=== PATIENT | female | born 1930 | race Asian ===

== ENCOUNTER 2019-06-13 20:30 | Inpatient (IN) | payer MEDICARE, MEDICAID ==
[~2019-06-13] VITALS: Ht 152.4 cm; Wt 63.0 kg
--- NOTE | 2019-06-13 20:45 | NUR ---
ED Nurse Note: Pt is aaoX3, vss, with no acute diatress. Familymember at bedside. pt brought in by daughter c/o chest pain and right side pain. pt's daughter states pt's been having pain since ERCP done in . No skin issues.
[2019-06-13 20:50] VITALS: BP 84/52
--- NOTE | 2019-06-13 21:05 | Emergency Room Report ---
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 Last 1 was done at [facility] on April 19. She was brought in by her daughter because of complaint of weakness and abdominal pain. She also felt very nauseous every time to eat. Because of that she is not eating much and is losing weight. No fever or chills. Pain is to the right upper quadrant rating to her chest. Pain is 8 out of 10. Tylenol is not helping. Denies any fever chills but denies any diarrhea. Nothing made it better. Eating made it worse. Allergies: Coded Allergies: ACETAMINOPHEN (Verified Allergy, Unknown, 06/13/19) HYDROCODONE (Verified Allergy, Unknown, 06/13/19) Patient History Past Medical History: see triage record, old chart reviewed Past Surgical History: other Pertinent Family History: none Social History: Denies: smoking Now: No Immunizations: other Reviewed Nursing Documentation: PMH: Agreed; PSxH: Agreed Nursing Documentation-PMH Hx Hypertension: Yes Review of Systems Constitutional: Reports: malaise, weakness Eye: Denies: eye pain, blurred vision ENT: Denies: ear pain, nose congestion, throat swelling Respiratory: Denies: cough, shortness of breath Cardiovascular: Denies: chest pain, palpitations Gastrointestinal: Reports: abdominal pain; Denies: diarrhea, nausea, vomiting Musculoskeletal: Denies: back pain, joint pain Skin: Denies: rash Neurological: Denies: headache, numbness Endocrine: Denies: increased thirst, increased urine Hematologic/Lymphatic: Denies: easy bruising All Other Systems: negative except mentioned in HPI Physical Exam Vital Signs Date Time Temp Pulse Resp B/P (MAP) Pulse Ox O2 Delivery O2 Flow Rate FiO2 06/13/19 20:40 98.4 64 18 84/52 (63) 95 Room Air Vitals with hypotension Sp02 EP Interpretation: reviewed, normal General Appearance: no apparent distress, alert, thin Head: normocephalic, atraumatic Eyes: bilateral eye PERRL, bilateral eye EOMI, bilateral eye Scleral Injection ENT: hearing grossly normal, normal pharynx Neck: full range of motion, supple, no meningismus Respiratory: chest non-tender, lungs clear, normal breath sounds Cardiovascular #1: regular rate, rhythm, no murmur Gastrointestinal: normal bowel sounds, non tender, no mass, no organomegaly, no bruit, non-distended Musculoskeletal: back normal, normal range of motion, gait/station normal Psychiatric: mood/affect normal Medical Decision Making Diagnostic Impression: Primary Impression: Acute cholangitis Additional Impression: UTI (urinary tract infection) Qualified Codes: N30.00 - Acute cystitis without hematuria ER Course Patient presents with weakness and laboratory they show evidence of biliary obstruction. With decreased mentation and elevated white count, she has acute cholangitis. Based on previous OR note, she has biliary stenosis even with the stent. She had evidence of infection from previous surgery. Antibiotics ordered here. IV fluid given. Blood pressure is much improved after IV fluid. Patient will need to be admitted for IV antibiotics and GI consult. I discussed the case with Dr. Jack who will admit. Rhythm Strip Diag. Results EP Interpretation: yes Rate: 62 Rhythm: NSR, no PVC's, no ectopy Last Vital Signs Date Time Temp Pulse Resp B/P (MAP) Pulse Ox O2 Delivery O2 Flow Rate FiO2 06/13/19 20:40 98.4 64 18 84/52 (63) 95 Room Air Status: improved Disposition: ADMITTED INPATIENT Condition: Serious Phong Lopez MD Jun 13, 2019 21:05
[2019-06-13] MEDS ORDERED: Ketorolac 30mg Inj IV ONE (21:15)
[2019-06-13 21:20] VITALS: BP 124/49
[2019-06-13 21:41] LABS: HEMATOCRIT 29.9 % (37.0-47.0); HEMOGLOBIN 10.8 G/DL (12.0-16.0); MEAN CORPUSCULAR VOLUME 91 FL (80-99); PLATELET COUNT 229 K/UL (150-450); RED BLOOD COUNT 3.29 M/UL (4.20-5.40); RED CELL DISTRIBUTION WIDTH 10.4 % (11.6-14.8); WHITE BLOOD COUNT 21.8 K/UL (4.8-10.8)
[2019-06-13 21:58] LABS: ANION GAP 12 mmol/L (5-15); BLOOD UREA NITROGEN 29 mg/dL (7-18); CARBON DIOXIDE 24 MMOL/L (21-32); CHLORIDE 100 MMOL/L (98-107); CREATININE 2.2 MG/DL (0.55-1.30); POTASSIUM 4.3 MMOL/L (3.5-5.1); SODIUM 136 MMOL/L (136-145)
[2019-06-13] MEDS ORDERED: Piperacillin/Tazobactam 3.375 GM in NS 110 ML IVPB ONE (22:00)
[2019-06-13 22:08] LABS: ALANINE AMINOTRANSFERASE 72 U/L (12-78); ALBUMIN 2.5 G/DL (3.4-5.0); ALBUMIN/GLOBULIN RATIO 0.6 (1.0-2.7); ALKALINE PHOSPHATASE 749 U/L (46-116); ASPARTATE AMINO TRANSFERASE 84 U/L (15-37); BILIRUBIN,TOTAL 7.8 MG/DL (0.2-1.0)
[2019-06-13 22:12] LABS: BILIRUBIN,DIRECT 6.5 MG/DL (0.0-0.3)
[2019-06-13 22:30] VITALS: BP 123/47
[2019-06-13 22:44] LABS: APPEARANCE,URINE SLIGHTLY CLOUDY; BILIRUBIN, URINE 3+ (NEGATIVE); COLOR,URINE BROWN; GLUCOSE, URINE (UA) NEGATIVE (NEGATIVE); KETONES,URINE 1+ (NEGATIVE); LEUKOCYTE ESTERASE ,URINE 2+ (NEGATIVE); NITRITE,URINE POSITIVE (NEGATIVE); PH,URINE 5 (4.5-8.0); PROTEIN,URINE 3+ (NEGATIVE); UROBILINOGEN,URINE 8 MG/DL (0.0-1.0)
[2019-06-13] MEDS ORDERED: ALLOPURINOL100 M1 ORAL ×2 (23:20→23:23)
[2019-06-13] MEDS ORDERED: NAMENDA5 MG ORAL ×2 (23:20→23:23)
[2019-06-13] MEDS ORDERED: OMEPRAZOLE40 M1 ORAL (23:20)
[2019-06-13] MEDS ORDERED: CARVEDILOL6.25 MG ORAL ×2 (23:20→23:23)
[2019-06-13] MEDS ORDERED: ASPIR 8181 MG ORAL ×2 (23:20→23:23)
[2019-06-13] MEDS ORDERED: FERROUS SULFAT325 MG ORAL (23:20)
[2019-06-13] MEDS ORDERED: ZOFRAN ODT8 MG ORAL (23:23)
[2019-06-13] MEDS ORDERED: FUROSEMIDE40 MG ORAL (23:23)
[2019-06-13] MEDS ORDERED: ADALAT20 MG ORAL (23:23)
[2019-06-13] MEDS ORDERED: LOSARTAN POTAS100 MG ORAL (23:23)
[2019-06-13] MEDS ORDERED: CRESTOR10 M2 ORAL (23:23)
--- NOTE | 2019-06-13 23:25 | NUR ---
ED Nurse Note: Called for report MIGUELINA Scott said to call back 5min.
--- NOTE | 2019-06-13 23:35 | NUR ---
ED Nurse Note: Report given to MIGUELINA Morgan.
[2019-06-13 23:40] VITALS: BP 125/52
--- NOTE | 2019-06-13 23:50 | NUR ---
TRANSFER TO FLOOR: Patient transferred to Med Surg as ordered, per MD Marcie. Report given to MIGUELINA Morgan. Belongings and medications given to sherry Morgan RN. Family and or S/O informed of transfer.
--- NOTE | 2019-06-13 23:55 | NUR ---
NURSE NOTES: Recieved repert from Er Nurse MIGUELINA Upton at 2330 and patient arrives at the unit at 2355. Patient sleeping with no s/s of pain or respiratory distress. Patient arrived with daughter at the bed side .Pt vitals upon arrival BP 134/55 P 56 RR17 O2sat 95 at R/A T 97.8. Patients belongings list reviewed with daughter and also reviewed reconciled medications in the ER with Daughter. Daughter stated that gives the medication to patient at home
[2019-06-14] VITALS (7 sets, daily range): BP systolic 126–161; BP diastolic 55–62
--- NOTE | 2019-06-14 00:47 | NUR ---
NURSE NOTES: Called and left Msg for DR Jack regarding admission of the pt and to reconcile Meds, will call back in 30 minutes
[2019-06-14 05:48] LABS: HEMATOCRIT 30.5 % (37.0-47.0); MEAN CORPUSCULAR VOLUME 96 FL (80-99); PLATELET COUNT 210 K/UL (150-450); RED BLOOD COUNT 3.19 M/UL (4.20-5.40); RED CELL DISTRIBUTION WIDTH 11.7 % (11.6-14.8); WHITE BLOOD COUNT 14.1 K/UL (4.8-10.8)
[2019-06-14 06:09] LABS: ALANINE AMINOTRANSFERASE 61 U/L (12-78); ALBUMIN 2.2 G/DL (3.4-5.0); ALBUMIN/GLOBULIN RATIO 0.6 (1.0-2.7); ALKALINE PHOSPHATASE 647 U/L (46-116); ANION GAP 9 mmol/L (5-15); ASPARTATE AMINO TRANSFERASE 66 U/L (15-37); BILIRUBIN,TOTAL 6.8 MG/DL (0.2-1.0); BLOOD UREA NITROGEN 30 mg/dL (7-18); CALCIUM 8.6 MG/DL (8.5-10.1); CARBON DIOXIDE 26 MMOL/L (21-32); CHLORIDE 104 MMOL/L (98-107); CREATININE 2.1 MG/DL (0.55-1.30); POTASSIUM 3.9 MMOL/L (3.5-5.1); SODIUM 139 MMOL/L (136-145)
[2019-06-14 06:23] LABS: BILIRUBIN,DIRECT 5.7 MG/DL (0.0-0.3)
--- NOTE | 2019-06-14 07:49 | NUR ---
HAND-OFF: Report given to MIGUELINA Moreno.
--- NOTE | 2019-06-14 08:27 | NUR ---
NURSE NOTES: Received pt from MIGUELINA Dos Santos. pt was resting, no c/o pain. acute distress, planing for d/c today, call light w/in reach Addendum: 06/14/19 at 0829 by HARRIS ROBLEDO RN RN wrong patient
--- NOTE | 2019-06-14 08:32 | NUR ---
NURSE NOTES: Received pt from MIGUELINA Dos Santos. pt was sleeping daughter was at bed side. no acute distress. call light w/in reach
[2019-06-14] MEDS: Carvedilol 6.25mg Tab ORAL SCH ×2 (09:25→21:32)
[2019-06-14] MEDS: Allopurinol 100mg Tab ORAL SCH ×2 (09:25→18:27)
[2019-06-14] MEDS: Aspirin EC 81mg tab ORAL SCH (09:26)
[2019-06-14] MEDS: Losartan 50mg tab ORAL SCH (09:26)
[2019-06-14] MEDS: Memantine 5 MG TAB ORAL SCH ×2 (09:26→18:26)
[2019-06-14] MEDS: Heparin 5000 units/ml inj SUBQ SCH ×2 (09:29→21:33)
--- NOTE | 2019-06-14 10:00 | NUR ---
NURSE NOTES: Insert F/C due to urinary retention, 16 fr
--- NOTE | 2019-06-14 12:50 | Diagnostic Imaging Report ---
EXAM: US Abdomen Complete CLINICAL HISTORY: ABN LABS TECHNIQUE: Real-time ultrasound of the abdomen (complete) with image documentation. COMPARISON: No relevant prior studies available. FINDINGS: Liver: Suspect intrahepatic biliary ductal dilatation. Gallbladder: Gallbladder distention and tumefactive sludge or lesion. Suspect cholelithiasis as well. Common bile duct: See above. Pancreas: Pancreas is poorly visualized. Kidneys: Atrophic kidneys. Echogenic kidneys suggesting medical renal disease. Complex cysts are lesions in the kidneys. Spleen: No splenomegaly. Aorta: Aorta is obscured. Inferior vena cava: Unremarkable. IMPRESSION: 1. Gallbladder distention and tumefactive sludge or lesion. Suspect cholelithiasis as well. 2. Suspect intrahepatic biliary ductal dilatation.
[2019-06-14] MEDS: Piperacillin/Tazobactam 3.375 GM in NS 110 ML IVPB SCH (13:35)
--- NOTE | 2019-06-14 14:53 | NUR ---
CASE MANAGEMENT: INITIAL REVIEW 88 YO F PRESENTED TO OUR ED FROM HOME CC: CP. HAVING PAIN SINCE ERCP 04/19 PMHx: HTN. SI:CHOLANGITIS. T 98.4 HR 64 RR 18 B/P 84/52 SATS 95% ON RA LABS: WBC 21.8 BUN 29 CR 2.2 GLU 148 TBILI 7.8 DBILI 6.5 AST 84 ALP 749 IS: ZOFRAN IV X1 TORADOL IV X1 ZOSYN IV X1 EKG NSR, no PVC's, no ectopy ABD US IMPRESSION: Gallbladder distention and tumefactive sludge or lesion. Suspect cholelithiasis as well. Suspect intrahepatic biliary ductal dilatation. PATIENT ADMITTED TO MED/SURG 06/13/2019 @ 4760 DCP: PATIENT TO BE DISCHARGED TO HOME ONCE MEDICALLY CLEARED. PLAN OF CARE: GI EVAL Addendum: 06/14/19 at 1637 by Taya Tabor CM INTERQUAL MET
[2019-06-14] MEDS: 1/2NS w/KCl 20mEq 1000ml 1,000 ML IV SCH (15:02)
--- NOTE | 2019-06-14 15:34 | NUR ---
PT Note PT johnny completed, treatment initiated. Patient has muscle weakness and decreased balance, requiring assist in mobility and gait. patient needs PT to increase her muscle strength and balance to improve her functional mobility to enable her to return home. Addendum: 06/14/19 at 1535 by HOOD LANDIS PT Amended: Links added.
[2019-06-14] MEDS: Timolol 0.5% Op Soln 2.5ml BOTH EYES SCH (18:26)
--- NOTE | 2019-06-14 19:52 | NUR ---
HAND-OFF: Report given to MIGUELINA Wells, pt is stable condition.
--- NOTE | 2019-06-14 19:55 | NUR ---
NURSE NOTES: Received report from MIGUELINA Moreno. Patient alert, oriented, checked with MIGUELINA Moreno who speaks Estonian. Patient's daughter at bedside. No distress noted. Teixeira catheter patent, clear yellow urine. Bed in low position, locked, side rails up x2, call light within reach. Will continue to monitor.
[2019-06-14] MEDS: Morphine Sulfate 2mg/ml Inj(IV/IM USE ONLY) IVP PRN (20:08)
--- NOTE | 2019-06-14 20:30 | History and Physical Report ---
DATE OF ADMISSION: 06/13/2019 REASON FOR ADMISSION: Cholangitis. HISTORY OF PRESENT ILLNESS: The patient is an 88-year-old female presents with a history of biliary tract stenosis status post ERCP with history of stent. The patient recently discharged back in April at an outside facility. The patient presents with weakness and abdominal pain, also with associated nausea. Denies any fever or chills. The patient overall not improved. The patient was seen and evaluated. In the emergency room, felt to have cholangitis. The patient is comfortable overall. The patient is a fair historian, fairly acute in nature and prior medical issues were reviewed and discussed. The patient does have baseline dementia as well. No hematochezia. No hematemesis noted. No significant abdominal tenderness noted. PAST MEDICAL HISTORY: Notable for possible gout, hypercholesterolemia, hypertension, possible cardiomyopathy, dementia. MEDICATIONS: Reviewed. ALLERGIES: Reviewed. SOCIAL HISTORY: The patient is nonsmoker, nondrinker at present. The patient is retired. The patient is disabled. REVIEW OF SYSTEMS: The patient is a poor historian at present. PHYSICAL EXAMINATION: GENERAL: A well-developed female, overall without significant distress. VITAL SIGNS: Blood pressure 148/56, pulse 50, temperature 97.1, respiratory rate 18, sats 97%. HEENT: Overall negative. Extraocular movements are grossly intact. NECK: Supple. Neck is otherwise without jugular venous distention. LUNGS: Good air entry. No rhonchi or wheezes. CARDIAC: S1 and S2. Slightly bradycardic without murmurs, rubs, or gallops. ABDOMEN: Overall soft, nontender, nondistended. EXTREMITIES: No cyanosis, clubbing, or edema. NEUROLOGICAL: The patient is grossly nonfocal, but does have some baseline confusion. LABORATORY DATA: Reviewed. White count initially 21.8, hemoglobin 10, platelets 229. Chemistries noted. BUN and creatinine 30 and 2.1. The patient's liver enzymes are significantly elevated. Albumin is 2.2. IMPRESSION: 1. Transaminitis. 2. Cholangitis. 3. Possible acute versus chronic renal failure. 4. Leukocytosis. 5. Possible sepsis. 6. Anemia. RECOMMENDATION: 1. IV hydration, pain control, empiric antibiotics. 2. ID, GI, and Renal evaluations to follow. 3. Resume home medications. 4. Monitor blood pressure. 5. Monitor heart rate on carvedilol. 6. DVT prophylaxis and monitor closely. 7. Followup urinary cultures and adjust medications as needed. Roel Jack M.D. DR: Kurt JOB#: [id number] CC:
--- NOTE | 2019-06-14 20:30 | Consultation ---
DATE OF CONSULTATION: 06/14/2019 INFECTIOUS DISEASES CONSULTATION CONSULTING PHYSICIAN: Maryjane Cheng M.D. REFERRING PHYSICIAN: Roel Jack M.D. REASON FOR CONSULTATION: Fever. HISTORY OF PRESENTING ILLNESS: This is an 88-year-old lady with history of hypertension, hypercholesterolemia, biliary duct stenosis status post ERCP and stent placement, who came in because she has been having abdominal pain along with nausea and weakness. She was also not eating much and losing weight. There is a concern for cholangitis and an Infectious Diseases consultation has been obtained for antibiotics. PAST MEDICAL HISTORY: 1. History of hypertension. 2. Hypercholesterolemia. 3. History of biliary duct stenosis status post ERCP and biliary stent placement x2. SOCIAL HISTORY: She does not smoke, drink, or use drugs. FAMILY HISTORY: Noncontributory. REVIEW OF SYSTEMS: RESPIRATORY: She had fever and chills. No cough. No shortness of breath or chest pain. CARDIAC: No chest pain. No palpitation. No dizziness. No syncope. GI: She has nausea. No vomiting. She does have abdominal pain. No diarrhea. MEDICATIONS: As an inpatient, she is on atorvastatin, Zosyn, Protonix, subcutaneous heparin, allopurinol, aspirin, Coreg, Cozaar, Namenda, Zofran. ALLERGIES: 1. Acetaminophen. 2. Hydrocodone. PHYSICAL EXAMINATION: VITALS: On examination, temperature of 97.1, T-max of 98.4, pulse of 53, respiratory rate of 18, blood pressure 148/56, O2 saturation of 97%. HEENT EXAMINATION: Pupils equally reactive to light and accommodation. Mouth appears clean without thrush. NECK: Supple. No adenopathy. No JVD. CARDIOVASCULAR: Regular rate and rhythm. No murmurs. LUNGS: Clear to auscultation bilaterally. No crackles. No wheezes. ABDOMEN: Soft and nontender. No organomegaly. EXTREMITIES: No cyanosis, no clubbing, no edema. LABORATORY AND DIAGNOSTIC DATA: White count of 21.8 yesterday, white count of 14.1 today, hemoglobin 10, hematocrit 30.5, MCV 96, platelet count of 210,000. Sodium 139, potassium 3.9, chloride 104, bicarb 26, BUN 30, creatinine 2.1, glucose 108, calcium 8.6. Total bilirubin 6.8, direct bilirubin 5.7, AST 66, ALT 61, alkaline phosphatase 647, total protein 6.2, albumin 2.2, lipase of 106. UA is showing 10 to 15 white cells. Urine cultures are negative. ASSESSMENT: This is an 88-year-old lady with history of hypertension, hypercholesterolemia, biliary duct stenosis status post ERCP and stent placement, who comes in with fevers, nausea, and abdominal pain and poor eating and is found to have. 1. Likely cholangitis versus cholecystitis with elevated liver function tests. 2. Leukocytosis is improving. 3. Hypertension. 4. Hypercholesterolemia. PLAN: 1. Continue Zosyn. 2. We will order an ultrasound of the abdomen. 3. We would suggest a GI evaluation. 4. We will follow up cultures. 5. We will order blood cultures. I would like to thank, Dr. Jack for this consultation. Maryjane Cheng M.D. DR: SUSANNAH JOB#: [id number] CC: Roel Jack M.D.; Fax#: [phone]
[2019-06-14] MEDS: Atorvastatin 20mg tab ORAL SCH (21:31)
--- NOTE | 2019-06-14 22:00 | Consultation ---
DATE OF CONSULTATION: 06/14/2019 NEPHROLOGY CONSULTATION REASON FOR CONSULTATION: Elevated BUN and creatinine. HISTORY OF PRESENT ILLNESS: The patient is a 88-year-old Kiswahili lady, who presents with cholecystitis and elevated BUN and creatinine. There is apparently history of hypertension and dementia and prior cholecystitis status post cholecystotomy at another hospital last year. Apparently, she had endoscopic retrograde cholangiopancreatography and biliary stent x2. It is not clear if she had a cholecystotomy and that was apparently in [facility] in April of this year. She has had anorexia, weakness, and abdominal pain. Poor oral intake. Of note, she has been on Lasix for leg edema, but the family is not aware of any congestive heart failure. She has had irregular heartbeats according to the family. ALLERGIES: Intolerance to [place] given prior, but no rash, just nausea. HOME MEDICATIONS: Listed on the computer include allopurinol, aspirin, carvedilol, ferrous sulfate, Lasix, losartan, Namenda, nifedipine, omeprazole, ondansetron, and rosuvastatin. PAST SURGICAL HISTORY: Right hip fracture, cataract, and biliary procedure. SYSTEM REVIEW: The patient is a poor historian. Taken from the daughter. HEAD, EYES, EARS, NOSE, AND THROAT: She has visual and hearing impairment mild. ENDOCRINE: No known diabetes or thyroid disease. PULMONARY: No chronic cough, asthma, or TB. CARDIAC: No angina or [place]. She has had irregular heartbeats and leg edema. GASTROINTESTINAL: See history of present illness. GENITOURINARY: She has had some difficulty voiding and a Teixeira catheter was placed with some urinary retention on this admission. NEUROLOGIC: No CVA, but she has been on treatment for dementia. MUSCULOSKELETAL: No history of inflamed joints. She had a prior right hip fracture. She walk short distances at home. PHYSICAL EXAMINATION: GENERAL: The patient is chronically ill-appearing elderly lady, lying in bed. VITAL SIGNS: Temperature 97.4, pulse 53, respirations 18, and blood pressure 148/56. HEENT: There is ptosis bilaterally. Ocular motions intact in all directions. Oral mucosa is dry. There is scleral icterus. SKIN: Shows icterus. NECK: No adenopathy. LUNGS: Clear. HEART: Rhythm is regular with some ectopic beats. A 1/6 systolic ejection murmur. ABDOMEN: Soft. I am unable to feel liver or spleen. There is no tenderness at this time. EXTREMITIES: No edema. There is muscle atrophy. NEUROLOGIC: The patient is awake and lethargic. Ocular motion is intact in all directions. Smile symmetric. She moves all extremities. PERTINENT LABORATORY DATA: Show normal electrolytes, BUN 30, creatinine 2.1, and calcium is 8.6. Total bilirubin 6.8. AST 66 and ALT 61. Albumin is 2.2. Urinalysis is dark urine, 3+ protein, 0 to 2 rbc's, and 10 to 15 wbc's per high power field. Ultrasound showed biliary sludge and atrophic echogenic kidneys. IMPRESSION: 1. Acute cholecystitis. 2. Chronic kidney disease stage 4. 3. Acute kidney injury may be due to dehydration. 4. Pyuria possibly urinary tract infection. 5. Some urinary retention. PLAN: We will continue on hydration, broad-spectrum antibiotics, and we will need to make decisions on procedures for her gallbladder. Keep the Teixeira for now until we can see the response of her renal function with a voiding trial in a few days. Shiva Bowen M.D. DR: JARRETT JOB#: [id number] CC:
--- NOTE | 2019-06-14 22:04 | NUR ---
NURSE NOTES: Obtained container from lab and set up for 24 HR urine collection. Patient and family aware, signs posted.
[2019-06-15] VITALS: BP 143/51
[2019-06-15] MEDS: Piperacillin/Tazobactam 3.375 GM in NS 110 ML IVPB SCH ×2 (00:38→11:27)
[2019-06-15] MEDS: 1/2NS w/KCl 20mEq 1000ml 1,000 ML IV SCH ×3 (00:47→22:23)
--- NOTE | 2019-06-15 02:02 | NUR ---
NURSE NOTES: Asleep.
[2019-06-15 04:55] VITALS: BP 131/50
--- NOTE | 2019-06-15 05:00 | NUR ---
NURSE NOTES: [place] phone at bedside. Patient's daughter assisting with patient's oral care and washing up.
--- NOTE | 2019-06-15 05:04 | NUR ---
NURSE NOTES: Refused lab draw.
[2019-06-15] MEDS: Morphine Sulfate 2mg/ml Inj(IV/IM USE ONLY) IVP PRN ×2 (05:06→17:50)
--- NOTE | 2019-06-15 07:15 | NUR ---
HAND-OFF: Report given to MIGUELINA Moreno. Aware of 24 HR urine collection. Rounds done.
--- NOTE | 2019-06-15 07:58 | NUR ---
NURSE NOTES: Received pt from MIGUELINA Farias. pt was sleeping no acute distress, urine collection was in place. call light w/in reach.
[2019-06-15 08:00] VITALS: BP 144/58
[2019-06-15] MEDS: Timolol 0.5% Op Soln 2.5ml BOTH EYES SCH ×2 (08:48→17:50)
[2019-06-15] MEDS: Aspirin EC 81mg tab ORAL SCH (08:49)
[2019-06-15] MEDS: Losartan 50mg tab ORAL SCH (08:49)
[2019-06-15] MEDS: Memantine 5 MG TAB ORAL SCH ×2 (08:49→17:45)
[2019-06-15] MEDS: Carvedilol 6.25mg Tab ORAL SCH ×2 (08:49→22:27)
[2019-06-15] MEDS: Allopurinol 100mg Tab ORAL SCH ×2 (08:50→17:45)
[2019-06-15] MEDS: Heparin 5000 units/ml inj SUBQ SCH ×2 (08:51→22:29)
--- NOTE | 2019-06-15 11:37 | General Progress Note ---
Assessment/Plan Assessment/Plan: 1. Transaminitis. 2. Cholangitis. 3. Possible acute versus chronic renal failure. 4. Leukocytosis. 5. Possible sepsis. 6. Anemia. PLAN ID noted renal noted await GI antibiotics care as is dc once stable and cleared impression, plan, and exam edited and reviewed in detail care discussed with RN Subjective ROS Limited/Unobtainable: Yes Allergies: Coded Allergies: ACETAMINOPHEN (Verified Allergy, Unknown, 06/13/19) HYDROCODONE (Verified Allergy, Unknown, 06/13/19) Subjective confused no distress mild pain Objective Last 24 Hour Vital Signs Date Time Temp Pulse Resp B/P (MAP) Pulse Ox O2 Delivery O2 Flow Rate FiO2 06/15/19 08:50 56 144/58 06/15/19 08:49 144/58 06/15/19 08:49 56 144/58 06/15/19 08:09 Room Air 06/15/19 08:00 97.9 56 18 144/58 (86) 95 06/15/19 04:55 97.3 60 18 131/50 (77) 96 06/15/19 00:00 99.0 62 16 143/51 (81) 96 06/14/19 21:32 64 144/62 06/14/19 21:00 Room Air 06/14/19 20:00 97.3 61 18 148/58 (88) 94 06/14/19 16:00 97.8 60 18 126/56 (79) 95 06/14/19 15:02 87 161/60 06/14/19 12:00 98.7 70 18 161/62 (95) 93 Intake and Output 06/14/19 06/15/19 19:00 07:00 Intake Total 100 ml 1200 ml Output Total 500 ml 500 ml Balance -400 ml 700 ml IV Total 100 ml 1200 ml Output Urine Total 500 ml 500 ml Height (Feet): 5 Height (Inches): 4.00 Weight (Pounds): 139 Objective WDWN NAD clear breath sounds bilaterally without rhonchi or wheeze [id number] without MRG NABS mildly tender no HSM no CCE nonfocal Roel Jack MD Jun 15, 2019 11:37
[2019-06-15 12:00] VITALS: BP 121/57
--- NOTE | 2019-06-15 14:17 | Nephrology Progress Note ---
Assessment/Plan Problem List: (1) Urinary retention (2) Hypertensive nephrosclerosis (3) Dehydration (4) CKD (chronic kidney disease) stage 5, GFR less than 15 ml/min (5) Obstructive jaundice (6) Acute cholangitis Plan continue hydration, antibiotics, trend lab, may need ercp and/or cholecystotomy Subjective Constitutional: Reports: weakness HEENT: Reports: no symptoms Genitourinary: Reports: incontinence Neurologic/Psychiatric: Reports: pre-existing deficit Subjective points to ruq pain Objective Objective Last 24 Hour Vital Signs Date Time Temp Pulse Resp B/P (MAP) Pulse Ox O2 Delivery O2 Flow Rate FiO2 06/15/19 12:00 98.2 51 18 121/57 (78) 95 06/15/19 08:50 56 144/58 06/15/19 08:49 144/58 06/15/19 08:49 56 144/58 06/15/19 08:09 Room Air 06/15/19 08:00 97.9 56 18 144/58 (86) 95 06/15/19 04:55 97.3 60 18 131/50 (77) 96 06/15/19 00:00 99.0 62 16 143/51 (81) 96 06/14/19 21:32 64 144/62 06/14/19 21:00 Room Air 06/14/19 20:00 97.3 61 18 148/58 (88) 94 06/14/19 16:00 97.8 60 18 126/56 (79) 95 06/14/19 15:02 87 161/60 Intake and Output 06/14/19 06/15/19 19:00 07:00 Intake Total 100 ml 1200 ml Output Total 500 ml 500 ml Balance -400 ml 700 ml IV Total 100 ml 1200 ml Output Urine Total 500 ml 500 ml Height (Feet): 5 Height (Inches): 4.00 Weight (Pounds): 139 General Appearance: no apparent distress EENT: other - icteric Neck: normal alignment Cardiovascular: normal rate, regular rhythm Respiratory/Chest: lungs clear, normal breath sounds Abdomen: non tender Extremities: trace edema 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
[2019-06-15 16:00] VITALS: BP 137/52
--- NOTE | 2019-06-15 16:00 | Consultation ---
DATE OF CONSULTATION: 06/15/2019 CHIEF COMPLAINT: Abdominal pain. HISTORY OF PRESENT ILLNESS: The patient is an 88-year-old [place] female with past medical history of biliary stricture requiring ERCPs in the past and stenting according to the chart, presents to the hospital complaining of nausea, vomiting, and abdominal pain, signs and symptoms consistent with cholangitis. PAST MEDICAL HISTORY: 1. Gout. 2. Hypercholesterolemia. 3. Hypertension. 4. Cardiomyopathy. 5. Dementia. 6. Biliary stricture requiring stenting. ALLERGIES: To acetaminophen and hydrocodone. MEDICATIONS: Please see medication reconciliation list. SOCIAL HISTORY: She has no recent history of tobacco, alcohol, or drug abuse. FAMILY HISTORY: Noncontributory. REVIEW OF SYSTEMS: Limited. PHYSICAL EXAMINATION: VITAL SIGNS: Temperature is 97.3 degrees, pulse 60, respirations 18, and blood pressure 131/50. HEENT: Normocephalic and atraumatic. Mild scleral icterus. NECK: Supple. No evidence of obvious lymphadenopathy. CARDIOVASCULAR: Tachy. Regular rate. Plus S1 and S2. LUNGS: Decreased breath sounds bilaterally based on spine exam. ABDOMEN: Soft. Bowel sounds are hypoactive. There is tenderness to palpation in the epigastric area. No rebound. No guarding. No peritoneal sign. EXTREMITIES: No cyanosis. No clubbing. No edema. LABORATORY DATA: White count 14, hemoglobin 10, hematocrit 30, and platelet count 210,000. Chem-7, sodium is 139, potassium 3.9. 6.8. Alkaline phosphatase is 647. ASSESSMENT: An 88-year-old female with history of biliary stricture, now presents with jaundice and cholangitis with ultrasound consistent with dilated common bile duct. PLAN: 1. Antibiotics. 2. NPO. 3. IV fluids for hydration. 4. Needs ERCP, we will plan for possibly tomorrow. I want to thank Dr. Jack for this kind referral. Tashi Hope M.D. DR: Brenda JOB#: [id number] CC:
--- NOTE | 2019-06-15 19:00 | NUR ---
NURSE NOTES: Received report from RN Josh pt Alert and awake, breaths even regular unlabored , denies any pain. I.v site on L hand with i.v fluids running, patent and asymptomatic denies any pain. will continue to monitor
--- NOTE | 2019-06-15 19:43 | NUR ---
HAND-OFF: Report given to MIGUELINA Arango. pt is stable condition.
[2019-06-15 20:00] VITALS: BP 157/67
[2019-06-15] MEDS: Atorvastatin 20mg tab ORAL SCH (22:23)
[2019-06-15 23:48] LABS: CREATININE 2.1 MG/DL (0.55-1.30)
[2019-06-16] VITALS (14 sets, daily range): BP systolic 107–174; BP diastolic 56–95
[2019-06-16] MEDS: Piperacillin/Tazobactam 3.375 GM in NS 110 ML IVPB SCH ×3 (03:24→23:29)
[2019-06-16] MEDS: 1/2NS w/KCl 20mEq 1000ml 1,000 ML IV SCH ×2 (07:00→08:44)
--- NOTE | 2019-06-16 07:45 | NUR ---
NURSE NOTES: awake/alert. pain scale 8/10. npo maintained for ercp. in no acute distress.
--- NOTE | 2019-06-16 07:49 | NUR ---
HAND-OFF: Report given to MIGUELINA Regalado
--- NOTE | 2019-06-16 08:28 | General Progress Note ---
Assessment/Plan Assessment/Plan: 1. Transaminitis. 2. Cholangitis. 3. Possible acute versus chronic renal failure. 4. Leukocytosis. 5. Possible sepsis. 6. Anemia. PLAN ID noted renal noted discussed with GI antibiotics await further recommendations dc once stable and cleared impression, plan, and exam edited and reviewed in detail care discussed with RN Subjective Allergies: Coded Allergies: ACETAMINOPHEN (Verified Allergy, Unknown, 06/13/19) HYDROCODONE (Verified Allergy, Unknown, 06/13/19) Subjective confused no distress mild pain Objective Last 24 Hour Vital Signs Date Time Temp Pulse Resp B/P (MAP) Pulse Ox O2 Delivery O2 Flow Rate FiO2 06/16/19 04:00 97.6 56 19 144/57 (86) 96 06/16/19 00:00 98.0 55 18 153/56 (88) 96 06/15/19 22:27 58 157/67 06/15/19 21:00 Room Air 06/15/19 20:00 98.4 58 19 157/67 (97) 95 06/15/19 16:00 98.4 54 18 137/52 (80) 97 06/15/19 12:00 98.2 51 18 121/57 (78) 95 06/15/19 08:50 56 144/58 06/15/19 08:49 144/58 06/15/19 08:49 56 144/58 Intake and Output 06/15/19 06/16/19 19:00 07:00 Intake Total 100 ml Output Total 450 ml 1000 ml Balance -450 ml -900 ml IV Total 100 ml Output Urine Total 450 ml 1000 ml Height (Feet): 5 Height (Inches): 4.00 Weight (Pounds): 139 Objective WDWN NAD clear breath sounds bilaterally without rhonchi or wheeze [id number] without MRG NABS mildly tender no HSM no CCE nonfocal Roel Jack MD Jun 16, 2019 08:28
[2019-06-16] MEDS: Timolol 0.5% Op Soln 2.5ml BOTH EYES SCH ×2 (08:36→17:49)
[2019-06-16] MEDS: Allopurinol 100mg Tab ORAL SCH ×2 (09:00→17:49)
[2019-06-16] MEDS: Aspirin EC 81mg tab ORAL SCH (09:00)
[2019-06-16] MEDS: Losartan 50mg tab ORAL SCH (09:00)
[2019-06-16] MEDS: Heparin 5000 units/ml inj SUBQ SCH ×2 (09:00→21:00)
[2019-06-16] MEDS: Memantine 5 MG TAB ORAL SCH ×2 (09:00→17:49)
[2019-06-16] MEDS: Carvedilol 6.25mg Tab ORAL SCH ×2 (09:00→21:05)
[2019-06-16 09:35] LABS: BASOPHILS % (AUTO) 0.5 % (0.0-2.0); EOSINOPHILS % (AUTO) 1.3 % (0.0-3.0); HEMATOCRIT 28.9 % (37.0-47.0); HEMOGLOBIN 9.2 G/DL (12.0-16.0); LYMPHOCYTES % (AUTO) 14.2 % (20.0-45.0); MEAN CORPUSCULAR VOLUME 99 FL (80-99); MONOCYTES % (AUTO) 3.7 % (1.0-10.0); NEUTROPHILS % (AUTO) 80.2 % (45.0-75.0); PLATELET COUNT 220 K/UL (150-450); RED CELL DISTRIBUTION WIDTH 12.7 % (11.6-14.8); WHITE BLOOD COUNT 10.7 K/UL (4.8-10.8)
[2019-06-16 10:57] LABS: ALANINE AMINOTRANSFERASE 42 U/L (12-78); ALBUMIN 1.8 G/DL (3.4-5.0); ALBUMIN/GLOBULIN RATIO 0.4 (1.0-2.7); ALKALINE PHOSPHATASE 608 U/L (46-116); AMYLASE 33 U/L (25-115); ANION GAP 14 mmol/L (5-15); ASPARTATE AMINO TRANSFERASE 46 U/L (15-37); BILIRUBIN,TOTAL 2.3 MG/DL (0.2-1.0); BLOOD UREA NITROGEN 26 mg/dL (7-18); CALCIUM 8.7 MG/DL (8.5-10.1); CARBON DIOXIDE 16 MMOL/L (21-32); CHLORIDE 105 MMOL/L (98-107); CREATININE 1.7 MG/DL (0.55-1.30); POTASSIUM 5.8 MMOL/L (3.5-5.1); SODIUM 135 MMOL/L (136-145)
--- NOTE | 2019-06-16 11:00 | NUR ---
NURSE NOTES: GLUCOSE 39. DR Renée MARTÍNEZ CALLED LEFT MESSAGE TO RETURN CALL.
[2019-06-16 11:01] LABS: BILIRUBIN,DIRECT 1.7 MG/DL (0.0-0.3)
--- NOTE | 2019-06-16 11:08 | Infectious Diseases Prog Note ---
Assessment/Plan Assessment/Plan antibiotics : zosyn A 1. cholangitis 2. ? cholecystitis 3. hypertension 4. biliary duct stenosis 5. leucocytosis resolved P 1. continue zosyn 2. HIDA scan 3. will follow up cultures Subjective Constitutional: Denies: fever, chills Respiratory: Denies: shortness of breath, dry cough Gastrointestinal/Abdominal: Denies: vomiting Musculoskeletal: Reports: pain - in abdomen Allergies: Coded Allergies: ACETAMINOPHEN (Verified Allergy, Unknown, 06/13/19) HYDROCODONE (Verified Allergy, Unknown, 06/13/19) Objective Vital Signs Last 24 Hour Vital Signs Date Time Temp Pulse Resp B/P (MAP) Pulse Ox O2 Delivery O2 Flow Rate FiO2 06/16/19 09:32 Room Air 06/16/19 09:00 51 107/65 06/16/19 09:00 107/65 06/16/19 09:00 51 107/65 06/16/19 08:00 97.5 51 107/65 (79) 16 06/16/19 04:00 97.6 56 19 144/57 (86) 96 06/16/19 00:00 98.0 55 18 153/56 (88) 96 06/15/19 22:27 58 157/67 06/15/19 21:00 Room Air 06/15/19 20:00 98.4 58 19 157/67 (97) 95 06/15/19 16:00 98.4 54 18 137/52 (80) 97 06/15/19 12:00 98.2 51 18 121/57 (78) 95 Height (Feet): 5 Height (Inches): 4.00 Weight (Pounds): 139 Respiratory/Chest: lungs clear Cardiovascular: normal rate, regular rhythm, no gallop/murmur Abdomen: tender - RUQ tenderness Extremities: no edema Microbiology Date/Time Source Procedure Growth Status 06/14/19 11:08 Blood Blood Culture - Preliminary NO GROWTH AFTER 24 HOURS Resulted 06/13/19 22:32 Urine,Clean Catch Urine Culture - Final NO GROWTH AFTER 48 HOURS Complete Laboratory Tests Test 06/16/19 09:25 06/16/19 10:20 White Blood Count 10.7 K/UL (4.8-10.8) Red Blood Count 2.90 M/UL (4.20-5.40) L Hemoglobin 9.2 G/DL (12.0-16.0) L Hematocrit 28.9 % (37.0-47.0) L Mean Corpuscular Volume 99 FL (80-99) Mean Corpuscular Hemoglobin 31.6 PG (27.0-31.0) H Mean Corpuscular Hemoglobin Concent 31.8 G/DL (32.0-36.0) L Red Cell Distribution Width 12.7 % (11.6-14.8) Platelet Count 220 K/UL (150-450) Mean Platelet Volume 6.9 FL (6.5-10.1) Neutrophils (%) (Auto) 80.2 % (45.0-75.0) H Lymphocytes (%) (Auto) 14.2 % (20.0-45.0) L Monocytes (%) (Auto) 3.7 % (1.0-10.0) Eosinophils (%) (Auto) 1.3 % (0.0-3.0) Basophils (%) (Auto) 0.5 % (0.0-2.0) Sodium Level 135 MMOL/L (136-145) L Potassium Level 5.8 MMOL/L (3.5-5.1) H Chloride Level 105 MMOL/L (98-107) Carbon Dioxide Level 16 MMOL/L (21-32) L Anion Gap 14 mmol/L (5-15) Blood Urea Nitrogen 26 mg/dL (7-18) H Creatinine 1.7 MG/DL (0.55-1.30) H Estimat Glomerular Filtration Rate mL/min (>60) Glucose Level 39 MG/DL (74-106) *L Calcium Level 8.7 MG/DL (8.5-10.1) Total Bilirubin 2.3 MG/DL (0.2-1.0) H Direct Bilirubin 1.7 MG/DL (0.0-0.3) H Aspartate Amino Transf (AST/SGOT) 46 U/L (15-37) H Alanine Aminotransferase (ALT/SGPT) 42 U/L (12-78) Alkaline Phosphatase 608 U/L (46-116) H Total Protein 5.8 G/DL (6.4-8.2) L Albumin 1.8 G/DL (3.4-5.0) L Globulin 4.0 g/dL Albumin/Globulin Ratio 0.4 (1.0-2.7) L Amylase Level 33 U/L (25-115) Lipase 150 U/L (73-393) Current Medications Medications (Trade) Dose Ordered Sig/Manny Route PRN Reason Start Time Stop Time Status Last Admin Dose Admin Allopurinol (Zyloprim) 100 mg BID ORAL 06/14/19 09:00 07/14/19 08:59 06/15/19 17:45 Amlodipine Besylate (Norvasc) 5 mg DAILY ORAL 06/14/19 14:00 07/14/19 13:59 06/15/19 08:50 Aspirin (Ecotrin) 81 mg DAILY ORAL 06/14/19 09:00 07/14/19 08:59 06/15/19 08:49 Atorvastatin Calcium (Lipitor) 20 mg BEDTIME ORAL 06/14/19 21:00 07/14/19 20:59 06/15/19 22:23 Carvedilol (Coreg) 6.25 mg EVERY 12 HOURS ORAL 06/14/19 09:00 07/14/19 08:59 06/15/19 22:27 Heparin Sodium (Porcine) (Heparin 5000 units/ml) 5,000 units EVERY 12 HOURS SUBQ 06/14/19 09:00 07/14/19 08:59 06/15/19 22:29 Losartan Potassium (Cozaar) 50 mg DAILY ORAL 06/14/19 09:00 07/14/19 08:59 06/15/19 08:49 Memantine (Namenda) 5 mg BID ORAL 06/14/19 09:00 07/14/19 08:59 06/15/19 17:45 Morphine Sulfate (Morphine Sulfate) 1 mg Q4H PRN IVP PAIN 4-10 06/14/19 18:15 06/21/19 18:14 06/15/19 17:50 Ondansetron HCl (Zofran ODT) 4 mg Q6H PRN ORAL Nausea & Vomiting 06/14/19 04:15 07/14/19 04:14 06/14/19 20:04 Pantoprazole (Protonix) 40 mg DAILY ORAL 06/14/19 09:00 07/14/19 08:59 06/15/19 08:50 Piperacillin Sod/ Tazobactam Sod 3.375 gm/Sodium Chloride 110 ml @ 27.5 mls/hr Q12H IVPB 06/14/19 12:00 06/21/19 11:59 06/16/19 03:24 Sodium 1,000 ml @ 100 mls/hr Q10H IV 06/14/19 15:00 07/14/19 14:59 06/16/19 08:44 Timolol Maleate (Timoptic 0.5% Op Soln) 1 drop TWICE A DAY BOTH EYES 06/14/19 18:00 07/14/19 17:59 06/16/19 08:36 Maryjane Cheng MD Jun 16, 2019 11:08
[2019-06-16] MEDS ORDERED: Sodium Polystyrene Sulfonate 15gm Powder ORAL SCH (11:45)
--- NOTE | 2019-06-16 11:54 | NUR ---
NURSE NOTES: D30 IAMP GIVEN IV ORDERED FOR BS OF 39. WILL RECHECK BS AFTER.
--- NOTE | 2019-06-16 12:10 | NUR ---
NURSE NOTES: KAYEXALATE 30GM ENEMA GIVEN ORDERED FOR K 5.8.
[2019-06-16] MEDS ORDERED: Sodium Polystyrene Sulfonate Enema RECTAL SCH ×2 (12:15→12:30)
--- NOTE | 2019-06-16 12:24 | NUR ---
NURSE NOTES: DR MARTÍNEZ RETURNED CALL WITH ORDER.
--- NOTE | 2019-06-16 12:41 | NUR ---
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 97.5 HR 51 RR 16 B/P 107/60 NA 135 K 5.8 BUN 26 CR 1.7 GLU 39 ALK PHOS 609 IS: NS @ 100ML/HR ZOSYN IV ERCP MED/SURG STATUS
--- NOTE | 2019-06-16 12:45 | NUR ---
NURSE NOTES: blood sugar rechecked 117. in no distress.
[2019-06-16 13:04] LABS: ANION GAP 14 mmol/L (5-15); BLOOD UREA NITROGEN 26 mg/dL (7-18); CALCIUM 8.5 MG/DL (8.5-10.1); CARBON DIOXIDE 15 MMOL/L (21-32); CHLORIDE 104 MMOL/L (98-107); CREATININE 1.6 MG/DL (0.55-1.30); POTASSIUM 5.1 MMOL/L (3.5-5.1); SODIUM 133 MMOL/L (136-145)
--- NOTE | 2019-06-16 13:12 | Anethesia Preoperative Eval ---
Anesthesia Pre-op PMH/ROS General Date of Evaluation: Jun 16, 2019 Time of Evaluation: 13:11 Anesthesiologist: lazara ASA Score: ASA 3 Mallampati Score Class I : Soft palate, uvula, fauces, pillars visible Class II: Soft palate, uvula, fauces visible Class III: Soft palate, base of uvula visible Class IV: Only hard plate visible Mallampati Classification: Class II Surgeon: jayson Diagnosis: Cholingitis Surgical Procedure: ERCP Anesthesia History: none Allergies: Coded Allergies: ACETAMINOPHEN (Verified Allergy, Unknown, 06/13/19) HYDROCODONE (Verified Allergy, Unknown, 06/13/19) Medications: see eMAR Patient NPO?: Yes NPO Date: Jun 16, 2019 NPO Time: 00:01 Past Medical History Cardiovascular: Reports: HTN; Denies: CAD, NM, valve dz, arrhythmia, other Pulmonary: Denies: asthma, COPD, ROBERTO, other Gastrointestinal/Genitourinary: Reports: CRI; Denies: GERD, ESRD, other Neurologic/Psychiatric: Denies: dementia, CVA, depression/anxiety, TIA, other Endocrine: Denies: DM, hypothyroidism, steroids, other HEENT: Denies: cataract (L), cataract (R), glaucoma, [place] (L), [place] (R), other Hematology/Immune: Denies: anemia, DVT, bleeding disorder, other Musculoskeletal/Integumentary: Denies: OA, RA, DJD, DDD, edema, other PMH Narrative: Problem List: (1) Urinary retention (2) Hypertensive nephrosclerosis (3) Dehydration (4) CKD (chronic kidney disease) stage 5, GFR less than 15 ml/min (5) Obstructive jaundice (6) Acute cholangitis Plan PSxH Narrative: see list Anesthesia Pre-op Phys. Exam Physician Exam Last Vital Signs Date Time Temp Pulse Resp B/P (MAP) Pulse Ox O2 Delivery O2 Flow Rate FiO2 06/16/19 09:32 Room Air 06/16/19 09:00 51 107/65 06/16/19 08:00 97.5 51 16 Constitutional: NAD Neurologic: other - oriented to person Cardiovascular: RRR Respiratory: CTA Gastrointestinal: S/NT/ND Airway Exam Mallampati Classification 2 Mallampati Score: Class II MO: limited ROM: limited Dentures: upper Anesthesia Pre-op A/P Labs Hematology Test 12/16/19 09:25 White Blood Count 10.7 K/UL (4.8-10.8) Red Blood Count 2.90 M/UL (4.20-5.40) L Hemoglobin 9.2 G/DL (12.0-16.0) L Hematocrit 28.9 % (37.0-47.0) L Mean Corpuscular Volume 99 FL (80-99) Mean Corpuscular Hemoglobin 31.6 PG (27.0-31.0) H Mean Corpuscular Hemoglobin Concent 31.8 G/DL (32.0-36.0) L Red Cell Distribution Width 12.7 % (11.6-14.8) Platelet Count 220 K/UL (150-450) Mean Platelet Volume 6.9 FL (6.5-10.1) Neutrophils (%) (Auto) 80.2 % (45.0-75.0) H Lymphocytes (%) (Auto) 14.2 % (20.0-45.0) L Monocytes (%) (Auto) 3.7 % (1.0-10.0) Eosinophils (%) (Auto) 1.3 % (0.0-3.0) Basophils (%) (Auto) 0.5 % (0.0-2.0) Chemistry Test 06/16/19 10:20 06/16/19 12:25 Sodium Level 135 MMOL/L (136-145) L 133 MMOL/L (136-145) L Potassium Level 5.8 MMOL/L (3.5-5.1) H 5.1 MMOL/L (3.5-5.1) Chloride Level 105 MMOL/L (98-107) 104 MMOL/L (98-107) Carbon Dioxide Level 16 MMOL/L (21-32) L 15 MMOL/L (21-32) L Anion Gap 14 mmol/L (5-15) 14 mmol/L (5-15) Blood Urea Nitrogen 26 mg/dL (7-18) H 26 mg/dL (7-18) H Creatinine 1.7 MG/DL (0.55-1.30) H 1.6 MG/DL (0.55-1.30) H Estimat Glomerular Filtration Rate mL/min (>60) mL/min (>60) Glucose Level 39 MG/DL (74-106) *L 146 MG/DL (74-106) #H Calcium Level 8.7 MG/DL (8.5-10.1) 8.5 MG/DL (8.5-10.1) Total Bilirubin 2.3 MG/DL (0.2-1.0) H Direct Bilirubin 1.7 MG/DL (0.0-0.3) H Aspartate Amino Transf (AST/SGOT) 46 U/L (15-37) H Alanine Aminotransferase (ALT/SGPT) 42 U/L (12-78) Alkaline Phosphatase 608 U/L (46-116) H Total Protein 5.8 G/DL (6.4-8.2) L Albumin 1.8 G/DL (3.4-5.0) L Globulin 4.0 g/dL Albumin/Globulin Ratio 0.4 (1.0-2.7) L Amylase Level 33 U/L (25-115) Lipase 150 U/L (73-393) Studies Pre-op Studies: EKG - SR Risk Assessment & Plan Plan: MAC Status Change Before Surgery: No Pre-Antibiotics Drug: none Solange Glasgow CRNA Jun 16, 2019 13:12
[2019-06-16] MEDS ORDERED: fentaNYL 100 mcg/2 mL IV PRN ×2 (13:15→14:15)
--- NOTE | 2019-06-16 13:17 | NUR ---
NURSE NOTES: to gi lab via [facility] for ERCP.
[2019-06-16] MEDS ORDERED: NS 500ML IVPB ONE (13:25)
[2019-06-16] MEDS ORDERED: ePHEDrine 50mg/ml Inj ONE (13:30)
[2019-06-16] MEDS ORDERED: Glycopyrrolate 0.2mg/ml 1ml Vial ONE (13:30)
[2019-06-16] MEDS ORDERED: fentaNYL 100 mcg/2 mL IV ONE (13:30)
[2019-06-16] MEDS ORDERED: Midazolam 2mg/2ml Inj ONE (13:30)
[2019-06-16] MEDS ORDERED: Propofol 200mg/20ml IV ONE (13:30)
--- NOTE | 2019-06-16 13:32 | Pre-Procedure Note/Attestation ---
Pre-Procedure Note/Attestation Complete Prior to Procedure Planned Procedure: not applicable Procedure Narrative: ERCP Indications for Procedure Pre-Operative Diagnosis: himanshu Attestation I attest that I discussed the nature of the procedure; its benefits; risks and complications; and alternatives (and the risks and benefits of such alternatives ), prior to the procedure, with the patient (or the patient's legal door to door sales representative). I attest that, if there was a reasonable possibility of needing a blood transfusion, the patient (or the patient's legal door to door sales representative) was given the [facility] standardized written summary, pursuant to the [place] Blood Safety Act ([place] Health and Safety Code # 1645, as amended). I attest that I re-evaluated the patient just prior to the surgery and that there has been no change in the patient's H&P, except as documented below: Tasih Hope MD Jun 16, 2019 13:32
[2019-06-16] MEDS ORDERED: Iothalamate Meglumine 60% 30ML INJ ONE (13:45)
--- NOTE | 2019-06-16 14:11 | Immediate Post-Op Evaluation ---
Immediate Post-Op Evalulation Immediate Post-Op Evalulation Procedure: ERCP Date of Evaluation: Jun 16, 2019 Time of Evaluation: 14:11 IV Fluids: 500 Blood Pressure Systolic: 171 Blood Pressure Diastolic: 95 Pulse Rate: 78 Respiratory Rate: 17 O2 Sat by Pulse Oximetry: 100 Temperature (Fahrenheit): 97.5 Nausea: No Vomiting: No Complications none Patient Status: awake, reacts, patent Hydration Status: adequate Drug: none IsisriSolange mclean CRNA Jun 16, 2019 14:11
--- NOTE | 2019-06-16 14:15 | Endoscopy Procedure Note ---
Endoscopy Procedure Note General Indication for Procedure: cholangitis Procedures Performed: ERCP Operative Findings/Diagnosis: same Specimen: none Pt Tolerated Procedure Well: Yes Estimated Blood Loss: none Anesthesia Anesthesiologist: jayde Anesthesia: MAC Inserted Devices Implant(s) used?: No GI Core Measures 50 yrs or older w/o bx or poly: Not Applicable 10yrs. F/U recommended: Not Applicable Tashi Hope MD Jun 16, 2019 14:15
--- NOTE | 2019-06-16 15:10 | NUR ---
NURSE NOTES: REC'D FROM PACU SP ERCP. AWAKE /ALERT. PAIN SCALE 9/10. MEDICATED WITH MRPHINE 1MG IV ORDERED. VS TAKEN. IN NO DISTRESS.
[2019-06-16] MEDS: Morphine Sulfate 2mg/ml Inj(IV/IM USE ONLY) IVP PRN ×2 (15:30→19:55)
[2019-06-16] MEDS ORDERED: 1/2 NS 1000ml IV ONE (15:56)
[2019-06-16] MEDS ORDERED: NS 275ml ONE (15:56)
--- NOTE | 2019-06-16 16:46 | Diagnostic Imaging Report ---
INDICATION: Pain, intraoperative TECHNIQUE: Intraoperative imaging Fluoroscopy time: 170 seconds Total dose: One mGym2 Total number of images: 8 COMPARISON: None FINDINGS: Intraoperative images document removal of previously demonstrated plastic and a biliary stent, opacification of dilated extra hepatic bile ducts, balloon cholangioplasty, placement of a new stent IMPRESSION: Intraoperative imaging, as described
--- NOTE | 2019-06-16 17:57 | NUR ---
NURSE NOTES: ACCUCHECK 64. DR MARTÍNEZ CALLED. LEFT MESSAGE TO RETURN CALL.
--- NOTE | 2019-06-16 18:50 | NUR ---
NURSE NOTES: DR INIGUEZ CALLED BACK WITH NEW ORDER. PT GIVEN D50W IV ORDERED. WILL MONITOR BLOOD SUGAR.
--- NOTE | 2019-06-16 19:00 | NUR ---
NURSE NOTES: DOZING IN BED. IN NO ACUTE DISTRESS.
--- NOTE | 2019-06-16 19:26 | NUR ---
HAND-OFF: Report given to Josefina MUÑIZ RN.
--- NOTE | 2019-06-16 20:00 | NUR ---
NURSE NOTES: received pt in bed. AAOX4 on nasal canula 2L/min. no s/s of acute respiratory distress noted. patient c/o pain on abdominal 01/08 and administrated Morphine 1mg as ordered. Teixeira catheter via gravity. rechecked blood sugar:198. call light within reach. bed is the lowest position. will continue provider plan of care.
[2019-06-16] MEDS: Atorvastatin 20mg tab ORAL SCH (21:05)
--- NOTE | 2019-06-16 21:15 | Procedure Note ---
DATE OF PROCEDURE: 06/16/2019 SURGEON: Tashi Hope M.D. PROCEDURE: ERCP, stent removal, dilatation, stone removal and stent placement. ANESTHESIA: Per MACHINE HELPER, Solange Tarrillion. INSTRUMENT: Olympus adult flexible ERCP scope. INDICATION: Cholangitis. REASON FOR PROCEDURE: The procedure, risks, benefits, and possible consequences, including hemorrhage, aspiration, perforation and infection, and alternative treatments, were explained to the patient/legal guardian by Dr. Tashi Hope and the patient/legal guardian understood and accepted these risks. PROCEDURE IN DETAIL: After informed consent was obtained and the patient was adequately sedated, the ERCP scope was advanced from mouth into the second portion of the duodenum. There were two stents seen in the distal common bile duct, both removed with a snare. Then was used to cannulate the common bile duct. Initial cholangiogram showed dilated common bile duct to about at least 13 millimeter in the proximal common bile duct. There was a stricture in the distal common bile duct. Common bile duct was full of sludge and few small stones. Then over a guidewire, we used a 11 millimeter balloon to sweep the duct multiple times and removed lots and lots of sludge and few small stones. Then, we used a 6 mm balloon to dilate the distal common bile duct stricture. Then over a guidewire, we placed a cm stent back into the common bile duct. The patient tolerated the procedure very well without complication. FINDINGS: 1. Multiple common bile duct stone and sludge. 2. Distal common bile duct stricture. 3. Dilated common bile duct. 4. Ampullary diverticulum. 5. Status post ERCP, stent removal, dilatation, stone removal, and stent placement. RECOMMENDATIONS: 1. Start diet and advance as tolerated. 2. Monitor for labs. 3. Continue antibiotics course. 4. ID. 5. She would need a repeat ERCP in three months. I want to thank Dr. Iraheta and Dr. Jack for this kind referral. Tashi Hope M.D. DR: HEATHER JOB#: [id number] CC: Rock Iraheta M.D.; Fax#: [phone] KARINA JACK M.D. ; FAX#: [phone]
--- NOTE | 2019-06-16 23:06 | General Progress Note ---
Assessment/Plan Assessment/Plan: Assessment - Biliary stricture - Biliary stones - cholangitis - s/p stent change Recommendations - Follow LFT - Abx - Check tumor makers - advance po diet - Repeat ERCP in 3 mo Subjective Allergies: Coded Allergies: ACETAMINOPHEN (Verified Allergy, Unknown, 06/13/19) HYDROCODONE (Verified Allergy, Unknown, 06/13/19) Subjective Above noted seen this am calm s/p ERCP later this am: - biliary stricture - biliary stones - biliary stent change Objective Last 24 Hour Vital Signs Date Time Temp Pulse Resp B/P (MAP) Pulse Ox O2 Delivery O2 Flow Rate FiO2 06/16/19 21:05 76 132/64 06/16/19 20:47 Nasal Cannula 2.0 06/16/19 20:00 97.4 59 17 170/64 (99) 98 06/16/19 16:01 97.5 06/16/19 16:00 97.2 64 16 164/68 (100) 99 06/16/19 15:10 97.2 67 19 155/76 (102) 100 06/16/19 14:55 97.2 67 20 160/76 100 Nasal Cannula 3 06/16/19 14:45 71 15 160/84 100 Nasal Cannula 3 06/16/19 14:30 71 17 155/76 100 Nasal Cannula 3 06/16/19 14:20 69 18 159/74 100 Nasal Cannula 3 06/16/19 14:11 78 17 100 06/16/19 14:10 70 24 174/79 100 Nasal Cannula 3 06/16/19 14:05 72 18 161/80 100 Nasal Cannula 3 06/16/19 14:02 97.2 80 16 171/95 100 Nasal Cannula 3 06/16/19 12:00 97.4 54 16 138/59 (85) 93 06/16/19 09:32 Room Air 06/16/19 09:00 51 107/65 06/16/19 09:00 107/65 06/16/19 09:00 51 107/65 06/16/19 08:00 97.5 51 16 107/65 (79) 97 06/16/19 04:00 97.6 56 19 144/57 (86) 96 06/16/19 00:00 98.0 55 18 153/56 (88) 96 Intake and Output 06/15/19 06/16/19 19:00 07:00 Intake Total 100 ml Output Total 450 ml 1000 ml Balance -450 ml -900 ml IV Total 100 ml Output Urine Total 450 ml 1000 ml Laboratory Tests 06/16/19 09:25: White Blood Count 10.7, Red Blood Count 2.90L, Hemoglobin 9.2L, Hematocrit 28.9L , Mean Corpuscular Volume 99, Mean Corpuscular Hemoglobin 31.6H, Mean Corpuscular Hemoglobin Concent 31.8L, Red Cell Distribution Width 12.7, Platelet Count 220, Mean Platelet Volume 6.9, Neutrophils (%) (Auto) 80.2H, Lymphocytes (%) (Auto) 14.2L, Monocytes (%) (Auto) 3.7, Eosinophils (%) (Auto) 1.3, Basophils (%) (Auto) 0.5 06/16/19 10:20: Sodium Level 135L, Potassium Level 5.8H, Chloride Level 105, Carbon Dioxide Level 16L, Anion Gap 14, Blood Urea Nitrogen 26H, Creatinine 1.7H, Estimat Glomerular Filtration Rate , Glucose Level 39*L, Calcium Level 8.7, Total Bilirubin 2.3H, Direct Bilirubin 1.7H, Aspartate Amino Transf (AST/SGOT) 46H, Alanine Aminotransferase (ALT/SGPT) 42, Alkaline Phosphatase 608H, Total Protein 5.8L, Albumin 1.8L, Globulin 4.0, Albumin/Globulin Ratio 0.4L, Amylase Level 33, Lipase 150 06/16/19 12:25: Sodium Level 133L, Potassium Level 5.1, Chloride Level 104, Carbon Dioxide Level 15L, Anion Gap 14, Blood Urea Nitrogen 26H, Creatinine 1.6H, Estimat Glomerular Filtration Rate , Glucose Level 146#H, Calcium Level 8.5 Height (Feet): 5 Height (Inches): 4.00 Weight (Pounds): 139 Objective Elderly woman NCAT supple CTA RR abd soft, mild RUQ TTP no edema non focal Rock Iraheta MD Jun 16, 2019 23:06
[2019-06-17] VITALS: BP 132/67
[2019-06-17 04:00] VITALS: BP 123/64
[2019-06-17 07:13] LABS: BASOPHILS % (AUTO) 0.3 % (0.0-2.0); EOSINOPHILS % (AUTO) 1.3 % (0.0-3.0); HEMATOCRIT 27.2 % (37.0-47.0); HEMOGLOBIN 8.8 G/DL (12.0-16.0); LYMPHOCYTES % (AUTO) 13.2 % (20.0-45.0); MEAN CORPUSCULAR VOLUME 99 FL (80-99); MONOCYTES % (AUTO) 3.4 % (1.0-10.0); NEUTROPHILS % (AUTO) 81.8 % (45.0-75.0); PLATELET COUNT 217 K/UL (150-450); RED BLOOD COUNT 2.76 M/UL (4.20-5.40); RED CELL DISTRIBUTION WIDTH 12.5 % (11.6-14.8); WHITE BLOOD COUNT 9.4 K/UL (4.8-10.8)
--- NOTE | 2019-06-17 07:22 | NUR ---
NURSE NOTES: asleep. in no apparent distress.
--- NOTE | 2019-06-17 07:25 | General Progress Note ---
Assessment/Plan Assessment/Plan: 1. Transaminitis. 2. Cholangitis. 3. Possible acute versus chronic renal failure. 4. Leukocytosis. 5. Possible sepsis. 6. Anemia. PLAN ID noted renal parameters improved discussed with GI dc planning? pending clearance from all dc once stable and cleared impression, plan, and exam edited and reviewed in detail care discussed with RN Subjective Allergies: Coded Allergies: ACETAMINOPHEN (Verified Allergy, Unknown, 06/13/19) HYDROCODONE (Verified Allergy, Unknown, 06/13/19) Subjective confused no distress mild pain ERCP noted Objective Last 24 Hour Vital Signs Date Time Temp Pulse Resp B/P (MAP) Pulse Ox O2 Delivery O2 Flow Rate FiO2 06/17/19 04:00 98.2 99 18 123/64 (83) 99 06/17/19 00:00 98.1 68 18 132/67 (88) 96 06/16/19 21:05 76 132/64 06/16/19 20:47 Nasal Cannula 2.0 06/16/19 20:00 97.4 59 17 170/64 (99) 98 06/16/19 16:01 97.5 06/16/19 16:00 97.2 64 16 164/68 (100) 99 06/16/19 15:10 97.2 67 19 155/76 (102) 100 06/16/19 14:55 97.2 67 20 160/76 100 Nasal Cannula 3 06/16/19 14:45 71 15 160/84 100 Nasal Cannula 3 06/16/19 14:30 71 17 155/76 100 Nasal Cannula 3 06/16/19 14:20 69 18 159/74 100 Nasal Cannula 3 06/16/19 14:11 78 17 100 06/16/19 14:10 70 24 174/79 100 Nasal Cannula 3 06/16/19 14:05 72 18 161/80 100 Nasal Cannula 3 06/16/19 14:02 97.2 80 16 171/95 100 Nasal Cannula 3 06/16/19 12:00 97.4 54 16 138/59 (85) 93 06/16/19 09:32 Room Air 06/16/19 09:00 51 107/65 06/16/19 09:00 107/65 06/16/19 09:00 51 107/65 06/16/19 08:00 97.5 51 16 107/65 (79) 97 Intake and Output 06/16/19 06/17/19 19:00 07:00 Intake Total 1646 ml 1260.0 ml Output Total 450 ml 800 ml Balance 1196 ml 460.0 ml Intake Oral 246 ml IV Total 1400 ml 1210.0 ml Other 50 ml Output Urine Total 450 ml 800 ml Laboratory Tests 06/16/19 09:25: White Blood Count 10.7, Red Blood Count 2.90L, Hemoglobin 9.2L, Hematocrit 28.9L , Mean Corpuscular Volume 99, Mean Corpuscular Hemoglobin 31.6H, Mean Corpuscular Hemoglobin Concent 31.8L, Red Cell Distribution Width 12.7, Platelet Count 220, Mean Platelet Volume 6.9, Neutrophils (%) (Auto) 80.2H, Lymphocytes (%) (Auto) 14.2L, Monocytes (%) (Auto) 3.7, Eosinophils (%) (Auto) 1.3, Basophils (%) (Auto) 0.5 06/16/19 10:20: Sodium Level 135L, Potassium Level 5.8H, Chloride Level 105, Carbon Dioxide Level 16L, Anion Gap 14, Blood Urea Nitrogen 26H, Creatinine 1.7H, Estimat Glomerular Filtration Rate , Glucose Level 39*L, Calcium Level 8.7, Total Bilirubin 2.3H, Direct Bilirubin 1.7H, Aspartate Amino Transf (AST/SGOT) 46H, Alanine Aminotransferase (ALT/SGPT) 42, Alkaline Phosphatase 608H, Total Protein 5.8L, Albumin 1.8L, Globulin 4.0, Albumin/Globulin Ratio 0.4L, Amylase Level 33, Lipase 150 06/16/19 12:25: Sodium Level 133L, Potassium Level 5.1, Chloride Level 104, Carbon Dioxide Level 15L, Anion Gap 14, Blood Urea Nitrogen 26H, Creatinine 1.6H, Estimat Glomerular Filtration Rate , Glucose Level 146#H, Calcium Level 8.5 06/17/19 05:10: White Blood Count 9.4, Red Blood Count 2.76L, Hemoglobin 8.8L, Hematocrit 27.2L , Mean Corpuscular Volume 99, Mean Corpuscular Hemoglobin 31.8H, Mean Corpuscular Hemoglobin Concent 32.2, Red Cell Distribution Width 12.5, Platelet Count 217, Mean Platelet Volume 6.8, Neutrophils (%) (Auto) 81.8H, Lymphocytes ( %) (Auto) 13.2L, Monocytes (%) (Auto) 3.4, Eosinophils (%) (Auto) 1.3, Basophils (%) (Auto) 0.3, Sodium Level [Pending], Potassium Level [Pending], Chloride Level [Pending], Carbon Dioxide Level [Pending], Blood Urea Nitrogen [ Pending], Creatinine [Pending], Estimat Glomerular Filtration Rate [Pending], Glucose Level [Pending], Calcium Level [Pending], Total Bilirubin [Pending], Aspartate Amino Transf (AST/SGOT) [Pending], Alanine Aminotransferase (ALT/SGPT ) [Pending], Alkaline Phosphatase [Pending], Total Protein [Pending], Albumin [ Pending], Globulin [Pending], Carcinoembryonic Antigen [Pending], CA 19-9 Antigen [Pending] Height (Feet): 5 Height (Inches): 4.00 Weight (Pounds): 139 Objective WDWN NAD clear breath sounds bilaterally without rhonchi or wheeze [id number] without MRG NABS mildly tender no HSM no CCE nonfocal Roel Jack MD Jun 17, 2019 07:25
[2019-06-17 07:27] LABS: ALANINE AMINOTRANSFERASE 34 U/L (12-78); ALBUMIN 1.7 G/DL (3.4-5.0); ALBUMIN/GLOBULIN RATIO 0.4 (1.0-2.7); ALKALINE PHOSPHATASE 498 U/L (46-116); ANION GAP 7 mmol/L (5-15); ASPARTATE AMINO TRANSFERASE 35 U/L (15-37); BILIRUBIN,TOTAL 1.8 MG/DL (0.2-1.0); BLOOD UREA NITROGEN 20 mg/dL (7-18); CALCIUM 8.7 MG/DL (8.5-10.1); CARBON DIOXIDE 21 MMOL/L (21-32); CHLORIDE 106 MMOL/L (98-107); CREATININE 1.5 MG/DL (0.55-1.30); POTASSIUM 4.8 MMOL/L (3.5-5.1); SODIUM 134 MMOL/L (136-145)
--- NOTE | 2019-06-17 07:33 | 48 Hour Post Anesthesia Eval ---
Post Anesthesia Evaluation Procedure: ERCP Date of Evaluation: Jun 17, 2019 Time of Evaluation: 07:33 Blood Pressure Systolic: 123 0: 64 Pulse Rate: 99 Respiratory Rate: 14 O2 Sat by Pulse Oximetry: 98 Airway: patent Nausea: No Vomiting: No Hydration Status: adequate Cardiopulmonary Status: stable Mental Status/LOC: patient returned to baseline Post-Anesthesia Complications: none Follow-up care needed: N/A Solange Glasgow CRNA Jun 17, 2019 07:33
--- NOTE | 2019-06-17 07:50 | NUR ---
HAND-OFF: Report given to Desiree MCINTYRE.
[2019-06-17 08:00] VITALS: BP 159/60
--- NOTE | 2019-06-17 08:12 | NUR ---
NURSE NOTES: TO XRAY FOR HIDA SCAN VIA BED.
[2019-06-17] MEDS: Morphine Sulfate 2mg/ml Inj(IV/IM USE ONLY) IVP PRN (09:34)
--- NOTE | 2019-06-17 10:30 | Infectious Diseases Prog Note ---
Assessment/Plan Assessment/Plan antibiotics : zosyn A 1. cholangitis 2. ? cholecystitis 3. hypertension 4. biliary duct stenosis 5. leucocytosis resolved 6. renal failure improving P 1. continue zosyn 2. HIDA scan pending 3. will follow up cultures Subjective Constitutional: Denies: fever, chills Respiratory: Denies: shortness of breath, dry cough Gastrointestinal/Abdominal: Denies: nausea, vomiting, diarrhea Musculoskeletal: Reports: pain - in abdomen Allergies: Coded Allergies: ACETAMINOPHEN (Verified Allergy, Unknown, 06/13/19) HYDROCODONE (Verified Allergy, Unknown, 06/13/19) Objective Vital Signs Last 24 Hour Vital Signs Date Time Temp Pulse Resp B/P (MAP) Pulse Ox O2 Delivery O2 Flow Rate FiO2 06/17/19 08:14 Nasal Cannula 2.0 06/17/19 08:00 97.3 52 18 159/60 (93) 100 06/17/19 07:33 99 14 98 06/17/19 04:00 98.2 99 18 123/64 (83) 99 06/17/19 00:00 98.1 68 18 132/67 (88) 96 06/16/19 21:05 76 132/64 06/16/19 20:47 Nasal Cannula 2.0 06/16/19 20:00 97.4 59 17 170/64 (99) 98 06/16/19 16:01 97.5 06/16/19 16:00 97.2 64 16 164/68 (100) 99 06/16/19 15:10 97.2 67 19 155/76 (102) 100 06/16/19 14:55 97.2 67 20 160/76 100 Nasal Cannula 3 06/16/19 14:45 71 15 160/84 100 Nasal Cannula 3 06/16/19 14:30 71 17 155/76 100 Nasal Cannula 3 06/16/19 14:20 69 18 159/74 100 Nasal Cannula 3 06/16/19 14:11 78 17 100 06/16/19 14:10 70 24 174/79 100 Nasal Cannula 3 06/16/19 14:05 72 18 161/80 100 Nasal Cannula 3 06/16/19 14:02 97.2 80 16 171/95 100 Nasal Cannula 3 06/16/19 12:00 97.4 54 16 138/59 (85) 93 Height (Feet): 5 Height (Inches): 4.00 Weight (Pounds): 139 Respiratory/Chest: lungs clear Cardiovascular: normal rate, regular rhythm, no gallop/murmur Abdomen: tender - RUQ Extremities: no edema Microbiology Date/Time Source Procedure Growth Status 06/14/19 11:08 Blood Blood Culture - Preliminary NO GROWTH AFTER 48 HOURS Resulted Laboratory Tests Test 06/16/19 12:25 06/17/19 05:10 Sodium Level 133 MMOL/L (136-145) L 134 MMOL/L (136-145) L Potassium Level 5.1 MMOL/L (3.5-5.1) 4.8 MMOL/L (3.5-5.1) Chloride Level 104 MMOL/L (98-107) 106 MMOL/L (98-107) Carbon Dioxide Level 15 MMOL/L (21-32) L 21 MMOL/L (21-32) Anion Gap 14 mmol/L (5-15) 7 mmol/L (5-15) Blood Urea Nitrogen 26 mg/dL (7-18) H 20 mg/dL (7-18) H Creatinine 1.6 MG/DL (0.55-1.30) H 1.5 MG/DL (0.55-1.30) H Estimat Glomerular Filtration Rate mL/min (>60) mL/min (>60) Glucose Level 146 MG/DL (74-106) #H 87 MG/DL (74-106) Calcium Level 8.5 MG/DL (8.5-10.1) 8.7 MG/DL (8.5-10.1) White Blood Count 9.4 K/UL (4.8-10.8) Red Blood Count 2.76 M/UL (4.20-5.40) L Hemoglobin 8.8 G/DL (12.0-16.0) L Hematocrit 27.2 % (37.0-47.0) L Mean Corpuscular Volume 99 FL (80-99) Mean Corpuscular Hemoglobin 31.8 PG (27.0-31.0) H Mean Corpuscular Hemoglobin Concent 32.2 G/DL (32.0-36.0) Red Cell Distribution Width 12.5 % (11.6-14.8) Platelet Count 217 K/UL (150-450) Mean Platelet Volume 6.8 FL (6.5-10.1) Neutrophils (%) (Auto) 81.8 % (45.0-75.0) H Lymphocytes (%) (Auto) 13.2 % (20.0-45.0) L Monocytes (%) (Auto) 3.4 % (1.0-10.0) Eosinophils (%) (Auto) 1.3 % (0.0-3.0) Basophils (%) (Auto) 0.3 % (0.0-2.0) Total Bilirubin 1.8 MG/DL (0.2-1.0) H Direct Bilirubin 1.0 MG/DL (0.0-0.3) H Aspartate Amino Transf (AST/SGOT) 35 U/L (15-37) Alanine Aminotransferase (ALT/SGPT) 34 U/L (12-78) Alkaline Phosphatase 498 U/L (46-116) H Total Protein 5.7 G/DL (6.4-8.2) L Albumin 1.7 G/DL (3.4-5.0) L Globulin 4.0 g/dL Albumin/Globulin Ratio 0.4 (1.0-2.7) L Carcinoembryonic Antigen Pending CA 19-9 Antigen Pending Current Medications Medications (Trade) Dose Ordered Sig/Manny Route PRN Reason Start Time Stop Time Status Last Admin Dose Admin Allopurinol (Zyloprim) 100 mg BID ORAL 06/14/19 09:00 07/14/19 08:59 06/16/19 17:49 Amlodipine Besylate (Norvasc) 5 mg DAILY ORAL 06/14/19 14:00 07/14/19 13:59 06/15/19 08:50 Aspirin (Ecotrin) 81 mg DAILY ORAL 06/14/19 09:00 07/14/19 08:59 06/15/19 08:49 Atorvastatin Calcium (Lipitor) 20 mg BEDTIME ORAL 06/14/19 21:00 07/14/19 20:59 06/16/19 21:05 Carvedilol (Coreg) 6.25 mg EVERY 12 HOURS ORAL 06/14/19 09:00 07/14/19 08:59 06/16/19 21:05 Heparin Sodium (Porcine) (Heparin 5000 units/ml) 5,000 units EVERY 12 HOURS SUBQ 06/14/19 09:00 07/14/19 08:59 06/15/19 22:29 Losartan Potassium (Cozaar) 50 mg DAILY ORAL 06/14/19 09:00 07/14/19 08:59 06/15/19 08:49 Memantine (Namenda) 5 mg BID ORAL 06/14/19 09:00 07/14/19 08:59 06/15/19 17:45 Morphine Sulfate (Morphine Sulfate) 1 mg Q4H PRN IVP PAIN 4-10 06/14/19 18:15 06/21/19 18:14 06/17/19 09:34 Ondansetron HCl (Zofran ODT) 4 mg Q6H PRN ORAL Nausea & Vomiting 06/14/19 04:15 07/14/19 04:14 06/14/19 20:04 Pantoprazole (Protonix) 40 mg DAILY ORAL 06/14/19 09:00 07/14/19 08:59 06/15/19 08:50 Piperacillin Sod/ Tazobactam Sod 3.375 gm/Sodium Chloride 110 ml @ 27.5 mls/hr Q12H IVPB 06/14/19 12:00 06/21/19 11:59 06/16/19 23:29 Sodium Chloride 1,000 ml @ 100 mls/hr Q10H IV 06/16/19 12:00 07/16/19 11:59 06/17/19 07:59 Timolol Maleate (Timoptic 0.5% Op Soln) 1 drop TWICE A DAY BOTH EYES 06/14/19 18:00 07/14/19 17:59 06/16/19 17:49 Maryjane Cheng MD Jun 17, 2019 10:30
--- NOTE | 2019-06-17 10:45 | NUR ---
NM Hepatobiliary (HIDA) scan complete.
--- NOTE | 2019-06-17 11:34 | Diagnostic Imaging Report ---
Indications: Abnormal liver function tests, abdominal pain, status post recent ERCP Technique: IV administration 6.4 mCi 99 M technetium Choletec. Serial images obtained over the abdomen for 2 hrs. At one hour, IV administration 1 mg morphine. Comparison: None Findings: Prompt tracer uptake within the liver. Extrahepatic bile ducts are seen at 37 minutes. Excretion into the duodenum demonstrated at 46 minutes. The gallbladder is never visualized . Considerable tracer is seen in the intrahepatic ducts, consistent with ductal dilatation demonstrated on prior sonography. Impression: Nonvisualized gallbladder. This is concerning for acute cholecystitis Patent common bile duct stent, although tracer excretion is sluggish Dr. Hope notified at the time of interpretation
[2019-06-17 12:00] VITALS: BP 161/62
[2019-06-17] MEDS: Aspirin EC 81mg tab ORAL SCH (12:37)
[2019-06-17] MEDS: Memantine 5 MG TAB ORAL SCH ×2 (12:39→17:44)
[2019-06-17] MEDS: Carvedilol 6.25mg Tab ORAL SCH ×2 (12:40→21:00)
[2019-06-17] MEDS: Allopurinol 100mg Tab ORAL SCH ×2 (12:40→17:44)
[2019-06-17] MEDS: Losartan 50mg tab ORAL SCH (12:41)
[2019-06-17] MEDS: Heparin 5000 units/ml inj SUBQ SCH ×2 (12:45→21:29)
[2019-06-17] MEDS: Timolol 0.5% Op Soln 2.5ml BOTH EYES SCH ×2 (12:47→17:44)
[2019-06-17] MEDS: Piperacillin/Tazobactam 3.375 GM in NS 110 ML IVPB SCH (12:51)
[2019-06-17 16:00] VITALS: BP 158/74
--- NOTE | 2019-06-17 18:43 | General Progress Note ---
Assessment/Plan Assessment/Plan: Assessment - Biliary stricture - Biliary stones - cholangitis - s/p stent change Recommendations - Follow LFT - Abx - Check tumor makers - advance po diet - Repeat ERCP in 3 mo Subjective Allergies: Coded Allergies: ACETAMINOPHEN (Verified Allergy, Unknown, 06/13/19) HYDROCODONE (Verified Allergy, Unknown, 06/13/19) Subjective Above noted seen this am calm d/w RN diet order given Objective Last 24 Hour Vital Signs Date Time Temp Pulse Resp B/P (MAP) Pulse Ox O2 Delivery O2 Flow Rate FiO2 06/17/19 16:00 97.5 59 18 158/74 (102) 100 06/17/19 12:41 161/62 06/17/19 12:40 55 161/62 06/17/19 12:38 55 161/62 06/17/19 12:00 97.3 55 18 161/62 (95) 99 06/17/19 08:14 Nasal Cannula 2.0 06/17/19 08:00 97.3 52 18 159/60 (93) 100 06/17/19 07:33 99 14 98 06/17/19 04:00 98.2 99 18 123/64 (83) 99 06/17/19 00:00 98.1 68 18 132/67 (88) 96 06/16/19 21:05 76 132/64 06/16/19 20:47 Nasal Cannula 2.0 06/16/19 20:00 97.4 59 17 170/64 (99) 98 Intake and Output 06/16/19 06/17/19 19:00 07:00 Intake Total 1646 ml 1260.0 ml Output Total 450 ml 800 ml Balance 1196 ml 460.0 ml Intake Oral 246 ml IV Total 1400 ml 1210.0 ml Other 50 ml Output Urine Total 450 ml 800 ml Laboratory Tests 06/17/19 05:10: White Blood Count 9.4, Red Blood Count 2.76L, Hemoglobin 8.8L, Hematocrit 27.2L , Mean Corpuscular Volume 99, Mean Corpuscular Hemoglobin 31.8H, Mean Corpuscular Hemoglobin Concent 32.2, Red Cell Distribution Width 12.5, Platelet Count 217, Mean Platelet Volume 6.8, Neutrophils (%) (Auto) 81.8H, Lymphocytes ( %) (Auto) 13.2L, Monocytes (%) (Auto) 3.4, Eosinophils (%) (Auto) 1.3, Basophils (%) (Auto) 0.3, Sodium Level 134L, Potassium Level 4.8, Chloride Level 106, Carbon Dioxide Level 21, Anion Gap 7, Blood Urea Nitrogen 20H, Creatinine 1.5H, Estimat Glomerular Filtration Rate , Glucose Level 87, Calcium Level 8.7, Total Bilirubin 1.8H, Direct Bilirubin 1.0H, Aspartate Amino Transf ( AST/SGOT) 35, Alanine Aminotransferase (ALT/SGPT) 34, Alkaline Phosphatase 498H , Total Protein 5.7L, Albumin 1.7L, Globulin 4.0, Albumin/Globulin Ratio 0.4L, Carcinoembryonic Antigen [Pending], CA 19-9 Antigen [Pending] Height (Feet): 5 Height (Inches): 4.00 Weight (Pounds): 139 Objective Elderly woman NCAT supple CTA RR abd soft, mild RUQ TTP no edema non focal Rock Iraheta MD Jun 17, 2019 18:43
--- NOTE | 2019-06-17 18:54 | NUR ---
NURSE NOTES: asleep. in no apparent distress.
--- NOTE | 2019-06-17 19:37 | NUR ---
HAND-OFF: Report given to VIKAS MCINTYRE.
--- NOTE | 2019-06-17 19:47 | NUR ---
NURSE NOTES: Received report from MIGUELINA Ramírez. Patient is in bed asleep. No signs of distress or SOB. Teixeira in place and draining yellow urine. IV intact and running fluids. Bed locked and in lowest position. Call light in reach. Will continue to monitor.
[2019-06-17 20:00] VITALS: BP 128/96
[2019-06-17] MEDS: Atorvastatin 20mg tab ORAL SCH (21:19)
[2019-06-18] VITALS (7 sets, daily range): BP systolic 147–170; BP diastolic 59–71
[2019-06-18] MEDS: Piperacillin/Tazobactam 3.375 GM in NS 110 ML IVPB SCH ×3 (00:19→23:48)
[2019-06-18 05:53] LABS: BASOPHILS % (AUTO) 0.5 % (0.0-2.0); EOSINOPHILS % (AUTO) 2.7 % (0.0-3.0); HEMATOCRIT 28.9 % (37.0-47.0); HEMOGLOBIN 9.3 G/DL (12.0-16.0); LYMPHOCYTES % (AUTO) 24.2 % (20.0-45.0); MEAN CORPUSCULAR VOLUME 99 FL (80-99); MONOCYTES % (AUTO) 5.4 % (1.0-10.0); NEUTROPHILS % (AUTO) 67.2 % (45.0-75.0); PLATELET COUNT 233 K/UL (150-450); RED BLOOD COUNT 2.91 M/UL (4.20-5.40); RED CELL DISTRIBUTION WIDTH 12.3 % (11.6-14.8); WHITE BLOOD COUNT 8.1 K/UL (4.8-10.8)
[2019-06-18 06:20] LABS: ALANINE AMINOTRANSFERASE 30 U/L (12-78); ALBUMIN 1.8 G/DL (3.4-5.0); ALBUMIN/GLOBULIN RATIO 0.4 (1.0-2.7); ALKALINE PHOSPHATASE 450 U/L (46-116); ANION GAP 9 mmol/L (5-15); ASPARTATE AMINO TRANSFERASE 26 U/L (15-37); BILIRUBIN,TOTAL 1.6 MG/DL (0.2-1.0); BLOOD UREA NITROGEN 16 mg/dL (7-18); CALCIUM 8.7 MG/DL (8.5-10.1); CARBON DIOXIDE 22 MMOL/L (21-32); CHLORIDE 107 MMOL/L (98-107); CREATININE 1.5 MG/DL (0.55-1.30); POTASSIUM 4.4 MMOL/L (3.5-5.1); SODIUM 137 MMOL/L (136-145)
[2019-06-18 06:21] LABS: BILIRUBIN,DIRECT 1.1 MG/DL (0.0-0.3)
--- NOTE | 2019-06-18 07:23 | NUR ---
HAND-OFF: Report given to MIGUELINA Ramírez.
--- NOTE | 2019-06-18 07:48 | NUR ---
`````\NURSE NOTES: AWAKE/ALERT.PAIN SCALE /10. LEFT FOOT DRESSING INTACT. ELEVATED ON PILLOW. IN DISTRESS. Addendum: 06/18/19 at 0750 by SHIRLEY SOTO RN disregard above notation,incorrect pt.
--- NOTE | 2019-06-18 07:58 | NUR ---
NURSE NOTES: dozing. in no apprent distress.
[2019-06-18] MEDS: Allopurinol 100mg Tab ORAL SCH ×2 (08:44→17:35)
[2019-06-18] MEDS: Memantine 5 MG TAB ORAL SCH ×2 (08:44→17:35)
[2019-06-18] MEDS: Aspirin EC 81mg tab ORAL SCH (08:44)
[2019-06-18] MEDS: Losartan 50mg tab ORAL SCH (08:45)
[2019-06-18] MEDS: Carvedilol 6.25mg Tab ORAL SCH ×2 (08:45→20:42)
[2019-06-18] MEDS: Timolol 0.5% Op Soln 2.5ml BOTH EYES SCH ×2 (08:45→17:35)
[2019-06-18] MEDS: Heparin 5000 units/ml inj SUBQ SCH ×2 (08:50→20:43)
--- NOTE | 2019-06-18 11:41 | Pulmonology Progress Note ---
Assessment/Plan Assessment/Plan Pulmonary Progress Note Assessment/Plan: 1. Transaminitis. 2. Cholangitis sp stent change 3. Possible acute versus chronic renal failure. 4. Leukocytosis. 5. Possible sepsis. 6. Anemia. PLAN ID noted renal parameters improved discussed with GI dc planning? will needProgressive 1999 HH, dc once stable and cleared impression, plan, and exam edited and reviewed in detail care discussed with RN Subjective Allergies: Coded Allergies: ACETAMINOPHEN (Verified Allergy, Unknown, 06/13/19) HYDROCODONE (Verified Allergy, Unknown, 06/13/19) Subjective confused no distress mild pain ERCP noted Objective Vital Signs Noted Laboratory Tests 06/16/19 09:25: White Blood Count 10.7, Red Blood Count 2.90L, Hemoglobin 9.2L, Hematocrit 28.9L , Mean Corpuscular Volume 99, Mean Corpuscular Hemoglobin 31.6H, Mean Corpuscular Hemoglobin Concent 31.8L, Red Cell Distribution Width 12.7, Platelet Count 220, Mean Platelet Volume 6.9, Neutrophils (%) (Auto) 80.2H, Lymphocytes (%) (Auto) 14.2L, Monocytes (%) (Auto) 3.7, Eosinophils (%) (Auto) 1.3, Basophils (%) (Auto) 0.5 06/16/19 10:20: Sodium Level 135L, Potassium Level 5.8H, Chloride Level 105, Carbon Dioxide Level 16L, Anion Gap 14, Blood Urea Nitrogen 26H, Creatinine 1.7H, Estimat Glomerular Filtration Rate , Glucose Level 39*L, Calcium Level 8.7, Total Bilirubin 2.3H, Direct Bilirubin 1.7H, Aspartate Amino Transf (AST/SGOT) 46H, Alanine Aminotransferase (ALT/SGPT) 42, Alkaline Phosphatase 608H, Total Protein 5.8L, Albumin 1.8L, Globulin 4.0, Albumin/Globulin Ratio 0.4L, Amylase Level 33, Lipase 150 06/16/19 12:25: Sodium Level 133L, Potassium Level 5.1, Chloride Level 104, Carbon Dioxide Level 15L, Anion Gap 14, Blood Urea Nitrogen 26H, Creatinine 1.6H, Estimat Glomerular Filtration Rate , Glucose Level 146#H, Calcium Level 8.5 06/17/19 05:10: White Blood Count 9.4, Red Blood Count 2.76L, Hemoglobin 8.8L, Hematocrit 27.2L , Mean Corpuscular Volume 99, Mean Corpuscular Hemoglobin 31.8H, Mean Corpuscular Hemoglobin Concent 32.2, Red Cell Distribution Width 12.5, Platelet Count 217, Mean Platelet Volume 6.8, Neutrophils (%) (Auto) 81.8H, Lymphocytes ( %) (Auto) 13.2L, Monocytes (%) (Auto) 3.4, Eosinophils (%) (Auto) 1.3, Basophils (%) (Auto) 0.3, Sodium Level [Pending], Potassium Level [Pending], Chloride Level [Pending], Carbon Dioxide Level [Pending], Blood Urea Nitrogen [ Pending], Creatinine [Pending], Estimat Glomerular Filtration Rate [Pending], Glucose Level [Pending], Calcium Level [Pending], Total Bilirubin [Pending], Aspartate Amino Transf (AST/SGOT) [Pending], Alanine Aminotransferase (ALT/SGPT ) [Pending], Alkaline Phosphatase [Pending], Total Protein [Pending], Albumin [ Pending], Globulin [Pending], Carcinoembryonic Antigen [Pending], CA 19-9 Antigen [Pending] Height (Feet): 5 Height (Inches): 4.00 Weight (Pounds): 139 Objective WDWN NAD clear breath sounds bilaterally without rhonchi or wheeze [id number] without MRG NABS mildly tender no HSM no CCE nonfocal Subjective ROS Limited/Unobtainable: No Allergies: Coded Allergies: ACETAMINOPHEN (Verified Allergy, Unknown, 06/13/19) HYDROCODONE (Verified Allergy, Unknown, 06/13/19) Objective Last 24 Hour Vital Signs Date Time Temp Pulse Resp B/P (MAP) Pulse Ox O2 Delivery O2 Flow Rate FiO2 06/18/19 09:00 Nasal Cannula 2.0 06/18/19 08:45 170/68 06/18/19 08:45 57 170/68 06/18/19 08:44 57 170/68 06/18/19 08:00 97.5 55 18 170/68 (102) 99 06/18/19 04:00 97.6 51 18 155/68 (97) 97 06/17/19 21:00 59 128/96 06/17/19 20:42 Nasal Cannula 2.0 06/17/19 20:00 97.6 59 18 128/96 (107) 97 06/17/19 16:00 97.5 59 18 158/74 (102) 100 06/17/19 12:41 161/62 06/17/19 12:40 55 161/62 06/17/19 12:38 55 161/62 06/17/19 12:00 97.3 55 18 161/62 (95) 99 Intake and Output 06/17/19 06/18/19 19:00 07:00 Intake Total 810 ml 1100 ml Output Total 1400 ml 1800 ml Balance -590 ml -700 ml Intake Oral 300 ml IV Total 510 ml 1100 ml Output Urine Total 1400 ml 1800 ml Laboratory Tests 06/18/19 05:15: White Blood Count 8.1, Red Blood Count 2.91L, Hemoglobin 9.3L, Hematocrit 28.9L , Mean Corpuscular Volume 99, Mean Corpuscular Hemoglobin 31.8H, Mean Corpuscular Hemoglobin Concent 32.1, Red Cell Distribution Width 12.3, Platelet Count 233, Mean Platelet Volume 6.8, Neutrophils (%) (Auto) 67.2, Lymphocytes (% ) (Auto) 24.2, Monocytes (%) (Auto) 5.4, Eosinophils (%) (Auto) 2.7, Basophils ( %) (Auto) 0.5, Sodium Level 137, Potassium Level 4.4, Chloride Level 107, Carbon Dioxide Level 22, Anion Gap 9, Blood Urea Nitrogen 16, Creatinine 1.5H, Estimat Glomerular Filtration Rate , Glucose Level 106, Calcium Level 8.7, Total Bilirubin 1.6H, Direct Bilirubin 1.1H, Aspartate Amino Transf (AST/SGOT) 26, Alanine Aminotransferase (ALT/SGPT) 30, Alkaline Phosphatase 450H, Total Protein 5.9L, Albumin 1.8L, Globulin 4.1, Albumin/Globulin Ratio 0.4L Current Medications Medications (Trade) Dose Ordered Sig/Manny Route PRN Reason Start Time Stop Time Status Last Admin Dose Admin Allopurinol (Zyloprim) 100 mg BID ORAL 06/14/19 09:00 07/14/19 08:59 06/18/19 08:44 Amlodipine Besylate (Norvasc) 5 mg DAILY ORAL 06/14/19 14:00 07/14/19 13:59 06/18/19 08:44 Aspirin (Ecotrin) 81 mg DAILY ORAL 06/14/19 09:00 07/14/19 08:59 06/18/19 08:44 Atorvastatin Calcium (Lipitor) 20 mg BEDTIME ORAL 06/14/19 21:00 07/14/19 20:59 06/17/19 21:19 Carvedilol (Coreg) 6.25 mg EVERY 12 HOURS ORAL 06/14/19 09:00 07/14/19 08:59 06/18/19 08:45 Heparin Sodium (Porcine) (Heparin 5000 units/ml) 5,000 units EVERY 12 HOURS SUBQ 06/14/19 09:00 07/14/19 08:59 06/18/19 08:50 Losartan Potassium (Cozaar) 50 mg DAILY ORAL 06/14/19 09:00 07/14/19 08:59 06/18/19 08:45 Memantine (Namenda) 5 mg BID ORAL 06/14/19 09:00 07/14/19 08:59 06/18/19 08:44 Morphine Sulfate (Morphine Sulfate) 1 mg Q4H PRN IVP PAIN 4-10 06/14/19 18:15 06/21/19 18:14 06/17/19 09:34 Ondansetron HCl (Zofran ODT) 4 mg Q6H PRN ORAL Nausea & Vomiting 06/14/19 04:15 07/14/19 04:14 06/14/19 20:04 Pantoprazole (Protonix) 40 mg DAILY ORAL 06/14/19 09:00 07/14/19 08:59 06/18/19 08:44 Piperacillin Sod/ Tazobactam Sod 3.375 gm/Sodium Chloride 110 ml @ 27.5 mls/hr Q12H IVPB 06/14/19 12:00 06/21/19 11:59 06/18/19 11:25 Sodium Chloride 1,000 ml @ 100 mls/hr Q10H IV 06/16/19 12:00 07/16/19 11:59 06/18/19 08:22 Timolol Maleate (Timoptic 0.5% Op Soln) 1 drop TWICE A DAY BOTH EYES 06/14/19 18:00 07/14/19 17:59 06/18/19 08:45 Yefri Bustillo MD Jun 18, 2019 11:41
--- NOTE | 2019-06-18 12:19 | NUR ---
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 97.5 HR 51 RR 18 B/P 170/68 2L NC CR 1.5 TOTAL BILIRUBIN 1.6 DIRECT BILIRUBIN 1.1 CA 19-9 75 HIDA SCAN=Nonvisualized gallbladder. This is concerning for acute cholecystitis,PATENT COMMON BILE DUCT STENT although tracer excretion is sluggish IS: IV NS @ 100ML/HR ZOSYN IV HEPARIN SUBC MED/SURG STATUS
--- NOTE | 2019-06-18 15:38 | Infectious Diseases Prog Note ---
Assessment/Plan Assessment/Plan A 1. cholangitis 2. CBD stones 3. hypertension 4. biliary duct stenosis 5. leucocytosis resolved 6. renal failure improving P 1. continue Zosyn Subjective ROS Limited/Unobtainable: Yes Constitutional: Denies: fever Allergies: Coded Allergies: ACETAMINOPHEN (Verified Allergy, Unknown, 06/13/19) HYDROCODONE (Verified Allergy, Unknown, 06/13/19) Objective Vital Signs Last 24 Hour Vital Signs Date Time Temp Pulse Resp B/P (MAP) Pulse Ox O2 Delivery O2 Flow Rate FiO2 06/18/19 12:00 97.3 54 20 148/59 (88) 100 06/18/19 09:00 Nasal Cannula 2.0 06/18/19 08:45 170/68 06/18/19 08:45 57 170/68 06/18/19 08:44 57 170/68 06/18/19 08:00 97.5 55 18 170/68 (102) 99 06/18/19 04:00 97.6 51 18 155/68 (97) 97 06/17/19 21:00 59 128/96 06/17/19 20:42 Nasal Cannula 2.0 06/17/19 20:00 97.6 59 18 128/96 (107) 97 06/17/19 16:00 97.5 59 18 158/74 (102) 100 Height (Feet): 5 Height (Inches): 4.00 Weight (Pounds): 139 General Appearance: no acute distress HEENT: mucous membranes moist Respiratory/Chest: lungs clear Cardiovascular: normal rate Abdomen: soft, non tender Neurologic/Psychiatric: alert, responsive Laboratory Tests Test 06/18/19 05:15 White Blood Count 8.1 K/UL (4.8-10.8) Red Blood Count 2.91 M/UL (4.20-5.40) L Hemoglobin 9.3 G/DL (12.0-16.0) L Hematocrit 28.9 % (37.0-47.0) L Mean Corpuscular Volume 99 FL (80-99) Mean Corpuscular Hemoglobin 31.8 PG (27.0-31.0) H Mean Corpuscular Hemoglobin Concent 32.1 G/DL (32.0-36.0) Red Cell Distribution Width 12.3 % (11.6-14.8) Platelet Count 233 K/UL (150-450) Mean Platelet Volume 6.8 FL (6.5-10.1) Neutrophils (%) (Auto) 67.2 % (45.0-75.0) Lymphocytes (%) (Auto) 24.2 % (20.0-45.0) Monocytes (%) (Auto) 5.4 % (1.0-10.0) Eosinophils (%) (Auto) 2.7 % (0.0-3.0) Basophils (%) (Auto) 0.5 % (0.0-2.0) Sodium Level 137 MMOL/L (136-145) Potassium Level 4.4 MMOL/L (3.5-5.1) Chloride Level 107 MMOL/L (98-107) Carbon Dioxide Level 22 MMOL/L (21-32) Anion Gap 9 mmol/L (5-15) Blood Urea Nitrogen 16 mg/dL (7-18) Creatinine 1.5 MG/DL (0.55-1.30) H Estimat Glomerular Filtration Rate mL/min (>60) Glucose Level 106 MG/DL (74-106) Calcium Level 8.7 MG/DL (8.5-10.1) Total Bilirubin 1.6 MG/DL (0.2-1.0) H Direct Bilirubin 1.1 MG/DL (0.0-0.3) H Aspartate Amino Transf (AST/SGOT) 26 U/L (15-37) Alanine Aminotransferase (ALT/SGPT) 30 U/L (12-78) Alkaline Phosphatase 450 U/L (46-116) H Total Protein 5.9 G/DL (6.4-8.2) L Albumin 1.8 G/DL (3.4-5.0) L Globulin 4.1 g/dL Albumin/Globulin Ratio 0.4 (1.0-2.7) L Current Medications Medications (Trade) Dose Ordered Sig/Manny Route PRN Reason Start Time Stop Time Status Last Admin Dose Admin Allopurinol (Zyloprim) 100 mg BID ORAL 06/14/19 09:00 07/14/19 08:59 06/18/19 08:44 Amlodipine Besylate (Norvasc) 5 mg DAILY ORAL 06/14/19 14:00 07/14/19 13:59 06/18/19 08:44 Aspirin (Ecotrin) 81 mg DAILY ORAL 06/14/19 09:00 07/14/19 08:59 06/18/19 08:44 Atorvastatin Calcium (Lipitor) 20 mg BEDTIME ORAL 06/14/19 21:00 07/14/19 20:59 06/17/19 21:19 Carvedilol (Coreg) 6.25 mg EVERY 12 HOURS ORAL 06/14/19 09:00 07/14/19 08:59 06/18/19 08:45 Heparin Sodium (Porcine) (Heparin 5000 units/ml) 5,000 units EVERY 12 HOURS SUBQ 06/14/19 09:00 07/14/19 08:59 06/18/19 08:50 Losartan Potassium (Cozaar) 50 mg DAILY ORAL 06/14/19 09:00 07/14/19 08:59 06/18/19 08:45 Memantine (Namenda) 5 mg BID ORAL 06/14/19 09:00 07/14/19 08:59 06/18/19 08:44 Morphine Sulfate (Morphine Sulfate) 1 mg Q4H PRN IVP PAIN 4-10 06/14/19 18:15 06/21/19 18:14 06/17/19 09:34 Ondansetron HCl (Zofran ODT) 4 mg Q6H PRN ORAL Nausea & Vomiting 06/14/19 04:15 07/14/19 04:14 06/14/19 20:04 Pantoprazole (Protonix) 40 mg DAILY ORAL 06/14/19 09:00 07/14/19 08:59 06/18/19 08:44 Piperacillin Sod/ Tazobactam Sod 3.375 gm/Sodium Chloride 110 ml @ 27.5 mls/hr Q12H IVPB 06/14/19 12:00 06/21/19 11:59 06/18/19 11:25 Sodium Chloride 1,000 ml @ 100 mls/hr Q10H IV 06/16/19 12:00 07/16/19 11:59 06/18/19 08:22 Timolol Maleate (Timoptic 0.5% Op Soln) 1 drop TWICE A DAY BOTH EYES 06/14/19 18:00 07/14/19 17:59 06/18/19 08:45 Brenden Moreno MD Jun 18, 2019 15:38
[2019-06-18] MEDS ORDERED: 1/2 NS 1000ml IV ONE (18:03)
[2019-06-18] MEDS ORDERED: NS 500ML ONE (18:03)
--- NOTE | 2019-06-18 19:00 | NUR ---
NURSE NOTES: ASLEEP IN NO APPARENT DISTRESS.
--- NOTE | 2019-06-18 19:32 | NUR ---
HAND-OFF: Report given to José Luis MATAMOROS RN.
[2019-06-18] MEDS: Atorvastatin 20mg tab ORAL SCH (20:42)
--- NOTE | 2019-06-18 22:01 | NUR ---
NURSE NOTE: Pt is A/Ox4 with stable VS. Orders reviewed and physical assessment completed. Pt denies pain at this time. Fall precautions maintained. Will continue to monitor.
--- NOTE | 2019-06-18 23:07 | General Progress Note ---
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 - Biliary stones - cholangitis - s/p stent change Recommendations - Follow LFT - Abx - Rec oncology opinion - Repeat ERCP for sent change in next 3 mo - can obtain bile duct brushing as wel Subjective Allergies: Coded Allergies: ACETAMINOPHEN (Verified Allergy, Unknown, 06/13/19) HYDROCODONE (Verified Allergy, Unknown, 06/13/19) Subjective Above noted seen this am calm Objective Last 24 Hour Vital Signs Date Time Temp Pulse Resp B/P (MAP) Pulse Ox O2 Delivery O2 Flow Rate FiO2 06/18/19 21:00 Nasal Cannula 2.0 06/18/19 20:42 58 160/65 06/18/19 20:00 97.4 58 17 160/65 (96) 96 06/18/19 16:00 97.0 57 18 147/61 (89) 97 06/18/19 12:00 97.3 54 20 148/59 (88) 100 06/18/19 09:00 Nasal Cannula 2.0 06/18/19 08:45 170/68 06/18/19 08:45 57 170/68 06/18/19 08:44 57 170/68 06/18/19 08:00 97.5 55 18 170/68 (102) 99 06/18/19 04:00 97.6 51 18 155/68 (97) 97 Intake and Output 06/17/19 06/18/19 19:00 07:00 Intake Total 810 ml 1100 ml Output Total 1400 ml 1800 ml Balance -590 ml -700 ml Intake Oral 300 ml IV Total 510 ml 1100 ml Output Urine Total 1400 ml 1800 ml Laboratory Tests 06/18/19 05:15: White Blood Count 8.1, Red Blood Count 2.91L, Hemoglobin 9.3L, Hematocrit 28.9L , Mean Corpuscular Volume 99, Mean Corpuscular Hemoglobin 31.8H, Mean Corpuscular Hemoglobin Concent 32.1, Red Cell Distribution Width 12.3, Platelet Count 233, Mean Platelet Volume 6.8, Neutrophils (%) (Auto) 67.2, Lymphocytes (% ) (Auto) 24.2, Monocytes (%) (Auto) 5.4, Eosinophils (%) (Auto) 2.7, Basophils ( %) (Auto) 0.5, Sodium Level 137, Potassium Level 4.4, Chloride Level 107, Carbon Dioxide Level 22, Anion Gap 9, Blood Urea Nitrogen 16, Creatinine 1.5H, Estimat Glomerular Filtration Rate , Glucose Level 106, Calcium Level 8.7, Total Bilirubin 1.6H, Direct Bilirubin 1.1H, Aspartate Amino Transf (AST/SGOT) 26, Alanine Aminotransferase (ALT/SGPT) 30, Alkaline Phosphatase 450H, Total Protein 5.9L, Albumin 1.8L, Globulin 4.1, Albumin/Globulin Ratio 0.4L Height (Feet): 5 Height (Inches): 4.00 Weight (Pounds): 139 Objective Elderly woman NCAT supple CTA RR abd soft, mild RUQ TTP no edema non focal Rock Iraheta MD Jun 18, 2019 23:07
[2019-06-19 04:00] VITALS: BP 176/70
[2019-06-19 06:17] LABS: ALANINE AMINOTRANSFERASE 24 U/L (12-78); ALBUMIN 1.7 G/DL (3.4-5.0); ALBUMIN/GLOBULIN RATIO 0.4 (1.0-2.7); ALKALINE PHOSPHATASE 359 U/L (46-116); ANION GAP 11 mmol/L (5-15); ASPARTATE AMINO TRANSFERASE 22 U/L (15-37); BILIRUBIN,TOTAL 1.2 MG/DL (0.2-1.0); BLOOD UREA NITROGEN 12 mg/dL (7-18); CALCIUM 8.6 MG/DL (8.5-10.1); CARBON DIOXIDE 20 MMOL/L (21-32); CHLORIDE 111 MMOL/L (98-107); CREATININE 1.4 MG/DL (0.55-1.30); SODIUM 142 MMOL/L (136-145)
[2019-06-19 06:46] LABS: BILIRUBIN,DIRECT 0.9 MG/DL (0.0-0.3)
--- NOTE | 2019-06-19 06:58 | NUR ---
NURSE NOTE: Pt refused 0630 ACCU check.
--- NOTE | 2019-06-19 07:43 | NUR ---
HAND-OFF: Report given to Katie Palma
--- NOTE | 2019-06-19 07:45 | NUR ---
NURSE NOTES: Received patient in bed awake. No SOB or acute distress. With O2 via NC. IV line on left arm intact but with swelling noted. Left arm elevated, will continue to monitor. FC intact. HOB elevated. Bed locked in lowest position. Call light within reach. Will continue plan of care.
[2019-06-19 08:00] VITALS: BP 169/72
[2019-06-19] MEDS: Timolol 0.5% Op Soln 2.5ml BOTH EYES SCH ×2 (09:00→18:28)
[2019-06-19] MEDS: Losartan 50mg tab ORAL SCH (09:01)
[2019-06-19] MEDS: Carvedilol 6.25mg Tab ORAL SCH ×2 (09:01→21:02)
[2019-06-19] MEDS: Allopurinol 100mg Tab ORAL SCH ×2 (09:01→18:28)
[2019-06-19] MEDS: Aspirin EC 81mg tab ORAL SCH (09:02)
[2019-06-19] MEDS: Memantine 5 MG TAB ORAL SCH ×2 (09:02→18:27)
[2019-06-19] MEDS: Heparin 5000 units/ml inj SUBQ SCH ×2 (09:04→21:03)
--- NOTE | 2019-06-19 09:33 | Infectious Diseases Prog Note ---
Assessment/Plan Assessment/Plan A 1. cholangitis 2. CBD stones 3. hypertension 4. biliary duct stenosis 5. leucocytosis resolved 6. renal failure improving P 1. continue Zosyn Subjective ROS Limited/Unobtainable: Yes Constitutional: Denies: fever Allergies: Coded Allergies: ACETAMINOPHEN (Verified Allergy, Unknown, 06/13/19) HYDROCODONE (Verified Allergy, Unknown, 06/13/19) Objective Vital Signs Last 24 Hour Vital Signs Date Time Temp Pulse Resp B/P (MAP) Pulse Ox O2 Delivery O2 Flow Rate FiO2 06/19/19 09:01 58 169/72 06/19/19 09:01 169/72 06/19/19 09:01 58 169/72 06/19/19 08:00 98.0 58 14 169/72 (104) 96 06/19/19 04:00 97.7 61 16 176/70 (105) 100 06/18/19 23:52 97.6 61 16 159/71 (100) 96 06/18/19 21:00 Nasal Cannula 2.0 06/18/19 20:42 58 160/65 06/18/19 20:00 97.4 58 17 160/65 (96) 96 06/18/19 16:00 97.0 57 18 147/61 (89) 97 06/18/19 12:00 97.3 54 20 148/59 (88) 100 Height (Feet): 5 Height (Inches): 4.00 Weight (Pounds): 139 General Appearance: no acute distress HEENT: mucous membranes moist Respiratory/Chest: lungs clear Cardiovascular: bradycardia Abdomen: soft, non tender Extremities: no edema Neurologic/Psychiatric: alert, responsive Laboratory Tests Test 06/19/19 05:00 Sodium Level 142 MMOL/L (136-145) Potassium Level 4.0 MMOL/L (3.5-5.1) Chloride Level 111 MMOL/L (98-107) H Carbon Dioxide Level 20 MMOL/L (21-32) L Anion Gap 11 mmol/L (5-15) Blood Urea Nitrogen 12 mg/dL (7-18) Creatinine 1.4 MG/DL (0.55-1.30) H Estimat Glomerular Filtration Rate mL/min (>60) Glucose Level 114 MG/DL (74-106) H Calcium Level 8.6 MG/DL (8.5-10.1) Total Bilirubin 1.2 MG/DL (0.2-1.0) H Direct Bilirubin 0.9 MG/DL (0.0-0.3) H Aspartate Amino Transf (AST/SGOT) 22 U/L (15-37) Alanine Aminotransferase (ALT/SGPT) 24 U/L (12-78) Alkaline Phosphatase 359 U/L (46-116) H Total Protein 5.6 G/DL (6.4-8.2) L Albumin 1.7 G/DL (3.4-5.0) L Globulin 3.9 g/dL Albumin/Globulin Ratio 0.4 (1.0-2.7) L Current Medications Medications (Trade) Dose Ordered Sig/Manny Route PRN Reason Start Time Stop Time Status Last Admin Dose Admin Allopurinol (Zyloprim) 100 mg BID ORAL 06/14/19 09:00 07/14/19 08:59 06/19/19 09:01 Amlodipine Besylate (Norvasc) 5 mg DAILY ORAL 06/14/19 14:00 07/14/19 13:59 06/19/19 09:01 Aspirin (Ecotrin) 81 mg DAILY ORAL 06/14/19 09:00 07/14/19 08:59 06/19/19 09:02 Atorvastatin Calcium (Lipitor) 20 mg BEDTIME ORAL 06/14/19 21:00 07/14/19 20:59 06/18/19 20:42 Carvedilol (Coreg) 6.25 mg EVERY 12 HOURS ORAL 06/14/19 09:00 07/14/19 08:59 06/19/19 09:01 Heparin Sodium (Porcine) (Heparin 5000 units/ml) 5,000 units EVERY 12 HOURS SUBQ 06/14/19 09:00 07/14/19 08:59 06/19/19 09:04 Losartan Potassium (Cozaar) 50 mg DAILY ORAL 06/14/19 09:00 07/14/19 08:59 06/19/19 09:01 Memantine (Namenda) 5 mg BID ORAL 06/14/19 09:00 07/14/19 08:59 06/19/19 09:02 Morphine Sulfate (Morphine Sulfate) 1 mg Q4H PRN IVP PAIN 4-10 06/14/19 18:15 06/21/19 18:14 06/17/19 09:34 Ondansetron HCl (Zofran ODT) 4 mg Q6H PRN ORAL Nausea & Vomiting 06/14/19 04:15 07/14/19 04:14 06/14/19 20:04 Pantoprazole (Protonix) 40 mg DAILY ORAL 06/14/19 09:00 07/14/19 08:59 06/19/19 09:02 Piperacillin Sod/ Tazobactam Sod 3.375 gm/Sodium Chloride 110 ml @ 27.5 mls/hr Q12H IVPB 06/14/19 12:00 06/21/19 11:59 06/18/19 23:48 Sodium Chloride 1,000 ml @ 100 mls/hr Q10H IV 06/16/19 12:00 07/16/19 11:59 06/18/19 20:48 Timolol Maleate (Timoptic 0.5% Op Soln) 1 drop TWICE A DAY BOTH EYES 06/14/19 18:00 07/14/19 17:59 06/19/19 09:00 Brenden Moreno MD Jun 19, 2019 09:33
[2019-06-19 12:00] VITALS: BP 162/62
[2019-06-19] MEDS: Piperacillin/Tazobactam 3.375 GM in NS 110 ML IVPB SCH (12:22)
--- NOTE | 2019-06-19 12:30 | NUR ---
NURSE NOTES: IV line removed and reinserted to left hand using gauge 24, infusing well. Procedure tolerated well.
[2019-06-19 16:00] VITALS: BP 150/64
--- NOTE | 2019-06-19 18:15 | Pulmonology Progress Note ---
Assessment/Plan Assessment/Plan Pulmonary Progress Note Assessment/Plan: 1. Transaminitis. 2. Cholangitis sp stent change 3. Possible acute versus chronic renal failure. 4. Leukocytosis. 5. Possible sepsis. 6. Anemia. PLAN ID noted renal parameters improved discussed with GI dc planning? will needProgressive 1999 HH, dc once stable and cleared impression, plan, and exam edited and reviewed in detail care discussed with RN Subjective Allergies: Coded Allergies: ACETAMINOPHEN (Verified Allergy, Unknown, 06/13/19) HYDROCODONE (Verified Allergy, Unknown, 06/13/19) Subjective confused no distress mild pain ERCP noted Objective Vital Signs Noted Laboratory Tests 06/16/19 09:25: White Blood Count 10.7, Red Blood Count 2.90L, Hemoglobin 9.2L, Hematocrit 28.9L , Mean Corpuscular Volume 99, Mean Corpuscular Hemoglobin 31.6H, Mean Corpuscular Hemoglobin Concent 31.8L, Red Cell Distribution Width 12.7, Platelet Count 220, Mean Platelet Volume 6.9, Neutrophils (%) (Auto) 80.2H, Lymphocytes (%) (Auto) 14.2L, Monocytes (%) (Auto) 3.7, Eosinophils (%) (Auto) 1.3, Basophils (%) (Auto) 0.5 06/16/19 10:20: Sodium Level 135L, Potassium Level 5.8H, Chloride Level 105, Carbon Dioxide Level 16L, Anion Gap 14, Blood Urea Nitrogen 26H, Creatinine 1.7H, Estimat Glomerular Filtration Rate , Glucose Level 39*L, Calcium Level 8.7, Total Bilirubin 2.3H, Direct Bilirubin 1.7H, Aspartate Amino Transf (AST/SGOT) 46H, Alanine Aminotransferase (ALT/SGPT) 42, Alkaline Phosphatase 608H, Total Protein 5.8L, Albumin 1.8L, Globulin 4.0, Albumin/Globulin Ratio 0.4L, Amylase Level 33, Lipase 150 06/16/19 12:25: Sodium Level 133L, Potassium Level 5.1, Chloride Level 104, Carbon Dioxide Level 15L, Anion Gap 14, Blood Urea Nitrogen 26H, Creatinine 1.6H, Estimat Glomerular Filtration Rate , Glucose Level 146#H, Calcium Level 8.5 06/17/19 05:10: White Blood Count 9.4, Red Blood Count 2.76L, Hemoglobin 8.8L, Hematocrit 27.2L , Mean Corpuscular Volume 99, Mean Corpuscular Hemoglobin 31.8H, Mean Corpuscular Hemoglobin Concent 32.2, Red Cell Distribution Width 12.5, Platelet Count 217, Mean Platelet Volume 6.8, Neutrophils (%) (Auto) 81.8H, Lymphocytes ( %) (Auto) 13.2L, Monocytes (%) (Auto) 3.4, Eosinophils (%) (Auto) 1.3, Basophils (%) (Auto) 0.3, Sodium Level [Pending], Potassium Level [Pending], Chloride Level [Pending], Carbon Dioxide Level [Pending], Blood Urea Nitrogen [ Pending], Creatinine [Pending], Estimat Glomerular Filtration Rate [Pending], Glucose Level [Pending], Calcium Level [Pending], Total Bilirubin [Pending], Aspartate Amino Transf (AST/SGOT) [Pending], Alanine Aminotransferase (ALT/SGPT ) [Pending], Alkaline Phosphatase [Pending], Total Protein [Pending], Albumin [ Pending], Globulin [Pending], Carcinoembryonic Antigen [Pending], CA 19-9 Antigen [Pending] Height (Feet): 5 Height (Inches): 4.00 Weight (Pounds): 139 Objective WDWN NAD clear breath sounds bilaterally without rhonchi or wheeze [id number] without MRG NABS mildly tender no HSM no CCE nonfocal Subjective ROS Limited/Unobtainable: No Allergies: Coded Allergies: ACETAMINOPHEN (Verified Allergy, Unknown, 06/13/19) HYDROCODONE (Verified Allergy, Unknown, 06/13/19) Objective Last 24 Hour Vital Signs Date Time Temp Pulse Resp B/P (MAP) Pulse Ox O2 Delivery O2 Flow Rate FiO2 06/19/19 12:00 98.1 58 14 162/62 (95) 96 06/19/19 09:01 58 169/72 06/19/19 09:01 169/72 06/19/19 09:01 58 169/72 06/19/19 09:00 Nasal Cannula 2.0 06/19/19 08:00 98.0 58 14 169/72 (104) 96 06/19/19 04:00 97.7 61 16 176/70 (105) 100 06/18/19 23:52 97.6 61 16 159/71 (100) 96 06/18/19 21:00 Nasal Cannula 2.0 06/18/19 20:42 58 160/65 06/18/19 20:00 97.4 58 17 160/65 (96) 96 Intake and Output 06/18/19 06/19/19 19:00 07:00 Intake Total 1810 ml 240 ml Output Total 625 ml 1100 ml Balance 1185 ml -860 ml Intake Oral 700 ml 240 ml IV Total 1110 ml Output Urine Total 625 ml 1100 ml # Voids 1 Laboratory Tests 06/19/19 05:00: Sodium Level 142, Potassium Level 4.0, Chloride Level 111H, Carbon Dioxide Level 20L, Anion Gap 11, Blood Urea Nitrogen 12, Creatinine 1.4H, Estimat Glomerular Filtration Rate , Glucose Level 114H, Calcium Level 8.6, Total Bilirubin 1.2H, Direct Bilirubin 0.9H, Aspartate Amino Transf (AST/SGOT) 22, Alanine Aminotransferase (ALT/SGPT) 24, Alkaline Phosphatase 359H, Total Protein 5.6L, Albumin 1.7L, Globulin 3.9, Albumin/Globulin Ratio 0.4L Current Medications Medications (Trade) Dose Ordered Sig/Manny Route PRN Reason Start Time Stop Time Status Last Admin Dose Admin Allopurinol (Zyloprim) 100 mg BID ORAL 06/14/19 09:00 07/14/19 08:59 06/19/19 09:01 Amlodipine Besylate (Norvasc) 5 mg DAILY ORAL 06/14/19 14:00 07/14/19 13:59 06/19/19 09:01 Aspirin (Ecotrin) 81 mg DAILY ORAL 06/14/19 09:00 07/14/19 08:59 06/19/19 09:02 Atorvastatin Calcium (Lipitor) 20 mg BEDTIME ORAL 06/14/19 21:00 07/14/19 20:59 06/18/19 20:42 Carvedilol (Coreg) 6.25 mg EVERY 12 HOURS ORAL 06/14/19 09:00 07/14/19 08:59 06/19/19 09:01 Heparin Sodium (Porcine) (Heparin 5000 units/ml) 5,000 units EVERY 12 HOURS SUBQ 06/14/19 09:00 07/14/19 08:59 06/19/19 09:04 Losartan Potassium (Cozaar) 50 mg DAILY ORAL 06/14/19 09:00 07/14/19 08:59 06/19/19 09:01 Memantine (Namenda) 5 mg BID ORAL 06/14/19 09:00 07/14/19 08:59 06/19/19 09:02 Morphine Sulfate (Morphine Sulfate) 1 mg Q4H PRN IVP PAIN 4-10 06/14/19 18:15 06/21/19 18:14 06/17/19 09:34 Ondansetron HCl (Zofran ODT) 4 mg Q6H PRN ORAL Nausea & Vomiting 06/14/19 04:15 07/14/19 04:14 06/14/19 20:04 Pantoprazole (Protonix) 40 mg DAILY ORAL 06/14/19 09:00 07/14/19 08:59 06/19/19 09:02 Piperacillin Sod/ Tazobactam Sod 3.375 gm/Sodium Chloride 110 ml @ 27.5 mls/hr Q12H IVPB 06/14/19 12:00 06/21/19 11:59 06/19/19 12:22 Sodium Chloride 1,000 ml @ 100 mls/hr Q10H IV 06/16/19 12:00 07/16/19 11:59 06/19/19 10:27 Timolol Maleate (Timoptic 0.5% Op Soln) 1 drop TWICE A DAY BOTH EYES 06/14/19 18:00 07/14/19 17:59 06/19/19 09:00 Yefri Bustillo MD Jun 19, 2019 18:15
--- NOTE | 2019-06-19 19:05 | NUR ---
HAND-OFF: Report given to Alysha.
[2019-06-19 21:00] VITALS: BP 169/61
[2019-06-19] MEDS: Atorvastatin 20mg tab ORAL SCH (21:02)
[2019-06-19 22:08] VITALS: BP 158/61
--- NOTE | 2019-06-19 22:55 | General Progress Note ---
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 - Biliary stones - cholangitis - s/p stent change Recommendations - Follow LFT - Abx - Rec oncology opinion - Repeat ERCP for sent change in next 3 mo - can obtain bile duct brushing as wel Subjective Allergies: Coded Allergies: ACETAMINOPHEN (Verified Allergy, Unknown, 06/13/19) HYDROCODONE (Verified Allergy, Unknown, 06/13/19) Subjective Above noted seen this am calm Objective Last 24 Hour Vital Signs Date Time Temp Pulse Resp B/P (MAP) Pulse Ox O2 Delivery O2 Flow Rate FiO2 06/19/19 22:08 158/61 (93) 06/19/19 21:02 55 169/61 06/19/19 21:00 Nasal Cannula 2.0 06/19/19 21:00 97.9 55 16 169/61 (97) 95 06/19/19 16:00 98.2 53 14 150/64 (92) 96 06/19/19 12:00 98.1 58 14 162/62 (95) 96 06/19/19 09:01 58 169/72 06/19/19 09:01 169/72 06/19/19 09:01 58 169/72 06/19/19 09:00 Nasal Cannula 2.0 06/19/19 08:00 98.0 58 14 169/72 (104) 96 06/19/19 04:00 97.7 61 16 176/70 (105) 100 06/18/19 23:52 97.6 61 16 159/71 (100) 96 Intake and Output 06/18/19 06/19/19 19:00 07:00 Intake Total 1810 ml 240 ml Output Total 625 ml 1100 ml Balance 1185 ml -860 ml Intake Oral 700 ml 240 ml IV Total 1110 ml Output Urine Total 625 ml 1100 ml # Voids 1 Laboratory Tests 06/19/19 05:00: Sodium Level 142, Potassium Level 4.0, Chloride Level 111H, Carbon Dioxide Level 20L, Anion Gap 11, Blood Urea Nitrogen 12, Creatinine 1.4H, Estimat Glomerular Filtration Rate , Glucose Level 114H, Calcium Level 8.6, Total Bilirubin 1.2H, Direct Bilirubin 0.9H, Aspartate Amino Transf (AST/SGOT) 22, Alanine Aminotransferase (ALT/SGPT) 24, Alkaline Phosphatase 359H, Total Protein 5.6L, Albumin 1.7L, Globulin 3.9, Albumin/Globulin Ratio 0.4L Height (Feet): 5 Height (Inches): 4.00 Weight (Pounds): 139 Objective Elderly woman NCAT supple CTA RR abd soft, mild RUQ TTP no edema non focal Rock Iraheta MD Jun 19, 2019 22:55
[2019-06-20] VITALS (7 sets, daily range): BP systolic 150–186; BP diastolic 56–73
[2019-06-20] MEDS: Piperacillin/Tazobactam 3.375 GM in NS 110 ML IVPB SCH ×3 (00:03→23:36)
--- NOTE | 2019-06-20 04:04 | NUR ---
NURSE NOTE: 194 Pt is A/Ox4. Orders reviewed. Pt is on 2 L NC and her Teixeira securement is intact. Fall precautions maintained. Call helms is within reach, verbalized understanding of usage. Pt denies any pain. Will continue to monitor.
[2019-06-20 06:00] LABS: BASOPHILS % (AUTO) 0.9 % (0.0-2.0); EOSINOPHILS % (AUTO) 2.8 % (0.0-3.0); HEMATOCRIT 26.3 % (37.0-47.0); HEMOGLOBIN 8.7 G/DL (12.0-16.0); LYMPHOCYTES % (AUTO) 27.8 % (20.0-45.0); MEAN CORPUSCULAR VOLUME 99 FL (80-99); MONOCYTES % (AUTO) 6.6 % (1.0-10.0); NEUTROPHILS % (AUTO) 61.9 % (45.0-75.0); PLATELET COUNT 252 K/UL (150-450); RED BLOOD COUNT 2.65 M/UL (4.20-5.40); RED CELL DISTRIBUTION WIDTH 12.3 % (11.6-14.8); WHITE BLOOD COUNT 8.5 K/UL (4.8-10.8)
[2019-06-20 06:21] LABS: ANION GAP 7 mmol/L (5-15); BLOOD UREA NITROGEN 12 mg/dL (7-18); CALCIUM 8.7 MG/DL (8.5-10.1); CARBON DIOXIDE 22 MMOL/L (21-32); CHLORIDE 112 MMOL/L (98-107); CREATININE 1.4 MG/DL (0.55-1.30); POTASSIUM 3.9 MMOL/L (3.5-5.1); SODIUM 141 MMOL/L (136-145)
[2019-06-20] MEDS ORDERED: HydrALAZINE 25mg tab ORAL PRN (06:50)
--- NOTE | 2019-06-20 06:52 | NUR ---
NURSE NOTE: Dr. Lynn paged at 0605 for BP of 170/69 and repeat of 186/73. Dr. Bustillo responded at 0620. See eMAR.
[2019-06-20] MEDS ORDERED: 1/2 NS 1000ml IV ONE (07:15)
[2019-06-20] MEDS ORDERED: Tubing IV Secondary IV ONE (07:15)
--- NOTE | 2019-06-20 07:35 | NUR ---
NURSE NOTES: Report received from Alysha MCINTYRE, rounds made. Patient resting in semi-fowlers position in bed. No distress on O2 2LNC. Skin warm/dry. Tolerating breakfast, no NV. IVF 0.45 NS infusing to LH, without difficulty, site asymptomatic. FC draining y/cl urine to gravity. Call light in reach, bed in lowest position, will continue to monitor.
--- NOTE | 2019-06-20 08:57 | General Progress Note ---
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 - Biliary stones - cholangitis - s/p stent change Recommendations - Follow LFT - Abx - Rec oncology opinion - Repeat ERCP for sent change in next 3 mo - can obtain bile duct brushing as wel Subjective Allergies: Coded Allergies: ACETAMINOPHEN (Verified Allergy, Unknown, 06/13/19) HYDROCODONE (Verified Allergy, Unknown, 06/13/19) Subjective Above noted seen this am calm eating well Objective Last 24 Hour Vital Signs Date Time Temp Pulse Resp B/P (MAP) Pulse Ox O2 Delivery O2 Flow Rate FiO2 06/20/19 06:57 186/72 06/20/19 05:45 186/73 (110) 06/20/19 04:38 98.1 56 16 170/69 (102) 99 06/20/19 00:07 97.5 55 14 163/65 (97) 99 06/19/19 22:08 158/61 (93) 06/19/19 21:02 55 169/61 06/19/19 21:00 Nasal Cannula 2.0 06/19/19 21:00 Nasal Cannula 2.0 06/19/19 21:00 97.9 55 16 169/61 (97) 95 06/19/19 16:00 98.2 53 14 150/64 (92) 96 06/19/19 12:00 98.1 58 14 162/62 (95) 96 06/19/19 09:01 58 169/72 06/19/19 09:01 169/72 06/19/19 09:01 58 169/72 06/19/19 09:00 Nasal Cannula 2.0 Intake and Output 06/19/19 06/20/19 19:00 07:00 Intake Total 310.0 ml Output Total 1650 ml Balance 310.0 ml -1650 ml IV Total 310.0 ml Output Urine Total 1650 ml Laboratory Tests 06/20/19 05:00: White Blood Count 8.5, Red Blood Count 2.65L, Hemoglobin 8.7L, Hematocrit 26.3L , Mean Corpuscular Volume 99, Mean Corpuscular Hemoglobin 32.6H, Mean Corpuscular Hemoglobin Concent 33.0, Red Cell Distribution Width 12.3, Platelet Count 252, Mean Platelet Volume 6.3L, Neutrophils (%) (Auto) 61.9, Lymphocytes ( %) (Auto) 27.8, Monocytes (%) (Auto) 6.6, Eosinophils (%) (Auto) 2.8, Basophils (%) (Auto) 0.9, Sodium Level 141, Potassium Level 3.9, Chloride Level 112H, Carbon Dioxide Level 22, Anion Gap 7, Blood Urea Nitrogen 12, Creatinine 1.4H, Estimat Glomerular Filtration Rate , Glucose Level 98, Calcium Level 8.7 Height (Feet): 5 Height (Inches): 4.00 Weight (Pounds): 139 Objective Elderly woman NCAT supple CTA RR abd soft, mild RUQ TTP no edema non focal Rock Iraheta MD Jun 20, 2019 08:57
--- NOTE | 2019-06-20 09:14 | NUR ---
NURSE NOTES: Notified Dr. Bustillo of blood pressure 154/58 mmHg and HR 57 at this time for blood pressure medication parameters, orders received to hold if HR is less than 50, see orders and eMAR.
[2019-06-20] MEDS: Timolol 0.5% Op Soln 2.5ml BOTH EYES SCH ×2 (09:16→17:58)
[2019-06-20] MEDS: Heparin 5000 units/ml inj SUBQ SCH ×2 (09:19→20:55)
[2019-06-20] MEDS: Allopurinol 100mg Tab ORAL SCH ×2 (09:23→18:00)
[2019-06-20] MEDS: Memantine 5 MG TAB ORAL SCH ×2 (09:23→18:00)
[2019-06-20] MEDS: Aspirin EC 81mg tab ORAL SCH (09:24)
--- NOTE | 2019-06-20 10:46 | Infectious Diseases Prog Note ---
Assessment/Plan Assessment/Plan antibiotics : zosyn A 1. cholangitis 2. ? cholecystitis 3. hypertension 4. biliary duct stenosis 5. leucocytosis resolved 6. renal failure improving P 1. continue zosyn 2. po levoquin on discharge 2 more days 3. will follow up cultures Subjective ROS Limited/Unobtainable: Yes Allergies: Coded Allergies: ACETAMINOPHEN (Verified Allergy, Unknown, 06/13/19) HYDROCODONE (Verified Allergy, Unknown, 06/13/19) Objective Vital Signs Last 24 Hour Vital Signs Date Time Temp Pulse Resp B/P (MAP) Pulse Ox O2 Delivery O2 Flow Rate FiO2 06/20/19 08:00 97.7 57 16 154/58 (90) 95 06/20/19 06:57 186/72 06/20/19 05:45 186/73 (110) 06/20/19 04:38 98.1 56 16 170/69 (102) 99 06/20/19 00:07 97.5 55 14 163/65 (97) 99 06/19/19 22:08 158/61 (93) 06/19/19 21:02 55 169/61 06/19/19 21:00 Nasal Cannula 2.0 06/19/19 21:00 Nasal Cannula 2.0 06/19/19 21:00 97.9 55 16 169/61 (97) 95 06/19/19 16:00 98.2 53 14 150/64 (92) 96 06/19/19 12:00 98.1 58 14 162/62 (95) 96 Height (Feet): 5 Height (Inches): 4.00 Weight (Pounds): 139 Respiratory/Chest: lungs clear Cardiovascular: normal rate, regular rhythm, no gallop/murmur Abdomen: soft, non tender Extremities: other - + mild edema Laboratory Tests Test 06/20/19 05:00 White Blood Count 8.5 K/UL (4.8-10.8) Red Blood Count 2.65 M/UL (4.20-5.40) L Hemoglobin 8.7 G/DL (12.0-16.0) L Hematocrit 26.3 % (37.0-47.0) L Mean Corpuscular Volume 99 FL (80-99) Mean Corpuscular Hemoglobin 32.6 PG (27.0-31.0) H Mean Corpuscular Hemoglobin Concent 33.0 G/DL (32.0-36.0) Red Cell Distribution Width 12.3 % (11.6-14.8) Platelet Count 252 K/UL (150-450) Mean Platelet Volume 6.3 FL (6.5-10.1) L Neutrophils (%) (Auto) 61.9 % (45.0-75.0) Lymphocytes (%) (Auto) 27.8 % (20.0-45.0) Monocytes (%) (Auto) 6.6 % (1.0-10.0) Eosinophils (%) (Auto) 2.8 % (0.0-3.0) Basophils (%) (Auto) 0.9 % (0.0-2.0) Sodium Level 141 MMOL/L (136-145) Potassium Level 3.9 MMOL/L (3.5-5.1) Chloride Level 112 MMOL/L (98-107) H Carbon Dioxide Level 22 MMOL/L (21-32) Anion Gap 7 mmol/L (5-15) Blood Urea Nitrogen 12 mg/dL (7-18) Creatinine 1.4 MG/DL (0.55-1.30) H Estimat Glomerular Filtration Rate mL/min (>60) Glucose Level 98 MG/DL (74-106) Calcium Level 8.7 MG/DL (8.5-10.1) Current Medications Medications (Trade) Dose Ordered Sig/Manny Route PRN Reason Start Time Stop Time Status Last Admin Dose Admin Allopurinol (Zyloprim) 100 mg BID ORAL 06/14/19 09:00 07/14/19 08:59 06/20/19 09:23 Amlodipine Besylate (Norvasc) 5 mg DAILY ORAL 06/21/19 09:00 07/20/19 08:59 Aspirin (Ecotrin) 81 mg DAILY ORAL 06/14/19 09:00 07/14/19 08:59 06/20/19 09:24 Atorvastatin Calcium (Lipitor) 20 mg BEDTIME ORAL 06/14/19 21:00 07/14/19 20:59 06/19/19 21:02 Carvedilol (Coreg) 6.25 mg EVERY 12 HOURS ORAL 06/20/19 21:00 07/14/19 08:59 Heparin Sodium (Porcine) (Heparin 5000 units/ml) 5,000 units EVERY 12 HOURS SUBQ 06/14/19 09:00 07/14/19 08:59 06/20/19 09:19 Hydralazine HCl (Apresoline) 25 mg Q6H PRN ORAL For High Blood Pressure 06/20/19 06:50 07/20/19 06:49 06/20/19 06:57 Losartan Potassium (Cozaar) 50 mg DAILY ORAL 06/21/19 09:00 07/14/19 08:59 Memantine (Namenda) 5 mg BID ORAL 06/14/19 09:00 07/14/19 08:59 06/20/19 09:23 Morphine Sulfate (Morphine Sulfate) 1 mg Q4H PRN IVP PAIN 4-10 06/14/19 18:15 06/21/19 18:14 06/17/19 09:34 Ondansetron HCl (Zofran ODT) 4 mg Q6H PRN ORAL Nausea & Vomiting 06/14/19 04:15 07/14/19 04:14 06/14/19 20:04 Pantoprazole (Protonix) 40 mg DAILY ORAL 06/14/19 09:00 07/14/19 08:59 06/20/19 09:23 Piperacillin Sod/ Tazobactam Sod 3.375 gm/Sodium Chloride 110 ml @ 27.5 mls/hr Q12H IVPB 06/14/19 12:00 06/21/19 11:59 06/20/19 00:03 Sodium Chloride 1,000 ml @ 100 mls/hr Q10H IV 06/16/19 12:00 07/16/19 11:59 06/20/19 05:48 Timolol Maleate (Timoptic 0.5% Op Soln) 1 drop TWICE A DAY BOTH EYES 06/14/19 18:00 07/14/19 17:59 06/20/19 09:16 Maryjane Cheng MD Jun 20, 2019 10:46
--- NOTE | 2019-06-20 13:51 | NUR ---
RD ASSESSMENT & RECOMMENDATIONS SEE CARE ACTIVITY FOR COMPLETE ASSESSMENT DAILY ESTIMATED NEEDS: Needs based on cardiac, advanced age 49kg adj 25-30 kcals/kg 8626-7876 total kcals 1-1.2 g protein/kg 50-60 g total protein 20-25 mL/kg 7151-8990 total fluid mLs NUTRITION DIAGNOSIS: Decreased fat and sodium needs r/t clinical status and cardiac history as evidenced by elev BP, pt w/ possible cholecystitis, elev T bili. CURRENT DIET: Cardiac PO DIET RECOMMENDATIONS: Maintain current Low Na/ Low Fat diet ADDITIONAL RECOMMENDATIONS: 1) Monitor for con't good po intake 2) Texture as tolerated 3) Rec bowel regimen as needs, last bm not noted
--- NOTE | 2019-06-20 16:22 | NUR ---
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 97.9 HR 53 RR 16 B/P 159/58 2L NC O2 SAT @ 98% CR 1.4 IS: IVF NS @ 100ML/HR ZOSYN IV HEPARIN SUBC MED/SURG STATUS
--- NOTE | 2019-06-20 19:05 | NUR ---
HAND-OFF: Report given to Marce MCINTYRE.
--- NOTE | 2019-06-20 19:10 | NUR ---
NURSE NOTES: Receive a report from MIGUELINA Varela. Round is done. Pt is asleep but easily aroused. No acute distress noted. Breathing is even and non labored. Denies pain. Noted general weakness and bed bound. ratliff catheter inserted state and patent with yellowish urine. Call light within reach. Reeducate for fall precautions and for asking help. Pt verbalizes understanding. Will continue to monitor.
--- NOTE | 2019-06-20 20:00 | NUR ---
NURSE NOTES: BS intact but pt has not had BM about a week. Notify Dr. Bustillo and receive an order of Colace 100mg 1c po bid. Order noted and carried out. Will continue to monitor.
[2019-06-20] MEDS: Atorvastatin 20mg tab ORAL SCH (20:53)
[2019-06-20] MEDS: Carvedilol 6.25mg Tab ORAL SCH (20:54)
--- NOTE | 2019-06-20 21:18 | Pulmonology Progress Note ---
Assessment/Plan Assessment/Plan Pulmonary Progress Note Assessment/Plan: 1. Transaminitis. 2. Cholangitis sp stent change 3. Possible acute versus chronic renal failure. 4. Leukocytosis. 5. Possible sepsis. 6. Anemia. PLAN ID noted renal parameters improved discussed with GI dc planning? will needProgressive 1999 HH, dc once stable and cleared impression, plan, and exam edited and reviewed in detail care discussed with RN Outpatient oncology FU Subjective Allergies: Coded Allergies: ACETAMINOPHEN (Verified Allergy, Unknown, 06/13/19) HYDROCODONE (Verified Allergy, Unknown, 06/13/19) Subjective confused no distress mild pain ERCP noted Objective Vital Signs Noted Laboratory Tests 06/16/19 09:25: White Blood Count 10.7, Red Blood Count 2.90L, Hemoglobin 9.2L, Hematocrit 28.9L , Mean Corpuscular Volume 99, Mean Corpuscular Hemoglobin 31.6H, Mean Corpuscular Hemoglobin Concent 31.8L, Red Cell Distribution Width 12.7, Platelet Count 220, Mean Platelet Volume 6.9, Neutrophils (%) (Auto) 80.2H, Lymphocytes (%) (Auto) 14.2L, Monocytes (%) (Auto) 3.7, Eosinophils (%) (Auto) 1.3, Basophils (%) (Auto) 0.5 06/16/19 10:20: Sodium Level 135L, Potassium Level 5.8H, Chloride Level 105, Carbon Dioxide Level 16L, Anion Gap 14, Blood Urea Nitrogen 26H, Creatinine 1.7H, Estimat Glomerular Filtration Rate , Glucose Level 39*L, Calcium Level 8.7, Total Bilirubin 2.3H, Direct Bilirubin 1.7H, Aspartate Amino Transf (AST/SGOT) 46H, Alanine Aminotransferase (ALT/SGPT) 42, Alkaline Phosphatase 608H, Total Protein 5.8L, Albumin 1.8L, Globulin 4.0, Albumin/Globulin Ratio 0.4L, Amylase Level 33, Lipase 150 06/16/19 12:25: Sodium Level 133L, Potassium Level 5.1, Chloride Level 104, Carbon Dioxide Level 15L, Anion Gap 14, Blood Urea Nitrogen 26H, Creatinine 1.6H, Estimat Glomerular Filtration Rate , Glucose Level 146#H, Calcium Level 8.5 06/17/19 05:10: White Blood Count 9.4, Red Blood Count 2.76L, Hemoglobin 8.8L, Hematocrit 27.2L , Mean Corpuscular Volume 99, Mean Corpuscular Hemoglobin 31.8H, Mean Corpuscular Hemoglobin Concent 32.2, Red Cell Distribution Width 12.5, Platelet Count 217, Mean Platelet Volume 6.8, Neutrophils (%) (Auto) 81.8H, Lymphocytes ( %) (Auto) 13.2L, Monocytes (%) (Auto) 3.4, Eosinophils (%) (Auto) 1.3, Basophils (%) (Auto) 0.3, Sodium Level [Pending], Potassium Level [Pending], Chloride Level [Pending], Carbon Dioxide Level [Pending], Blood Urea Nitrogen [ Pending], Creatinine [Pending], Estimat Glomerular Filtration Rate [Pending], Glucose Level [Pending], Calcium Level [Pending], Total Bilirubin [Pending], Aspartate Amino Transf (AST/SGOT) [Pending], Alanine Aminotransferase (ALT/SGPT ) [Pending], Alkaline Phosphatase [Pending], Total Protein [Pending], Albumin [ Pending], Globulin [Pending], Carcinoembryonic Antigen [Pending], CA 19-9 Antigen [Pending] Height (Feet): 5 Height (Inches): 4.00 Weight (Pounds): 139 Objective WDWN NAD clear breath sounds bilaterally without rhonchi or wheeze [id number] without MRG NABS mildly tender no HSM no CCE nonfocal Subjective ROS Limited/Unobtainable: No Allergies: Coded Allergies: ACETAMINOPHEN (Verified Allergy, Unknown, 06/13/19) HYDROCODONE (Verified Allergy, Unknown, 06/13/19) Objective Last 24 Hour Vital Signs Date Time Temp Pulse Resp B/P (MAP) Pulse Ox O2 Delivery O2 Flow Rate FiO2 06/20/19 20:54 59 150/58 06/20/19 20:00 97.0 59 18 150/58 (88) 99 06/20/19 16:00 98.1 58 16 150/56 (87) 95 06/20/19 12:00 97.9 53 16 159/58 (91) 98 06/20/19 09:00 Nasal Cannula 2.0 06/20/19 08:00 97.7 57 16 154/58 (90) 95 06/20/19 06:57 186/72 06/20/19 05:45 186/73 (110) 06/20/19 04:38 98.1 56 16 170/69 (102) 99 06/20/19 00:07 97.5 55 14 163/65 (97) 99 06/19/19 22:08 158/61 (93) Intake and Output 06/19/19 06/20/19 19:00 07:00 Intake Total 310.0 ml 100 ml Output Total 1650 ml Balance 310.0 ml -1550 ml IV Total 310.0 ml 100 ml Output Urine Total 1650 ml Laboratory Tests 06/20/19 05:00: White Blood Count 8.5, Red Blood Count 2.65L, Hemoglobin 8.7L, Hematocrit 26.3L , Mean Corpuscular Volume 99, Mean Corpuscular Hemoglobin 32.6H, Mean Corpuscular Hemoglobin Concent 33.0, Red Cell Distribution Width 12.3, Platelet Count 252, Mean Platelet Volume 6.3L, Neutrophils (%) (Auto) 61.9, Lymphocytes ( %) (Auto) 27.8, Monocytes (%) (Auto) 6.6, Eosinophils (%) (Auto) 2.8, Basophils (%) (Auto) 0.9, Sodium Level 141, Potassium Level 3.9, Chloride Level 112H, Carbon Dioxide Level 22, Anion Gap 7, Blood Urea Nitrogen 12, Creatinine 1.4H, Estimat Glomerular Filtration Rate , Glucose Level 98, Calcium Level 8.7 Current Medications Medications (Trade) Dose Ordered Sig/Manny Route PRN Reason Start Time Stop Time Status Last Admin Dose Admin Allopurinol (Zyloprim) 100 mg BID ORAL 06/14/19 09:00 07/14/19 08:59 06/20/19 18:00 Amlodipine Besylate (Norvasc) 5 mg DAILY ORAL 06/21/19 09:00 07/20/19 08:59 Aspirin (Ecotrin) 81 mg DAILY ORAL 06/14/19 09:00 07/14/19 08:59 06/20/19 09:24 Atorvastatin Calcium (Lipitor) 20 mg BEDTIME ORAL 06/14/19 21:00 07/14/19 20:59 06/20/19 20:53 Carvedilol (Coreg) 6.25 mg EVERY 12 HOURS ORAL 06/20/19 21:00 07/14/19 08:59 06/20/19 20:54 Docusate Sodium (Colace) 100 mg TWICE A DAY ORAL 06/20/19 21:00 07/20/19 20:59 Heparin Sodium (Porcine) (Heparin 5000 units/ml) 5,000 units EVERY 12 HOURS SUBQ 06/14/19 09:00 07/14/19 08:59 06/20/19 20:55 Hydralazine HCl (Apresoline) 25 mg Q6H PRN ORAL For High Blood Pressure 06/20/19 06:50 07/20/19 06:49 06/20/19 06:57 Losartan Potassium (Cozaar) 50 mg DAILY ORAL 06/21/19 09:00 07/14/19 08:59 Memantine (Namenda) 5 mg BID ORAL 06/14/19 09:00 07/14/19 08:59 06/20/19 18:00 Morphine Sulfate (Morphine Sulfate) 1 mg Q4H PRN IVP PAIN 4-10 06/14/19 18:15 06/21/19 18:14 06/17/19 09:34 Ondansetron HCl (Zofran ODT) 4 mg Q6H PRN ORAL Nausea & Vomiting 06/14/19 04:15 07/14/19 04:14 06/14/19 20:04 Pantoprazole (Protonix) 40 mg DAILY ORAL 06/14/19 09:00 07/14/19 08:59 06/20/19 09:23 Piperacillin Sod/ Tazobactam Sod 3.375 gm/Sodium Chloride 110 ml @ 27.5 mls/hr Q12H IVPB 06/14/19 12:00 06/25/19 23:59 06/20/19 12:24 Sodium Chloride 1,000 ml @ 100 mls/hr Q10H IV 06/16/19 12:00 07/16/19 11:59 06/20/19 17:59 Timolol Maleate (Timoptic 0.5% Op Soln) 1 drop TWICE A DAY BOTH EYES 06/14/19 18:00 07/14/19 17:59 06/20/19 17:58 Yefri Bustillo MD Jun 20, 2019 21:18
[2019-06-20] MEDS: Docusate 100mg cap ORAL SCH (21:51)
[2019-06-21] VITALS: BP 159/60
[2019-06-21 04:00] VITALS: BP 162/62
--- NOTE | 2019-06-21 07:09 | NUR ---
NURSE NOTES: Report received from o RN, rounds made. Patient alert/oriented x4, calm, sitting in high fowlers position in bed, eating breakfast. Daughter at bedside. No distress or SOB on RA (has O2 2LNC, applies on and off). No NV. No pain. IVF infusing to left hand (0.45 NS at 100 ml/hr), left hand mild edema noted, IV dressing intact, no redness or pain to IV site. FC patent, draining to gravity, y/cl urine. Call light in reach, bed in lowest, will continue to monitor.
--- NOTE | 2019-06-21 07:30 | NUR ---
HAND-OFF: Report given to MIGUELINA Varela. Done round.
[2019-06-21 08:00] VITALS: BP 156/62
[2019-06-21] MEDS: Heparin 5000 units/ml inj SUBQ SCH ×2 (09:28→21:04)
[2019-06-21] MEDS: Memantine 5 MG TAB ORAL SCH ×2 (09:31→17:52)
[2019-06-21] MEDS: Timolol 0.5% Op Soln 2.5ml BOTH EYES SCH ×2 (09:31→17:52)
[2019-06-21] MEDS: Allopurinol 100mg Tab ORAL SCH ×2 (09:32→17:52)
[2019-06-21] MEDS: Docusate 100mg cap ORAL SCH ×2 (09:32→17:52)
[2019-06-21] MEDS: Aspirin EC 81mg tab ORAL SCH (09:32)
[2019-06-21] MEDS: Losartan 50mg tab ORAL SCH (09:32)
[2019-06-21] MEDS: Carvedilol 6.25mg Tab ORAL SCH ×2 (09:32→21:02)
[2019-06-21] MEDS ORDERED: Sorbitol Solution UD 30ml ORAL SCH (11:15)
--- NOTE | 2019-06-21 11:22 | NUR ---
NURSE NOTES: Patient verbalized that she had a BM (BFM) this AM, refused Sorbitol at this time.
[2019-06-21 12:00] VITALS: BP 160/64
[2019-06-21] MEDS: Piperacillin/Tazobactam 3.375 GM in NS 110 ML IVPB SCH ×2 (12:59→23:50)
[2019-06-21 16:00] VITALS: BP 144/58
--- NOTE | 2019-06-21 17:17 | General Progress Note ---
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 - Biliary stones - cholangitis - s/p stent change Recommendations - Follow LFT - Abx - Rec oncology opinion - Repeat ERCP for sent change in next 3 mo - can obtain bile duct brushing as wel Subjective Allergies: Coded Allergies: ACETAMINOPHEN (Verified Allergy, Unknown, 06/13/19) HYDROCODONE (Verified Allergy, Unknown, 06/13/19) Subjective Above noted seen this am calm eating well Objective Last 24 Hour Vital Signs Date Time Temp Pulse Resp B/P (MAP) Pulse Ox O2 Delivery O2 Flow Rate FiO2 06/21/19 12:00 98.1 55 20 160/64 (96) 96 06/21/19 09:32 156/62 06/21/19 09:32 59 156/62 06/21/19 09:32 59 156/62 06/21/19 09:00 Nasal Cannula 2.0 06/21/19 08:00 97.4 59 20 156/62 (93) 94 06/21/19 04:00 97.5 55 20 162/62 (95) 97 06/21/19 00:00 98.3 56 18 159/60 (93) 96 06/20/19 21:00 Nasal Cannula 2.0 06/20/19 20:54 59 150/58 06/20/19 20:00 97.0 59 18 150/58 (88) 99 Intake and Output 06/20/19 06/21/19 19:00 07:00 Intake Total 1318 ml 1350 ml Output Total 1725 ml 1925 ml Balance -407 ml -575 ml Intake Oral 818 ml 150 ml IV Total 500 ml 1200 ml Output Urine Total 1725 ml 1925 ml Height (Feet): 5 Height (Inches): 4.00 Weight (Pounds): 139 Objective Elderly woman NCAT supple CTA RR abd soft, NT no edema non focal Rock Iraheta MD Jun 21, 2019 17:17
[2019-06-21] MEDS ORDERED: Morphine Sulfate 2mg/ml Inj(IV/IM USE ONLY) IVP PRN (18:15)
--- NOTE | 2019-06-21 19:10 | NUR ---
HAND-OFF: Report given to Marce MCINTYRE.
--- NOTE | 2019-06-21 19:20 | NUR ---
NURSE NOTES: Receive a report from MIGUELINA Varela. Round is done. Pt is awake and alert. No acute distress noted. Denies pain. Pt feels comfortable after passing BM. Teixeira catheter is patent with yellowish urine. Daughter is at bedside. Call light within reach. Will continue to monitor.
[2019-06-21 20:00] VITALS: BP 149/55
[2019-06-21] MEDS: Atorvastatin 20mg tab ORAL SCH (21:03)
--- NOTE | 2019-06-21 22:32 | Pulmonology Progress Note ---
Assessment/Plan Assessment/Plan Pulmonary Progress Note Assessment/Plan: 1. Transaminitis. 2. Cholangitis sp stent change 3. Possible acute versus chronic renal failure. 4. Leukocytosis. 5. Possible sepsis. 6. Anemia. PLAN ID noted renal parameters improved discussed with GI dc planning? will needProgressive 1999 HH, dc once stable and cleared impression, plan, and exam edited and reviewed in detail care discussed with RN Outpatient oncology FU Subjective Allergies: Coded Allergies: ACETAMINOPHEN (Verified Allergy, Unknown, 06/13/19) HYDROCODONE (Verified Allergy, Unknown, 06/13/19) Subjective confused no distress mild pain ERCP noted Objective Vital Signs Noted Laboratory Tests 06/16/19 09:25: White Blood Count 10.7, Red Blood Count 2.90L, Hemoglobin 9.2L, Hematocrit 28.9L , Mean Corpuscular Volume 99, Mean Corpuscular Hemoglobin 31.6H, Mean Corpuscular Hemoglobin Concent 31.8L, Red Cell Distribution Width 12.7, Platelet Count 220, Mean Platelet Volume 6.9, Neutrophils (%) (Auto) 80.2H, Lymphocytes (%) (Auto) 14.2L, Monocytes (%) (Auto) 3.7, Eosinophils (%) (Auto) 1.3, Basophils (%) (Auto) 0.5 06/16/19 10:20: Sodium Level 135L, Potassium Level 5.8H, Chloride Level 105, Carbon Dioxide Level 16L, Anion Gap 14, Blood Urea Nitrogen 26H, Creatinine 1.7H, Estimat Glomerular Filtration Rate , Glucose Level 39*L, Calcium Level 8.7, Total Bilirubin 2.3H, Direct Bilirubin 1.7H, Aspartate Amino Transf (AST/SGOT) 46H, Alanine Aminotransferase (ALT/SGPT) 42, Alkaline Phosphatase 608H, Total Protein 5.8L, Albumin 1.8L, Globulin 4.0, Albumin/Globulin Ratio 0.4L, Amylase Level 33, Lipase 150 06/16/19 12:25: Sodium Level 133L, Potassium Level 5.1, Chloride Level 104, Carbon Dioxide Level 15L, Anion Gap 14, Blood Urea Nitrogen 26H, Creatinine 1.6H, Estimat Glomerular Filtration Rate , Glucose Level 146#H, Calcium Level 8.5 06/17/19 05:10: White Blood Count 9.4, Red Blood Count 2.76L, Hemoglobin 8.8L, Hematocrit 27.2L , Mean Corpuscular Volume 99, Mean Corpuscular Hemoglobin 31.8H, Mean Corpuscular Hemoglobin Concent 32.2, Red Cell Distribution Width 12.5, Platelet Count 217, Mean Platelet Volume 6.8, Neutrophils (%) (Auto) 81.8H, Lymphocytes ( %) (Auto) 13.2L, Monocytes (%) (Auto) 3.4, Eosinophils (%) (Auto) 1.3, Basophils (%) (Auto) 0.3, Sodium Level [Pending], Potassium Level [Pending], Chloride Level [Pending], Carbon Dioxide Level [Pending], Blood Urea Nitrogen [ Pending], Creatinine [Pending], Estimat Glomerular Filtration Rate [Pending], Glucose Level [Pending], Calcium Level [Pending], Total Bilirubin [Pending], Aspartate Amino Transf (AST/SGOT) [Pending], Alanine Aminotransferase (ALT/SGPT ) [Pending], Alkaline Phosphatase [Pending], Total Protein [Pending], Albumin [ Pending], Globulin [Pending], Carcinoembryonic Antigen [Pending], CA 19-9 Antigen [Pending] Height (Feet): 5 Height (Inches): 4.00 Weight (Pounds): 139 Objective WDWN NAD clear breath sounds bilaterally without rhonchi or wheeze [id number] without MRG NABS mildly tender no HSM no CCE nonfocal Subjective ROS Limited/Unobtainable: No Allergies: Coded Allergies: ACETAMINOPHEN (Verified Allergy, Unknown, 06/13/19) HYDROCODONE (Verified Allergy, Unknown, 06/13/19) Objective Last 24 Hour Vital Signs Date Time Temp Pulse Resp B/P (MAP) Pulse Ox O2 Delivery O2 Flow Rate FiO2 06/21/19 21:02 60 149/55 06/21/19 20:00 97.3 60 19 149/55 (86) 100 06/21/19 16:00 98.4 60 20 144/58 (86) 95 06/21/19 12:00 98.1 55 20 160/64 (96) 96 06/21/19 09:32 156/62 06/21/19 09:32 59 156/62 06/21/19 09:32 59 156/62 06/21/19 09:00 Nasal Cannula 2.0 06/21/19 08:00 97.4 59 20 156/62 (93) 94 06/21/19 04:00 97.5 55 20 162/62 (95) 97 06/21/19 00:00 98.3 56 18 159/60 (93) 96 Intake and Output 06/20/19 06/21/19 19:00 07:00 Intake Total 1318 ml 1350 ml Output Total 1725 ml 1925 ml Balance -407 ml -575 ml Intake Oral 818 ml 150 ml IV Total 500 ml 1200 ml Output Urine Total 1725 ml 1925 ml Current Medications Medications (Trade) Dose Ordered Sig/Manny Route PRN Reason Start Time Stop Time Status Last Admin Dose Admin Allopurinol (Zyloprim) 100 mg BID ORAL 06/14/19 09:00 07/14/19 08:59 06/21/19 17:52 Amlodipine Besylate (Norvasc) 5 mg DAILY ORAL 06/21/19 09:00 07/20/19 08:59 06/21/19 09:32 Aspirin (Ecotrin) 81 mg DAILY ORAL 06/14/19 09:00 07/14/19 08:59 06/21/19 09:32 Atorvastatin Calcium (Lipitor) 20 mg BEDTIME ORAL 06/14/19 21:00 07/14/19 20:59 06/21/19 21:03 Carvedilol (Coreg) 6.25 mg EVERY 12 HOURS ORAL 06/20/19 21:00 07/14/19 08:59 06/21/19 21:02 Docusate Sodium (Colace) 100 mg TWICE A DAY ORAL 06/20/19 21:00 07/20/19 20:59 06/21/19 17:52 Heparin Sodium (Porcine) (Heparin 5000 units/ml) 5,000 units EVERY 12 HOURS SUBQ 06/14/19 09:00 07/14/19 08:59 06/21/19 21:04 Hydralazine HCl (Apresoline) 25 mg Q6H PRN ORAL For High Blood Pressure 06/20/19 06:50 07/20/19 06:49 06/20/19 06:57 Losartan Potassium (Cozaar) 50 mg DAILY ORAL 06/21/19 09:00 07/14/19 08:59 06/21/19 09:32 Memantine (Namenda) 5 mg BID ORAL 06/14/19 09:00 07/14/19 08:59 06/21/19 17:52 Morphine Sulfate (Morphine Sulfate) 1 mg Q4H PRN IVP PAIN 4-10 06/21/19 18:15 06/28/19 18:14 Ondansetron HCl (Zofran ODT) 4 mg Q6H PRN ORAL Nausea & Vomiting 06/14/19 04:15 07/14/19 04:14 06/14/19 20:04 Pantoprazole (Protonix) 40 mg DAILY ORAL 06/14/19 09:00 07/14/19 08:59 06/21/19 09:31 Piperacillin Sod/ Tazobactam Sod 3.375 gm/Sodium Chloride 110 ml @ 27.5 mls/hr Q12H IVPB 06/14/19 12:00 06/25/19 23:59 06/21/19 12:59 Sodium Chloride 1,000 ml @ 100 mls/hr Q10H IV 06/16/19 12:00 07/16/19 11:59 06/21/19 20:54 Timolol Maleate (Timoptic 0.5% Op Soln) 1 drop TWICE A DAY BOTH EYES 06/14/19 18:00 07/14/19 17:59 06/21/19 17:52 Yefri Bustillo MD Jun 21, 2019 22:32
[2019-06-22] VITALS (7 sets, daily range): BP systolic 138–165; BP diastolic 55–82
--- NOTE | 2019-06-22 05:00 | NUR ---
NURSE NOTES: Denies pain. No acute distress noted. Will continue to monitor.
--- NOTE | 2019-06-22 07:30 | NUR ---
NURSE NOTES: Receive a report from MIGUELINA Zheng. Pt is awake, alert, orientedx4, french speaking. had breakfast and tolerated well. no c/o pain/discomfort noted. No acute distress noted. IV site patent and intact. IVF infusing well. Teixeira catheter is patent and draining well. bed is in the lowest position. siderails are up x3. Call light within reach. Will continue to monitor.
--- NOTE | 2019-06-22 07:40 | NUR ---
HAND-OFF: Report given to BHUMIKA Ernandez. Round is done. Pt fisnihed breakfast. No discomfort noted. Will continue to monitor.
[2019-06-22] MEDS: Allopurinol 100mg Tab ORAL SCH ×2 (08:09→17:21)
[2019-06-22] MEDS: Memantine 5 MG TAB ORAL SCH ×2 (08:09→17:21)
[2019-06-22] MEDS: Aspirin EC 81mg tab ORAL SCH (08:10)
[2019-06-22] MEDS: Losartan 50mg tab ORAL SCH (08:10)
[2019-06-22] MEDS: Docusate 100mg cap ORAL SCH ×2 (08:10→17:21)
[2019-06-22] MEDS: Carvedilol 6.25mg Tab ORAL SCH ×2 (08:10→21:12)
[2019-06-22] MEDS: Timolol 0.5% Op Soln 2.5ml BOTH EYES SCH ×2 (08:11→17:21)
[2019-06-22] MEDS: Heparin 5000 units/ml inj SUBQ SCH ×2 (08:14→21:13)
--- NOTE | 2019-06-22 10:47 | NUR ---
NURSE NOTES: seen by PT and walked by them without any distress noted. will cont the plan of care.
--- NOTE | 2019-06-22 12:00 | Infectious Diseases Prog Note ---
Assessment/Plan Assessment/Plan A 1. cholangitis 2. CBD stones 3. hypertension 4. biliary duct stenosis 5. leucocytosis resolved 6. renal failure improving P 1. continue Zosyn Subjective ROS Limited/Unobtainable: Yes Constitutional: Denies: fever Musculoskeletal: Denies: pain Allergies: Coded Allergies: ACETAMINOPHEN (Verified Allergy, Unknown, 06/13/19) HYDROCODONE (Verified Allergy, Unknown, 06/13/19) Objective Vital Signs Last 24 Hour Vital Signs Date Time Temp Pulse Resp B/P (MAP) Pulse Ox O2 Delivery O2 Flow Rate FiO2 06/22/19 08:10 165/72 06/22/19 08:10 61 165/72 06/22/19 08:10 61 165/72 06/22/19 08:00 98.5 56 17 165/72 (103) 97 06/22/19 07:30 Nasal Cannula 2.0 06/22/19 04:00 98.1 58 19 140/55 (83) 99 06/22/19 00:00 97.9 62 19 156/68 (97) 98 06/21/19 21:02 60 149/55 06/21/19 21:00 Nasal Cannula 2.0 06/21/19 20:00 97.3 60 19 149/55 (86) 100 06/21/19 16:00 98.4 60 20 144/58 (86) 95 06/21/19 12:00 98.1 55 20 160/64 (96) 96 Height (Feet): 5 Height (Inches): 4.00 Weight (Pounds): 139 General Appearance: no acute distress HEENT: mucous membranes moist Respiratory/Chest: lungs clear Cardiovascular: normal rate Abdomen: soft, non tender Extremities: no edema Neurologic/Psychiatric: alert, responsive Current Medications Medications (Trade) Dose Ordered Sig/Manny Route PRN Reason Start Time Stop Time Status Last Admin Dose Admin Allopurinol (Zyloprim) 100 mg BID ORAL 06/14/19 09:00 07/14/19 08:59 06/22/19 08:09 Amlodipine Besylate (Norvasc) 5 mg DAILY ORAL 06/21/19 09:00 07/20/19 08:59 06/22/19 08:10 Aspirin (Ecotrin) 81 mg DAILY ORAL 06/14/19 09:00 07/14/19 08:59 06/22/19 08:10 Atorvastatin Calcium (Lipitor) 20 mg BEDTIME ORAL 06/14/19 21:00 07/14/19 20:59 06/21/19 21:03 Carvedilol (Coreg) 6.25 mg EVERY 12 HOURS ORAL 06/20/19 21:00 07/14/19 08:59 06/22/19 08:10 Docusate Sodium (Colace) 100 mg TWICE A DAY ORAL 06/20/19 21:00 07/20/19 20:59 06/22/19 08:10 Heparin Sodium (Porcine) (Heparin 5000 units/ml) 5,000 units EVERY 12 HOURS SUBQ 06/14/19 09:00 07/14/19 08:59 06/22/19 08:14 Hydralazine HCl (Apresoline) 25 mg Q6H PRN ORAL For High Blood Pressure 06/20/19 06:50 07/20/19 06:49 06/20/19 06:57 Losartan Potassium (Cozaar) 50 mg DAILY ORAL 06/21/19 09:00 07/14/19 08:59 06/22/19 08:10 Memantine (Namenda) 5 mg BID ORAL 06/14/19 09:00 07/14/19 08:59 06/22/19 08:09 Morphine Sulfate (Morphine Sulfate) 1 mg Q4H PRN IVP PAIN 4-10 06/21/19 18:15 06/28/19 18:14 Ondansetron HCl (Zofran ODT) 4 mg Q6H PRN ORAL Nausea & Vomiting 06/14/19 04:15 07/14/19 04:14 06/14/19 20:04 Pantoprazole (Protonix) 40 mg DAILY ORAL 06/14/19 09:00 07/14/19 08:59 06/22/19 08:11 Piperacillin Sod/ Tazobactam Sod 3.375 gm/Sodium Chloride 110 ml @ 27.5 mls/hr Q12H IVPB 06/14/19 12:00 06/25/19 23:59 06/21/19 23:50 Sodium Chloride 1,000 ml @ 100 mls/hr Q10H IV 06/16/19 12:00 07/16/19 11:59 06/22/19 07:02 Timolol Maleate (Timoptic 0.5% Op Soln) 1 drop TWICE A DAY BOTH EYES 06/14/19 18:00 07/14/19 17:59 06/22/19 08:11 Brenden Moreno MD Jun 22, 2019 12:00
[2019-06-22] MEDS: Piperacillin/Tazobactam 3.375 GM in NS 110 ML IVPB SCH ×2 (12:20→23:38)
[2019-06-22] MEDS ORDERED: NS 275ml ONE (16:22)
[2019-06-22] MEDS ORDERED: Tubing IV Secondary IV ONE (16:22)
--- NOTE | 2019-06-22 17:51 | Pulmonology Progress Note ---
Assessment/Plan Assessment/Plan Pulmonary Progress Note Assessment/Plan: 1. Transaminitis. 2. Cholangitis sp stent change 3. Possible acute versus chronic renal failure. 4. Leukocytosis. 5. Possible sepsis. 6. Anemia. PLAN ID noted renal parameters improved discussed with GI dc planning? will [facility], dc once stable and cleared by ID/GI impression, plan, and exam edited and reviewed in detail care discussed with RN Outpatient oncology FU Subjective Allergies: Coded Allergies: ACETAMINOPHEN (Verified Allergy, Unknown, 06/13/19) HYDROCODONE (Verified Allergy, Unknown, 06/13/19) Subjective confused no distress mild pain ERCP noted Objective Vital Signs Noted Laboratory Tests 06/16/19 09:25: White Blood Count 10.7, Red Blood Count 2.90L, Hemoglobin 9.2L, Hematocrit 28.9L , Mean Corpuscular Volume 99, Mean Corpuscular Hemoglobin 31.6H, Mean Corpuscular Hemoglobin Concent 31.8L, Red Cell Distribution Width 12.7, Platelet Count 220, Mean Platelet Volume 6.9, Neutrophils (%) (Auto) 80.2H, Lymphocytes (%) (Auto) 14.2L, Monocytes (%) (Auto) 3.7, Eosinophils (%) (Auto) 1.3, Basophils (%) (Auto) 0.5 06/16/19 10:20: Sodium Level 135L, Potassium Level 5.8H, Chloride Level 105, Carbon Dioxide Level 16L, Anion Gap 14, Blood Urea Nitrogen 26H, Creatinine 1.7H, Estimat Glomerular Filtration Rate , Glucose Level 39*L, Calcium Level 8.7, Total Bilirubin 2.3H, Direct Bilirubin 1.7H, Aspartate Amino Transf (AST/SGOT) 46H, Alanine Aminotransferase (ALT/SGPT) 42, Alkaline Phosphatase 608H, Total Protein 5.8L, Albumin 1.8L, Globulin 4.0, Albumin/Globulin Ratio 0.4L, Amylase Level 33, Lipase 150 06/16/19 12:25: Sodium Level 133L, Potassium Level 5.1, Chloride Level 104, Carbon Dioxide Level 15L, Anion Gap 14, Blood Urea Nitrogen 26H, Creatinine 1.6H, Estimat Glomerular Filtration Rate , Glucose Level 146#H, Calcium Level 8.5 06/17/19 05:10: White Blood Count 9.4, Red Blood Count 2.76L, Hemoglobin 8.8L, Hematocrit 27.2L , Mean Corpuscular Volume 99, Mean Corpuscular Hemoglobin 31.8H, Mean Corpuscular Hemoglobin Concent 32.2, Red Cell Distribution Width 12.5, Platelet Count 217, Mean Platelet Volume 6.8, Neutrophils (%) (Auto) 81.8H, Lymphocytes ( %) (Auto) 13.2L, Monocytes (%) (Auto) 3.4, Eosinophils (%) (Auto) 1.3, Basophils (%) (Auto) 0.3, Sodium Level [Pending], Potassium Level [Pending], Chloride Level [Pending], Carbon Dioxide Level [Pending], Blood Urea Nitrogen [ Pending], Creatinine [Pending], Estimat Glomerular Filtration Rate [Pending], Glucose Level [Pending], Calcium Level [Pending], Total Bilirubin [Pending], Aspartate Amino Transf (AST/SGOT) [Pending], Alanine Aminotransferase (ALT/SGPT ) [Pending], Alkaline Phosphatase [Pending], Total Protein [Pending], Albumin [ Pending], Globulin [Pending], Carcinoembryonic Antigen [Pending], CA 19-9 Antigen [Pending] Height (Feet): 5 Height (Inches): 4.00 Weight (Pounds): 139 Objective WDWN NAD clear breath sounds bilaterally without rhonchi or wheeze [id number] without MRG NABS mildly tender no HSM no CCE nonfocal Subjective ROS Limited/Unobtainable: No Allergies: Coded Allergies: ACETAMINOPHEN (Verified Allergy, Unknown, 06/13/19) HYDROCODONE (Verified Allergy, Unknown, 06/13/19) Objective Last 24 Hour Vital Signs Date Time Temp Pulse Resp B/P (MAP) Pulse Ox O2 Delivery O2 Flow Rate FiO2 06/22/19 16:00 98.5 60 17 155/82 (106) 100 06/22/19 12:00 98.1 60 17 149/62 (91) 95 06/22/19 08:10 165/72 06/22/19 08:10 61 165/72 06/22/19 08:10 61 165/72 06/22/19 08:00 98.5 56 17 165/72 (103) 97 06/22/19 07:30 Nasal Cannula 2.0 06/22/19 04:00 98.1 58 19 140/55 (83) 99 06/22/19 00:00 97.9 62 19 156/68 (97) 98 06/21/19 21:02 60 149/55 06/21/19 21:00 Nasal Cannula 2.0 06/21/19 20:00 97.3 60 19 149/55 (86) 100 Intake and Output 06/21/19 06/22/19 18:59 06:59 Intake Total 1240 ml 1100 ml Output Total 1800 ml 1750 ml Balance -560 ml -650 ml Intake Oral 440 ml 100 ml IV Total 800 ml 1000 ml Output Urine Total 1800 ml 1750 ml # Bowel Movements 2 Current Medications Medications (Trade) Dose Ordered Sig/Manny Route PRN Reason Start Time Stop Time Status Last Admin Dose Admin Allopurinol (Zyloprim) 100 mg BID ORAL 06/14/19 09:00 07/14/19 08:59 06/22/19 17:21 Amlodipine Besylate (Norvasc) 5 mg DAILY ORAL 06/21/19 09:00 07/20/19 08:59 06/22/19 08:10 Aspirin (Ecotrin) 81 mg DAILY ORAL 06/14/19 09:00 07/14/19 08:59 06/22/19 08:10 Atorvastatin Calcium (Lipitor) 20 mg BEDTIME ORAL 06/14/19 21:00 07/14/19 20:59 06/21/19 21:03 Carvedilol (Coreg) 6.25 mg EVERY 12 HOURS ORAL 06/20/19 21:00 07/14/19 08:59 06/22/19 08:10 Docusate Sodium (Colace) 100 mg TWICE A DAY ORAL 06/20/19 21:00 07/20/19 20:59 06/22/19 17:21 Heparin Sodium (Porcine) (Heparin 5000 units/ml) 5,000 units EVERY 12 HOURS SUBQ 06/14/19 09:00 07/14/19 08:59 06/22/19 08:14 Hydralazine HCl (Apresoline) 25 mg Q6H PRN ORAL For High Blood Pressure 06/20/19 06:50 07/20/19 06:49 06/20/19 06:57 Losartan Potassium (Cozaar) 50 mg DAILY ORAL 06/21/19 09:00 07/14/19 08:59 06/22/19 08:10 Memantine (Namenda) 5 mg BID ORAL 06/14/19 09:00 07/14/19 08:59 06/22/19 17:21 Morphine Sulfate (Morphine Sulfate) 1 mg Q4H PRN IVP PAIN 4-10 06/21/19 18:15 06/28/19 18:14 Ondansetron HCl (Zofran ODT) 4 mg Q6H PRN ORAL Nausea & Vomiting 06/14/19 04:15 07/14/19 04:14 06/14/19 20:04 Pantoprazole (Protonix) 40 mg DAILY ORAL 06/14/19 09:00 07/14/19 08:59 06/22/19 08:11 Piperacillin Sod/ Tazobactam Sod 3.375 gm/Sodium Chloride 110 ml @ 27.5 mls/hr Q12H IVPB 06/14/19 12:00 06/25/19 23:59 06/22/19 12:20 Sodium Chloride 1,000 ml @ 100 mls/hr Q10H IV 06/16/19 12:00 07/16/19 11:59 06/22/19 17:21 Timolol Maleate (Timoptic 0.5% Op Soln) 1 drop TWICE A DAY BOTH EYES 06/14/19 18:00 07/14/19 17:59 06/22/19 17:21 Yefri Bustillo MD Jun 22, 2019 17:51
--- NOTE | 2019-06-22 18:07 | General Progress Note ---
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 - Biliary stones - cholangitis - s/p stent change Recommendations - Follow LFT - Abx - Rec oncology opinion - Repeat ERCP for sent change in next 3 mo - can obtain bile duct brushing as wel Subjective Allergies: Coded Allergies: ACETAMINOPHEN (Verified Allergy, Unknown, 06/13/19) HYDROCODONE (Verified Allergy, Unknown, 06/13/19) Subjective Above noted seen this am calm eating well Objective Last 24 Hour Vital Signs Date Time Temp Pulse Resp B/P (MAP) Pulse Ox O2 Delivery O2 Flow Rate FiO2 06/22/19 16:00 98.5 60 17 155/82 (106) 100 06/22/19 12:00 98.1 60 17 149/62 (91) 95 06/22/19 08:10 165/72 06/22/19 08:10 61 165/72 06/22/19 08:10 61 165/72 06/22/19 08:00 98.5 56 17 165/72 (103) 97 06/22/19 07:30 Nasal Cannula 2.0 06/22/19 04:00 98.1 58 19 140/55 (83) 99 06/22/19 00:00 97.9 62 19 156/68 (97) 98 06/21/19 21:02 60 149/55 06/21/19 21:00 Nasal Cannula 2.0 06/21/19 20:00 97.3 60 19 149/55 (86) 100 Intake and Output 06/21/19 06/22/19 19:00 07:00 Intake Total 1140 ml 1100 ml Output Total 1800 ml 1750 ml Balance -660 ml -650 ml Intake Oral 440 ml 100 ml IV Total 700 ml 1000 ml Output Urine Total 1800 ml 1750 ml # Bowel Movements 2 Height (Feet): 5 Height (Inches): 4.00 Weight (Pounds): 139 Objective Elderly woman NCAT supple CTA RR abd soft, NT no edema non focal Rock Iraheta MD Jun 22, 2019 18:07
--- NOTE | 2019-06-22 19:06 | NUR ---
HAND-OFF: Report given to Alysha.
[2019-06-22] MEDS: Atorvastatin 20mg tab ORAL SCH (21:10)
--- NOTE | 2019-06-22 23:10 | NUR ---
NURSE NOTE: Pt is A/OX4 with stable VS. Her daughter is at the bedside. Orders reviewed and physical assessment completed. Fall precautions maintained. No complaints of pain at this time. The call light is within reach, will continue to monitor.
[2019-06-23] VITALS: BP 165/60
[2019-06-23 04:00] VITALS: BP 171/65
--- NOTE | 2019-06-23 07:30 | NUR ---
NURSE NOTES: Patient lying in bed awake. No complain of pain or distress at this time. Skin intact and dry. IV dressing intact and dry. Teixeira catheter patent and draining well. Bed lowest position. Call light within reach. Will continue to monitor.
[2019-06-23 08:00] VITALS: BP 185/77
[2019-06-23] MEDS: Losartan 50mg tab ORAL SCH (09:34)
[2019-06-23] MEDS: Timolol 0.5% Op Soln 2.5ml BOTH EYES SCH ×2 (09:34→18:14)
[2019-06-23] MEDS: Allopurinol 100mg Tab ORAL SCH ×2 (09:35→18:14)
[2019-06-23] MEDS: Carvedilol 6.25mg Tab ORAL SCH (09:35)
[2019-06-23] MEDS: Docusate 100mg cap ORAL SCH ×2 (09:35→18:14)
[2019-06-23] MEDS: Memantine 5 MG TAB ORAL SCH ×2 (09:35→18:14)
[2019-06-23] MEDS: Aspirin EC 81mg tab ORAL SCH (09:35)
[2019-06-23] MEDS: Heparin 5000 units/ml inj SUBQ SCH (09:42)
--- NOTE | 2019-06-23 10:10 | NUR ---
PT NOTE Attempted to see patient for PT treatment. BP 177/67. Treatment deferred due to elevated BP, Fredrick MCINTYRE notified, will follow and attempt to see later as schedule permits.
[2019-06-23 12:00] VITALS: BP 150/64
[2019-06-23] MEDS: Piperacillin/Tazobactam 3.375 GM in NS 110 ML IVPB SCH (12:44)
--- NOTE | 2019-06-23 12:57 | Infectious Diseases Prog Note ---
Assessment/Plan Assessment/Plan A 1. cholangitis treated X 10 days 2. CBD stones 3. hypertension 4. biliary duct stenosis 5. leucocytosis resolved 6. renal failure improving P 1. Discontinue Zosyn 2. Agree with discharge Subjective ROS Limited/Unobtainable: Yes Constitutional: Denies: fever Gastrointestinal/Abdominal: Reports: no symptoms Allergies: Coded Allergies: ACETAMINOPHEN (Verified Allergy, Unknown, 06/13/19) HYDROCODONE (Verified Allergy, Unknown, 06/13/19) Objective Vital Signs Last 24 Hour Vital Signs Date Time Temp Pulse Resp B/P (MAP) Pulse Ox O2 Delivery O2 Flow Rate FiO2 06/23/19 09:35 63 185/77 06/23/19 09:35 63 185/77 06/23/19 09:34 185/77 06/23/19 09:00 Room Air 06/23/19 08:00 97.6 63 18 185/77 (113) 96 06/23/19 04:00 97.7 56 16 171/65 (100) 99 06/23/19 00:00 97.7 63 16 165/60 (95) 99 06/22/19 21:12 60 138/51 06/22/19 21:00 Nasal Cannula 2.0 06/22/19 20:00 97.5 56 18 145/60 (88) 100 06/22/19 18:30 57 138/58 (84) 06/22/19 16:00 98.5 60 17 155/82 (106) 100 Height (Feet): 5 Height (Inches): 4.00 Weight (Pounds): 139 General Appearance: no acute distress HEENT: mucous membranes moist Respiratory/Chest: lungs clear Cardiovascular: normal rate Abdomen: soft, non tender Extremities: no edema Neurologic/Psychiatric: alert, responsive Current Medications Medications (Trade) Dose Ordered Sig/Manny Route PRN Reason Start Time Stop Time Status Last Admin Dose Admin Allopurinol (Zyloprim) 100 mg BID ORAL 06/14/19 09:00 07/14/19 08:59 06/23/19 09:35 Amlodipine Besylate (Norvasc) 5 mg DAILY ORAL 06/21/19 09:00 07/20/19 08:59 06/23/19 09:35 Aspirin (Ecotrin) 81 mg DAILY ORAL 06/14/19 09:00 1/13/20 08:59 06/23/19 09:35 Atorvastatin Calcium (Lipitor) 20 mg BEDTIME ORAL 06/14/19 21:00 07/14/19 20:59 06/22/19 21:10 Carvedilol (Coreg) 6.25 mg EVERY 12 HOURS ORAL 06/20/19 21:00 07/14/19 08:59 06/23/19 09:35 Docusate Sodium (Colace) 100 mg TWICE A DAY ORAL 06/20/19 21:00 07/20/19 20:59 06/23/19 09:35 Heparin Sodium (Porcine) (Heparin 5000 units/ml) 5,000 units EVERY 12 HOURS SUBQ 06/14/19 09:00 07/14/19 08:59 06/23/19 09:42 Hydralazine HCl (Apresoline) 25 mg Q6H PRN ORAL For High Blood Pressure 06/20/19 06:50 07/20/19 06:49 06/20/19 06:57 Losartan Potassium (Cozaar) 50 mg DAILY ORAL 06/21/19 09:00 07/14/19 08:59 06/23/19 09:34 Memantine (Namenda) 5 mg BID ORAL 06/14/19 09:00 07/14/19 08:59 06/23/19 09:35 Morphine Sulfate (Morphine Sulfate) 1 mg Q4H PRN IVP PAIN 4-10 06/21/19 18:15 06/28/19 18:14 Ondansetron HCl (Zofran ODT) 4 mg Q6H PRN ORAL Nausea & Vomiting 06/14/19 04:15 07/14/19 04:14 06/14/19 20:04 Pantoprazole (Protonix) 40 mg DAILY ORAL 06/14/19 09:00 07/14/19 08:59 06/23/19 09:35 Piperacillin Sod/ Tazobactam Sod 3.375 gm/Sodium Chloride 110 ml @ 27.5 mls/hr Q12H IVPB 06/14/19 12:00 06/25/19 23:59 06/23/19 12:44 Sodium Chloride 1,000 ml @ 100 mls/hr Q10H IV 06/16/19 12:00 07/16/19 11:59 06/23/19 04:45 Timolol Maleate (Timoptic 0.5% Op Soln) 1 drop TWICE A DAY BOTH EYES 06/14/19 18:00 07/14/19 17:59 06/23/19 09:34 Brenden Moreno MD Jun 23, 2019 12:57
--- NOTE | 2019-06-23 13:07 | NUR ---
NURSE NOTES: Spoke to Brenden Wilson regarding patient and new order received. Order read back and carried out.
--- NOTE | 2019-06-23 14:04 | NUR ---
NURSE NOTES: Spoke to regarding patient and cleared to discharge GI standpoint. Order noted and carried out.
--- NOTE | 2019-06-23 14:21 | NUR ---
NURSE NOTES: Spoke to regarding discharge. Per :1. Discharge today, 2. Continue home medications, 3. D/C Teixeira catheter, 4. manager drug to arrange [facility]. Order noted and carried out.
--- NOTE | 2019-06-23 14:26 | NUR ---
PT WEEKLY PROGRESS NOTE Patient being seen for therapeutic exercises, bed mobility training, transfer training and gait training. Patient requires CGA/min assist for bed mobility and transfers with FWW. Patient able to ambulate 180 ft with CGA and FWW, verbal cues for more upright posture and safety. Patient demonstrating increased endurance for functional activities. Patient will benefit from continued skilled inpatient PT intervention to address strength, balance, safety and endurance for improved level of functional mobility.
[2019-06-23] MEDS ORDERED: 1/2 NS 1000ml IV ONE (15:22)
--- NOTE | 2019-06-23 15:40 | NUR ---
NURSE NOTES: Removed Teixeira catheter as ordered with 1000 ml yellow urine. No complain of pain or discomfort. Will continue to monitor.
[2019-06-23 16:00] VITALS: BP 155/61
--- NOTE | 2019-06-23 16:01 | NUR ---
DISCHARGE NOTES INQUIRY SENT TO [facility], RECEIVED AND ACCEPTED. OK TO SEND PT HOME. [facility] 1999
--- NOTE | 2019-06-23 17:05 | NUR ---
NURSE NOTES: Patient voided yellow urine. No complain of pain or discomfort. No signs of bleeding. Will continue to monitor.
--- NOTE | 2019-06-23 18:30 | NUR ---
NURSE NOTES: Patient discharged with family member in stable condition. Discharge instruction given to patient and family member and verbalized understanding. Belonging and prescription given to family member. Instructed to follow up with MD and verbalized understanding. IV and ID removed. Brought down to private car by wheelchair.
--- NOTE | 2019-06-23 19:10 | Pulmonology Progress Note ---
Assessment/Plan Assessment/Plan Pulmonary Progress Note Assessment/Plan: 1. Transaminitis. 2. Cholangitis sp stent change 3. Possible acute versus chronic renal failure. 4. Leukocytosis. 5. Possible sepsis. 6. Anemia. PLAN ID noted renal parameters improved discussed with GI dc planning? will need[facility] HH, dc once stable and cleared by ID/GI impression, plan, and exam edited and reviewed in detail care discussed with RN Outpatient oncology FU Subjective Allergies: Coded Allergies: ACETAMINOPHEN (Verified Allergy, Unknown, 06/13/19) HYDROCODONE (Verified Allergy, Unknown, 06/13/19) Subjective confused no distress mild pain ERCP noted Objective Vital Signs Noted Laboratory Tests 06/16/19 09:25: White Blood Count 10.7, Red Blood Count 2.90L, Hemoglobin 9.2L, Hematocrit 28.9L , Mean Corpuscular Volume 99, Mean Corpuscular Hemoglobin 31.6H, Mean Corpuscular Hemoglobin Concent 31.8L, Red Cell Distribution Width 12.7, Platelet Count 220, Mean Platelet Volume 6.9, Neutrophils (%) (Auto) 80.2H, Lymphocytes (%) (Auto) 14.2L, Monocytes (%) (Auto) 3.7, Eosinophils (%) (Auto) 1.3, Basophils (%) (Auto) 0.5 06/16/19 10:20: Sodium Level 135L, Potassium Level 5.8H, Chloride Level 105, Carbon Dioxide Level 16L, Anion Gap 14, Blood Urea Nitrogen 26H, Creatinine 1.7H, Estimat Glomerular Filtration Rate , Glucose Level 39*L, Calcium Level 8.7, Total Bilirubin 2.3H, Direct Bilirubin 1.7H, Aspartate Amino Transf (AST/SGOT) 46H, Alanine Aminotransferase (ALT/SGPT) 42, Alkaline Phosphatase 608H, Total Protein 5.8L, Albumin 1.8L, Globulin 4.0, Albumin/Globulin Ratio 0.4L, Amylase Level 33, Lipase 150 06/16/19 12:25: Sodium Level 133L, Potassium Level 5.1, Chloride Level 104, Carbon Dioxide Level 15L, Anion Gap 14, Blood Urea Nitrogen 26H, Creatinine 1.6H, Estimat Glomerular Filtration Rate , Glucose Level 146#H, Calcium Level 8.5 06/17/19 05:10: White Blood Count 9.4, Red Blood Count 2.76L, Hemoglobin 8.8L, Hematocrit 27.2L , Mean Corpuscular Volume 99, Mean Corpuscular Hemoglobin 31.8H, Mean Corpuscular Hemoglobin Concent 32.2, Red Cell Distribution Width 12.5, Platelet Count 217, Mean Platelet Volume 6.8, Neutrophils (%) (Auto) 81.8H, Lymphocytes ( %) (Auto) 13.2L, Monocytes (%) (Auto) 3.4, Eosinophils (%) (Auto) 1.3, Basophils (%) (Auto) 0.3, Sodium Level [Pending], Potassium Level [Pending], Chloride Level [Pending], Carbon Dioxide Level [Pending], Blood Urea Nitrogen [ Pending], Creatinine [Pending], Estimat Glomerular Filtration Rate [Pending], Glucose Level [Pending], Calcium Level [Pending], Total Bilirubin [Pending], Aspartate Amino Transf (AST/SGOT) [Pending], Alanine Aminotransferase (ALT/SGPT ) [Pending], Alkaline Phosphatase [Pending], Total Protein [Pending], Albumin [ Pending], Globulin [Pending], Carcinoembryonic Antigen [Pending], CA 19-9 Antigen [Pending] Height (Feet): 5 Height (Inches): 4.00 Weight (Pounds): 139 Objective WDWN NAD clear breath sounds bilaterally without rhonchi or wheeze [id number] without MRG NABS mildly tender no HSM no CCE nonfocal seen earlier Subjective ROS Limited/Unobtainable: No Allergies: Coded Allergies: ACETAMINOPHEN (Verified Allergy, Unknown, 06/13/19) HYDROCODONE (Verified Allergy, Unknown, 06/13/19) Objective Last 24 Hour Vital Signs Date Time Temp Pulse Resp B/P (MAP) Pulse Ox O2 Delivery O2 Flow Rate FiO2 06/23/19 16:00 98.2 63 20 155/61 (92) 97 06/23/19 12:00 98.1 60 18 150/64 (92) 95 06/23/19 09:35 63 185/77 06/23/19 09:35 63 185/77 06/23/19 09:34 185/77 06/23/19 09:00 Room Air 06/23/19 08:00 97.6 63 18 185/77 (113) 96 06/23/19 04:00 97.7 56 16 171/65 (100) 99 06/23/19 00:00 97.7 63 16 165/60 (95) 99 06/22/19 21:12 60 138/51 06/22/19 21:00 Nasal Cannula 2.0 06/22/19 20:00 97.5 56 18 145/60 (88) 100 Intake and Output 06/22/19 06/23/19 19:00 07:00 Intake Total 1410.0 ml 1460 ml Output Total 2950 ml Balance 1410.0 ml -1490 ml Intake Oral 600 ml 360 ml IV Total 810.0 ml 1100 ml Output Urine Total 2950 ml # Voids 3 2 Yefri Bustillo MD Jun 23, 2019 19:10
--- NOTE | 2019-06-23 21:09 | General Progress Note ---
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 - Biliary stones - cholangitis - s/p stent change Recommendations - Follow LFT - Abx - Rec oncology opinion - Repeat ERCP for sent change in next 3 mo - can obtain bile duct brushing as wel Subjective Allergies: Coded Allergies: ACETAMINOPHEN (Verified Allergy, Unknown, 06/13/19) HYDROCODONE (Verified Allergy, Unknown, 06/13/19) Subjective Above noted seen this am calm eating well for d/c today Objective Last 24 Hour Vital Signs Date Time Temp Pulse Resp B/P (MAP) Pulse Ox O2 Delivery O2 Flow Rate FiO2 06/23/19 16:00 98.2 63 20 155/61 (92) 97 06/23/19 12:00 98.1 60 18 150/64 (92) 95 06/23/19 09:35 63 185/77 06/23/19 09:35 63 185/77 06/23/19 09:34 185/77 06/23/19 09:00 Room Air 06/23/19 08:00 97.6 63 18 185/77 (113) 96 06/23/19 04:00 97.7 56 16 171/65 (100) 99 06/23/19 00:00 97.7 63 16 165/60 (95) 99 06/22/19 21:12 60 138/51 Intake and Output 06/22/19 06/23/19 19:00 07:00 Intake Total 1410.0 ml 1460 ml Output Total 2950 ml Balance 1410.0 ml -1490 ml Intake Oral 600 ml 360 ml IV Total 810.0 ml 1100 ml Output Urine Total 2950 ml # Voids 3 2 Height (Feet): 5 Height (Inches): 4.00 Weight (Pounds): 139 Objective Elderly woman NCAT supple CTA RR abd soft, NT no edema non focal Rock Iraheta MD Jun 23, 2019 21:09
--- NOTE | 2019-06-24 10:27 | Discharge Summary ---
Discharge Summary Discharge Summary _ DATE OF ADMISSION: 06/13/2019 DATE OF DISCHARGE: 06/23/2019 DISCHARGED BY: Dr. Jack REASON FOR ADMISSION: 88 years old female with past medical history of hypertension, hypercholesterolemia, possible gout, dementia, history of biliary tract stenosis . status post ERCP , status post stent placement, presented with generalized weakness and abdominal pain with associated nausea. No fever or chills. Blood pressure was on the low side 84/52. Urinalysis revealed evidence of UTI. Laboratory work-up revealed significant leukocytosis WBC 21.8. BUN 29, creatinine 2.2. Total bilirubin 7.8 direct bilirubin 6.5. AST 84, ALT 72. Alkaline phosphatase 749. Abdominal ultrasound revealed gallbladder distention, suspected cholelithiasis , suspected intrahepatic biliary ductal dilatation. In emergency department patient started on the IV fluids . Blood pressure improved with IV fluids . Patient started on broad-spectrum antibiotic and admitted for probable acute cholangitis and urinary tract infection. CONSULTANTS: ID specialist Dr. Cheng GI specialist Dr. Iraheta printer machine Dr. Bowen HOSPITAL COURSE: Patient was kept n.p.o. on IV fluids. Broad-spectrum antibiotic continued. Pain management was addressed as needed. ID specialist, GI and printer machine followed. Home medication were resumed. Renal parameters and electrolytes were closely monitored, electrolytes corrected as needed, and nephrotoxic's were avoided. DVT prophylaxis provided. Patient undergone ERCP on which revealed multiple common bile duct stones and sludge, distal common bile duct stricture, dilated common bile duct, ampullary diverticulum. Patient undergone stent removal, dilatation, stone removal, and subsequent stent placement. GI specialist recommended complete antibiotic course and repeat ERCP in 3 months. HIDA scan revealed nonvisualized gallbladder , concerning for acute cholecystitis. Patent common bile duct stent. Patient was treated conservatively with antibiotics. Urine culture was negative , blood cultures were negative. Leukocytosis resolved. No fevers. Patient completed treatment with antibiotics for 10 days. LFT were closely monitored. Prior to discharge total bilirubin 1.2, direct bilirubin 0.9. Stable AST and ALT. Alkaline phosphatase trended down from 749 to 359. Cancer tumor markers revealed elevated CA-19-9 75 and stable CEA. GI specialist recommended outpatient oncology evaluation if family wants to pursue further workup. Blood pressure was managed with multiple antihypertensive medications. Statin continued. DVT and GI prophylaxis provided. Antiplatelet therapy with aspirin continued. Patient clinically stabilized and was ready for discharge home. FINAL DIAGNOSES: Possible sepsis Acute cholangitis Biliary stricture with elevated CA-19-9 Status post ERCP, stent removal, dilatation, stone removal and stent placement Multiply common bile duct stones Hypertension Acute kidney injury ,probably due to dehydration, on chronic kidney disease stage 4 Anemia DISCHARGE MEDICATIONS: See Medication Reconciliation list. DISCHARGE INSTRUCTIONS: Patient was discharged home with home health services. Follow up with primary care provider in one week. Patient will need to repeat ERCP in 3 months. I have been assigned to dictate discharge summary for this account. I was not involved in the patient's management. Janessa Perez NP Jun 24, 2019 10:27
== END 2019-06-23 18:30 | disposition home or self-care (01) | DRG 871 ==
LOC: EMR 21:14 → 3E 22:10 → EDBEDREQ 23:03 → 3E 06-14 00:55
PROC: 0F798ZZ Dilation of Common Bile Duct, Via Natural or Artificial Opening Endoscopic (ICD-10-PCS; principal; 2019-06-16 13:36)
PROC: 0FPB8DZ Removal of Intraluminal Device from Hepatobiliary Duct, Via Natural or Artificial Opening Endoscopic (ICD-10-PCS; principal; 2019-06-16 13:36)
PROC: 0FC98ZZ Extirpation of Matter from Common Bile Duct, Via Natural or Artificial Opening Endoscopic (ICD-10-PCS; principal; 2019-06-16 13:36)
DX: A41.9 Sepsis, unspecified organism (principal); K83.1 Obstruction of bile duct; K83.09 Other cholangitis; N39.0 Urinary tract infection, site not specified; N18.4 Chronic kidney disease, stage 4 (severe); N17.9 Acute kidney failure, unspecified; I12.9 Hypertensive chronic kidney disease with stage 1 through stage 4 chronic kidney disease, or unspecified chronic kidney disease; F03.90 Unspecified dementia, unspecified severity, without behavioral disturbance, psychotic disturbance, mood disturbance, and anxiety; E78.00 Pure hypercholesterolemia, unspecified; D64.9 Anemia, unspecified; R74.0 Nonspecific elevation of levels of transaminase and lactic acid dehydrogenase [LDH]; R33.9 Retention of urine, unspecified; E86.0 Dehydration
CPT/HCPCS: 36415; 74328; 76000; 76700; 78266; 80048; 80053; 81003; 81050; 82150; 82248; 82378; 82575; 82962; 83690; 84156; 85007; 85025; 87040; 87086; 94003; 94150; 96361; 96365; 96375; 99285; J2250; J2405; J7030

== ENCOUNTER 2019-08-09 07:53 | Inpatient (IN) | payer MEDICARE, MEDICAID ==
[~2019-08-09] VITALS: Ht 154.9 cm; Wt 63.5 kg
[~2019-08-09 07:53] MED LIST: ADALAT20 MG ORAL; ALLOPURINOL100 M1 ORAL; ASPIR 8181 MG ORAL; CARVEDILOL6.25 MG ORAL; CRESTOR10 M2 ORAL; FERROUS SULFAT325 MG ORAL; FUROSEMIDE40 MG ORAL; LOSARTAN POTAS100 MG ORAL; NAMENDA5 MG ORAL; OMEPRAZOLE40 M1 ORAL; ZOFRAN ODT8 MG ORAL
[2019-08-09 08:06] VITALS: BP 129/58
--- NOTE | 2019-08-09 08:07 | NUR ---
ED Nurse Note: Patient brought into ED by wheelchair from home by the daughter due to chest pain 7/10 and right flank pain for 3 days. patient is alert awake x3, able to follow commands, breathing unlabored and even. patien placed on a hospital gown and on a monitoring analyst. daughter at bedside.
--- NOTE | 2019-08-09 08:15 | NUR ---
ED Nurse Note: oral temp 100.7F notified to Dr. Lima.
--- NOTE | 2019-08-09 08:41 | NUR ---
ED Nurse Note: Dr. Lima is ok with patient drinking water at this time.
--- NOTE | 2019-08-09 08:42 | NUR ---
ED Nurse Note: water provided to the patient. patient voided x1 using bedpan, however the urine amount is not sufficient at this time. patient able to void by herself continent at home.
[2019-08-09 08:50] LABS: ANION GAP 11 mmol/L (5-15); BLOOD UREA NITROGEN 25 mg/dL (7-18); CALCIUM 9.5 MG/DL (8.5-10.1); CARBON DIOXIDE 24 MMOL/L (21-32); CHLORIDE 104 MMOL/L (98-107); CREATININE 1.8 MG/DL (0.55-1.30); POTASSIUM 4.4 MMOL/L (3.5-5.1); SODIUM 139 MMOL/L (136-145)
--- NOTE | 2019-08-09 08:57 | NUR ---
ED Nurse Note: xray taken at bedside.
[2019-08-09 09:03] LABS: ALANINE AMINOTRANSFERASE 113 U/L (12-78); ALBUMIN 2.9 G/DL (3.4-5.0); ALBUMIN/GLOBULIN RATIO 0.7 (1.0-2.7); ALKALINE PHOSPHATASE 600 U/L (46-116); ASPARTATE AMINO TRANSFERASE 155 U/L (15-37); CKMB < 0.5 NG/ML (0.0-3.6); CREATINE KINASE 11 U/L (26-308)
[2019-08-09 09:04] LABS: BILIRUBIN,DIRECT 2.6 MG/DL (0.0-0.3)
--- NOTE | 2019-08-09 09:04 | NUR ---
ED Nurse Note: patient's daughter confirmed that patient does not have allergy to tylenol. patient was getting really drowsy and fainted after taking [place], she does not wish to take [place] anymore. however patient does take tylenol at home.
[2019-08-09 09:06] LABS: HEMATOCRIT 33.3 % (37.0-47.0); HEMOGLOBIN 11.8 G/DL (12.0-16.0); MEAN CORPUSCULAR VOLUME 97 FL (80-99); PLATELET COUNT 188 K/UL (150-450); RED BLOOD COUNT 3.44 M/UL (4.20-5.40); RED CELL DISTRIBUTION WIDTH 12.3 % (11.6-14.8); WHITE BLOOD COUNT 14.5 K/UL (4.8-10.8)
--- NOTE | 2019-08-09 09:10 | NUR ---
ED Nurse Note: HARPER Lima at bedside, explaining to the patient's daughter about getting admitted to hospital, her liver enzyme is elevated at this time. oxygen NC 2L applied as ordered. tylenol given as ordered for fever. patient is tolerating.
--- NOTE | 2019-08-09 09:14 | Emergency Room Report ---
History of Present Illness General Chief Complaint: Chest Pain Source: Patient, Family Member Present Illness HPI Patient presents by family for complaints and reports of low-grade fever Appearance of discomfort Initially reported chest pain however family reports right upper quadrant discomfort There was no reports of vomiting or diarrhea Family reports the patient appears to be getting weaker than usual Patient had fairly extensive inpatient stay with ERCP and stent placement patient's CA 19 was also elevated and recommended for outpatient evaluation of this abnormality however family reports that has been no other outpatient follow-up Patient has been having decreased oral intake and appears generally malaised Patient herself does not provide specific input and this does limit the history of present illness Allergies: Coded Allergies: HYDROCODONE (Verified Allergy, Unknown, 06/13/19) Patient History Limited by: medical condition Past Medical History: see triage record Reviewed Nursing Documentation: PMH: Agreed; PSxH: Agreed Nursing Documentation-PMH Past Medical History: No History, Except For Hx Cardiac Problems: Yes Hx Hypertension: Yes Hx Gastrointestinal Problems: Yes Hx Neurological Problems: Yes Hx Dementia: Yes Hx Alzheimer's Disease: Yes Hx Fatigue: Yes Review of Systems All Other Systems: negative except mentioned in HPI Physical Exam Vital Signs Date Time Temp Pulse Resp B/P (MAP) Pulse Ox O2 Delivery O2 Flow Rate FiO2 08/09/19 08:00 100.8 72 25 131/48 (75) 93 Room Air Sp02 EP Interpretation: reviewed, normal General Appearance: other - Appears jaundice and weak Head: normocephalic, atraumatic Eyes: bilateral eye scleral icterus ENT: EOM grossly intact, dry mucus membranes Neck: supple, no meningismus Respiratory: lungs clear, no respiratory distress Cardiovascular #1: regular rate, rhythm, no edema Gastrointestinal: normal bowel sounds, other - Patient has some grimacing with palpation of the right upper quadrant otherwise soft abdomen Musculoskeletal: other - Patient is frail weak has equal production lead both upper extremity Neurologic: responsive - To physical and verbal stimuli Skin: jaundice Lymphatic: no adenopathy Procedures Critical Care Time Critical Care Time 40 minutes for multiple re-evaluations, critical findings concerning for life- threatening process not including any procedural time Medical Decision Making Diagnostic Impression: Primary Impression: Acute cholangitis Additional Impression: Obstructive jaundice ER Course Multiple differentials and consideration including but not limited to cholecystitis, gallstone pancreatitis, obstructive stone, sepsis Patient has had significant previous intervention including stent placement at this time the Liver function test again come back elevated with total bilirubin increasing patient provided IV hydration antibiotics Requires multispecialty consultation and admission to the hospital Labs Test 08/09/19 08:05 08/09/19 10:37 08/10/19 06:18 08/10/19 09:18 White Blood Count 14.5 K/UL (4.8-10.8) 7.1 K/UL (4.8-10.8) Red Blood Count 3.44 M/UL (4.20-5.40) 3.10 M/UL (4.20-5.40) Hemoglobin 11.8 G/DL (12.0-16.0) 10.4 G/DL (12.0-16.0) Hematocrit 33.3 % (37.0-47.0) 30.6 % (37.0-47.0) Mean Corpuscular Volume 97 FL (80-99) 99 FL (80-99) Mean Corpuscular Hemoglobin 34.2 PG (27.0-31.0) 33.4 PG (27.0-31.0) Mean Corpuscular Hemoglobin Concent 35.4 G/DL (32.0-36.0) 33.9 G/DL (32.0-36.0) Red Cell Distribution Width 12.3 % (11.6-14.8) 12.6 % (11.6-14.8) Platelet Count 188 K/UL (150-450) 146 K/UL (150-450) Mean Platelet Volume 6.8 FL (6.5-10.1) 7.0 FL (6.5-10.1) Neutrophils (%) (Auto) % (45.0-75.0) 72.1 % (45.0-75.0) Lymphocytes (%) (Auto) % (20.0-45.0) 18.7 % (20.0-45.0) Monocytes (%) (Auto) % (1.0-10.0) 7.1 % (1.0-10.0) Eosinophils (%) (Auto) % (0.0-3.0) 1.6 % (0.0-3.0) Basophils (%) (Auto) % (0.0-2.0) 0.4 % (0.0-2.0) Differential Total Cells Counted 100 Neutrophils % (Manual) 90 % (45-75) Lymphocytes % (Manual) 10 % (20-45) Monocytes % (Manual) 0 % (1-10) Eosinophils % (Manual) 0 % (0-3) Basophils % (Manual) 0 % (0-2) Band Neutrophils 0 % (0-8) Platelet Estimate Adequate Platelet Morphology Normal Red Blood Cell Morphology Hypochromasia 1+ Sodium Level 139 MMOL/L (136-145) 141 MMOL/L (136-145) Potassium Level 4.4 MMOL/L (3.5-5.1) 4.0 MMOL/L (3.5-5.1) Chloride Level 104 MMOL/L (98-107) 107 MMOL/L (98-107) Carbon Dioxide Level 24 MMOL/L (21-32) 24 MMOL/L (21-32) Anion Gap 11 mmol/L (5-15) 10 mmol/L (5-15) Blood Urea Nitrogen 25 mg/dL (7-18) 25 mg/dL (7-18) Creatinine 1.8 MG/DL (0.55-1.30) 1.6 MG/DL (0.55-1.30) Estimat Glomerular Filtration Rate mL/min (>60) mL/min (>60) Glucose Level 155 MG/DL (74-106) 95 MG/DL (74-106) Lactic Acid Level 1.80 mmol/L (0.4-2.0) Calcium Level 9.5 MG/DL (8.5-10.1) 9.0 MG/DL (8.5-10.1) Total Bilirubin 3.0 MG/DL (0.2-1.0) Direct Bilirubin 2.6 MG/DL (0.0-0.3) Aspartate Amino Transf (AST/SGOT) 155 U/L (15-37) 92 U/L (15-37) Alanine Aminotransferase (ALT/SGPT) 113 U/L (12-78) 83 U/L (12-78) Alkaline Phosphatase 600 U/L (46-116) Total Creatine Kinase 11 U/L (26-308) Creatine Kinase MB < 0.5 NG/ML (0.0-3.6) Creatine Kinase MB Relative Index 4.5 Troponin I 0.000 ng/mL (0.000-0.056) Total Protein 7.3 G/DL (6.4-8.2) Albumin 2.9 G/DL (3.4-5.0) Globulin 4.4 g/dL Albumin/Globulin Ratio 0.7 (1.0-2.7) Lipase 120 U/L (73-393) Urine Color Yellow Urine Appearance Clear Urine pH 7 (4.5-8.0) Urine Specific [place] 1.010 (1.005-1.035) Urine Protein 3+ (NEGATIVE) Urine Glucose (UA) Negative (NEGATIVE) Urine Ketones Negative (NEGATIVE) Urine Blood Negative (NEGATIVE) Urine Nitrite Negative (NEGATIVE) Urine Bilirubin Negative (NEGATIVE) Urine Urobilinogen 1 MG/DL (0.0-1.0) Urine Leukocyte Esterase 1+ (NEGATIVE) Urine RBC 0 /HPF (0 - 2) Urine WBC 2-4 /HPF (0 - 2) Urine Squamous Epithelial Cells Few /LPF (NONE/OCC) Urine Bacteria Few /HPF (NONE) Pro-B-Type Natriuretic Peptide 3924 pg/mL (0-125) Test 08/11/19 05:45 White Blood Count 6.7 K/UL (4.8-10.8) Red Blood Count 3.26 M/UL (4.20-5.40) Hemoglobin 10.9 G/DL (12.0-16.0) Hematocrit 32.6 % (37.0-47.0) Mean Corpuscular Volume 100 FL (80-99) Mean Corpuscular Hemoglobin 33.3 PG (27.0-31.0) Mean Corpuscular Hemoglobin Concent 33.3 G/DL (32.0-36.0) Red Cell Distribution Width 12.5 % (11.6-14.8) Platelet Count 192 K/UL (150-450) Mean Platelet Volume 7.3 FL (6.5-10.1) Neutrophils (%) (Auto) 62.6 % (45.0-75.0) Lymphocytes (%) (Auto) 25.6 % (20.0-45.0) Monocytes (%) (Auto) 7.0 % (1.0-10.0) Eosinophils (%) (Auto) 3.8 % (0.0-3.0) Basophils (%) (Auto) 0.9 % (0.0-2.0) Sodium Level 142 MMOL/L (136-145) Potassium Level 3.7 MMOL/L (3.5-5.1) Chloride Level 107 MMOL/L (98-107) Carbon Dioxide Level 27 MMOL/L (21-32) Anion Gap 8 mmol/L (5-15) Blood Urea Nitrogen 22 mg/dL (7-18) Creatinine 1.8 MG/DL (0.55-1.30) Estimat Glomerular Filtration Rate mL/min (>60) Glucose Level 107 MG/DL (74-106) Calcium Level 9.1 MG/DL (8.5-10.1) Total Bilirubin 1.3 MG/DL (0.2-1.0) Direct Bilirubin 0.8 MG/DL (0.0-0.3) Aspartate Amino Transf (AST/SGOT) 59 U/L (15-37) Alanine Aminotransferase (ALT/SGPT) 72 U/L (12-78) Alkaline Phosphatase 632 U/L (46-116) Total Protein 6.8 G/DL (6.4-8.2) Albumin 2.4 G/DL (3.4-5.0) Globulin 4.4 g/dL Albumin/Globulin Ratio 0.5 (1.0-2.7) Rhythm Strip Diag. Results EP Interpretation: yes Rate: 88 Rhythm: NSR, no PVC's, no ectopy Chest X-Ray Diagnostic Results Chest X-Ray Diagnostic Results : Chest X-Ray Ordered: Yes # of Views/Limited/Complete: 1 View Indication: Chest Pain EP Interpretation: Yes Interpretation: no effusion, no pneumothorax, other - Bilateral lower lobe atelectasis Impression: Other - Bilateral lower lobe atelectasis Electronically Signed by: Rika Lima, DO CT/MRI/US Diagnostic Results CT/MRI/US Diagnostic Results : Impression Abdominal ultrasoundIMPRESSION: 1. Distended gallbladder with tumefactive type sludge/stones. No acute cholecystitis. Similar to prior study. 2. CBD dilated at 12.5 mm with sludge or stones. Similar to prior study. 3. Small bilateral kidneys, left smaller than right, with echogenic cortex, may be medical renal disease. Stable. 4. Lobulated right renal cortical cyst measuring 4.04 x 2.85 x 3.47 cm with a thin septation. Small anechoic left renal cysts. Stable. Last Vital Signs Date Time Temp Pulse Resp B/P (MAP) Pulse Ox O2 Delivery O2 Flow Rate FiO2 08/09/19 08:08 73 26 Room Air 08/09/19 08:06 100.7 129/58 96 Status: improved Disposition: ADMITTED INPATIENT Condition: Serious Referrals: NON PHYSICIAN (PCP) Rika Lima DO Aug 09, 2019 09:14
--- NOTE | 2019-08-09 09:22 | Diagnostic Imaging Report ---
EXAM: XR Chest, 1 View CLINICAL HISTORY: CP TECHNIQUE: Frontal view of the chest. COMPARISON: No relevant prior studies available. FINDINGS: Lungs: There is mild cardiomegaly and mild perihilar pulmonary edema. Pleural space: Unremarkable. No pneumothorax. Heart: Unremarkable. No cardiomegaly. Mediastinum: Unremarkable. Bones/joints: Unremarkable. IMPRESSION: There is mild cardiomegaly and mild perihilar pulmonary edema.
--- NOTE | 2019-08-09 09:40 | NUR ---
ED Nurse Note: U/S done at bedside
[2019-08-09 10:44] LABS: APPEARANCE,URINE CLEAR; BILIRUBIN, URINE NEGATIVE (NEGATIVE); GLUCOSE, URINE (UA) NEGATIVE (NEGATIVE); KETONES,URINE NEGATIVE (NEGATIVE); LEUKOCYTE ESTERASE ,URINE 1+ (NEGATIVE); NITRITE,URINE NEGATIVE (NEGATIVE); PH,URINE 7 (4.5-8.0); PROTEIN,URINE 3+ (NEGATIVE); UROBILINOGEN,URINE 1 MG/DL (0.0-1.0)
[2019-08-09 10:47] LABS: COLOR,URINE YELLOW
--- NOTE | 2019-08-09 11:03 | Diagnostic Imaging Report ---
EXAM: US Abdomen Complete CLINICAL HISTORY: PAIN TECHNIQUE: Real-time ultrasound of the abdomen with image documentation. COMPARISON: Abdominal ultrasound 06/14/19 FINDINGS: Liver: Liver measures 13.8 cm. There may be mild intrahepatic bile duct dilation. Gallbladder: Distended gallbladder with tumefactive type sludge/stones. Trace pericholecystic fluid. Gallbladder wall is normal, 2.2 mm. Common bile duct: CBD dilated at 12.5 mm with sludge or stones. Pancreas: Unremarkable as visualized. Kidneys: Lobulated right renal cortical cyst measuring 4.04 x 2.85 x 3. 47 cm with a thin septation. Right kidney measures 9.9 x 4.9 x 4.5 cm. Echogenic renal cortex may be medical renal disease. Left kidney measures 7.8 x 3.59 x 4.19 Cm. Echogenic renal cortex. 2.09 x 2.01 x 2 cm anechoic left renal cyst. Smaller anechoic left renal cysts. No stones. No hydronephrosis. Spleen: Spleen measures 10.15 cm. Aorta: Unremarkable. No aneurysm. Inferior vena cava: Unremarkable. IMPRESSION: 1. Distended gallbladder with tumefactive type sludge/stones. No acute cholecystitis. Similar to prior study. 2. CBD dilated at 12.5 mm with sludge or stones. Similar to prior study. 3. Small bilateral kidneys, left smaller than right, with echogenic cortex, may be medical renal disease. Stable. 4. Lobulated right renal cortical cyst measuring 4.04 x 2.85 x 3.47 cm with a thin septation. Small anechoic left renal cysts. Stable.
--- NOTE | 2019-08-09 11:45 | NUR ---
ED Nurse Note: report given to Poncho MCINTYRE, endorsed all plan of care to Poncho MCINTYRE.
[2019-08-09 11:52] VITALS: BP 132/62
--- NOTE | 2019-08-09 11:53 | NUR ---
ED Nurse Note: patient is being transferred to 2E with belongings, on ACLS protocol
--- NOTE | 2019-08-09 12:00 | NUR ---
NURSE NOTES: Report received from MIGUELINA Goetz. Pt. came in from ER with a gurney. Transferred to bed. ekg monitor tech applied. VSS. Afibrial. Family at bedside. Pt. complained about abd. pain 10/09. Will communicate with MD. Hospital rules communicated, oriented to room. Bed on lowest position, side rails upx2, brakes engaged, alarm on. Call light within easy reach.
[2019-08-09 12:14] VITALS: BP 122/60
[2019-08-09] MEDS ORDERED: NIFEdipine 10mg cap ORAL PRN (13:55)
--- NOTE | 2019-08-09 14:38 | History & Physical ---
History and Physical History & Physicial History and Physical HPI Patient is an 88 year old woman, admitted with low-grade fever, right upper quadrant discomfort, malaise There was no reports of vomiting or diarrhea, reduced oral intake Family reports the patient appears to be getting weaker than usual Patient had fairly extensive inpatient stay with ERCP and previous stent placement, noted to have elevated CA 19-9 Allergies: HYDROCODONE Limited by: medical condition Past Medical History: Hypertension, Hypertensive Heart Disease, Alzheimers Dementia, Previous cholangitis, Previous CBD stent, elevated CA19-9 All Other Systems: negative except mentioned in HPI Physical Exam Vital Signs Noted Date Time Temp Pulse Resp B/P (MAP) Pulse Ox O2 Delivery O2 Flow Rate FiO2 08/09/19 08:00 100.8 72 25 131/48 (75) 93 Room Air General Appearance: other - Appears jaundice and weak Head: normocephalic, atraumatic Eyes: bilateral eye scleral icterus ENT: EOM grossly intact, dry mucus membranes Neck: supple, no meningismus Respiratory: lungs clear, no respiratory distress Cardiovascular: regular rate, rhythm, no edema Gastrointestinal: normal bowel sounds, other - Patient has pain with palpation of the right upper quadrant otherwise soft abdomen, no rebound Musculoskeletal: other - Patient is frail 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
[2019-08-09] MEDS: D5NS 1,000 ML IV SCH (14:55)
[2019-08-09 16:00] VITALS: BP 110/71
--- NOTE | 2019-08-09 16:08 | NUR ---
CASE MANAGEMENT: INITIAL REVIEW 08/09/2019 88 YO F PRESENTED TO ED FROM HOME CC: CP AND FLANK PAIN PMHx: HTN. DEMENTIA. ALZHEIMERS DX. SI:CHOLANGITIS VS: T 100.8 HR 72 RR 25 B/P 131/48 SATS 93% ON RA LABS: WBC 14.5 BUN 25 CR 1.8 GLU 155 TBILI 3 DBILI 2.6 AST 155 ALT 113 ALP 600 TOTAL CK 11 IS: TYLENOL PO X1 ABD US IMPRESSION: 1. Distended gallbladder with tumefactive type sludge/stones. No acute cholecystitis. Similar to prior study 2. CBD dilated at 12.5 mm with sludge or stones. Similar to prior study. 3. Small bilateral kidneys, left smaller than right, with echogenic cortex, may be medical renal disease. Stable. 4. Lobulated right renal cortical cyst measuring 4.04 x 2.85 x 3.47 cm with a thin septation. Small anechoic left renal cysts. Stable. PATIENT ADMITTED TO TELE 08/09/2019 @ 1044 DCP: PATIENT TO BE DISCHARGED TO HOME ONCE MEDICALLY CLEARED. PLAN OF CARE: IV Antibiotics IV fluids O2 PRN [employer] Medications NPO except meds PPX GI Consultation INTERQUAL MET
[2019-08-09] MEDS: Piperacillin/Tazobactam 3.375 GM in NS 110 ML IVPB SCH (16:54)
--- NOTE | 2019-08-09 19:00 | NUR ---
NURSE NOTES: Received report from MIGUELINA Jose. Patient is asleep, arousable to name, lying in semi tomas's; resting comfortably. A/Ox3. Primarily Kazakh speaking. Denies pain at this time. No signs of acute distress noted. On oxygen via NC @ 2LPM. Checked IV fluid and flushed with ongoing IV fluid as prescribed. No erythema, bleeding or infiltration noted. Bed at lowest position, brakes on, siderailsx3. Call light within reach. Will continue to monitor.
--- NOTE | 2019-08-09 19:30 | NUR ---
HAND-OFF: Report given to MIGUELINA Bain. Pt. in stable condition. Plan of care endorsed.
[2019-08-09 20:00] VITALS: BP 126/53
[2019-08-09] MEDS: Heparin 5000 units/ml inj SUBQ SCH (20:26)
--- NOTE | 2019-08-09 21:17 | NUR ---
NURSE NOTES: Patient is SB with PVC on the monitor, 52 bpm. No signs of pain nor distress noted. Paged Dr. Bustillo, awaiting for callback.
--- NOTE | 2019-08-09 21:20 | NUR ---
NURSE NOTES: Per Dr. Bustillo, to hold Coreg for tonight. Noted and carried out.
[2019-08-10] VITALS: BP 135/55
--- NOTE | 2019-08-10 02:03 | NUR ---
NURSE NOTES: Resting throughout the night. No significant change of condition noted. Will continue to monitor.
[2019-08-10 04:00] VITALS: BP 141/59
[2019-08-10] MEDS: Piperacillin/Tazobactam 3.375 GM in NS 110 ML IVPB SCH ×2 (04:18→16:16)
[2019-08-10] MEDS: D5NS 1,000 ML IV SCH ×2 (07:08→22:21)
--- NOTE | 2019-08-10 07:24 | NUR ---
HAND-OFF: Report given to MIGUELINA Houser. Plan of care endorsed.
--- NOTE | 2019-08-10 07:57 | NUR ---
NURSE NOTES: Recvd nurse. Pt is awake and alert laying in bed. Pt is on NC @ 2L. Pt is NPO except meds. IV is right AC 20g running D5NS @ 60/hr. Bed in lowest position, call light within reach, will continue with plan of care
[2019-08-10 08:00] VITALS: BP 129/51
[2019-08-10 08:33] LABS: BASOPHILS % (AUTO) 0.4 % (0.0-2.0); EOSINOPHILS % (AUTO) 1.6 % (0.0-3.0); HEMATOCRIT 30.6 % (37.0-47.0); HEMOGLOBIN 10.4 G/DL (12.0-16.0); LYMPHOCYTES % (AUTO) 18.7 % (20.0-45.0); MEAN CORPUSCULAR VOLUME 99 FL (80-99); MONOCYTES % (AUTO) 7.1 % (1.0-10.0); NEUTROPHILS % (AUTO) 72.1 % (45.0-75.0); PLATELET COUNT 146 K/UL (150-450); RED CELL DISTRIBUTION WIDTH 12.6 % (11.6-14.8); WHITE BLOOD COUNT 7.1 K/UL (4.8-10.8)
[2019-08-10 08:59] LABS: ALANINE AMINOTRANSFERASE 83 U/L (12-78); ASPARTATE AMINO TRANSFERASE 92 U/L (15-37)
[2019-08-10] MEDS: Carvedilol 6.25mg Tab ORAL SCH ×2 (09:00→20:29)
[2019-08-10] MEDS: Heparin 5000 units/ml inj SUBQ SCH ×2 (09:00→20:16)
[2019-08-10] MEDS: Memantine 5 MG TAB ORAL SCH (09:16)
[2019-08-10] MEDS: Aspirin Baby 81mg NG SCH (09:16)
[2019-08-10] MEDS: Losartan 50mg tab ORAL SCH (09:17)
[2019-08-10] MEDS: Allopurinol 100mg Tab ORAL SCH (09:17)
--- NOTE | 2019-08-10 10:30 | Consultation ---
DATE OF CONSULTATION: 08/10/2019 CONSULTING PHYSICIAN: Tashi Hope M.D. CHIEF COMPLAINT: Cholangitis. HISTORY OF PRESENT ILLNESS: This is an 88-year-old Chinese female, known to me from prior admission, was actually in June 2019. The patient at that time was admitted with cholangitis, had an ERCP, had biliary stricture and stones, which was dilated and stent was placed. The patient was supposed to have a followup ERCP and stent removal. The patient presented again in the hospital with another cholangitis. PAST MEDICAL HISTORY: 1. Gout. 2. Hypercholesteremia. 3. Hypertension. 4. Cardiomyopathy. 5. Dementia. 6. Biliary stricture requiring stenting. ALLERGIES: To acetaminophen and hydrocodone. MEDICATIONS: Please see medication reconciliation list. SOCIAL HISTORY: There is no recent history of tobacco, alcohol, or drug abuse. FAMILY HISTORY: Noncontributory. REVIEW OF SYSTEMS: Limited. PHYSICAL EXAMINATION: VITAL SIGNS: Most recent vital signs, temperature is 97.6, pulse is 61, respirations 18, blood pressure is 141/59. HEENT: Normocephalic, atraumatic. Sclerae mild icterus. NECK: Supple. No evidence of obvious lymphadenopathy. CARDIOVASCULAR: Regular rate and rhythm. Plus S1-S2. LUNGS: Decreased breath sounds bilaterally based on the supine exam. ABDOMEN: Soft. Bowel sounds are present. Minimal tenderness to palpation in the epigastric area. No rebound. No guarding. No peritoneal sign. EXTREMITIES: No cyanosis, no clubbing, no edema. LABORATORY DATA: Bilirubin is 3, direct bilirubin is 2.6. AST of 155, ALT of 113, alkaline phosphatase of . ASSESSMENT AND PLAN: This is an 88-year-old female with recurrent cholangitis. Plan to keep her NPO, IV fluid, IV antibiotics. Plan to do an ERCP tomorrow. Tashi Hope M.D. DR: CARROL JOB#: [id number] CC:
[2019-08-10 11:04] LABS: ANION GAP 10 mmol/L (5-15); BLOOD UREA NITROGEN 25 mg/dL (7-18); CARBON DIOXIDE 24 MMOL/L (21-32); CHLORIDE 107 MMOL/L (98-107); CREATININE 1.6 MG/DL (0.55-1.30); SODIUM 141 MMOL/L (136-145)
[2019-08-10 12:00] VITALS: BP 131/50
[2019-08-10] MEDS ORDERED: D5NS 1000ml IV ONE (14:52)
[2019-08-10 16:00] VITALS: BP 140/60
--- NOTE | 2019-08-10 18:52 | NUR ---
HAND-OFF: Report given to Taya MCINTYRE.
--- NOTE | 2019-08-10 19:00 | NUR ---
NURSE NOTES: Received report from MIGUELINA Houser. Patient is asleep, arousable to name, lying in semi tomas's; resting comfortably. A/Ox3. Primarily Greenlandic speaking. No signs of pain or acute distress noted. Checked IV site and flushed. No erythema, bleeding or infiltration noted. Bed at lowest position, brakes on, siderailsx3. Call light within reach. Will continue to monitor.
[2019-08-10 20:00] VITALS: BP 137/64
--- NOTE | 2019-08-10 20:38 | Pulmonology Progress Note ---
Assessment/Plan Assessment/Plan Progress Note HPI Patient is an 88 year old woman, admitted with low-grade fever, right upper quadrant discomfort, malaise There was no reports of vomiting or diarrhea, reduced oral intake Family reports the patient appears to be getting weaker than usual Patient had fairly extensive inpatient stay with ERCP and previous stent placement, noted to have elevated CA 19-9 Allergies: HYDROCODONE Limited by: medical condition Past Medical History: Hypertension, Hypertensive Heart Disease, Alzheimers Dementia, Previous cholangitis, Previous CBD stent, elevated CA19-9, Gout All Other Systems: negative except mentioned in HPI Physical Exam Vital Signs Noted General Appearance: other - no distress Head: normocephalic, atraumatic Eyes: PERRL ENT: EOM grossly intact, dry mucus membranes Neck: supple, no meningismus Respiratory: lungs clear, no respiratory distress Cardiovascular: regular rate, rhythm, no edema Gastrointestinal: normal bowel sounds, SNTND Musculoskeletal: other - Patient 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 Neurologic: responsive - To physical and verbal stimuli Skin: jaundice Lymphatic: no adenopathy Impression: Cholecystitis/Cholangitis Previous CBD stent, elevated CA19-9 Hypertension Hypertensive Heart Disease Alzheimers Dementia Gout Failure to Thrive Plan: IV Antibiotics IV fluids 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 Medications NPO except meds PPX GI following - for ERCP Subjective ROS Limited/Unobtainable: No Allergies: Coded Allergies: HYDROCODONE (Verified Allergy, Unknown, 06/13/19) Objective Last 24 Hour Vital Signs Date Time Temp Pulse Resp B/P (MAP) Pulse Ox O2 Delivery O2 Flow Rate FiO2 08/10/19 20:29 63 137/64 08/10/19 16:00 60 08/10/19 16:00 98.2 64 19 140/60 (86) 99 08/10/19 12:00 97.8 58 18 131/50 (77) 98 08/10/19 12:00 54 08/10/19 09:17 129/51 08/10/19 09:00 63 129/51 08/10/19 09:00 Nasal Cannula 2.0 08/10/19 08:00 60 08/10/19 08:00 97.7 63 18 129/51 (77) 98 08/10/19 04:00 62 08/10/19 04:00 97.6 61 18 141/59 (86) 99 2/9/20 00:00 97.7 61 20 135/55 (81) 98 08/10/19 00:00 60 08/09/19 21:00 Nasal Cannula 2.0 Intake and Output 08/09/19 08/10/19 19:00 07:00 Output Total 5 ml 300 ml Balance -5 ml -300 ml Output Urine Total 5 ml 300 ml # Voids 1 # Bowel Movements 1 Laboratory Tests 08/10/19 06:18: White Blood Count 7.1#, Red Blood Count 3.10L, Hemoglobin 10.4L, Hematocrit 30.6L, Mean Corpuscular Volume 99, Mean Corpuscular Hemoglobin 33.4H, Mean Corpuscular Hemoglobin Concent 33.9, Red Cell Distribution Width 12.6, Platelet Count 146L, Mean Platelet Volume 7.0, Neutrophils (%) (Auto) 72.1, Lymphocytes ( %) (Auto) 18.7L, Monocytes (%) (Auto) 7.1, Eosinophils (%) (Auto) 1.6, Basophils (%) (Auto) 0.4, Aspartate Amino Transf (AST/SGOT) 92H, Alanine Aminotransferase (ALT/SGPT) 83H, Pro-B-Type Natriuretic Peptide 3924H 08/10/19 09:18: Sodium Level 141, Potassium Level 4.0, Chloride Level 107, Carbon Dioxide Level 24, Anion Gap 10, Blood Urea Nitrogen 25H, Creatinine 1.6H, Estimat Glomerular Filtration Rate , Glucose Level 95, Calcium Level 9.0 Current Medications Medications (Trade) Dose Ordered Sig/Manny Route PRN Reason Start Time Stop Time Status Last Admin Dose Admin Acetaminophen (Tylenol) 650 mg Q6H PRN ORAL Mild Pain/Temp > 100.5 08/09/19 13:55 09/08/19 13:54 Allopurinol (Zyloprim) 100 mg DAILY ORAL 08/10/19 09:00 09/09/19 08:59 08/10/19 09:17 Aspirin (ASA) 81 mg DAILY NG 08/10/19 09:00 09/09/19 08:59 08/10/19 09:16 Carvedilol (Coreg) 6.25 mg EVERY 12 HOURS ORAL 08/10/19 09:00 09/09/19 08:59 08/10/19 20:29 Dextrose/Sodium Chloride 1,000 ml @ 60 mls/hr [id number] IV 08/09/19 14:00 09/08/19 13:59 08/10/19 07:08 Ferrous Sulfate (Feosol) 325 mg DAILY ORAL 08/10/19 09:00 09/09/19 08:59 08/10/19 09:16 Furosemide (Lasix) 20 mg DAILY IV 08/10/19 09:00 09/09/19 08:59 08/10/19 09:17 Heparin Sodium (Porcine) (Heparin 5000 units/ml) 5,000 units EVERY 12 HOURS SUBQ 08/09/19 21:00 09/08/19 20:59 Losartan Potassium (Cozaar) 100 mg DAILY ORAL 08/10/19 09:00 09/09/19 08:59 08/10/19 09:17 Memantine (Namenda) 5 mg DAILY ORAL 08/10/19 09:00 09/09/19 08:59 08/10/19 09:16 Nifedipine (Adalat) 10 mg Q8H PRN ORAL For High Blood Pressure 08/09/19 13:55 09/08/19 13:54 Ondansetron HCl (Zofran) 4 mg Q6H PRN IVP Nausea & Vomiting 08/09/19 13:55 09/08/19 13:54 Patient Own Medication (Patient's Own Med) 1 ea BID OPHTHALM 08/11/19 09:00 09/10/19 08:59 Piperacillin Sod/ Tazobactam Sod 3.375 gm/Sodium Chloride 110 ml @ 27.5 mls/hr Q12H IVPB 08/09/19 16:00 08/16/19 15:59 08/10/19 16:16 Yefri Bustillo MD Aug 10, 2019 20:38
[2019-08-11] VITALS (15 sets, daily range): BP systolic 135–153; BP diastolic 54–86
--- NOTE | 2019-08-11 01:06 | NUR ---
NURSE NOTES: Resting throughout the night. No significant change of condition noted. Will continue to monitor.
[2019-08-11] MEDS: Piperacillin/Tazobactam 3.375 GM in NS 110 ML IVPB SCH ×2 (04:07→15:56)
[2019-08-11 06:15] LABS: BASOPHILS % (AUTO) 0.9 % (0.0-2.0); EOSINOPHILS % (AUTO) 3.8 % (0.0-3.0); HEMATOCRIT 32.6 % (37.0-47.0); HEMOGLOBIN 10.9 G/DL (12.0-16.0); LYMPHOCYTES % (AUTO) 25.6 % (20.0-45.0); MEAN CORPUSCULAR VOLUME 100 FL (80-99); NEUTROPHILS % (AUTO) 62.6 % (45.0-75.0); PLATELET COUNT 192 K/UL (150-450); RED BLOOD COUNT 3.26 M/UL (4.20-5.40); RED CELL DISTRIBUTION WIDTH 12.5 % (11.6-14.8); WHITE BLOOD COUNT 6.7 K/UL (4.8-10.8)
[2019-08-11 06:33] LABS: ALANINE AMINOTRANSFERASE 72 U/L (12-78); ALBUMIN 2.4 G/DL (3.4-5.0); ALBUMIN/GLOBULIN RATIO 0.5 (1.0-2.7); ALKALINE PHOSPHATASE 632 U/L (46-116); ANION GAP 8 mmol/L (5-15); ASPARTATE AMINO TRANSFERASE 59 U/L (15-37); BILIRUBIN,TOTAL 1.3 MG/DL (0.2-1.0); BLOOD UREA NITROGEN 22 mg/dL (7-18); CALCIUM 9.1 MG/DL (8.5-10.1); CARBON DIOXIDE 27 MMOL/L (21-32); CHLORIDE 107 MMOL/L (98-107); CREATININE 1.8 MG/DL (0.55-1.30); POTASSIUM 3.7 MMOL/L (3.5-5.1); SODIUM 142 MMOL/L (136-145)
[2019-08-11 06:37] LABS: BILIRUBIN,DIRECT 0.8 MG/DL (0.0-0.3)
--- NOTE | 2019-08-11 07:10 | NUR ---
HAND-OFF: Report given to MIGUELINA Calabrese. Plan of care endorsed.
--- NOTE | 2019-08-11 07:10 | NUR ---
NURSE NOTES: Received report from Taya MCINTYRE. Patient in bed awake and orientedx4 and able to make needs known. No c/o pain. Denied SOB. On room air. IV site in Right AC 20G patent and asymptomatic and running with D5 NS@60ml/hr. Bed in lowest position and locked. Side raisx3 for safety. Call light within easy reach. Will continue to plan of care.
--- NOTE | 2019-08-11 08:25 | General Progress Note ---
Assessment/Plan Assessment/Plan: Cholecystitis/Cholangitis Previous CBD stent, elevated CA19-9 Hypertension Hypertensive Heart Disease Alzheimers Dementia Gout Failure to Thrive PLAN care noted monitor exam CBD findings noted pain control d/w GI impression, plan, and exam edited and reviewed in detail care discussed with RN Subjective Allergies: Coded Allergies: HYDROCODONE (Verified Allergy, Unknown, 06/13/19) Subjective care noted still with some pain events reviewed Objective Last 24 Hour Vital Signs Date Time Temp Pulse Resp B/P (MAP) Pulse Ox O2 Delivery O2 Flow Rate FiO2 08/11/19 04:00 57 08/11/19 04:00 97.3 57 19 150/62 (91) 98 08/11/19 00:00 54 08/11/19 00:00 97.3 54 19 135/54 (81) 100 08/10/19 21:00 Nasal Cannula 2.0 08/10/19 20:29 63 137/64 08/10/19 20:00 60 08/10/19 20:00 98.2 63 20 137/64 (88) 98 08/10/19 16:00 60 08/10/19 16:00 98.2 64 19 140/60 (86) 99 08/10/19 12:00 97.8 58 18 131/50 (77) 98 08/10/19 12:00 54 08/10/19 09:17 129/51 08/10/19 09:00 63 129/51 08/10/19 09:00 Nasal Cannula 2.0 Intake and Output 08/10/19 08/11/19 18:59 06:59 Intake Total 800 ml Balance 800 ml Intake Oral 800 ml # Voids 4 3 # Bowel Movements 1 1 Laboratory Tests 08/10/19 09:18: Sodium Level 141, Potassium Level 4.0, Chloride Level 107, Carbon Dioxide Level 24, Anion Gap 10, Blood Urea Nitrogen 25H, Creatinine 1.6H, Estimat Glomerular Filtration Rate , Glucose Level 95, Calcium Level 9.0 08/11/19 05:45: Sodium Level 142, Potassium Level 3.7, Chloride Level 107, Carbon Dioxide Level 27, Anion Gap 8, Blood Urea Nitrogen 22H, Creatinine 1.8H, Estimat Glomerular Filtration Rate , Glucose Level 107H, Calcium Level 9.1, White Blood Count 6.7, Red Blood Count 3.26L, Hemoglobin 10.9L, Hematocrit 32.6L, Mean Corpuscular Volume 100H, Mean Corpuscular Hemoglobin 33.3H, Mean Corpuscular Hemoglobin Concent 33.3, Red Cell Distribution Width 12.5, Platelet Count 192, Mean Platelet Volume 7.3, Neutrophils (%) (Auto) 62.6, Lymphocytes (%) (Auto) 25.6, Monocytes (%) (Auto) 7.0, Eosinophils (%) (Auto) 3.8H, Basophils (%) (Auto) 0.9 , Total Bilirubin 1.3H, Direct Bilirubin 0.8H, Aspartate Amino Transf (AST/SGOT ) 59H, Alanine Aminotransferase (ALT/SGPT) 72, Alkaline Phosphatase 632H, Total Protein 6.8, Albumin 2.4L, Globulin 4.4, Albumin/Globulin Ratio 0.5L Height (Feet): 5 Height (Inches): 1.00 Weight (Pounds): 140 Objective WDWN NAD clear breath sounds bilaterally without rhonchi or wheeze [id number] without MRG NABS mildly tender RUQ no CCE nonfocal weak overall Roel Jack MD Aug 11, 2019 08:25
--- NOTE | 2019-08-11 08:43 | NUR ---
CASE MANAGEMENT:REVIEW 08/11/19 SI:CHOLECYSTITIS/CHOLANGITIS HYPERTENSIVE HEART DISEASE 97.4 56 19 143/55 97% ON 2L/NC IS: IV ZOSYN Q12 IVF@60/HR ALLOPURINOL PO QD ASA PO QD COREG PO Q12 IV LASIX QD COZAAR PO QD NAMENDA PO QD HEPARIN SQ Q12 PLAN: STILL WITH PAIN NPO ~ ERCP
[2019-08-11] MEDS: Aspirin Baby 81mg NG SCH (09:00)
[2019-08-11] MEDS: Heparin 5000 units/ml inj SUBQ SCH ×2 (09:00→21:52)
[2019-08-11] MEDS: Carvedilol 6.25mg Tab ORAL SCH ×2 (09:00→21:50)
[2019-08-11] MEDS: Memantine 5 MG TAB ORAL SCH (09:19)
[2019-08-11] MEDS: Allopurinol 100mg Tab ORAL SCH (09:20)
[2019-08-11] MEDS: Losartan 50mg tab ORAL SCH (09:20)
[2019-08-11] MEDS: COMBIGAN OPTH OPHTHALM SCH ×2 (09:23→17:33)
--- NOTE | 2019-08-11 10:59 | Anethesia Preoperative Eval ---
Anesthesia Pre-op PMH/ROS General Date of Evaluation: Aug 11, 2019 Time of Evaluation: 10:54 Anesthesiologist: elian ASA Score: ASA 4 Mallampati Score Class I : Soft palate, uvula, fauces, pillars visible Class II: Soft palate, uvula, fauces visible Class III: Soft palate, base of uvula visible Class IV: Only hard plate visible Mallampati Classification: Class II Surgeon: tiffany Diagnosis: cholangitis Surgical Procedure: ercp Anesthesia History: none Social History: smoking - nonsmoker Family History: no anesthesia problems Allergies: Coded Allergies: HYDROCODONE (Verified Allergy, Unknown, 06/13/19) Medications: see eMAR Patient NPO?: Yes Past Medical History Cardiovascular: Reports: HTN, other - hypercholesterolemia Gastrointestinal/Genitourinary: Reports: other - chronic kidney disease, hypaertensive nephrosclerosis Neurologic/Psychiatric: Reports: dementia - alzheumer's HEENT: Reports: glaucoma, [place] (L), [place] (R) Anesthesia Pre-op Phys. Exam Physician Exam Last Vital Signs Date Time Temp Pulse Resp B/P (MAP) Pulse Ox O2 Delivery O2 Flow Rate FiO2 08/11/19 09:20 143/55 08/11/19 09:00 56 08/11/19 08:00 97.4 19 97 08/10/19 21:00 Nasal Cannula 2.0 Constitutional: NAD Neurologic: CN 2-12 intact Cardiovascular: RRR Respiratory: CTA Gastrointestinal: S/NT/ND Airway Exam Mallampati Score: Class II MO: limited Neck: flexible TMD: 2fb ROM: limited Teeth: missing Anesthesia Pre-op A/P Labs Hematology Test 08/11/19 05:45 White Blood Count 6.7 K/UL (4.8-10.8) Red Blood Count 3.26 M/UL (4.20-5.40) L Hemoglobin 10.9 G/DL (12.0-16.0) L Hematocrit 32.6 % (37.0-47.0) L Mean Corpuscular Volume 100 FL (80-99) H Mean Corpuscular Hemoglobin 33.3 PG (27.0-31.0) H Mean Corpuscular Hemoglobin Concent 33.3 G/DL (32.0-36.0) Red Cell Distribution Width 12.5 % (11.6-14.8) Platelet Count 192 K/UL (150-450) Mean Platelet Volume 7.3 FL (6.5-10.1) Neutrophils (%) (Auto) 62.6 % (45.0-75.0) Lymphocytes (%) (Auto) 25.6 % (20.0-45.0) Monocytes (%) (Auto) 7.0 % (1.0-10.0) Eosinophils (%) (Auto) 3.8 % (0.0-3.0) H Basophils (%) (Auto) 0.9 % (0.0-2.0) Chemistry Test 08/11/19 05:45 Sodium Level 142 MMOL/L (136-145) Potassium Level 3.7 MMOL/L (3.5-5.1) Chloride Level 107 MMOL/L (98-107) Carbon Dioxide Level 27 MMOL/L (21-32) Anion Gap 8 mmol/L (5-15) Blood Urea Nitrogen 22 mg/dL (7-18) H Creatinine 1.8 MG/DL (0.55-1.30) H Estimat Glomerular Filtration Rate mL/min (>60) Glucose Level 107 MG/DL (74-106) H Calcium Level 9.1 MG/DL (8.5-10.1) Total Bilirubin 1.3 MG/DL (0.2-1.0) H Direct Bilirubin 0.8 MG/DL (0.0-0.3) H Aspartate Amino Transf (AST/SGOT) 59 U/L (15-37) H Alanine Aminotransferase (ALT/SGPT) 72 U/L (12-78) Alkaline Phosphatase 632 U/L (46-116) H Total Protein 6.8 G/DL (6.4-8.2) Albumin 2.4 G/DL (3.4-5.0) L Globulin 4.4 g/dL Albumin/Globulin Ratio 0.5 (1.0-2.7) L Risk Assessment & Plan Assessment: asa4 Plan: mac Status Change Before Surgery: No Pre-Antibiotics Drug: Jackie Villanueva MD Aug 11, 2019 10:59
[2019-08-11] MEDS ORDERED: DiphenhydrAMINE 50mg/ml Inj IVP PRN ×2 (11:00→18:45)
[2019-08-11] MEDS ORDERED: Midazolam 2mg/2ml Inj IVP PRN ×2 (11:00→18:45)
[2019-08-11] MEDS ORDERED: Atropine Inj 1mg/10ml Syr IV PRN ×2 (11:00→18:45)
[2019-08-11] MEDS ORDERED: fentaNYL 100 mcg/2 mL IV PRN ×2 (11:00→18:45)
--- NOTE | 2019-08-11 11:55 | Pre-Procedure Note/Attestation ---
Pre-Procedure Note/Attestation Complete Prior to Procedure Planned Procedure: not applicable Procedure Narrative: ercp Indications for Procedure Pre-Operative Diagnosis: cholangitis Attestation I attest that I discussed the nature of the procedure; its benefits; risks and complications; and alternatives (and the risks and benefits of such alternatives ), prior to the procedure, with the patient (or the patient's legal medicare sales representative). I attest that, if there was a reasonable possibility of needing a blood transfusion, the patient (or the patient's legal medicare sales representative) was given the [facility] standardized written summary, pursuant to the [place] Blood Safety Act ([place] Health and Safety Code # 1645, as amended). I attest that I re-evaluated the patient just prior to the surgery and that there has been no change in the patient's H&P, except as documented below: Tashi Hope MD Aug 11, 2019 11:55
[2019-08-11] MEDS ORDERED: Lidocaine 1% MPF 10mg/ml 5ml ONE (12:00)
[2019-08-11] MEDS ORDERED: Atropine Sulfate 0.4mg/ml inj ONE (12:00)
[2019-08-11] MEDS ORDERED: Propofol 200mg/20ml IV ONE (12:00)
[2019-08-11] MEDS ORDERED: fentaNYL 100 mcg/2 mL IV ONE (12:00)
--- NOTE | 2019-08-11 12:00 | NUR ---
NURSE NOTES: Pt went to ERCP via gurney with a transporter.
[2019-08-11] MEDS ORDERED: Succinylcholine 20mg/ml 10ml vial ONE (12:20)
[2019-08-11] MEDS ORDERED: NS 500ML IVPB ONE (12:30)
[2019-08-11] MEDS ORDERED: Iothalamate Meglumine 60% 50ML INJ ONE (12:50)
--- NOTE | 2019-08-11 13:30 | NUR ---
NURSE NOTES: Pt returned back from ERCP via gurney. Vital signs in stable. Denied pain.
--- NOTE | 2019-08-11 14:02 | Immediate Post-Op Evaluation ---
Immediate Post-Op Evalulation Immediate Post-Op Evalulation Date of Evaluation: Aug 11, 2019 Time of Evaluation: 13:26 IV Fluids: 450ml 0.9ns Blood Products: none Estimated Blood Loss: negligible Blood Pressure Systolic: 145 Blood Pressure Diastolic: 69 Pulse Rate: 59 Respiratory Rate: 18 O2 Sat by Pulse Oximetry: 95 Temperature (Fahrenheit): 97.6 Pain Score (1-10): 0 Nausea: No Vomiting: No Complications none Patient Status: awake, reacts, patent Hydration Status: adequate Drug: Jackie Villanueva MD Aug 11, 2019 14:02
--- NOTE | 2019-08-11 14:05 | 48 Hour Post Anesthesia Eval ---
Post Anesthesia Evaluation Procedure: ercp, stent removal, ductal dilation, stent placement Date of Evaluation: Aug 11, 2019 Time of Evaluation: 13:28 Blood Pressure Systolic: 142 0: 70 Pulse Rate: 56 Respiratory Rate: 18 Temperature (Fahrenheit): 97.6 O2 Sat by Pulse Oximetry: 95 Airway: patent Nausea: No Vomiting: No Pain Intensity: 0 Hydration Status: adequate Cardiopulmonary Status: stable Mental Status/LOC: patient returned to baseline Post-Anesthesia Complications: none Follow-up care needed: N/A Jackie Muniz MD Aug 11, 2019 14:05
--- NOTE | 2019-08-11 14:14 | Endoscopy Procedure Note ---
Endoscopy Procedure Note General Indication for Procedure: cholangitis Procedures Performed: ERCP Operative Findings/Diagnosis: same Specimen: none Pt Tolerated Procedure Well: Yes Estimated Blood Loss: none Anesthesia Anesthesiologist: noris Anesthesia: MAC Inserted Devices Implant(s) used?: No GI Core Measures 50 yrs or older w/o bx or poly: Not Applicable 10yrs. F/U recommended: Not Applicable Tashi Hope MD Aug 11, 2019 14:14
[2019-08-11] MEDS: D5NS 1,000 ML IV SCH ×2 (15:56→19:28)
--- NOTE | 2019-08-11 16:22 | NUR ---
NURSE NOTES: Pt returned back from ERCP via kaylin. Vital signs in stable. Denied pain. Addendum: 08/11/19 at 1625 by Jessica Borrero RN time amended
[2019-08-11] MEDS ORDERED: Morphine Sulfate 2mg/ml Inj(IV/IM USE ONLY) IVP SCH (16:30)
--- NOTE | 2019-08-11 18:10 | NUR ---
HAND-OFF: Report given to Fiordaliza MCINTYRE. Pt remians stable.
--- NOTE | 2019-08-11 19:30 | NUR ---
NURSE NOTES: Receive a report from MIGUELINA Alas. Round is done. Pt is asleep but easily aroused. No acute distress noted. Breathing is even and non labored. RUQ pain is tolerating. No sharp pain noted. Offer pain medication but refuses to take it. Mild jaundice noted but no itching noted. Pt is in generalized weakness. Skin intact. Provide fall precautions. Call light within reach. Will educate to ask help. Pt is aware. Bed is lowest and locked. Will continue to monitor.
--- NOTE | 2019-08-11 19:44 | NUR ---
HAND-OFF: Report given to MIGUELINA Zheng.
--- NOTE | 2019-08-11 20:00 | Procedure Note ---
DATE OF PROCEDURE: 08/11/2019 SURGEON: Tashi Hope M.D. REFERRING PHYSICIAN: Roel Jack M.D. PROCEDURE: ERCP, stent removal, balloon-assisted stone removal, dilatation, and stent placement x2. ANESTHESIA: Per Dr. Geiger. INSTRUMENT: Olympus adult flexible ERCP scope. INDICATION: Cholangitis. REASON FOR PROCEDURE: The procedure, risks, benefits, and possible consequences, including hemorrhage, aspiration, perforation and infection, and alternative treatments, were explained to the patient/legal guardian by Dr. Tashi Hope and the patient/legal guardian understood and accepted these risks. PROCEDURE IN DETAIL: After informed consent was obtained and the patient was adequately sedated, the ERCP scope was advanced from the mouth into the second portion of the duodenum. The patient had evidence of periampullary diverticulum. There was a stent protruding through the common bile duct. Using a snare, the stent was removed. Then, we used a balloon to cannulate the common bile duct. Initial cholangiogram showed dilated proximal biliary system including intrahepatics and proximal common bile duct was significantly dilated, I would say to about 11 mm. As we got to the ampulla, there was evidence of narrowing for about 2 to 3 cm narrowing. It was not classical stricture, but definitely there was narrowing. It can be from either the diverticulum in that area versus the stricture in that area. As we were cleaning up the duct, there was a lot of sludge and maybe small stones came out. Also a lot of pus was also extracted using a balloon-floor covering printer assistant sweeping the duct multiple times. Then, we decided to dilate the distal common bile duct. Using the 8 mm x 4 cm balloon, distal common bile duct was dilated. Two stents; one is a 10-[place] 5, another one 10-[place] 7 cm stent, was successfully placed in the distal common bile duct. The patient tolerated the procedure very well without any complication. SUMMARY OF FINDINGS: Status post ERCP stent removal, stone removal, dilatation, and two stents placement. RECOMMENDATIONS: Follow labs tomorrow. If the patient is stable, discharge and follow as an outpatient. The patient might benefit next time to get a metallic stent if she persistently needs stenting. I want to thank Dr. Jack for this kind referral. Tashi Jace Hope DR: IZZY JOB#: [id number] CC: Rock Iraheta M.D.; Fax#: [phone]
--- NOTE | 2019-08-11 23:32 | General Progress Note ---
Assessment/Plan Assessment/Plan: Assessment - choledocholithiasis - cholangitis - biliary obstruction - s/p ERCP Recommendations - follow labs and exam - po diet as tolerated Subjective Allergies: Coded Allergies: HYDROCODONE (Verified Allergy, Unknown, 06/13/19) Subjective Above noted seen earlier today s/p ERCP, stent replacement, dilation, stone extraction Objective Last 24 Hour Vital Signs Date Time Temp Pulse Resp B/P (MAP) Pulse Ox O2 Delivery O2 Flow Rate FiO2 08/11/19 21:50 56 140/54 08/11/19 20:26 97.1 54 19 140/54 (82) 94 08/11/19 16:00 98.8 61 19 148/72 (97) 96 08/11/19 16:00 58 08/11/19 14:17 97.0 58 19 153/86 (108) 97 08/11/19 14:14 97.6 57 19 140/68 98 Nasal Cannula 2.0 08/11/19 14:05 56 18 95 08/11/19 14:04 56 20 144/67 99 Nasal Cannula 2.0 08/11/19 14:02 59 18 95 08/11/19 13:54 55 19 145/68 98 Nasal Cannula 2.0 08/11/19 13:44 56 20 143/66 98 Nasal Cannula 2.0 08/11/19 13:34 55 19 140/67 99 Nasal Cannula 2.0 08/11/19 13:24 56 20 142/70 98 Nasal Cannula 2.0 08/11/19 13:19 58 19 142/71 97 Nasal Cannula 2.0 08/11/19 13:14 97.6 59 18 145/69 95 Nasal Cannula 2.0 08/11/19 12:00 57 08/11/19 12:00 97.5 67 19 140/84 (102) 94 08/11/19 09:20 143/55 08/11/19 09:00 Nasal Cannula 2.0 08/11/19 09:00 56 143/55 08/11/19 08:00 97.4 56 19 143/55 (84) 97 08/11/19 08:00 56 08/11/19 04:00 57 08/11/19 04:00 97.3 57 19 150/62 (91) 98 08/11/19 00:00 54 08/11/19 00:00 97.3 54 19 135/54 (81) 100 Intake and Output 08/10/19 08/11/19 19:00 07:00 Intake Total 800 ml 60 ml Balance 800 ml 60 ml Intake Oral 800 ml IV Total 60 ml # Voids 4 3 # Bowel Movements 1 1 Laboratory Tests 08/11/19 05:45: White Blood Count 6.7, Red Blood Count 3.26L, Hemoglobin 10.9L, Hematocrit 32.6L , Mean Corpuscular Volume 100H, Mean Corpuscular Hemoglobin 33.3H, Mean Corpuscular Hemoglobin Concent 33.3, Red Cell Distribution Width 12.5, Platelet Count 192, Mean Platelet Volume 7.3, Neutrophils (%) (Auto) 62.6, Lymphocytes (% ) (Auto) 25.6, Monocytes (%) (Auto) 7.0, Eosinophils (%) (Auto) 3.8H, Basophils (%) (Auto) 0.9, Sodium Level 142, Potassium Level 3.7, Chloride Level 107, Carbon Dioxide Level 27, Anion Gap 8, Blood Urea Nitrogen 22H, Creatinine 1.8H, Estimat Glomerular Filtration Rate , Glucose Level 107H, Calcium Level 9.1, Total Bilirubin 1.3H, Direct Bilirubin 0.8H, Aspartate Amino Transf (AST/SGOT) 59H, Alanine Aminotransferase (ALT/SGPT) 72, Alkaline Phosphatase 632H, Total Protein 6.8, Albumin 2.4L, Globulin 4.4, Albumin/Globulin Ratio 0.5L Height (Feet): 5 Height (Inches): 1.00 Weight (Pounds): 140 Objective Elderly woman NCAT supple CTA RR abd soft , (+) RUQ TTP no edema Rock Iraheta MD Aug 11, 2019 23:32
[2019-08-12] VITALS: BP 156/61
[2019-08-12] MEDS: Piperacillin/Tazobactam 3.375 GM in NS 110 ML IVPB SCH ×2 (03:43→16:47)
[2019-08-12 04:00] VITALS: BP 146/57
--- NOTE | 2019-08-12 04:29 | NUR ---
NURSE NOTES: No N/V noted. No acute abdominal pain noted. Uses bathroom twice with staff assisted. Will continue to monitor.
--- NOTE | 2019-08-12 07:00 | NUR ---
NURSE NOTES: Received report from out-going nurse, patient is in the bed alert and awake. Respiration is even and unlabored on 2l NC. Left AC 20g IV in-place; fluids infusion properly. No acute distress noted at this time. bed is locked position. call light is within reach, will continue to follow plan of care.
[2019-08-12 07:26] LABS: ALANINE AMINOTRANSFERASE 48 U/L (12-78); ALBUMIN 2.2 G/DL (3.4-5.0); ALBUMIN/GLOBULIN RATIO 0.6 (1.0-2.7); ALKALINE PHOSPHATASE 453 U/L (46-116); ANION GAP 8 mmol/L (5-15); ASPARTATE AMINO TRANSFERASE 26 U/L (15-37); BILIRUBIN,TOTAL 0.9 MG/DL (0.2-1.0); BLOOD UREA NITROGEN 20 mg/dL (7-18); CALCIUM 8.6 MG/DL (8.5-10.1); CARBON DIOXIDE 25 MMOL/L (21-32); CHLORIDE 109 MMOL/L (98-107); CREATININE 1.5 MG/DL (0.55-1.30); POTASSIUM 3.4 MMOL/L (3.5-5.1); SODIUM 142 MMOL/L (136-145)
[2019-08-12 07:33] LABS: BASOPHILS % (AUTO) 0.6 % (0.0-2.0); HEMATOCRIT 30.2 % (37.0-47.0); MEAN CORPUSCULAR VOLUME 100 FL (80-99); NEUTROPHILS % (AUTO) 64.4 % (45.0-75.0); PLATELET COUNT 167 K/UL (150-450); RED BLOOD COUNT 3.02 M/UL (4.20-5.40); RED CELL DISTRIBUTION WIDTH 12.6 % (11.6-14.8); WHITE BLOOD COUNT 7.4 K/UL (4.8-10.8)
--- NOTE | 2019-08-12 07:40 | NUR ---
HAND-OFF: Report given to Michelle Easton. Round is done.
[2019-08-12 08:00] VITALS: BP 159/63
--- NOTE | 2019-08-12 08:18 | General Progress Note ---
Assessment/Plan Assessment/Plan: Cholecystitis/Cholangitis Previous CBD stent, elevated CA19-9 Hypertension Hypertensive Heart Disease Alzheimers Dementia Gout Failure to Thrive PLAN care noted monitor exam CBD findings noted pain control d/w GI respiratory care oxygen impression, plan, and exam edited and reviewed in detail care discussed with RN Subjective Allergies: Coded Allergies: HYDROCODONE (Verified Allergy, Unknown, 06/13/19) Subjective care noted still with some pain events reviewed Objective Last 24 Hour Vital Signs Date Time Temp Pulse Resp B/P (MAP) Pulse Ox O2 Delivery O2 Flow Rate FiO2 08/12/19 04:00 98.2 59 19 146/57 (86) 98 08/12/19 00:00 97.8 54 19 156/61 (92) 100 08/11/19 21:50 56 140/54 08/11/19 21:00 Nasal Cannula 2.0 08/11/19 20:26 97.1 54 19 140/54 (82) 94 08/11/19 16:00 98.8 61 19 148/72 (97) 96 08/11/19 16:00 58 08/11/19 14:17 97.0 58 19 153/86 (108) 97 08/11/19 14:14 97.6 57 19 140/68 98 Nasal Cannula 2.0 08/11/19 14:05 56 18 95 08/11/19 14:04 56 20 144/67 99 Nasal Cannula 2.0 08/11/19 14:02 59 18 95 08/11/19 13:54 55 19 145/68 98 Nasal Cannula 2.0 08/11/19 13:44 56 20 143/66 98 Nasal Cannula 2.0 08/11/19 13:34 55 19 140/67 99 Nasal Cannula 2.0 08/11/19 13:24 56 20 142/70 98 Nasal Cannula 2.0 08/11/19 13:19 58 19 142/71 97 Nasal Cannula 2.0 08/11/19 13:14 97.6 59 18 145/69 95 Nasal Cannula 2.0 08/11/19 12:00 57 08/11/19 12:00 97.5 67 19 140/84 (102) 94 08/11/19 09:20 143/55 08/11/19 09:00 Nasal Cannula 2.0 08/11/19 09:00 56 143/55 Intake and Output 08/11/19 08/12/19 19:00 07:00 Intake Total 1440 ml Balance 1440 ml Intake Oral 400 ml IV Total 1040 ml # Voids 3 2 # Bowel Movements 2 Laboratory Tests 08/12/19 05:00: White Blood Count 7.4, Red Blood Count 3.02L, Hemoglobin 10.0L, Hematocrit 30.2L , Mean Corpuscular Volume 100H, Mean Corpuscular Hemoglobin 33.0H, Mean Corpuscular Hemoglobin Concent 33.0, Red Cell Distribution Width 12.6, Platelet Count 167, Mean Platelet Volume 7.1, Neutrophils (%) (Auto) 64.4, Lymphocytes (% ) (Auto) 25.0, Monocytes (%) (Auto) 7.0, Eosinophils (%) (Auto) 3.0, Basophils ( %) (Auto) 0.6, Sodium Level 142, Potassium Level 3.4L, Chloride Level 109H, Carbon Dioxide Level 25, Anion Gap 8, Blood Urea Nitrogen 20H, Creatinine 1.5H, Estimat Glomerular Filtration Rate , Glucose Level 119H, Calcium Level 8.6, Total Bilirubin 0.9, Aspartate Amino Transf (AST/SGOT) 26, Alanine Aminotransferase (ALT/SGPT) 48, Alkaline Phosphatase 453H, Total Protein 6.2L, Albumin 2.2L, Globulin 4.0, Albumin/Globulin Ratio 0.6L Height (Feet): 5 Height (Inches): 1.00 Weight (Pounds): 140 Objective WDWN NAD clear breath sounds bilaterally without rhonchi or wheeze [id number] without MRG NABS mildly tender RUQ no CCE nonfocal weak overall Roel Jack MD Aug 12, 2019 08:18
--- NOTE | 2019-08-12 08:32 | General Progress Note ---
Assessment/Plan Assessment/Plan: Cholecystitis/Cholangitis Previous CBD stent, elevated CA19-9 Hypertension Hypertensive Heart Disease Alzheimers Dementia Gout Failure to Thrive s/p ERCP PLAN care noted monitor exam appreciate care and findings pain control d/w GI respiratory care dc planning pending clearance impression, plan, and exam edited and reviewed in detail care discussed with RN Subjective Allergies: Coded Allergies: HYDROCODONE (Verified Allergy, Unknown, 06/13/19) Subjective care noted underwent ERCP with exchange of stent and removal of stones events reviewed Objective Last 24 Hour Vital Signs Date Time Temp Pulse Resp B/P (MAP) Pulse Ox O2 Delivery O2 Flow Rate FiO2 08/12/19 08:00 98.4 55 18 159/63 (95) 99 08/12/19 04:00 98.2 59 19 146/57 (86) 98 08/12/19 00:00 97.8 54 19 156/61 (92) 100 08/11/19 21:50 56 140/54 08/11/19 21:00 Nasal Cannula 2.0 08/11/19 20:26 97.1 54 19 140/54 (82) 94 08/11/19 16:00 98.8 61 19 148/72 (97) 96 08/11/19 16:00 58 08/11/19 14:17 97.0 58 19 153/86 (108) 97 08/11/19 14:14 97.6 57 19 140/68 98 Nasal Cannula 2.0 08/11/19 14:05 56 18 95 08/11/19 14:04 56 20 144/67 99 Nasal Cannula 2.0 08/11/19 14:02 59 18 95 08/11/19 13:54 55 19 145/68 98 Nasal Cannula 2.0 08/11/19 13:44 56 20 143/66 98 Nasal Cannula 2.0 08/11/19 13:34 55 19 140/67 99 Nasal Cannula 2.0 08/11/19 13:24 56 20 142/70 98 Nasal Cannula 2.0 08/11/19 13:19 58 19 142/71 97 Nasal Cannula 2.0 08/11/19 13:14 97.6 59 18 145/69 95 Nasal Cannula 2.0 08/11/19 12:00 57 08/11/19 12:00 97.5 67 19 140/84 (102) 94 08/11/19 09:20 143/55 2/10/20 09:00 Nasal Cannula 2.0 08/11/19 09:00 56 143/55 Intake and Output 08/11/19 08/12/19 19:00 07:00 Intake Total 1440 ml Balance 1440 ml Intake Oral 400 ml IV Total 1040 ml # Voids 3 2 # Bowel Movements 2 Laboratory Tests 08/12/19 05:00: White Blood Count 7.4, Red Blood Count 3.02L, Hemoglobin 10.0L, Hematocrit 30.2L , Mean Corpuscular Volume 100H, Mean Corpuscular Hemoglobin 33.0H, Mean Corpuscular Hemoglobin Concent 33.0, Red Cell Distribution Width 12.6, Platelet Count 167, Mean Platelet Volume 7.1, Neutrophils (%) (Auto) 64.4, Lymphocytes (% ) (Auto) 25.0, Monocytes (%) (Auto) 7.0, Eosinophils (%) (Auto) 3.0, Basophils ( %) (Auto) 0.6, Sodium Level 142, Potassium Level 3.4L, Chloride Level 109H, Carbon Dioxide Level 25, Anion Gap 8, Blood Urea Nitrogen 20H, Creatinine 1.5H, Estimat Glomerular Filtration Rate , Glucose Level 119H, Calcium Level 8.6, Total Bilirubin 0.9, Aspartate Amino Transf (AST/SGOT) 26, Alanine Aminotransferase (ALT/SGPT) 48, Alkaline Phosphatase 453H, Total Protein 6.2L, Albumin 2.2L, Globulin 4.0, Albumin/Globulin Ratio 0.6L Height (Feet): 5 Height (Inches): 1.00 Weight (Pounds): 140 Objective WDWN NAD clear breath sounds bilaterally without rhonchi or wheeze [id number] without MRG NABS mildly tender RUQ no CCE nonfocal weak overall Roel Jack MD Aug 12, 2019 08:32
[2019-08-12] MEDS: COMBIGAN OPHTHALM SCH ×2 (08:59→18:22)
[2019-08-12] MEDS: Memantine 5 MG TAB ORAL SCH (09:00)
[2019-08-12] MEDS: Carvedilol 6.25mg Tab ORAL SCH ×2 (09:00→21:11)
[2019-08-12] MEDS: Heparin 5000 units/ml inj SUBQ SCH ×2 (09:00→21:17)
[2019-08-12] MEDS: Losartan 50mg tab ORAL SCH (09:01)
[2019-08-12] MEDS: Aspirin Baby 81mg NG SCH (09:02)
[2019-08-12] MEDS: Allopurinol 100mg Tab ORAL SCH (09:02)
[2019-08-12] MEDS: D5NS 1,000 ML IV SCH (09:19)
--- NOTE | 2019-08-12 11:15 | NUR ---
PT EVALUATION NOTE Patient seen for initial evaluation. Patient presents with generalized weakness which impairs patient's balance and ability to perform mobility tasks safely. Patient requires min assist for bed mobility and CGA for transfers with FWW. Patient able to ambulate 60 ft with CGA and FWW, verbal cues for improved gait stability. Patient will benefit from skilled inpatient PT intervention to address strength, balance and safety for improved level of independence with functional mobility. Recommend discharge home with family assistance once medically cleared by MD. Addendum: 08/12/19 at 1252 by ALISSA POPE PT Amended: Links added.
[2019-08-12 12:00] VITALS: BP 165/67
[2019-08-12] MEDS: NIFEdipine 10mg cap ORAL PRN (12:05)
[2019-08-12 16:00] VITALS: BP 146/67
--- NOTE | 2019-08-12 17:20 | Diagnostic Imaging Report ---
INDICATION: Pain, intraoperative TECHNIQUE: Intraoperative imaging Fluoroscopy time: 132.3 seconds Total dose: 0.93920 mGym2 Total number of images: 13 COMPARISON: None FINDINGS: Intraoperative images demonstrate removal of a pre-existing plastic endobiliary stent. Subsequent images document opacification of the common bile duct and central intrahepatic bile ducts, balloon cholangioplasty, and replacement with 2 stents. IMPRESSION: Intraoperative imaging, as described
--- NOTE | 2019-08-12 19:10 | NUR ---
NURSE NOTES: Received report from MIGUELINA Alas. Pt is awake, lying semi-tomas's; comfortably resting. No signs of acute distress noted. Pt denies any pain at this time. AOx4; able to make needs known. Checked IV site, line, and rate; patent and running. No erythema, bleeding, or infiltration noted. Bed at lowest position. Walker at bedside. Brakes on. Siderails up x2. Call light within reach. Will continue to monitor.
--- NOTE | 2019-08-12 19:18 | NUR ---
HAND-OFF: Report given to MIGUELINA Og.
[2019-08-12 20:00] VITALS: BP 163/67
--- NOTE | 2019-08-12 20:51 | General Progress Note ---
Assessment/Plan Assessment/Plan: Assessment - choledocholithiasis - cholangitis - biliary obstruction - s/p ERCP Recommendations - follow labs and exam - po diet as tolerated - OOB - d/c planning - f/u with Dr. Hope in 2-3 months Subjective Allergies: Coded Allergies: HYDROCODONE (Verified Allergy, Unknown, 06/13/19) Subjective Above noted seen earlier today s/p ERCP yesterday Objective Last 24 Hour Vital Signs Date Time Temp Pulse Resp B/P (MAP) Pulse Ox O2 Delivery O2 Flow Rate FiO2 08/12/19 16:00 96.6 60 18 146/67 (93) 99 08/12/19 12:05 50 165/67 08/12/19 12:00 98.1 50 16 165/67 (99) 99 08/12/19 09:01 159/63 08/12/19 09:00 Nasal Cannula 2.0 08/12/19 09:00 55 159/63 08/12/19 08:00 98.4 55 18 159/63 (95) 99 08/12/19 04:00 98.2 59 19 146/57 (86) 98 08/12/19 00:00 97.8 54 19 156/61 (92) 100 08/11/19 21:50 56 140/54 08/11/19 21:00 Nasal Cannula 2.0 Intake and Output 08/11/19 08/12/19 19:00 07:00 Intake Total 1440 ml Balance 1440 ml Intake Oral 400 ml IV Total 1040 ml # Voids 3 2 # Bowel Movements 2 Laboratory Tests 08/12/19 05:00: White Blood Count 7.4, Red Blood Count 3.02L, Hemoglobin 10.0L, Hematocrit 30.2L , Mean Corpuscular Volume 100H, Mean Corpuscular Hemoglobin 33.0H, Mean Corpuscular Hemoglobin Concent 33.0, Red Cell Distribution Width 12.6, Platelet Count 167, Mean Platelet Volume 7.1, Neutrophils (%) (Auto) 64.4, Lymphocytes (% ) (Auto) 25.0, Monocytes (%) (Auto) 7.0, Eosinophils (%) (Auto) 3.0, Basophils ( %) (Auto) 0.6, Sodium Level 142, Potassium Level 3.4L, Chloride Level 109H, Carbon Dioxide Level 25, Anion Gap 8, Blood Urea Nitrogen 20H, Creatinine 1.5H, Estimat Glomerular Filtration Rate , Glucose Level 119H, Calcium Level 8.6, Total Bilirubin 0.9, Aspartate Amino Transf (AST/SGOT) 26, Alanine Aminotransferase (ALT/SGPT) 48, Alkaline Phosphatase 453H, Total Protein 6.2L, Albumin 2.2L, Globulin 4.0, Albumin/Globulin Ratio 0.6L Height (Feet): 5 Height (Inches): 1.00 Weight (Pounds): 140 Objective Elderly woman NCAT supple CTA RR abd soft , (+) RUQ TTP no edema Rock Iraheta MD Aug 12, 2019 20:51
[2019-08-13] VITALS (7 sets, daily range): BP systolic 149–173; BP diastolic 59–94
[2019-08-13] MEDS: Piperacillin/Tazobactam 3.375 GM in NS 110 ML IVPB SCH ×2 (03:02→16:09)
[2019-08-13] MEDS: D5NS 1,000 ML IV SCH (04:08)
[2019-08-13] MEDS: NIFEdipine 10mg cap ORAL PRN ×2 (04:23→16:10)
--- NOTE | 2019-08-13 07:30 | NUR ---
HAND-OFF: Report given to MIGUELINA Chinchilla. Pt is awake and in stable condition. Plan of care endorsed.
--- NOTE | 2019-08-13 07:30 | NUR ---
NURSE NOTES: Patient is in bed awake and stable. Breathing is even and unlabored. no visible signs of distress noted at this time. Patient instructed to use call light for assistance, verbalized understanding. Patient is in bed in locked and lowest position with call light within reach. All needs met at this time. WIll continue to monitor.
[2019-08-13] MEDS: Heparin 5000 units/ml inj SUBQ SCH ×2 (08:12→20:44)
[2019-08-13] MEDS: Allopurinol 100mg Tab ORAL SCH (08:13)
[2019-08-13] MEDS: Aspirin Baby 81mg NG SCH (08:13)
[2019-08-13] MEDS: Memantine 5 MG TAB ORAL SCH (08:13)
[2019-08-13] MEDS: Carvedilol 6.25mg Tab ORAL SCH ×2 (08:13→20:43)
[2019-08-13] MEDS: Losartan 50mg tab ORAL SCH (08:15)
[2019-08-13] MEDS: COMBIGAN OPHTHALM SCH ×2 (08:17→18:00)
--- NOTE | 2019-08-13 09:00 | NUR ---
NURSE NOTES: Patient assisted to toilet to void without incident. Patient able to ambulate with walker.
--- NOTE | 2019-08-13 13:35 | NUR ---
CASE MANAGEMENT:REVIEW 08/13/19 SI:CHOLECYSTITIS/CHOLANGITIS HYPERTENSIVE HEART DISEASE 98.4 61 18 169/70 96% ON 2L/NC IS: K-DUR PO X1 IV ZOSYN Q12 IV LASIX QD ALLOPURINOL PO QD ASA PO QD COREG PO Q12 COZAAR PO QD NAMENDA PO QD HEPARIN SQ Q12 PLAN: PT EVAL AND TREAT DC PLANNING IN AM
--- NOTE | 2019-08-13 18:44 | Pulmonology Progress Note ---
Assessment/Plan Assessment/Plan Progress Note HPI Patient is an 88 year old woman, admitted with low-grade fever, right upper quadrant discomfort, malaise There was no reports of vomiting or diarrhea, reduced oral intake Family reports the patient appears to be getting weaker than usual Patient had fairly extensive inpatient stay with ERCP and previous stent placement, noted to have elevated CA 19-9 Sp ERCP, stent exchange, removal of stones Allergies: HYDROCODONE Past Medical History: Hypertension, Hypertensive Heart Disease, Alzheimers Dementia, Previous cholangitis, Previous CBD stent, elevated CA19-9, Gout Assessment/Plan: Cholecystitis/Cholangitis Previous CBD stent, elevated CA19-9 Hypertension Hypertensive Heart Disease Alzheimers Dementia Gout Failure to Thrive s/p ERCP PLAN care noted DC ivf wean O2 monitor exam appreciate care and findings pain control d/w GI respiratory care dc planning pending clearance impression, plan, and exam edited and reviewed in detail care discussed with RN Subjective Allergies: Coded Allergies: HYDROCODONE (Verified Allergy, Unknown, 06/13/19) Subjective care noted underwent ERCP with exchange of stent and removal of stones events reviewed Objective Vital signs noted WDWN NAD clear breath sounds bilaterally without rhonchi or wheeze [id number] without MRG NABS mildly tender RUQ no CCE nonfocal weak overall Labs/imaging noted Subjective ROS Limited/Unobtainable: No Allergies: Coded Allergies: HYDROCODONE (Verified Allergy, Unknown, 06/13/19) Objective Last 24 Hour Vital Signs Date Time Temp Pulse Resp B/P (MAP) Pulse Ox O2 Delivery O2 Flow Rate FiO2 08/13/19 16:10 58 168/66 08/13/19 16:00 97.4 58 18 168/66 (100) 96 08/13/19 12:00 97.7 58 16 156/59 (91) 94 08/13/19 09:00 Nasal Cannula 2.0 08/13/19 08:15 169/70 08/13/19 08:13 61 169/70 08/13/19 08:00 98.4 61 18 169/70 (103) 96 08/13/19 04:23 56 173/94 08/13/19 04:00 97.9 56 16 173/94 (120) 98 08/13/19 00:00 97.2 57 18 170/67 (101) 94 08/12/19 21:11 61 163/67 08/12/19 21:00 Nasal Cannula 2.0 08/12/19 20:00 97.5 61 20 163/67 (99) 96 Intake and Output 08/12/19 08/13/19 19:00 07:00 Intake Total 960 ml 1082.5 ml Balance 960 ml 1082.5 ml Intake Oral 600 ml 400 ml IV Total 360 ml 682.5 ml # Voids 2 4 Current Medications Medications (Trade) Dose Ordered Sig/Manny Route PRN Reason Start Time Stop Time Status Last Admin Dose Admin Acetaminophen (Tylenol) 650 mg Q6H PRN ORAL Mild Pain/Temp > 100.5 08/11/19 19:00 09/08/19 18:59 Allopurinol (Zyloprim) 100 mg DAILY ORAL 08/12/19 09:00 09/09/19 08:59 08/13/19 08:13 Aspirin (ASA) 81 mg DAILY NG 08/12/19 09:00 09/09/19 08:59 08/13/19 08:13 Carvedilol (Coreg) 6.25 mg EVERY 12 HOURS ORAL 08/12/19 21:00 09/09/19 08:59 08/13/19 08:13 Ferrous Sulfate (Feosol) 325 mg DAILY ORAL 08/12/19 09:00 09/09/19 08:59 08/13/19 08:13 Furosemide (Lasix) 20 mg DAILY IV 08/12/19 09:00 09/09/19 08:59 08/13/19 10:44 Heparin Sodium (Porcine) (Heparin 5000 units/ml) 5,000 units EVERY 12 HOURS SUBQ 08/11/19 21:00 09/08/19 20:59 08/13/19 08:12 Losartan Potassium (Cozaar) 100 mg DAILY ORAL 08/12/19 09:00 09/09/19 08:59 08/13/19 08:15 Memantine (Namenda) 5 mg DAILY ORAL 08/12/19 09:00 09/09/19 08:59 08/13/19 08:13 Nifedipine (Adalat) 10 mg Q8H PRN ORAL For High Blood Pressure 08/11/19 19:00 09/08/19 18:59 08/13/19 16:10 Ondansetron HCl (Zofran) 4 mg Q6H PRN IVP Nausea & Vomiting 08/11/19 19:00 09/08/19 18:59 Patient Own Medication (Patient's Own Med) 1 ea BID OPHTHALM 08/12/19 09:00 09/10/19 08:59 08/13/19 18:00 Piperacillin Sod/ Tazobactam Sod 3.375 gm/Sodium Chloride 110 ml @ 27.5 mls/hr Q12H IVPB 08/12/19 04:00 08/16/19 15:59 08/13/19 16:09 Yefri Bustillo MD Aug 13, 2019 18:44
--- NOTE | 2019-08-13 19:18 | NUR ---
HAND-OFF: Report given to Bipin MCINTRYE. Patient is stable.
--- NOTE | 2019-08-13 19:20 | NUR ---
NURSE NOTES: Received patient in bed. Awake , A/O x4. On room air, respirations unlabored. Patient is Portuguese-speaking. Denies pain at this time. Walker within reach. Call light within reach, personal slippers at the bedside. 1/2 side rails up, bed locked and at the lowest position. IV in the Right AC noted with no redness or swelling.
--- NOTE | 2019-08-13 21:53 | General Progress Note ---
Assessment/Plan Assessment/Plan: Assessment - choledocholithiasis - cholangitis - biliary obstruction - s/p ERCP Recommendations - follow labs and exam - po diet as tolerated - OOB - d/c planning - f/u with Dr. Hope in 2-3 months Subjective Allergies: Coded Allergies: HYDROCODONE (Verified Allergy, Unknown, 06/13/19) Subjective Above noted seen earlier today s/p ERCP LFT now normal Objective Last 24 Hour Vital Signs Date Time Temp Pulse Resp B/P (MAP) Pulse Ox O2 Delivery O2 Flow Rate FiO2 08/13/19 20:43 60 149/60 08/13/19 20:00 97.7 60 17 149/60 (89) 96 08/13/19 16:10 58 168/66 08/13/19 16:00 97.4 58 18 168/66 (100) 96 08/13/19 12:00 97.7 58 16 156/59 (91) 94 08/13/19 09:00 Nasal Cannula 2.0 08/13/19 08:15 169/70 08/13/19 08:13 61 169/70 08/13/19 08:00 98.4 61 18 169/70 (103) 96 08/13/19 04:23 56 173/94 08/13/19 04:00 97.9 56 16 173/94 (120) 98 08/13/19 00:00 97.2 57 18 170/67 (101) 94 Intake and Output 08/12/19 08/13/19 18:59 06:59 Intake Total 900 ml 1142.5 ml Balance 900 ml 1142.5 ml Intake Oral 600 ml 400 ml IV Total 300 ml 742.5 ml # Voids 2 4 Height (Feet): 5 Height (Inches): 1.00 Weight (Pounds): 140 Objective Elderly woman NCAT supple CTA RR abd soft , (+) RUQ TTP no edema Rock Iraheta MD Aug 13, 2019 21:53
[2019-08-14] MEDS: Piperacillin/Tazobactam 3.375 GM in NS 110 ML IVPB SCH ×2 (03:52→16:58)
[2019-08-14] MEDS: NIFEdipine 10mg cap ORAL PRN ×2 (03:54→21:58)
[2019-08-14 04:00] VITALS: BP 170/65
--- NOTE | 2019-08-14 04:02 | NUR ---
NURSE NOTES: BP of 170/65. PRN nifedipine given.
--- NOTE | 2019-08-14 07:21 | NUR ---
HAND-OFF: Report given to Fredrick MCINTYRE.
--- NOTE | 2019-08-14 07:25 | NUR ---
NURSE NOTES: Patient lying in bed awake. No complain of pain or distress at this time. On O2 @ 2L via NC. Skin intact and dry. IV dressing intact and dry. Bed lowest position. Call light within reach. Will continue to monitor.
[2019-08-14 08:00] VITALS: BP 164/66
--- NOTE | 2019-08-14 09:29 | NUR ---
NURSE NOTES: BEDSIDE REPORT RECEIVED FROM PANKAJ KELLER RN. PATIENT AWAKE IN BED. DISCUSSED PLAN OF CARE FOR THE REST OF THE SHIFT VIA PANKAJ SPEAKING GREENLAND[place] TO PATIENT. ACKNOWLEDGED UNDERSTANDING.PATIENT DENIES PAIN. ALL PERSONAL ITEMS WITHIN ARM'S REACH. BED IN LOW AND LOCKED POSITION. CALL LIGHT WITHIN REACH.
--- NOTE | 2019-08-14 09:30 | NUR ---
HAND-OFF: Report given to Rebecca MCINTYRE. Patient in stable condition.
[2019-08-14] MEDS: COMBIGAN OPHTHALM SCH ×2 (09:41→19:06)
[2019-08-14] MEDS: Losartan 50mg tab ORAL SCH (09:42)
[2019-08-14] MEDS: Carvedilol 6.25mg Tab ORAL SCH ×2 (09:43→21:00)
[2019-08-14] MEDS: Aspirin Baby 81mg NG SCH (09:43)
[2019-08-14] MEDS: Memantine 5 MG TAB ORAL SCH (09:43)
[2019-08-14] MEDS: Allopurinol 100mg Tab ORAL SCH (09:44)
[2019-08-14] MEDS: Heparin 5000 units/ml inj SUBQ SCH ×2 (09:45→21:57)
--- NOTE | 2019-08-14 10:18 | NUR ---
NURSE NOTES: BEDSIDE REPORT GIVEN TO KAILYN SNEED RN. NEEDS OF PATIENT MET AT THIS TIME. BED IN LOW AND LOCKED POSITION.
--- NOTE | 2019-08-14 10:24 | NUR ---
NURSE NOTES: Received report from Rebecca MCINTYRE. Patient is awake and oriented, no acute distress noted, Danish speaking, on room air. IV intact, patent. Walker at bedside, patient can ambulate with walker and minimal assist. Fall precautions maintained. Side rails upx3, bed low and locked, call light within reach, bed alarm armed.
[2019-08-14 12:00] VITALS: BP 152/58
[2019-08-14 16:00] VITALS: BP 153/61
--- NOTE | 2019-08-14 16:30 | NUR ---
DISCHARGE PLANNED: PATIENT REFERRED TO [facility] T:[phone]
--- NOTE | 2019-08-14 17:03 | NUR ---
NURSE NOTES: Called patient's daughter Hernández and informed of discharge order. Per patient's daughter, she cannot picker tender patient until tomorrow morning.
--- NOTE | 2019-08-14 17:11 | General Progress Note ---
Assessment/Plan Assessment/Plan: Cholecystitis/Cholangitis Previous CBD stent, elevated CA19-9 Hypertension Hypertensive Heart Disease Alzheimers Dementia Gout Failure to Thrive s/p ERCP PLAN care noted monitor exam for change appreciate care and findings pain control d/w GI respiratory care dc planning with HH impression, plan, and exam edited and reviewed in detail care discussed with RN Subjective Allergies: Coded Allergies: HYDROCODONE (Verified Allergy, Unknown, 06/13/19) Subjective care noted dc planning events reviewed Objective Last 24 Hour Vital Signs Date Time Temp Pulse Resp B/P (MAP) Pulse Ox O2 Delivery O2 Flow Rate FiO2 08/14/19 12:00 97.9 51 18 152/58 (89) 97 08/14/19 10:22 Room Air 08/14/19 09:43 55 164/66 08/14/19 09:42 164/66 08/14/19 08:00 98.3 55 18 164/66 (98) 94 08/14/19 04:00 97.7 53 17 170/65 (100) 98 08/14/19 03:54 53 170/65 08/13/19 23:43 97.8 58 17 157/66 (96) 100 08/13/19 21:00 Room Air 08/13/19 20:43 60 149/60 08/13/19 20:00 97.7 60 17 149/60 (89) 96 Intake and Output 08/13/19 08/14/19 19:00 07:00 Intake Total 500 ml 200 ml Balance 500 ml 200 ml Intake Oral 500 ml 200 ml # Voids 4 2 Height (Feet): 5 Height (Inches): 1.00 Weight (Pounds): 140 Objective WDWN NAD clear breath sounds bilaterally without rhonchi or wheeze [id number] without MRG NABS mildly tender RUQ no CCE nonfocal weak overall Roel Jack MD Aug 14, 2019 17:11
--- NOTE | 2019-08-14 17:33 | NUR ---
NURSE NOTES: Informed Dr. Jack patient will be unable to discharge until tomorrow, aware and stated "ok".
--- NOTE | 2019-08-14 19:30 | NUR ---
HAND-OFF: Report given to Lenka MCINTYRE.
--- NOTE | 2019-08-14 19:34 | NUR ---
NURSE NOTES: Received report from MIGUELINA Mancera. Pt is awake, lying semi-tomas's; comfortably resting. No signs of acute distress noted. Pt denies any pain at this time. AOx4; able to make needs known. Checked IV site, line, and rate; patent and running. Mainly English speaking but can understand some Uzbek. No erythema, bleeding, or infiltration noted. Bed at lowest position. Walker at bedside. Siderails up x2. Brakes on. Call light within reach. Will continue to monitor.
[2019-08-14 20:00] VITALS: BP 156/63
--- NOTE | 2019-08-14 20:02 | General Progress Note ---
Assessment/Plan Assessment/Plan: Assessment - choledocholithiasis - cholangitis - biliary obstruction - s/p ERCP Recommendations - follow labs and exam - po diet as tolerated - OOB - d/c planning - advised via Hebrew speaking RN: f/u with Dr. Hope in 2-3 months Subjective Allergies: Coded Allergies: HYDROCODONE (Verified Allergy, Unknown, 06/13/19) Subjective Above noted seen earlier today s/p ERCP LFT now normal seen with RN Objective Last 24 Hour Vital Signs Date Time Temp Pulse Resp B/P (MAP) Pulse Ox O2 Delivery O2 Flow Rate FiO2 08/14/19 16:00 97.4 54 18 153/61 (91) 96 08/14/19 12:00 97.9 51 18 152/58 (89) 97 08/14/19 10:22 Room Air 08/14/19 09:43 55 164/66 08/14/19 09:42 164/66 08/14/19 08:00 98.3 55 18 164/66 (98) 94 08/14/19 04:00 97.7 53 17 170/65 (100) 98 08/14/19 03:54 53 170/65 08/13/19 23:43 97.8 58 17 157/66 (96) 100 08/13/19 21:00 Room Air 08/13/19 20:43 60 149/60 Intake and Output 08/13/19 08/14/19 19:00 07:00 Intake Total 500 ml 200 ml Balance 500 ml 200 ml Intake Oral 500 ml 200 ml # Voids 4 2 Height (Feet): 5 Height (Inches): 1.00 Weight (Pounds): 140 Objective Elderly woman NCAT supple CTA RR abd soft , (+) RUQ TTP no edema Rock Iraheta MD Aug 14, 2019 20:02
[2019-08-15] VITALS: BP 134/63
[2019-08-15] MEDS: Piperacillin/Tazobactam 3.375 GM in NS 110 ML IVPB SCH (03:56)
[2019-08-15 04:00] VITALS: BP 154/67
--- NOTE | 2019-08-15 07:16 | NUR ---
HAND-OFF: Report given to MIGUELINA Alcala. Pt is awake and in stable condition. Plan of care endorsed.
--- NOTE | 2019-08-15 07:20 | NUR ---
NURSE NOTES: Patient lying in bed awake. No complain of pain or distress at this time. Skin intact and dry. IV dressing intact and dry. Bed lowest position. Call light within reach. Will continue to monitor.
[2019-08-15 08:00] VITALS: BP 123/74
--- NOTE | 2019-08-15 08:57 | General Progress Note ---
Assessment/Plan Assessment/Plan: Cholecystitis/Cholangitis Previous CBD stent, elevated CA19-9 Hypertension Hypertensive Heart Disease Alzheimers Dementia Gout Failure to Thrive s/p ERCP PLAN care noted stable overnight pain control d/w GI respiratory care dc home with HH eating well impression, plan, and exam edited and reviewed in detail care discussed with RN Subjective Allergies: Coded Allergies: HYDROCODONE (Verified Allergy, Unknown, 06/13/19) Subjective care noted dc planning events reviewed Objective Last 24 Hour Vital Signs Date Time Temp Pulse Resp B/P (MAP) Pulse Ox O2 Delivery O2 Flow Rate FiO2 08/15/19 08:00 99.6 76 18 123/74 (90) 94 08/15/19 04:00 97.8 56 16 154/67 (96) 97 08/15/19 00:00 96.6 64 16 134/63 (86) 97 08/14/19 21:58 57 166/60 08/14/19 21:00 Nasal Cannula 2.0 08/14/19 21:00 57 166/60 08/14/19 20:00 97.0 56 18 156/63 (94) 98 08/14/19 16:00 97.4 54 18 153/61 (91) 96 08/14/19 12:00 97.9 51 18 152/58 (89) 97 08/14/19 10:22 Room Air 08/14/19 09:43 55 164/66 08/14/19 09:42 164/66 Intake and Output 08/14/19 08/15/19 19:00 07:00 Intake Total 300 ml Balance 300 ml Intake Oral 300 ml # Voids 5 2 Height (Feet): 5 Height (Inches): 1.00 Weight (Pounds): 140 Objective WDWN NAD clear breath sounds bilaterally without rhonchi or wheeze [id number] without MRG NABS mildly tender RUQ no CCE nonfocal weak overall Roel Jack MD Aug 15, 2019 08:57
[2019-08-15] MEDS: Heparin 5000 units/ml inj SUBQ SCH (09:00)
--- NOTE | 2019-08-15 09:00 | NUR ---
NURSE NOTES: Spoke to regarding discharge medications and Ok to continue home medications. Order noted and carried out.
--- NOTE | 2019-08-15 09:01 | NUR ---
DISCHARGE PLANNED: PATIENT HAS BEEN ACCEPTED TO [facility] T:[phone] MIGUELINA MCDONNELL FROM [facility] INFORMED OF PATIENT DISCHARGE
--- NOTE | 2019-08-15 09:05 | NUR ---
NURSE NOTES: Spoke to district claims manager regarding Home health. Per manager rn case: home health set up and nurse will call patient. Notified patient and family member regarding home health.
[2019-08-15] MEDS: Aspirin Baby 81mg NG SCH (09:23)
[2019-08-15 09:24] VITALS: BP 123/74
[2019-08-15] MEDS: Allopurinol 100mg Tab ORAL SCH (09:24)
[2019-08-15] MEDS: Memantine 5 MG TAB ORAL SCH (09:24)
[2019-08-15] MEDS: Losartan 50mg tab ORAL SCH (09:24)
[2019-08-15] MEDS: COMBIGAN OPHTHALM SCH (09:24)
[2019-08-15] MEDS: Carvedilol 6.25mg Tab ORAL SCH (09:24)
[2019-08-15] MEDS ORDERED: Tubing IV Secondary IV ONE (09:39)
[2019-08-15] MEDS ORDERED: D5NS 1000ml IV ONE (09:39)
--- NOTE | 2019-08-15 09:40 | NUR ---
NURSE NOTES: Patient discharged with family member in stable condition. Discharge instruction given to patient and family member and verbalized understanding. Instructed to follow up with MD and verbalized understanding. Belonging given to family member. IV and ID removed. Brought down to private car by wheelchair.
--- NOTE | 2019-08-15 18:07 | General Progress Note ---
Assessment/Plan Assessment/Plan: Assessment - choledocholithiasis - cholangitis - biliary obstruction - s/p ERCP Recommendations - follow labs and exam - po diet as tolerated - OOB - d/c planning - f/u with Dr. Hope in 2-3 months Subjective Allergies: Coded Allergies: HYDROCODONE (Verified Allergy, Unknown, 06/13/19) Subjective Above noted seen earlier today no pain Objective Last 24 Hour Vital Signs Date Time Temp Pulse Resp B/P (MAP) Pulse Ox O2 Delivery O2 Flow Rate FiO2 08/15/19 09:24 76 123/74 08/15/19 09:24 123/74 08/15/19 09:00 Room Air 08/15/19 08:00 99.6 76 18 123/74 (90) 94 08/15/19 04:00 97.8 56 16 154/67 (96) 97 08/15/19 00:00 96.6 64 16 134/63 (86) 97 08/14/19 21:58 57 166/60 08/14/19 21:00 Nasal Cannula 2.0 08/14/19 21:00 57 166/60 08/14/19 20:00 97.0 56 18 156/63 (94) 98 Intake and Output 08/14/19 08/15/19 19:00 07:00 Intake Total 300 ml Balance 300 ml Intake Oral 300 ml # Voids 5 2 Height (Feet): 5 Height (Inches): 1.00 Weight (Pounds): 140 Objective Elderly woman NCAT supple CTA RR abd soft , (+) RUQ TTP no edema Rock Iraheta MD Aug 15, 2019 18:07
--- NOTE | 2019-08-17 15:45 | Discharge Summary ---
Discharge Summary Discharge Summary _ DATE OF ADMISSION: 08/09/2019 DATE OF DISCHARGE: 08/15/2019 DISCHARGED BY: Dr. Sarah Jack CONSULTANTS: Dr. Rock Hope BRIEF HOSPITAL COURSE: Patient is an 88-year-old female, who was admitted due to low-grade fever, right upper quadrant discomfort and malaise. Family reported that the patient appeared to be getting weaker than usual. She has medical history significant for hypertension, hypertensive heart disease, Alzheimer's dementia, previous CBD stent and elevated CA 199. Upon evaluation at ED, patient was febrile with temperature of 100.8. Blood pressure and heart rate were stable. Blood test showed leukocytosis with WBC elevated to 14.5. Hemoglobin 11.8 and hematocrit 33. BUN 25 and creatinine elevated to 1.8. Bilirubin 3.0. Direct bilirubin 2.6. LFTs were elevated. Troponin was negative. Chest x-ray with bilateral lower lobe atelectasis. Abdominal ultrasound showed distended gallbladder. CBD dilated at 12.5 mm with sludge or stones. Similar to prior study. Small bilateral kidneys. Lobulated right renal cortical cyst. GI consulted. Patient was admitted in June for cholangitis and had ERCP and stent was placed. Patient was supposed to follow-up for a follow-up ERCP and stent removal. She was placed on n.p.o. She was given IV hydration and IV antibiotics. On 2019, she underwent ERCP with stent removal, balloon assisted stone removal, dilatation and stent placement x2. She underwent procedure well. Diet was advanced. LFTs down trended. She was given PT mobility. She was given potassium supplements. She was tolerating diet. She was eventually discharged home. FINAL DIAGNOSES: Cholecystitis/cholangitis Previous CBD stent, elevated CA 199 Hypertension Hypertensive heart disease Alzheimer's dementia Gout Failure to thrive Status post ERCP DISPOSITION: Patient was discharged home with DISCHARGE MEDICATIONS: Refer to Discharge Medication List. DISCHARGE INSTRUCTIONS: Follow-up in a week. I have been assigned to complete a discharge summary on this account, I was not involved with the patient's management.--CHRIS Soliman Jacqueline Robles NP Aug 17, 2019 15:45
--- NOTE | 2019-09-08 10:01 | CDS Physician Query ---
Clarification is required for compliance, coding accuracy, and to reflect severity of illness for this patient. Dear Dr. Jack, Date: 09.08.19 Mack De La Cruz The findings below have been reported on this patient's medical record: Lab Value/Radiographic finding of: Creatinine .08.20-1.8H,..20-1.6H,.. 20-1.8H,..20-1.5 Please Clarify the diagnosis associated with this finding: Diagnosis: [ x] Acute Kidney Injury [ ] Chronic kidney Disease [ ] Other [ ] Unknown Present on Admission: [ x] Yes [ ] No [ ] Clinically Undetermined Physician signature Date Please also document in your Progress Notes and/or Discharge Summary and indicate if the condition was present on admission. [id number]
== END 2019-08-15 09:40 | disposition home health service (06) | DRG 446 ==
LOC: EMR 08:06 → EDBEDREQ 10:29 → 2E 10:44 → 3E 08-11 18:18
PROC: 0FC98ZZ Extirpation of Matter from Common Bile Duct, Via Natural or Artificial Opening Endoscopic (ICD-10-PCS; principal; 2019-08-11 12:46)
PROC: 0FPB8DZ Removal of Intraluminal Device from Hepatobiliary Duct, Via Natural or Artificial Opening Endoscopic (ICD-10-PCS; principal; 2019-08-11 12:46)
PROC: 0F798DZ Dilation of Common Bile Duct with Intraluminal Device, Via Natural or Artificial Opening Endoscopic (ICD-10-PCS; principal; 2019-08-11 12:46)
DX: K80.31 Calculus of bile duct with cholangitis, unspecified, with obstruction (principal); R62.7 Adult failure to thrive; Z88.6 Allergy status to analgesic agent; I11.9 Hypertensive heart disease without heart failure; G30.9 Alzheimer's disease, unspecified; F02.80 Dementia in other diseases classified elsewhere, unspecified severity, without behavioral disturbance, psychotic disturbance, mood disturbance, and anxiety; E78.00 Pure hypercholesterolemia, unspecified; M10.9 Gout, unspecified
CPT/HCPCS: 36415; 71045; 74328; 76000; 76700; 80048; 80053; 81003; 82248; 82550; 82553; 83605; 83690; 83880; 84450; 84460; 84484; 85007; 85025; 87040; 93005; 94003; 94150; 99291; J8499

== ENCOUNTER 2019-10-23 12:47 | Inpatient (IN) | payer MEDICARE, MEDICAID ==
[~2019-10-23] VITALS: Ht 144.8 cm; Wt 59.9 kg
[2019-10-23] MEDS ORDERED: Morphine Sulfate 2mg/ml Inj(IV/IM USE ONLY) IVP ONE (13:15)
--- NOTE | 2019-10-23 13:19 | Emergency Room Report ---
History of Present Illness General Chief Complaint: General Complaint Source: Patient, Family Member Present Illness HPI Disclaimer: Please note that this report is being documented using [employer] technology. This can lead to erroneous entry secondary to incorrect interpretation by the dictating instrument. HPI: 88-year-old female with history of cholangitis secondary gallstones status post ERCP x2 and stenting presenting for evaluation of abdominal pain. She is primarily Wol[place] speaking and daughter provides much of the history. She complains of right-sided upper quadrant pain for 1 day without nausea, vomiting or fever. Denies diarrhea. Patient underwent a second ERCP with stent removal and balloon assisted stone removal on 08/11/2019 and placement of 2 stents. She has been doing well since then. PMH: Gallstone cholangitis PSH: ERCP with stenting Allergies: Hydrocodone Social Hx: Family denies alcohol or drug abuse Allergies: Coded Allergies: HYDROCODONE (Verified Allergy, Unknown, 06/13/19) COVID-19 Screening Contact w/high risk pt: No Recent Travel to affected area: No Experienced COVID-19 symptoms?: No Nursing Documentation-PMH Hx Cardiac Problems: Yes Hx Hypertension: Yes Hx Cancer: No Hx Gastrointestinal Problems: Yes Hx Neurological Problems: Yes Hx Dementia: Yes Hx Alzheimer's Disease: Yes Hx Fatigue: Yes Review of Systems All Other Systems: negative except mentioned in HPI Physical Exam Vital Signs Date Time Temp Pulse Resp B/P (MAP) Pulse Ox O2 Delivery O2 Flow Rate FiO2 10/23/19 13:01 98.2 60 18 171/58 (95) 97 Room Air General: Awake and alert, no acute distress, well-kept elderly woman HEENT: NC/AT. EOMI. Cardiovascular: Mild bradycardia. S1 and S2 normal. No murmur appreciated Resp: Normal work of breathing. No cough, wheezing or crackles appreciated Abdomen: Abdomen is soft, nondistended. Tender in the epigastric and right upper quadrant. Language barrier makes it difficult to fully assess for August sign. No lower abdominal tenderness. Skin: Intact. No abrasions, laceration or rash over the exposed skin MSK: Normal tone and bulk. Moving all extremities. No obvious deformity. Neuro: Awake and alert. Mentating appropriately. Medical Decision Making Diagnostic Impression: Primary Impression: Choledocholithiasis Additional Impression: Acute cholangitis ER Course 88-year-old female with a history of recent ERCP for gallstone cholangitis presents for evaluation of 1 day abdominal pain. Concern for return of cholangitis, stent malfunction, hepatitis, pancreatitis, gastritis, pyelonephritis, UTI to name a few. Start IV fluids, pain medications and antiemetics. Labs show elevation in LFTs and preliminary ultrasound interpretation by lot technician concerning for dilated CBD and significant stones and sludge in the gallbladder. Concern for cholangitis the patient will require admission. Patient be signed out to oncoming physician, Dr. Downs, pending official ultrasound interpretations, final lab results and admission. Laboratory Tests Test 10/25/19 05:15 White Blood Count 12.2 K/UL (4.8-10.8) #H Red Blood Count 3.38 M/UL (4.20-5.40) L Hemoglobin 10.9 G/DL (12.0-16.0) L Hematocrit 32.9 % (37.0-47.0) L Mean Corpuscular Volume 97 FL (80-99) Mean Corpuscular Hemoglobin 32.4 PG (27.0-31.0) H Mean Corpuscular Hemoglobin Concent 33.3 G/DL (32.0-36.0) Red Cell Distribution Width 12.7 % (11.6-14.8) Platelet Count 156 K/UL (150-450) Mean Platelet Volume 7.2 FL (6.5-10.1) Neutrophils (%) (Auto) % (45.0-75.0) Lymphocytes (%) (Auto) % (20.0-45.0) Monocytes (%) (Auto) % (1.0-10.0) Eosinophils (%) (Auto) % (0.0-3.0) Basophils (%) (Auto) % (0.0-2.0) Differential Total Cells Counted 100 Neutrophils % (Manual) 91 % (45-75) H Lymphocytes % (Manual) 6 % (20-45) L Monocytes % (Manual) 2 % (1-10) Eosinophils % (Manual) 1 % (0-3) Basophils % (Manual) 0 % (0-2) Band Neutrophils 0 % (0-8) Platelet Estimate Adequate Platelet Morphology Normal Hypochromasia 1+ Anisocytosis 1+ Erythrocyte Sedimentation Rate 65 MM/HR (0-30) H Prothrombin Time 10.4 SEC (9.30-11.50) Prothrombin Time INR 1.0 (0.9-1.1) Activated Partial Thromboplast Time 31 SEC (23-33) Sodium Level 142 MMOL/L (136-145) Potassium Level 3.6 MMOL/L (3.5-5.1) Chloride Level 106 MMOL/L (98-107) Carbon Dioxide Level 21 MMOL/L (21-32) Anion Gap 15 mmol/L (5-15) Blood Urea Nitrogen 28 mg/dL (7-18) H Creatinine 1.5 MG/DL (0.55-1.30) H Estimated Glomerular Filtration Rate 32.7 mL/min (>60) Glucose Level 57 MG/DL (74-106) L Calcium Level 9.5 MG/DL (8.5-10.1) Total Bilirubin 2.6 MG/DL (0.2-1.0) H Direct Bilirubin 2.0 MG/DL (0.0-0.3) H Aspartate Amino Transferase (AST) 282 U/L (15-37) H Alanine Aminotransferase (ALT) 189 U/L (12-78) H Alkaline Phosphatase 881 U/L (46-116) H C-Reactive Protein, Quantitative 6.1 mg/dL (0.00-0.90) H Total Protein 6.6 G/DL (6.4-8.2) Albumin 2.9 G/DL (3.4-5.0) L Globulin 3.7 g/dL Albumin/Globulin Ratio 0.8 (1.0-2.7) L Amylase Level 86 U/L (25-115) Lipase 323 U/L (73-393) Last Vital Signs Date Time Temp Pulse Resp B/P (MAP) Pulse Ox O2 Delivery O2 Flow Rate FiO2 10/23/19 13:01 98.2 60 18 171/58 (95) 97 Room Air Disposition: SHORT-TERM HOSP Condition: Serious Signed Out To: Dr. Downs Referrals: NON PHYSICIAN (PCP) Isael Cruz MD Oct 23, 2019 13:19
[2019-10-23 13:44] LABS: BASOPHILS % (AUTO) 0.5 % (0.0-2.0); EOSINOPHILS % (AUTO) 1.5 % (0.0-3.0); HEMATOCRIT 33.8 % (37.0-47.0); HEMOGLOBIN 11.4 G/DL (12.0-16.0); LYMPHOCYTES % (AUTO) 19.4 % (20.0-45.0); MEAN CORPUSCULAR VOLUME 95 FL (80-99); MONOCYTES % (AUTO) 6.3 % (1.0-10.0); NEUTROPHILS % (AUTO) 72.3 % (45.0-75.0); PLATELET COUNT 167 K/UL (150-450); RED BLOOD COUNT 3.55 M/UL (4.20-5.40); WHITE BLOOD COUNT 10.5 K/UL (4.8-10.8)
[2019-10-23 13:52] LABS: ANION GAP 11 mmol/L (5-15); BLOOD UREA NITROGEN 27 mg/dL (7-18); CALCIUM 9.6 MG/DL (8.5-10.1); CARBON DIOXIDE 25 MMOL/L (21-32); CHLORIDE 103 MMOL/L (98-107); CREATININE 1.5 MG/DL (0.55-1.30); SODIUM 139 MMOL/L (136-145)
[2019-10-23 13:56] LABS: ALANINE AMINOTRANSFERASE 176 U/L (12-78); ALBUMIN 3.3 G/DL (3.4-5.0); ALBUMIN/GLOBULIN RATIO 0.9 (1.0-2.7); ALKALINE PHOSPHATASE 583 U/L (46-116); ASPARTATE AMINO TRANSFERASE 127 U/L (15-37); BILIRUBIN,TOTAL 0.7 MG/DL (0.2-1.0)
[2019-10-23 14:00] VITALS: BP 162/56
--- NOTE | 2019-10-23 14:41 | Diagnostic Imaging Report ---
Indication: Abdominal pain Technique: Valdovinos-scale and duplex images of the upper abdomen were obtained Comparison: 08/09/2019 Findings: Gallbladder is filled with sludge and also demonstrates gallstones. There is distended and there is trace pericholecystic fluid. Sonographic August's sign is negative. Common bile duct measures 20 mm in diameter. It is filled with debris. There is marked intrahepatic biliary ductal dilatation. Liver demonstrates normal echogenicity, no focal abnormality. Portal vein and hepatic veins are patent. Pancreas is unremarkable. The pancreatic duct is dilated, however, measuring 4 mm in diameter. Spleen is unremarkable. Left kidney measures 9.1 cm in length. Right kidney measures 9.3 cm length. Both kidneys demonstrate increased echogenicity. There is no hydronephrosis. There are bilateral renal cysts . Abdominal aorta is obscured by bowel gas . Biliary ductal dilatation is increased from prior study Impression: Increasingly dilated extrahepatic and intrahepatic Bile ducts despite interim placement of an endobiliary stent. Stent dysfunction possible. Correlate with liver function tests Distended gallbladder containing sludge and stones. Trace pericholecystic fluid, raises possibility of acute cholecystitis. Consider hepatobiliary nuclear scan if there is high clinical suspicion. Echogenic somewhat atrophic kidneys, consistent with medical renal disease. Incidental finding bilateral renal cysts, also previously reported Note nonvisualization of the abdominal aorta
[2019-10-23 15:00] VITALS: BP 155/58
[2019-10-23 16:00] VITALS: BP 121/48
[2019-10-23 16:56] LABS: BILIRUBIN, URINE NEGATIVE (NEGATIVE); COLOR,URINE PALE YELLOW; GLUCOSE, URINE (UA) NEGATIVE (NEGATIVE); KETONES,URINE NEGATIVE (NEGATIVE); LEUKOCYTE ESTERASE ,URINE NEGATIVE (NEGATIVE); NITRITE,URINE NEGATIVE (NEGATIVE); PH,URINE 7 (4.5-8.0); PROTEIN,URINE 2+ (NEGATIVE); UROBILINOGEN,URINE NORMAL MG/DL (0.0-1.0)
[2019-10-23 17:03] LABS: APPEARANCE,URINE SLIGHTLY CLOUDY
[2019-10-23 18:28] VITALS: BP 152/76
--- NOTE | 2019-10-23 21:01 | General Progress Note ---
Subjective Allergies: Coded Allergies: HYDROCODONE (Verified Allergy, Unknown, 06/13/19) Objective Last 24 Hour Vital Signs Date Time Temp Pulse Resp B/P (MAP) Pulse Ox O2 Delivery O2 Flow Rate FiO2 10/23/19 18:50 58 20 154/82 98 Room Air 10/23/19 18:28 63 18 152/76 98 Room Air 10/23/19 16:00 62 16 121/48 98 Room Air 10/23/19 15:00 62 12 155/58 95 Room Air 10/23/19 14:58 60 18 Room Air 10/23/19 14:00 62 13 162/56 96 Room Air 10/23/19 13:01 98.2 60 18 171/58 (95) 97 Room Air Laboratory Tests 10/23/19 13:15: White Blood Count 10.5, Red Blood Count 3.55L, Hemoglobin 11.4L, Hematocrit 33.8L, Mean Corpuscular Volume 95, Mean Corpuscular Hemoglobin 32.1H, Mean Corpuscular Hemoglobin Concent 33.7, Red Cell Distribution Width 12.0, Platelet Count 167, Mean Platelet Volume 6.8, Neutrophils (%) (Auto) 72.3, Lymphocytes (% ) (Auto) 19.4L, Monocytes (%) (Auto) 6.3, Eosinophils (%) (Auto) 1.5, Basophils (%) (Auto) 0.5, Sodium Level 139, Potassium Level 4.0, Chloride Level 103, Carbon Dioxide Level 25, Anion Gap 11, Blood Urea Nitrogen 27H, Creatinine 1.5H , Estimat Glomerular Filtration Rate 32.7, Glucose Level 157H, Calcium Level 9.6 , Total Bilirubin 0.7, Aspartate Amino Transf (AST/SGOT) 127H, Alanine Aminotransferase (ALT/SGPT) 176H, Alkaline Phosphatase 583H, Total Protein 7.1, Albumin 3.3L, Globulin 3.8, Albumin/Globulin Ratio 0.9L, Lipase 161 10/23/19 16:16: Urine Color Pale yellow, Urine Appearance Slightly cloudy, Urine pH 7, Urine Specific [place] 1.005, Urine Protein 2+H, Urine Glucose (UA) Negative, Urine Ketones Negative, Urine Blood Negative, Urine Nitrite Negative, Urine Bilirubin Negative, Urine Urobilinogen Normal, Urine Leukocyte Esterase Negative, Urine RBC 0, Urine WBC 0-2, Urine Squamous Epithelial Cells ManyH, Urine Amorphous Sediment ModerateH, Urine Bacteria Few Height (Feet): 4 Height (Inches): 11.00 Weight (Pounds): 150 Roel Jack MD Oct 23, 2019 21:01
--- NOTE | 2019-10-23 21:01 | History & Physical ---
History and Physical History & Physicial Patient is an 88-year-old female, who was admitted with recurrent, right upper quadrant discomfort and malaise. now weaker than usual. Patient with previous CBD stent and elevated CA 199. Upon evaluation at ED, patient was afebrile LFTs were elevated. Patient with CBD dilated at 12.5 mm with sludge or stones. Patient was admitted in the past for cholangitis and had ERCP and stent was placed and then removed. On 2019, she underwent ERCP with stent removal, balloon assisted stone removal, dilatation and stent placement x2. She underwent procedure well. On prior discharge, she tolerated the diet well and was discharged home PMH Cholecystitis/cholangitis Previous CBD stent, elevated CA 199 Hypertension Hypertensive heart disease Alzheimer's dementia Gout Failure to thrive Status post ERCP MEDS/ALLERGIES reviewed SOCIAL HISTORY live with family; retired; nonsmoker or drinker ROS unable FHX difficult to obtain PHYSICAL WDWN NAD clear breath sounds bilaterally without rhonchi or wheeze [id number] without MRG NABS Tender RUQ no CCE nonfocal Labs Test 10/23/19 13:15 10/23/19 16:16 White Blood Count 10.5 K/UL (4.8-10.8) Red Blood Count 3.55 M/UL (4.20-5.40) Hemoglobin 11.4 G/DL (12.0-16.0) Hematocrit 33.8 % (37.0-47.0) Mean Corpuscular Volume 95 FL (80-99) Mean Corpuscular Hemoglobin 32.1 PG (27.0-31.0) Mean Corpuscular Hemoglobin Concent 33.7 G/DL (32.0-36.0) Red Cell Distribution Width 12.0 % (11.6-14.8) Platelet Count 167 K/UL (150-450) Mean Platelet Volume 6.8 FL (6.5-10.1) Neutrophils (%) (Auto) 72.3 % (45.0-75.0) Lymphocytes (%) (Auto) 19.4 % (20.0-45.0) Monocytes (%) (Auto) 6.3 % (1.0-10.0) Eosinophils (%) (Auto) 1.5 % (0.0-3.0) Basophils (%) (Auto) 0.5 % (0.0-2.0) Sodium Level 139 MMOL/L (136-145) Potassium Level 4.0 MMOL/L (3.5-5.1) Chloride Level 103 MMOL/L (98-107) Carbon Dioxide Level 25 MMOL/L (21-32) Anion Gap 11 mmol/L (5-15) Blood Urea Nitrogen 27 mg/dL (7-18) Creatinine 1.5 MG/DL (0.55-1.30) Estimat Glomerular Filtration Rate 32.7 mL/min (>60) Glucose Level 157 MG/DL (74-106) Calcium Level 9.6 MG/DL (8.5-10.1) Total Bilirubin 0.7 MG/DL (0.2-1.0) Aspartate Amino Transf (AST/SGOT) 127 U/L (15-37) Alanine Aminotransferase (ALT/SGPT) 176 U/L (12-78) Alkaline Phosphatase 583 U/L (46-116) Total Protein 7.1 G/DL (6.4-8.2) Albumin 3.3 G/DL (3.4-5.0) Globulin 3.8 g/dL Albumin/Globulin Ratio 0.9 (1.0-2.7) Lipase 161 U/L (73-393) Urine Color Pale yellow Urine Appearance Slightly cloudy Urine pH 7 (4.5-8.0) Urine Specific [place] 1.005 (1.005-1.035) Urine Protein 2+ (NEGATIVE) Urine Glucose (UA) Negative (NEGATIVE) Urine Ketones Negative (NEGATIVE) Urine Blood Negative (NEGATIVE) Urine Nitrite Negative (NEGATIVE) Urine Bilirubin Negative (NEGATIVE) Urine Urobilinogen Normal MG/DL (0.0-1.0) Urine Leukocyte Esterase Negative (NEGATIVE) Urine RBC 0 /HPF (0 - 2) Urine WBC 0-2 /HPF (0 - 2) Urine Squamous Epithelial Cells Many /LPF (NONE/OCC) Urine Amorphous Sediment Moderate /LPF (NONE) Urine Bacteria Few /HPF (NONE) Cholecystitis/cholangitis Previous CBD stent, elevated CA 199 Hypertension Hypertensive heart disease Alzheimer's dementia Gout Failure to thrive Status post ERCP recurrent pain elevated Liver enzymes PLAN pain control GI reeval iv hydration NPO resume home meds stabilize impression, plan, and exam edited and reviewed in detail care discussed with Roel Hurley MD Oct 23, 2019 21:01
[2019-10-23] MEDS ORDERED: NIFEdipine 10mg cap ORAL SCH (22:00)
[2019-10-23] MEDS: Carvedilol 6.25mg Tab ORAL SCH (22:50)
[2019-10-24] VITALS (7 sets, daily range): BP systolic 109–184; BP diastolic 56–80
[2019-10-24] MEDS ORDERED: Morphine Sulfate 2mg/ml Inj(IV/IM USE ONLY) IVP PRN (00:45)
[2019-10-24 05:57] LABS: BASOPHILS % (AUTO) 0.7 % (0.0-2.0); EOSINOPHILS % (AUTO) 3.5 % (0.0-3.0); HEMATOCRIT 30.5 % (37.0-47.0); HEMOGLOBIN 10.2 G/DL (12.0-16.0); LYMPHOCYTES % (AUTO) 28.9 % (20.0-45.0); MEAN CORPUSCULAR VOLUME 96 FL (80-99); MONOCYTES % (AUTO) 7.6 % (1.0-10.0); NEUTROPHILS % (AUTO) 59.2 % (45.0-75.0); PLATELET COUNT 158 K/UL (150-450); RED BLOOD COUNT 3.16 M/UL (4.20-5.40); RED CELL DISTRIBUTION WIDTH 12.4 % (11.6-14.8); WHITE BLOOD COUNT 7.9 K/UL (4.8-10.8)
[2019-10-24 06:18] LABS: ALANINE AMINOTRANSFERASE 121 U/L (12-78); ALBUMIN 2.9 G/DL (3.4-5.0); ALBUMIN/GLOBULIN RATIO 0.9 (1.0-2.7); ALKALINE PHOSPHATASE 472 U/L (46-116); ANION GAP 8 mmol/L (5-15); ASPARTATE AMINO TRANSFERASE 70 U/L (15-37); BILIRUBIN,TOTAL 0.6 MG/DL (0.2-1.0); BLOOD UREA NITROGEN 23 mg/dL (7-18); CALCIUM 9.1 MG/DL (8.5-10.1); CARBON DIOXIDE 26 MMOL/L (21-32); CHLORIDE 109 MMOL/L (98-107); CREATININE 1.4 MG/DL (0.55-1.30); POTASSIUM 4.1 MMOL/L (3.5-5.1); SODIUM 143 MMOL/L (136-145)
[2019-10-24] MEDS: Memantine 5 MG TAB ORAL SCH (08:27)
[2019-10-24] MEDS: Allopurinol 100mg Tab ORAL SCH (08:28)
[2019-10-24] MEDS: Furosemide 40mg tab ORAL SCH (08:28)
[2019-10-24] MEDS: Aspirin EC 81mg tab ORAL SCH (08:28)
[2019-10-24] MEDS: Losartan 50mg tab ORAL SCH (08:30)
[2019-10-24] MEDS: Carvedilol 6.25mg Tab ORAL SCH ×2 (08:35→21:26)
--- NOTE | 2019-10-24 08:41 | General Progress Note ---
Assessment/Plan Assessment/Plan: Cholecystitis/cholangitis Previous CBD stent, elevated CA 199 Hypertension Hypertensive heart disease Alzheimer's dementia Gout Failure to thrive Status post ERCP recurrent pain elevated Liver enzymes PLAN pain control GI reeval and further recommendations iv hydration NPO and resume per gi resume home meds stabilize impression, plan, and exam edited and reviewed in detail care discussed with RN Subjective Allergies: Coded Allergies: HYDROCODONE (Verified Allergy, Unknown, 06/13/19) Subjective still with some pain overnight events noted Objective Last 24 Hour Vital Signs Date Time Temp Pulse Resp B/P (MAP) Pulse Ox O2 Delivery O2 Flow Rate FiO2 10/24/19 08:35 55 10/24/19 08:30 163/65 10/24/19 08:16 97.8 52 18 163/65 (97) 96 10/24/19 08:07 Room Air 10/24/19 05:00 60 109/61 (77) 10/24/19 04:00 98.0 56 19 160/63 (95) 97 10/24/19 00:00 97.6 57 19 96 10/24/19 00:00 154/69 (97) 10/23/19 22:50 54 162/64 10/23/19 22:38 Room Air 10/23/19 18:50 58 20 154/82 98 Room Air 10/23/19 18:28 63 18 152/76 98 Room Air 10/23/19 16:00 62 16 121/48 98 Room Air 10/23/19 15:00 62 12 155/58 95 Room Air 10/23/19 14:58 60 18 Room Air 10/23/19 14:00 62 13 162/56 96 Room Air 10/23/19 13:01 98.2 60 18 171/58 (95) 97 Room Air Intake and Output 10/23/19 10/24/19 19:00 07:00 Intake Total 2000 ml 900 ml Output Total 30 ml Balance 1970 ml 900 ml Intake Oral 0 ml IV Total 2000 ml 900 ml Output Urine Total 30 ml # Voids 2 # Bowel Movements 1 Laboratory Tests 10/23/19 13:15: White Blood Count 10.5, Red Blood Count 3.55L, Hemoglobin 11.4L, Hematocrit 33.8L, Mean Corpuscular Volume 95, Mean Corpuscular Hemoglobin 32.1H, Mean Corpuscular Hemoglobin Concent 33.7, Red Cell Distribution Width 12.0, Platelet Count 167, Mean Platelet Volume 6.8, Neutrophils (%) (Auto) 72.3, Lymphocytes (% ) (Auto) 19.4L, Monocytes (%) (Auto) 6.3, Eosinophils (%) (Auto) 1.5, Basophils (%) (Auto) 0.5, Sodium Level 139, Potassium Level 4.0, Chloride Level 103, Carbon Dioxide Level 25, Anion Gap 11, Blood Urea Nitrogen 27H, Creatinine 1.5H , Estimat Glomerular Filtration Rate 32.7, Glucose Level 157H, Calcium Level 9.6 , Total Bilirubin 0.7, Aspartate Amino Transf (AST/SGOT) 127H, Alanine Aminotransferase (ALT/SGPT) 176H, Alkaline Phosphatase 583H, Total Protein 7.1, Albumin 3.3L, Globulin 3.8, Albumin/Globulin Ratio 0.9L, Lipase 161 10/23/19 16:16: Urine Color Pale yellow, Urine Appearance Slightly cloudy, Urine pH 7, Urine Specific [place] 1.005, Urine Protein 2+H, Urine Glucose (UA) Negative, Urine Ketones Negative, Urine Blood Negative, Urine Nitrite Negative, Urine Bilirubin Negative, Urine Urobilinogen Normal, Urine Leukocyte Esterase Negative, Urine RBC 0, Urine WBC 0-2, Urine Squamous Epithelial Cells ManyH, Urine Amorphous Sediment ModerateH, Urine Bacteria Few 10/24/19 04:50: White Blood Count 7.9, Red Blood Count 3.16L, Hemoglobin 10.2L, Hematocrit 30.5L , Mean Corpuscular Volume 96, Mean Corpuscular Hemoglobin 32.4H, Mean Corpuscular Hemoglobin Concent 33.5, Red Cell Distribution Width 12.4, Platelet Count 158, Mean Platelet Volume 7.3, Neutrophils (%) (Auto) 59.2, Lymphocytes (% ) (Auto) 28.9, Monocytes (%) (Auto) 7.6, Eosinophils (%) (Auto) 3.5H, Basophils (%) (Auto) 0.7, Sodium Level 143, Potassium Level 4.1, Chloride Level 109H, Carbon Dioxide Level 26, Anion Gap 8, Blood Urea Nitrogen 23H, Creatinine 1.4H, Estimat Glomerular Filtration Rate 35.4, Glucose Level 85, Calcium Level 9.1, Total Bilirubin 0.6, Aspartate Amino Transf (AST/SGOT) 70H, Alanine Aminotransferase (ALT/SGPT) 121H, Alkaline Phosphatase 472H, Total Protein 6.3L , Albumin 2.9L, Globulin 3.4, Albumin/Globulin Ratio 0.9L Height (Feet): 4 Height (Inches): 11.00 Weight (Pounds): 150 Objective WDWN NAD clear breath sounds bilaterally without rhonchi or wheeze [id number] without MRG NABS mildly tender abdomen no CCE nonfocal confused Roel Jack MD Oct 24, 2019 08:41
--- NOTE | 2019-10-24 13:40 | Consultation ---
History of Present Illness General Date patient seen: Oct 24, 2019 Reason for Hospitalization: General Complaint Present Illness HPI This is a very pleasant 88-year-old female with history of cholangitis secondary gallstones status post ERCP x2 and stenting who presented to [facility] – [place] ED for evaluation of abdominal pain. She is primarily [place] speaking and daughter provides much of the history. Nurse helped with history. She complains of right-sided upper quadrant pain for 1 day without nausea, vomiting or fever. Denies diarrhea. Patient underwent a second ERCP with stent removal and balloon assisted stone removal on 08/11/2019 and placement of 2 stents. She has been doing well since then. abnormal labs. abd pain mainly RUQ cramping. surgery called to evaluate. case discussed with GI. Allergies: Coded Allergies: HYDROCODONE (Verified Allergy, Unknown, 06/13/19) COVID-19 Screening Contact w/high risk pt: No Recent Travel to affected area: No Experienced COVID-19 symptoms?: No Medication History Scheduled Allopurinol* (Allopurinol*), 100 MG ORAL DAILY, (Reported) Aspirin* (Aspir 81*), 81 MG ORAL DAILY, (Reported) Carvedilol* (Carvedilol*), 6.25 MG ORAL EVERY 12 HOURS, (Reported) Ferrous Sulfate* (Ferrous Sulfate*), 325 MG ORAL DAILY, (Reported) Furosemide* (Lasix*), 40 MG ORAL DAILY, (Reported) Losartan Potassium (Losartan Potassium), 100 MG ORAL DAILY, (Reported) Memantine Hcl* (Namenda*), 5 MG ORAL DAILY, (Reported) Nifedipine (Nifedipine*), 20 MG ORAL EVERY 8 HOURS, (Reported) Omeprazole (Omeprazole), 40 MG ORAL DAILY, (Reported) Rosuvastatin Calcium* (Crestor*), Unknown Dose ORAL DAILY, (Reported) Scheduled PRN Ondansetron Odt* (Zofran Odt*), 4 MG ORAL Q6H PRN for Nausea & Vomiting, ( Reported) Patient History Limited by: language barrier, medical condition History Provided By: Patient, Medical Record, PMD Healthcare decision maker Resuscitation status Full Code Advanced Directive on File No Past Medical/Surgical History Past Medical/Surgical History: (1) Dehydration (2) Hypertensive nephrosclerosis (3) CKD (chronic kidney disease) stage 5, GFR less than 15 ml/min (4) Urinary retention (5) Acute cholangitis (6) Obstructive jaundice (7) Choledocholithiasis Review of Systems Review of Symptoms General ROS: no weight loss or fever Psychological ROS: no depression or mood changes, no memory loss Ophthalmic ROS: no visual changes or eye irritation ENT ROS: no nasal congestion, hearing loss, dizziness Allergy and Immunology ROS: no allergic symptoms or urticaria Hematological and Lymphatic ROS: no swollen glands, unusual bleeding or bruising Endocrine ROS: no polyuria, polydipsia, weight changes, temperature intolerance Respiratory ROS: no cough, shortness of breath, or wheezing Cardiovascular ROS: no chest pain or dyspnea on exertion Gastrointestinal ROS: abdominal pain, bright red blood in stool. Musculoskeletal ROS: no myalgias or arthralgias Neurological ROS: no TIA or stroke symptoms Dermatological ROS: no new or changing skin lesions, rashes or pruritis Physical Exam Physical Exam General appearance: alert, cooperative, no distress, appears stated age Head: Normocephalic, without obvious abnormality, atraumatic Eyes: conjunctivae/corneas clear. PERRL, EOM's intact. Fundi benign Throat: Lips, mucosa, and tongue normal. Teeth and gums normal Neck: supple, symmetrical, trachea midline, no adenopathy, thyroid: not enlarged, symmetric, no tenderness/mass/nodules, no carotid bruit and no JVD Lungs: clear to auscultation bilaterally Heart: regular rate and rhythm, S1, S2 normal, no murmur, click, rub or gallop Abdomen: soft, tender. Bowel sounds normal. No masses, no organomegaly Extremities: extremities normal, atraumatic, no cyanosis or edema Pulses: 2+ and symmetric Skin: Skin color, texture, turgor normal. No rashes or lesions Neurologic: Grossly normal Last 24 Hour Vital Signs Date Time Temp Pulse Resp B/P (MAP) Pulse Ox O2 Delivery O2 Flow Rate FiO2 10/24/19 12:00 98.4 56 20 159/56 (90) 96 10/24/19 08:35 55 10/24/19 08:30 163/65 10/24/19 08:16 97.8 52 18 163/65 (97) 96 10/24/19 08:07 Room Air 10/24/19 05:00 60 109/61 (77) 10/24/19 04:00 98.0 56 19 160/63 (95) 97 10/24/19 00:00 97.6 57 19 96 10/24/19 00:00 154/69 (97) 10/23/19 22:50 54 162/64 10/23/19 22:38 Room Air 10/23/19 18:50 58 20 154/82 98 Room Air 10/23/19 18:28 63 18 152/76 98 Room Air 10/23/19 16:00 62 16 121/48 98 Room Air 10/23/19 15:00 62 12 155/58 95 Room Air 10/23/19 14:58 60 18 Room Air 10/23/19 14:00 62 13 162/56 96 Room Air Intake and Output 10/23/19 10/24/19 19:00 07:00 Intake Total 2000 ml 900 ml Output Total 30 ml Balance 1970 ml 900 ml Intake Oral 0 ml IV Total 2000 ml 900 ml Output Urine Total 30 ml # Voids 2 # Bowel Movements 1 Laboratory Tests Test 10/23/19 16:16 10/24/19 04:50 Urine Color Pale yellow Urine Appearance Slightly cloudy Urine pH 7 (4.5-8.0) Urine Specific [place] 1.005 (1.005-1.035) Urine Protein 2+ (NEGATIVE) H Urine Glucose (UA) Negative (NEGATIVE) Urine Ketones Negative (NEGATIVE) Urine Blood Negative (NEGATIVE) Urine Nitrite Negative (NEGATIVE) Urine Bilirubin Negative (NEGATIVE) Urine Urobilinogen Normal MG/DL (0.0-1.0) Urine Leukocyte Esterase Negative (NEGATIVE) Urine RBC 0 /HPF (0 - 2) Urine WBC 0-2 /HPF (0 - 2) Urine Squamous Epithelial Cells Many /LPF (NONE/OCC) H Urine Amorphous Sediment Moderate /LPF (NONE) H Urine Bacteria Few /HPF (NONE) White Blood Count 7.9 K/UL (4.8-10.8) Red Blood Count 3.16 M/UL (4.20-5.40) L Hemoglobin 10.2 G/DL (12.0-16.0) L Hematocrit 30.5 % (37.0-47.0) L Mean Corpuscular Volume 96 FL (80-99) Mean Corpuscular Hemoglobin 32.4 PG (27.0-31.0) H Mean Corpuscular Hemoglobin Concent 33.5 G/DL (32.0-36.0) Red Cell Distribution Width 12.4 % (11.6-14.8) Platelet Count 158 K/UL (150-450) Mean Platelet Volume 7.3 FL (6.5-10.1) Neutrophils (%) (Auto) 59.2 % (45.0-75.0) Lymphocytes (%) (Auto) 28.9 % (20.0-45.0) Monocytes (%) (Auto) 7.6 % (1.0-10.0) Eosinophils (%) (Auto) 3.5 % (0.0-3.0) H Basophils (%) (Auto) 0.7 % (0.0-2.0) Sodium Level 143 MMOL/L (136-145) Potassium Level 4.1 MMOL/L (3.5-5.1) Chloride Level 109 MMOL/L (98-107) H Carbon Dioxide Level 26 MMOL/L (21-32) Anion Gap 8 mmol/L (5-15) Blood Urea Nitrogen 23 mg/dL (7-18) H Creatinine 1.4 MG/DL (0.55-1.30) H Estimat Glomerular Filtration Rate 35.4 mL/min (>60) Glucose Level 85 MG/DL (74-106) Calcium Level 9.1 MG/DL (8.5-10.1) Total Bilirubin 0.6 MG/DL (0.2-1.0) Aspartate Amino Transf (AST/SGOT) 70 U/L (15-37) H Alanine Aminotransferase (ALT/SGPT) 121 U/L (12-78) H Alkaline Phosphatase 472 U/L (46-116) H Total Protein 6.3 G/DL (6.4-8.2) L Albumin 2.9 G/DL (3.4-5.0) L Globulin 3.4 g/dL Albumin/Globulin Ratio 0.9 (1.0-2.7) L Height (Feet): 4 Height (Inches): 11.00 Weight (Pounds): 150 Medications Current Medications Medications (Trade) Dose Ordered Sig/Manny Route PRN Reason Start Time Stop Time Status Last Admin Dose Admin Acetaminophen (Tylenol) 650 mg Q4H PRN ORAL Mild Pain (Pain Scale 1-3) 10/23/19 22:00 11/22/19 21:59 Al Hydroxide/Mg Hydroxide (Mylanta) 30 ml EVERY 4 HOURS PRN ORAL To Patient Comfort 10/23/19 22:00 11/22/19 21:59 Allopurinol (Zyloprim) 100 mg DAILY ORAL 10/24/19 09:00 11/23/19 08:59 10/24/19 08:28 Aspirin (Ecotrin) 81 mg DAILY ORAL 10/24/19 09:00 12/08/19 08:59 10/24/19 08:28 Carvedilol (Coreg) 6.25 mg EVERY 12 HOURS ORAL 10/23/19 22:00 11/22/19 21:59 10/23/19 22:50 Ferrous Sulfate (Feosol) 325 mg DAILY ORAL 10/24/19 09:00 01/22/20 08:59 10/24/19 08:28 Furosemide (Lasix) 40 mg DAILY ORAL 10/24/19 09:00 11/23/19 08:59 10/24/19 08:28 Losartan Potassium (Cozaar) 100 mg DAILY ORAL 10/24/19 09:00 11/23/19 08:59 10/24/19 08:30 Memantine (Namenda) 5 mg DAILY ORAL 10/24/19 09:00 11/23/19 08:59 10/24/19 08:27 Morphine Sulfate (Morphine Sulfate) 2 mg Q4H PRN IVP Severe Pain (Pain Scale 7-10) 10/24/19 04:45 10/31/19 00:44 Ondansetron HCl (Zofran) 4 mg Q6H PRN IVP Nausea & Vomiting 10/23/19 22:00 11/22/19 21:59 Pantoprazole (Protonix) 40 mg DAILY ORAL 10/24/19 09:00 11/23/19 08:59 10/24/19 08:28 Sodium Chloride 1,000 ml @ 100 mls/hr Q10H IV 10/23/19 22:00 11/22/19 21:59 10/24/19 08:27 Assessment/Plan Problem List: (1) Choledocholithiasis Assessment & Plan: Gallbladder is filled with sludge and also demonstrates gallstones. There is distended and there is trace pericholecystic fluid. Sonographic August's sign is negative. Common bile duct measures 20 mm in diameter. It is filled with debris. There is marked intrahepatic biliary ductal dilatation. Liver demonstrates normal echogenicity, no focal abnormality. Portal vein and hepatic veins are patent. Pancreas is unremarkable. The pancreatic duct is dilated, however, measuring 4 mm in diameter. Spleen is unremarkable. Left kidney measures 9.1 cm in length. Right kidney measures 9.3 cm length. Both kidneys demonstrate increased echogenicity. There is no hydronephrosis. There are bilateral renal cysts . Abdominal aorta is obscured by bowel gas . Biliary ductal dilatation is increased from prior study ICD Codes: K80.50 - Calculus of bile duct without cholangitis or cholecystitis without obstruction SNOMED: 848586976 (2) Acute cholangitis Assessment & Plan: discussed with GI patient currently stable and not septic afebrile, HD Stable labs reviewed and improving hold on ERCP or stent exchange for now no acute surgical intervention given age and status abx iv fluids okay for diet trend labs will follow with recs thank you ICD Codes: K83.09 - Other cholangitis SNOMED: 4457170 (3) Obstructive jaundice ICD Codes: K83.1 - Obstruction of bile duct SNOMED: 31625068 Jay Kemp Oct 24, 2019 13:40
[2019-10-25] VITALS: BP 150/58
[2019-10-25 04:00] VITALS: BP 103/75
[2019-10-25 06:26] LABS: HEMATOCRIT 32.9 % (37.0-47.0); HEMOGLOBIN 10.9 G/DL (12.0-16.0); MEAN CORPUSCULAR VOLUME 97 FL (80-99); PLATELET COUNT 156 K/UL (150-450); RED BLOOD COUNT 3.38 M/UL (4.20-5.40); RED CELL DISTRIBUTION WIDTH 12.7 % (11.6-14.8); WHITE BLOOD COUNT 12.2 K/UL (4.8-10.8)
[2019-10-25 07:08] LABS: ALANINE AMINOTRANSFERASE 189 U/L (12-78); ALBUMIN 2.9 G/DL (3.4-5.0); ALBUMIN/GLOBULIN RATIO 0.8 (1.0-2.7); ALKALINE PHOSPHATASE 881 U/L (46-116); AMYLASE 86 U/L (25-115); ANION GAP 15 mmol/L (5-15); ASPARTATE AMINO TRANSFERASE 282 U/L (15-37); BILIRUBIN,TOTAL 2.6 MG/DL (0.2-1.0); BLOOD UREA NITROGEN 28 mg/dL (7-18); CALCIUM 9.5 MG/DL (8.5-10.1); CARBON DIOXIDE 21 MMOL/L (21-32); CHLORIDE 106 MMOL/L (98-107); CREATININE 1.5 MG/DL (0.55-1.30); POTASSIUM 3.6 MMOL/L (3.5-5.1); SODIUM 142 MMOL/L (136-145)
[2019-10-25 08:00] VITALS: BP 160/67
[2019-10-25] MEDS: Allopurinol 100mg Tab ORAL SCH (08:28)
[2019-10-25] MEDS: Furosemide 40mg tab ORAL SCH (08:28)
[2019-10-25] MEDS: Aspirin EC 81mg tab ORAL SCH (08:28)
[2019-10-25] MEDS: Carvedilol 6.25mg Tab ORAL SCH ×2 (08:29→21:40)
[2019-10-25] MEDS: Memantine 5 MG TAB ORAL SCH (08:29)
[2019-10-25] MEDS: Losartan 50mg tab ORAL SCH (08:29)
[2019-10-25] MEDS: cefTRIAXone 1 GM in D5W 55 ML IVPB SCH (10:22)
[2019-10-25 12:00] VITALS: BP 162/58
[2019-10-25 16:00] VITALS: BP_SYST 168; BP_SYST 75; BP_DIAS 58; BP_DIAS 62
--- NOTE | 2019-10-25 17:07 | General Progress Note ---
Assessment/Plan Assessment/Plan: Cholecystitis/cholangitis Previous CBD stent, elevated CA 199 Hypertension Hypertensive heart disease Alzheimer's dementia Gout Failure to thrive Status post ERCP recurrent pain elevated Liver enzymes PLAN pain control GI recommendations pending liver enzymes increasing iv hydration NPO and resume per gi and gs resume home meds stabilize not ready for dc impression, plan, and exam edited and reviewed in detail care discussed with RN Subjective ROS Limited/Unobtainable: Yes Allergies: Coded Allergies: HYDROCODONE (Verified Allergy, Unknown, 06/13/19) Subjective still with some pain overnight events noted LFTs elevated Objective Last 24 Hour Vital Signs Date Time Temp Pulse Resp B/P (MAP) Pulse Ox O2 Delivery O2 Flow Rate FiO2 10/25/19 16:00 97.6 71 18 168/62 (97) 97 10/25/19 12:00 98.7 69 14 162/58 (92) 95 10/25/19 08:29 160/67 10/25/19 08:29 69 160/67 10/25/19 08:02 Room Air 10/25/19 08:00 97.7 65 14 160/67 (98) 95 10/25/19 04:00 97.5 65 14 103/75 (84) 97 10/25/19 00:00 97.0 58 16 150/58 (88) 95 10/24/19 21:26 61 155/68 10/24/19 21:00 Room Air 10/24/19 20:00 97.2 61 16 155/68 (97) 95 Intake and Output 10/24/19 10/25/19 19:00 07:00 Intake Total 1000 ml Balance 1000 ml IV Total 1000 ml # Voids 3 2 Laboratory Tests 10/25/19 05:15: White Blood Count 12.2#H, Red Blood Count 3.38L, Hemoglobin 10.9L, Hematocrit 32.9L, Mean Corpuscular Volume 97, Mean Corpuscular Hemoglobin 32.4H, Mean Corpuscular Hemoglobin Concent 33.3, Red Cell Distribution Width 12.7, Platelet Count 156, Mean Platelet Volume 7.2, Neutrophils (%) (Auto) , Lymphocytes (%) ( Auto) , Monocytes (%) (Auto) , Eosinophils (%) (Auto) , Basophils (%) (Auto) , Differential Total Cells Counted 100, Neutrophils % (Manual) 91H, Lymphocytes % (Manual) 6L, Monocytes % (Manual) 2, Eosinophils % (Manual) 1, Basophils % ( Manual) 0, Band Neutrophils 0, Platelet Estimate Adequate, Platelet Morphology Normal, Hypochromasia 1+, Anisocytosis 1+, Erythrocyte Sedimentation Rate 65H, Prothrombin Time 10.4, Prothromb Time International Ratio 1.0, Activated Partial Thromboplast Time 31, Sodium Level 142, Potassium Level 3.6, Chloride Level 106, Carbon Dioxide Level 21, Anion Gap 15, Blood Urea Nitrogen 28H, Creatinine 1.5H, Estimat Glomerular Filtration Rate 32.7, Glucose Level 57L, Calcium Level 9.5, Total Bilirubin 2.6H, Direct Bilirubin 2.0H, Aspartate Amino Transf (AST/SGOT) 282H, Alanine Aminotransferase (ALT/SGPT) 189H, Alkaline Phosphatase 881H, C-Reactive Protein, Quantitative 6.1H, Total Protein 6.6, Albumin 2.9L, Globulin 3.7, Albumin/Globulin Ratio 0.8L, Amylase Level 86, Lipase 323 Height (Feet): 4 Height (Inches): 11.00 Weight (Pounds): 150 Objective WDWN NAD clear breath sounds bilaterally without rhonchi or wheeze [id number] without MRG NABS mildly tender abdomen no CCE nonfocal confused Roel Jack MD Oct 25, 2019 17:07
--- NOTE | 2019-10-25 19:37 | Surgery Progress Note ---
Surgery Progress Note Subjective Additional Comments leukocytosis lft's worse t bili up she is otherwise comfortable discussed with GI Objective Last 24 Hour Vital Signs Date Time Temp Pulse Resp B/P (MAP) Pulse Ox O2 Delivery O2 Flow Rate FiO2 10/25/19 16:00 97.6 71 18 168/62 (97) 97 10/25/19 12:00 98.7 69 14 162/58 (92) 95 10/25/19 08:29 160/67 10/25/19 08:29 69 160/67 10/25/19 08:02 Room Air 10/25/19 08:00 97.7 65 14 160/67 (98) 95 10/25/19 04:00 97.5 65 14 103/75 (84) 97 10/25/19 00:00 97.0 58 16 150/58 (88) 95 10/24/19 21:26 61 155/68 10/24/19 21:00 Room Air 10/24/19 20:00 97.2 61 16 155/68 (97) 95 I&O Intake and Output 10/24/19 10/25/19 19:00 07:00 Intake Total 1000 ml Balance 1000 ml IV Total 1000 ml # Voids 3 2 Dressing: other Wound: other Drains: other Cardiovascular: RSR Respiratory: decreased breath sounds Abdomen: soft, non-tender, present bowel sounds Extremities: no edema, no tenderness, no cyanosis Laboratory Tests Test 10/25/19 05:15 White Blood Count 12.2 K/UL (4.8-10.8) #H Red Blood Count 3.38 M/UL (4.20-5.40) L Hemoglobin 10.9 G/DL (12.0-16.0) L Hematocrit 32.9 % (37.0-47.0) L Mean Corpuscular Volume 97 FL (80-99) Mean Corpuscular Hemoglobin 32.4 PG (27.0-31.0) H Mean Corpuscular Hemoglobin Concent 33.3 G/DL (32.0-36.0) Red Cell Distribution Width 12.7 % (11.6-14.8) Platelet Count 156 K/UL (150-450) Mean Platelet Volume 7.2 FL (6.5-10.1) Neutrophils (%) (Auto) % (45.0-75.0) Lymphocytes (%) (Auto) % (20.0-45.0) Monocytes (%) (Auto) % (1.0-10.0) Eosinophils (%) (Auto) % (0.0-3.0) Basophils (%) (Auto) % (0.0-2.0) Differential Total Cells Counted 100 Neutrophils % (Manual) 91 % (45-75) H Lymphocytes % (Manual) 6 % (20-45) L Monocytes % (Manual) 2 % (1-10) Eosinophils % (Manual) 1 % (0-3) Basophils % (Manual) 0 % (0-2) Band Neutrophils 0 % (0-8) Platelet Estimate Adequate Platelet Morphology Normal Hypochromasia 1+ Anisocytosis 1+ Erythrocyte Sedimentation Rate 65 MM/HR (0-30) H Prothrombin Time 10.4 SEC (9.30-11.50) Prothromb Time International Ratio 1.0 (0.9-1.1) Activated Partial Thromboplast Time 31 SEC (23-33) Sodium Level 142 MMOL/L (136-145) Potassium Level 3.6 MMOL/L (3.5-5.1) Chloride Level 106 MMOL/L (98-107) Carbon Dioxide Level 21 MMOL/L (21-32) Anion Gap 15 mmol/L (5-15) Blood Urea Nitrogen 28 mg/dL (7-18) H Creatinine 1.5 MG/DL (0.55-1.30) H Estimat Glomerular Filtration Rate 32.7 mL/min (>60) Glucose Level 57 MG/DL (74-106) L Calcium Level 9.5 MG/DL (8.5-10.1) Total Bilirubin 2.6 MG/DL (0.2-1.0) H Direct Bilirubin 2.0 MG/DL (0.0-0.3) H Aspartate Amino Transf (AST/SGOT) 282 U/L (15-37) H Alanine Aminotransferase (ALT/SGPT) 189 U/L (12-78) H Alkaline Phosphatase 881 U/L (46-116) H C-Reactive Protein, Quantitative 6.1 mg/dL (0.00-0.90) H Total Protein 6.6 G/DL (6.4-8.2) Albumin 2.9 G/DL (3.4-5.0) L Globulin 3.7 g/dL Albumin/Globulin Ratio 0.8 (1.0-2.7) L Amylase Level 86 U/L (25-115) Lipase 323 U/L (73-393) Plan Problems: (1) Choledocholithiasis Assessment & Plan: Gallbladder is filled with sludge and also demonstrates gallstones. There is distended and there is trace pericholecystic fluid. Sonographic August's sign is negative. Common bile duct measures 20 mm in diameter. It is filled with debris. There is marked intrahepatic biliary ductal dilatation. Liver demonstrates normal echogenicity, no focal abnormality. Portal vein and hepatic veins are patent. Pancreas is unremarkable. The pancreatic duct is dilated, however, measuring 4 mm in diameter. Spleen is unremarkable. Left kidney measures 9.1 cm in length. Right kidney measures 9.3 cm length. Both kidneys demonstrate increased echogenicity. There is no hydronephrosis. There are bilateral renal cysts . Abdominal aorta is obscured by bowel gas . Biliary ductal dilatation is increased from prior study (2) Acute cholangitis Assessment & Plan: discussed with GI patient currently stable and not septic afebrile, HD Stable labs reviewed and improving hold on ERCP or stent exchange for now no acute surgical intervention given age and status abx iv fluids okay for diet trend labs started ABX discussed with GI may need ERCP / stent change will follow with recs thank you (3) Obstructive jaundice Jay Kemp Oct 25, 2019 19:37
[2019-10-25 20:20] VITALS: BP 168/66
[2019-10-26] VITALS (7 sets, daily range): BP systolic 103–185; BP diastolic 61–115
[2019-10-26 07:17] LABS: BASOPHILS % (AUTO) 0.6 % (0.0-2.0); EOSINOPHILS % (AUTO) 2.7 % (0.0-3.0); HEMATOCRIT 29.9 % (37.0-47.0); HEMOGLOBIN 10.2 G/DL (12.0-16.0); LYMPHOCYTES % (AUTO) 25.1 % (20.0-45.0); MEAN CORPUSCULAR VOLUME 95 FL (80-99); MONOCYTES % (AUTO) 7.1 % (1.0-10.0); NEUTROPHILS % (AUTO) 64.6 % (45.0-75.0); PLATELET COUNT 156 K/UL (150-450); RED BLOOD COUNT 3.13 M/UL (4.20-5.40); RED CELL DISTRIBUTION WIDTH 11.9 % (11.6-14.8); WHITE BLOOD COUNT 6.9 K/UL (4.8-10.8)
[2019-10-26 07:35] LABS: ALANINE AMINOTRANSFERASE 159 U/L (12-78); ALBUMIN 2.6 G/DL (3.4-5.0); ALBUMIN/GLOBULIN RATIO 0.7 (1.0-2.7); ALKALINE PHOSPHATASE 726 U/L (46-116); ANION GAP 11 mmol/L (5-15); ASPARTATE AMINO TRANSFERASE 133 U/L (15-37); BILIRUBIN,TOTAL 0.9 MG/DL (0.2-1.0); BLOOD UREA NITROGEN 24 mg/dL (7-18); CALCIUM 8.9 MG/DL (8.5-10.1); CARBON DIOXIDE 25 MMOL/L (21-32); CHLORIDE 107 MMOL/L (98-107); CREATININE 1.4 MG/DL (0.55-1.30); POTASSIUM 3.3 MMOL/L (3.5-5.1); SODIUM 143 MMOL/L (136-145)
[2019-10-26] MEDS: Memantine 5 MG TAB ORAL SCH (07:53)
[2019-10-26] MEDS: Aspirin EC 81mg tab ORAL SCH (07:53)
[2019-10-26] MEDS: Losartan 50mg tab ORAL SCH (07:54)
[2019-10-26] MEDS: Carvedilol 6.25mg Tab ORAL SCH ×2 (07:55→20:15)
[2019-10-26] MEDS: Furosemide 40mg tab ORAL SCH (07:56)
[2019-10-26] MEDS: Allopurinol 100mg Tab ORAL SCH (07:56)
--- NOTE | 2019-10-26 10:13 | General Progress Note ---
Assessment/Plan Assessment/Plan: Cholecystitis/cholangitis Previous CBD stent, elevated CA 199 Hypertension Hypertensive heart disease Alzheimer's dementia Gout Failure to thrive Status post ERCP recurrent pain elevated Liver enzymes PLAN pain control replace K GI recommendations pending liver enzymes better this am iv hydration NPO and resume per gi and gs resume home meds stabilize not ready for dc impression, plan, and exam edited and reviewed in detail care discussed with RN Subjective Allergies: Coded Allergies: HYDROCODONE (Verified Allergy, Unknown, 06/13/19) Subjective still with some pain low K d/w GI overnight events noted LFTs elevated Objective Last 24 Hour Vital Signs Date Time Temp Pulse Resp B/P (MAP) Pulse Ox O2 Delivery O2 Flow Rate FiO2 10/26/19 08:00 97.6 58 18 165/69 (101) 97 10/26/19 07:55 58 165/69 10/26/19 07:54 165/69 10/26/19 07:26 Room Air 10/26/19 04:00 98.7 57 16 155/71 (99) 94 10/26/19 00:07 98.6 62 18 158/68 (98) 94 10/25/19 21:40 168/66 10/25/19 21:40 58 168/66 10/25/19 21:00 Room Air 10/25/19 20:20 99.0 58 18 168/66 (100) 96 10/25/19 16:00 97.6 71 18 168/62 (97) 97 10/25/19 12:00 98.7 69 14 162/58 (92) 95 Intake and Output 10/25/19 10/26/19 19:00 07:00 Intake Total 1060 ml 1320 ml Balance 1060 ml 1320 ml Intake Oral 960 ml 120 ml IV Total 100 ml 1200 ml # Voids 4 Laboratory Tests 10/26/19 04:50: White Blood Count 6.9, Red Blood Count 3.13L, Hemoglobin 10.2L, Hematocrit 29.9L , Mean Corpuscular Volume 95, Mean Corpuscular Hemoglobin 32.7H, Mean Corpuscular Hemoglobin Concent 34.2, Red Cell Distribution Width 11.9, Platelet Count 156, Mean Platelet Volume 6.5, Neutrophils (%) (Auto) 64.6, Lymphocytes (% ) (Auto) 25.1, Monocytes (%) (Auto) 7.1, Eosinophils (%) (Auto) 2.7, Basophils ( %) (Auto) 0.6, Sodium Level 143, Potassium Level 3.3L, Chloride Level 107, Carbon Dioxide Level 25, Anion Gap 11, Blood Urea Nitrogen 24H, Creatinine 1.4H , Estimat Glomerular Filtration Rate 35.4, Glucose Level 103, Calcium Level 8.9 , Total Bilirubin 0.9, Aspartate Amino Transf (AST/SGOT) 133H, Alanine Aminotransferase (ALT/SGPT) 159H, Alkaline Phosphatase 726H, Total Protein 6.1L , Albumin 2.6L, Globulin 3.5, Albumin/Globulin Ratio 0.7L Height (Feet): 4 Height (Inches): 11.00 Weight (Pounds): 150 Objective WDWN NAD clear breath sounds bilaterally without rhonchi or wheeze [id number] without MRG NABS mildly tender abdomen no CCE nonfocal confused Roel Jack MD Oct 26, 2019 10:13
[2019-10-26] MEDS: cefTRIAXone 1 GM in D5W 55 ML IVPB SCH (11:13)
--- NOTE | 2019-10-26 13:31 | GI Initial Consult Note ---
History of Present Illness General Date patient seen: Oct 26, 2019 Time patient seen: 13:16 Reason for Hospitalization: General Complaint Referring physician: TANYA Reason for Consultation: ABDOMINAL PAIN Present Illness HPI 88-year-old female with history of cholangitis secondary gallstones status post ERCP x2 and stenting presenting for evaluation of abdominal pain. She is primarily Kyr[place]z speaking and daughter provides much of the history. She complains of right-sided upper quadrant pain for 1 day without nausea, vomiting or fever. Denies diarrhea. Patient underwent a second ERCP with stent removal and balloon assisted stone removal on 08/11/2019 and placement of 2 stents. GI consulted for abdominal pain. Abdominal US noted CBD dilation of 20mm. Increased dilated extrahepatic and intrahepatic bile ducts despite endobiliary stent with possible dysfunction. Gallbladder was also distended with sludge and stones with trace pericholecystic fluid which raised possibility of cholecystitis. Lab review on 10/26/19; Hgb 102, Hct 29.9, WBC 6.9, Total Bili 0.9, AST 133, ALT 159, Alk phos 726. Home Meds Reported Medications Allopurinol* (ALLOPURINOL*) 100 Mg Tablet, 100 MG ORAL DAILY, TAB 06/13/19 Furosemide* (LASIX*) 40 Mg Tablet, 40 MG ORAL DAILY, TAB 06/13/19 Aspirin* (ASPIR 81*) 81 Mg Tablet.dr, 81 MG ORAL DAILY, TAB 06/13/19 Memantine Hcl* (NAMENDA*) 5 Mg Tablet, 5 MG ORAL DAILY, TAB 06/13/19 Carvedilol* (CARVEDILOL*) 6.25 Mg Tablet, 6.25 MG ORAL EVERY 12 HOURS, TAB 06/13/19 Nifedipine (Nifedipine*) 20 Mg Capsule, 20 MG ORAL EVERY 8 HOURS, CAP 06/13/19 Ondansetron Odt* (ZOFRAN ODT*) 8 Mg Tab.rapdis, 4 MG ORAL Q6H PRN for Nausea & Vomiting, #30 TAB 06/13/19 Rosuvastatin Calcium* (CRESTOR*) 10 Mg Tablet, ORAL DAILY, TAB 06/13/19 Losartan Potassium (LOSARTAN POTASSIUM) 100 Mg Tablet, 100 MG ORAL DAILY, TAB 06/13/19 Omeprazole (OMEPRAZOLE) 40 Mg Capsule.dr, 40 MG ORAL DAILY, CAP 06/13/19 Ferrous Sulfate* (FERROUS SULFATE*) 325 Mg Tablet, 325 MG ORAL DAILY, #30 TAB 0 Refills 06/13/19 Med list reviewed/reconciled: Yes Allergies: Coded Allergies: HYDROCODONE (Verified Allergy, Unknown, 06/13/19) Patient History History Provided By: Medical Record PMH Narrative PMH: Gallstone cholangitis PSH: ERCP with stenting Allergies: Hydrocodone Social Hx: Family denies alcohol or drug abuse Allergies: Coded Allergies: HYDROCODONE (Verified Allergy, Unknown, 06/13/19) COVID-19 Screening Contact w/high risk pt: No Recent Travel to affected area: No Experienced COVID-19 symptoms?: No Nursing Documentation-PMH Hx Cardiac Problems: Yes Hx Hypertension: Yes Hx Cancer: No Hx Gastrointestinal Problems: Yes Hx Neurological Problems: Yes Hx Dementia: Yes Hx Alzheimer's Disease: Yes Hx Fatigue: Yes Social History: Denies: smoking, alcohol use, drug use, other Review of Systems All Other Systems: negative except mentioned in HPI Physical Exam Vital Signs Date Time Temp Pulse Resp B/P (MAP) Pulse Ox O2 Delivery O2 Flow Rate FiO2 10/23/19 13:01 98.2 60 18 171/58 (95) 97 Room Air Sp02 EP Interpretation: reviewed, normal Labs Laboratory Tests Test 10/26/19 04:50 White Blood Count 6.9 K/UL (4.8-10.8) Red Blood Count 3.13 M/UL (4.20-5.40) L Hemoglobin 10.2 G/DL (12.0-16.0) L Hematocrit 29.9 % (37.0-47.0) L Mean Corpuscular Volume 95 FL (80-99) Mean Corpuscular Hemoglobin 32.7 PG (27.0-31.0) H Mean Corpuscular Hemoglobin Concent 34.2 G/DL (32.0-36.0) Red Cell Distribution Width 11.9 % (11.6-14.8) Platelet Count 156 K/UL (150-450) Mean Platelet Volume 6.5 FL (6.5-10.1) Neutrophils (%) (Auto) 64.6 % (45.0-75.0) Lymphocytes (%) (Auto) 25.1 % (20.0-45.0) Monocytes (%) (Auto) 7.1 % (1.0-10.0) Eosinophils (%) (Auto) 2.7 % (0.0-3.0) Basophils (%) (Auto) 0.6 % (0.0-2.0) Sodium Level 143 MMOL/L (136-145) Potassium Level 3.3 MMOL/L (3.5-5.1) L Chloride Level 107 MMOL/L (98-107) Carbon Dioxide Level 25 MMOL/L (21-32) Anion Gap 11 mmol/L (5-15) Blood Urea Nitrogen 24 mg/dL (7-18) H Creatinine 1.4 MG/DL (0.55-1.30) H Estimat Glomerular Filtration Rate 35.4 mL/min (>60) Glucose Level 103 MG/DL (74-106) Calcium Level 8.9 MG/DL (8.5-10.1) Total Bilirubin 0.9 MG/DL (0.2-1.0) Aspartate Amino Transf (AST/SGOT) 133 U/L (15-37) H Alanine Aminotransferase (ALT/SGPT) 159 U/L (12-78) H Alkaline Phosphatase 726 U/L (46-116) H Total Protein 6.1 G/DL (6.4-8.2) L Albumin 2.6 G/DL (3.4-5.0) L Globulin 3.5 g/dL Albumin/Globulin Ratio 0.7 (1.0-2.7) L General Appearance: well appearing, no apparent distress, alert Head: normocephalic EENT: PERRL/EOMI, normal ENT inspection Neck: supple Respiratory: normal breath sounds, no respiratory distress Cardiovascular: normal rate Gastrointestinal: normal inspection, non tender, soft, normal bowel sounds, non -distended Rectal: deferred Genitourinary: no CVA tenderness Musculoskeletal: normal inspection, back normal Neurologic: alert, oriented x3, responsive, normal inspection Psychiatric: normal inspection, judgement/insight normal, memory normal Skin: normal inspection, normal color, no rash, warm/dry, palpation normal, well hydrated Lymphatic: normal inspection, no adenopathy Current Medications Current Medications Medications (Trade) Dose Ordered Sig/Manny Route PRN Reason Start Time Stop Time Status Last Admin Dose Admin Acetaminophen (Tylenol) 650 mg Q4H PRN ORAL Mild Pain (Pain Scale 1-3) 10/23/19 22:00 11/22/19 21:59 10/25/19 08:37 Al Hydroxide/Mg Hydroxide (Mylanta) 30 ml EVERY 4 HOURS PRN ORAL To Patient Comfort 10/23/19 22:00 11/22/19 21:59 Allopurinol (Zyloprim) 100 mg DAILY ORAL 10/24/19 09:00 11/23/19 08:59 10/26/19 07:56 Aspirin (Ecotrin) 81 mg DAILY ORAL 10/24/19 09:00 12/08/19 08:59 10/26/19 07:53 Carvedilol (Coreg) 6.25 mg EVERY 12 HOURS ORAL 10/23/19 22:00 11/22/19 21:59 10/26/19 07:55 Ceftriaxone Sodium 1 gm/ Dextrose 55 ml @ 110 mls/hr Q24H IVPB 10/25/19 10:00 11/01/19 09:59 10/26/19 11:13 Clonidine HCl (Catapres Tab) 0.1 mg Q4H PRN ORAL For High Blood Pressure 10/25/19 21:00 01/23/20 20:59 10/25/19 21:40 Ferrous Sulfate (Feosol) 325 mg DAILY ORAL 10/24/19 09:00 01/22/20 08:59 10/26/19 07:53 Furosemide (Lasix) 40 mg DAILY ORAL 10/24/19 09:00 11/23/19 08:59 10/26/19 07:56 Losartan Potassium (Cozaar) 100 mg DAILY ORAL 10/24/19 09:00 11/23/19 08:59 10/26/19 07:54 Memantine (Namenda) 5 mg DAILY ORAL 10/24/19 09:00 11/23/19 08:59 10/26/19 07:53 Metronidazole 100 ml @ 100 mls/hr Q8H IVPB 10/25/19 11:00 11/01/19 10:59 10/26/19 11:13 Morphine Sulfate (Morphine Sulfate) 2 mg Q4H PRN IVP Severe Pain (Pain Scale 7-10) 10/24/19 04:45 10/31/19 00:44 Non-Formulary Medication (Non-Formulary Med) 1 ea BID BOTH EYES 10/26/19 09:00 11/25/19 08:59 UNV Ondansetron HCl (Zofran) 4 mg Q6H PRN IVP Nausea & Vomiting 10/23/19 22:00 11/22/19 21:59 Pantoprazole (Protonix) 40 mg DAILY ORAL 10/24/19 09:00 11/23/19 08:59 10/26/19 07:53 Potassium Chloride (K-Dur) 20 meq ONCE ORAL 10/26/19 11:30 01/24/20 12:30 10/26/19 12:09 Sodium Chloride 1,000 ml @ 100 mls/hr Q10H IV 10/23/19 22:00 11/22/19 21:59 10/26/19 11:13 GI: Plan Problems: (1) Cholecystitis (2) Choledocholithiasis Plan Abnormal Liver Enzymes 2/2 Choledocholithiasis c/b CBD dilation 20mm Extrahepatic and Intrahepatic ductal dilation c/b endobiliary stent dysfunction. - Pending MRCP most likely to be followed by ERCP. - NPO @ [place]. - IVFs + electrolyte correction - ppi - pain management - repeat liver function enzymes for tomorrow. Cholecystitis - follow up surgical recommendations for possible cholecystectomy follow endoscopy. - Flagyl 500mg IV + Ceftriaxone 1g IV Discussed with Dr. Hope. Thank you for this patient referral, we will follow. The patient was seen and examined at bedside and all new and available data was reviewed in the patients chart. I agree with the above findings, impression and plan. (Patient seen earlier today. Signature stamp does not reflect patient encounter time.). - MD Jessica SantiagoQuail Run Behavioral HealthJose AlfredoClifford ORNAMENTAL METAL ERECTOR Oct 26, 2019 13:31
[2019-10-26] MEDS: COMBIGAN 0.2%-0.5% BOTH EYES SCH (17:35)
--- NOTE | 2019-10-26 22:01 | Surgery Progress Note ---
Surgery Progress Note Subjective Additional Comments labs improved could not get MRCP today will discuss with GI in AM re scope Objective Last 24 Hour Vital Signs Date Time Temp Pulse Resp B/P (MAP) Pulse Ox O2 Delivery O2 Flow Rate FiO2 10/26/19 21:10 Room Air 10/26/19 20:15 185/115 10/26/19 20:15 55 185/115 10/26/19 20:04 98.6 55 18 185/115 (138) 97 10/26/19 18:00 98.4 62 18 124/65 (84) 97 10/26/19 16:05 176/61 10/26/19 16:00 99.5 56 20 176/61 (99) 97 10/26/19 12:00 98.8 53 20 103/69 (80) 97 10/26/19 08:00 97.6 58 18 165/69 (101) 97 10/26/19 07:55 58 165/69 10/26/19 07:54 165/69 10/26/19 07:26 Room Air 10/26/19 04:00 98.7 57 16 155/71 (99) 94 10/26/19 00:07 98.6 62 18 158/68 (98) 94 I&O Intake and Output 10/25/19 10/26/19 19:00 07:00 Intake Total 1060 ml 1320 ml Balance 1060 ml 1320 ml Intake Oral 960 ml 120 ml IV Total 100 ml 1200 ml # Voids 4 Cardiovascular: RSR Respiratory: clear Abdomen: soft, non-tender, present bowel sounds, non-distended Extremities: no edema, no tenderness, no cyanosis Laboratory Tests Test 10/26/19 04:50 White Blood Count 6.9 K/UL (4.8-10.8) Red Blood Count 3.13 M/UL (4.20-5.40) L Hemoglobin 10.2 G/DL (12.0-16.0) L Hematocrit 29.9 % (37.0-47.0) L Mean Corpuscular Volume 95 FL (80-99) Mean Corpuscular Hemoglobin 32.7 PG (27.0-31.0) H Mean Corpuscular Hemoglobin Concent 34.2 G/DL (32.0-36.0) Red Cell Distribution Width 11.9 % (11.6-14.8) Platelet Count 156 K/UL (150-450) Mean Platelet Volume 6.5 FL (6.5-10.1) Neutrophils (%) (Auto) 64.6 % (45.0-75.0) Lymphocytes (%) (Auto) 25.1 % (20.0-45.0) Monocytes (%) (Auto) 7.1 % (1.0-10.0) Eosinophils (%) (Auto) 2.7 % (0.0-3.0) Basophils (%) (Auto) 0.6 % (0.0-2.0) Sodium Level 143 MMOL/L (136-145) Potassium Level 3.3 MMOL/L (3.5-5.1) L Chloride Level 107 MMOL/L (98-107) Carbon Dioxide Level 25 MMOL/L (21-32) Anion Gap 11 mmol/L (5-15) Blood Urea Nitrogen 24 mg/dL (7-18) H Creatinine 1.4 MG/DL (0.55-1.30) H Estimat Glomerular Filtration Rate 35.4 mL/min (>60) Glucose Level 103 MG/DL (74-106) Calcium Level 8.9 MG/DL (8.5-10.1) Total Bilirubin 0.9 MG/DL (0.2-1.0) Aspartate Amino Transf (AST/SGOT) 133 U/L (15-37) H Alanine Aminotransferase (ALT/SGPT) 159 U/L (12-78) H Alkaline Phosphatase 726 U/L (46-116) H Total Protein 6.1 G/DL (6.4-8.2) L Albumin 2.6 G/DL (3.4-5.0) L Globulin 3.5 g/dL Albumin/Globulin Ratio 0.7 (1.0-2.7) L Plan Problems: (1) Choledocholithiasis Assessment & Plan: Gallbladder is filled with sludge and also demonstrates gallstones. There is distended and there is trace pericholecystic fluid. Sonographic August's sign is negative. Common bile duct measures 20 mm in diameter. It is filled with debris. There is marked intrahepatic biliary ductal dilatation. Liver demonstrates normal echogenicity, no focal abnormality. Portal vein and hepatic veins are patent. Pancreas is unremarkable. The pancreatic duct is dilated, however, measuring 4 mm in diameter. Spleen is unremarkable. Left kidney measures 9.1 cm in length. Right kidney measures 9.3 cm length. Both kidneys demonstrate increased echogenicity. There is no hydronephrosis. There are bilateral renal cysts . Abdominal aorta is obscured by bowel gas . Biliary ductal dilatation is increased from prior study (2) Acute cholangitis Assessment & Plan: discussed with GI patient currently stable and not septic afebrile, HD Stable labs reviewed and improving hold on ERCP or stent exchange for now no acute surgical intervention given age and status abx iv fluids okay for diet trend labs started ABX discussed with GI may need ERCP / stent change will follow with recs thank you (3) Obstructive jaundice Jay Kemp Oct 26, 2019 22:01
[2019-10-27 00:14] VITALS: BP 158/67
[2019-10-27 04:35] VITALS: BP 157/70
[2019-10-27 06:46] LABS: BASOPHILS % (AUTO) 0.6 % (0.0-2.0); EOSINOPHILS % (AUTO) 2.4 % (0.0-3.0); HEMATOCRIT 34.7 % (37.0-47.0); HEMOGLOBIN 11.6 G/DL (12.0-16.0); LYMPHOCYTES % (AUTO) 28.8 % (20.0-45.0); MEAN CORPUSCULAR VOLUME 96 FL (80-99); MONOCYTES % (AUTO) 6.8 % (1.0-10.0); NEUTROPHILS % (AUTO) 61.5 % (45.0-75.0); PLATELET COUNT 188 K/UL (150-450); RED BLOOD COUNT 3.63 M/UL (4.20-5.40); RED CELL DISTRIBUTION WIDTH 12.3 % (11.6-14.8); WHITE BLOOD COUNT 8.7 K/UL (4.8-10.8)
[2019-10-27 07:11] LABS: ALANINE AMINOTRANSFERASE 126 U/L (12-78); ALBUMIN 2.9 G/DL (3.4-5.0); ALBUMIN/GLOBULIN RATIO 0.7 (1.0-2.7); ALKALINE PHOSPHATASE 718 U/L (46-116); ANION GAP 11 mmol/L (5-15); ASPARTATE AMINO TRANSFERASE 63 U/L (15-37); BILIRUBIN,TOTAL 0.7 MG/DL (0.2-1.0); BLOOD UREA NITROGEN 19 mg/dL (7-18); CALCIUM 9.1 MG/DL (8.5-10.1); CARBON DIOXIDE 26 MMOL/L (21-32); CHLORIDE 110 MMOL/L (98-107); CREATININE 1.5 MG/DL (0.55-1.30); POTASSIUM 3.8 MMOL/L (3.5-5.1); SODIUM 147 MMOL/L (136-145)
[2019-10-27 08:00] VITALS: BP 189/79
[2019-10-27] MEDS: Allopurinol 100mg Tab ORAL SCH (08:44)
[2019-10-27] MEDS: Furosemide 40mg tab ORAL SCH (08:45)
[2019-10-27] MEDS: Losartan 50mg tab ORAL SCH (08:45)
[2019-10-27] MEDS: Carvedilol 6.25mg Tab ORAL SCH (08:45)
[2019-10-27] MEDS: COMBIGAN 0.2%-0.5% BOTH EYES SCH ×2 (08:47→18:00)
--- NOTE | 2019-10-27 09:23 | General Progress Note ---
Assessment/Plan Problem List: (1) Cholelithiasis ICD Codes: K80.20 - Calculus of gallbladder without cholecystitis without obstruction SNOMED: 078469923 (2) Dehydration ICD Codes: E86.0 - Dehydration SNOMED: 74493043 (3) Obstructive jaundice ICD Codes: K83.1 - Obstruction of bile duct SNOMED: 35179744 (4) CKD (chronic kidney disease) stage 5, GFR less than 15 ml/min ICD Codes: N18.5 - Chronic kidney disease, stage 5 SNOMED: 310489879 (5) Choledocholithiasis ICD Codes: K80.50 - Calculus of bile duct without cholangitis or cholecystitis without obstruction SNOMED: 453013840 Assessment/Plan: patient needs repeat ERCP and stent exchange case D/W surg>>> not a candidate for cholecystectomy given her age repeat labs in am abx Subjective ROS Limited/Unobtainable: No Allergies: Coded Allergies: HYDROCODONE (Verified Allergy, Unknown, 06/13/19) Objective Last 24 Hour Vital Signs Date Time Temp Pulse Resp B/P (MAP) Pulse Ox O2 Delivery O2 Flow Rate FiO2 10/27/19 08:58 189/79 10/27/19 08:45 157/70 10/27/19 08:45 53 157/70 10/27/19 04:35 98.9 53 18 157/70 (99) 98 10/27/19 00:14 98.0 57 18 158/67 (97) 94 10/26/19 21:10 Room Air 10/26/19 20:15 185/115 10/26/19 20:15 55 185/115 10/26/19 20:04 98.6 55 18 185/115 (138) 97 10/26/19 18:00 98.4 62 18 124/65 (84) 97 10/26/19 16:05 176/61 10/26/19 16:00 99.5 56 20 176/61 (99) 97 10/26/19 12:00 98.8 53 20 103/69 (80) 97 Intake and Output 10/26/19 10/27/19 19:00 07:00 Intake Total 340 ml 500 ml Balance 340 ml 500 ml Intake Oral 240 ml 100 ml IV Total 100 ml 400 ml # Voids 6 4 # Bowel Movements 2 Laboratory Tests 10/27/19 05:25: White Blood Count 8.7, Red Blood Count 3.63L, Hemoglobin 11.6L, Hematocrit 34.7L , Mean Corpuscular Volume 96, Mean Corpuscular Hemoglobin 31.9H, Mean Corpuscular Hemoglobin Concent 33.3, Red Cell Distribution Width 12.3, Platelet Count 188, Mean Platelet Volume 6.5, Neutrophils (%) (Auto) 61.5, Lymphocytes (% ) (Auto) 28.8, Monocytes (%) (Auto) 6.8, Eosinophils (%) (Auto) 2.4, Basophils ( %) (Auto) 0.6, Prothrombin Time 10.5, Prothromb Time International Ratio 1.0, Activated Partial Thromboplast Time 30, Sodium Level 147H, Potassium Level 3.8, Chloride Level 110H, Carbon Dioxide Level 26, Anion Gap 11, Blood Urea Nitrogen 19H, Creatinine 1.5H, Estimat Glomerular Filtration Rate 32.7, Glucose Level 125H, Calcium Level 9.1, Total Bilirubin 0.7, Aspartate Amino Transf (AST/SGOT) 63H, Alanine Aminotransferase (ALT/SGPT) 126H, Alkaline Phosphatase 718H, Total Protein 6.9, Albumin 2.9L, Globulin 4.0, Albumin/Globulin Ratio 0.7L Height (Feet): 4 Height (Inches): 11.00 Weight (Pounds): 150 General Appearance: alert EENT: normal ENT inspection Neck: supple Cardiovascular: normal rate Respiratory/Chest: decreased breath sounds Abdomen: normal bowel sounds, non tender, soft Extremities: non-tender Tashi Hope MD Oct 27, 2019 09:23
[2019-10-27] MEDS: Aspirin EC 81mg tab ORAL SCH (10:47)
[2019-10-27] MEDS: Memantine 5 MG TAB ORAL SCH (10:47)
[2019-10-27] MEDS: cefTRIAXone 1 GM in D5W 55 ML IVPB SCH (10:48)
--- NOTE | 2019-10-27 10:52 | General Progress Note ---
Assessment/Plan Assessment/Plan: Cholecystitis/cholangitis Previous CBD stent, elevated CA 199 Hypertension Hypertensive heart disease Alzheimer's dementia Gout Failure to thrive Status post ERCP recurrent pain elevated Liver enzymes PLAN increase BP RX GI recommendations for ERCP noted liver enzymes better this am iv hydration advance diet resume home meds stabilize not ready for dc impression, plan, and exam edited and reviewed in detail care discussed with RN Subjective Allergies: Coded Allergies: HYDROCODONE (Verified Allergy, Unknown, 06/13/19) Subjective elevated blood pressure needs ERCP d/w GI overnight events noted LFTs elevated Objective Last 24 Hour Vital Signs Date Time Temp Pulse Resp B/P (MAP) Pulse Ox O2 Delivery O2 Flow Rate FiO2 10/27/19 08:58 189/79 10/27/19 08:45 157/70 10/27/19 08:45 53 157/70 10/27/19 04:35 98.9 53 18 157/70 (99) 98 10/27/19 00:14 98.0 57 18 158/67 (97) 94 10/26/19 21:10 Room Air 10/26/19 20:15 185/115 10/26/19 20:15 55 185/115 10/26/19 20:04 98.6 55 18 185/115 (138) 97 10/26/19 18:00 98.4 62 18 124/65 (84) 97 10/26/19 16:05 176/61 10/26/19 16:00 99.5 56 20 176/61 (99) 97 10/26/19 12:00 98.8 53 20 103/69 (80) 97 Intake and Output 10/26/19 10/27/19 19:00 07:00 Intake Total 340 ml 500 ml Balance 340 ml 500 ml Intake Oral 240 ml 100 ml IV Total 100 ml 400 ml # Voids 6 4 # Bowel Movements 2 Laboratory Tests 10/27/19 05:25: White Blood Count 8.7, Red Blood Count 3.63L, Hemoglobin 11.6L, Hematocrit 34.7L , Mean Corpuscular Volume 96, Mean Corpuscular Hemoglobin 31.9H, Mean Corpuscular Hemoglobin Concent 33.3, Red Cell Distribution Width 12.3, Platelet Count 188, Mean Platelet Volume 6.5, Neutrophils (%) (Auto) 61.5, Lymphocytes (% ) (Auto) 28.8, Monocytes (%) (Auto) 6.8, Eosinophils (%) (Auto) 2.4, Basophils ( %) (Auto) 0.6, Prothrombin Time 10.5, Prothromb Time International Ratio 1.0, Activated Partial Thromboplast Time 30, Sodium Level 147H, Potassium Level 3.8, Chloride Level 110H, Carbon Dioxide Level 26, Anion Gap 11, Blood Urea Nitrogen 19H, Creatinine 1.5H, Estimat Glomerular Filtration Rate 32.7, Glucose Level 125H, Calcium Level 9.1, Total Bilirubin 0.7, Aspartate Amino Transf (AST/SGOT) 63H, Alanine Aminotransferase (ALT/SGPT) 126H, Alkaline Phosphatase 718H, Total Protein 6.9, Albumin 2.9L, Globulin 4.0, Albumin/Globulin Ratio 0.7L Height (Feet): 4 Height (Inches): 11.00 Weight (Pounds): 150 Objective WDWN NAD clear breath sounds bilaterally without rhonchi or wheeze [id number] without MRG NABS mildly tender abdomen no CCE nonfocal confused Roel Jack MD Oct 27, 2019 10:52
[2019-10-27 12:00] VITALS: BP 175/72
--- NOTE | 2019-10-27 13:24 | Surgery Progress Note ---
Surgery Progress Note Subjective Additional Comments lft improved overall improving comfortable no pain discussed with GI. plan for stent change. would not recommend surgery at this time given age, condition, and overall status would benefit from metallic stent at some point Objective Last 24 Hour Vital Signs Date Time Temp Pulse Resp B/P (MAP) Pulse Ox O2 Delivery O2 Flow Rate FiO2 10/27/19 10:52 189/79 10/27/19 08:58 189/79 10/27/19 08:45 157/70 10/27/19 08:45 53 157/70 10/27/19 04:35 98.9 53 18 157/70 (99) 98 10/27/19 00:14 98.0 57 18 158/67 (97) 94 10/26/19 21:10 Room Air 10/26/19 20:15 185/115 10/26/19 20:15 55 185/115 10/26/19 20:04 98.6 55 18 185/115 (138) 97 10/26/19 18:00 98.4 62 18 124/65 (84) 97 10/26/19 16:05 176/61 10/26/19 16:00 99.5 56 20 176/61 (99) 97 I&O Intake and Output 10/26/19 10/27/19 19:00 07:00 Intake Total 340 ml 500 ml Balance 340 ml 500 ml Intake Oral 240 ml 100 ml IV Total 100 ml 400 ml # Voids 6 4 # Bowel Movements 2 Cardiovascular: RSR Respiratory: clear Abdomen: soft, non-tender, present bowel sounds Extremities: no edema, no tenderness, no cyanosis Laboratory Tests Test 10/27/19 05:25 White Blood Count 8.7 K/UL (4.8-10.8) Red Blood Count 3.63 M/UL (4.20-5.40) L Hemoglobin 11.6 G/DL (12.0-16.0) L Hematocrit 34.7 % (37.0-47.0) L Mean Corpuscular Volume 96 FL (80-99) Mean Corpuscular Hemoglobin 31.9 PG (27.0-31.0) H Mean Corpuscular Hemoglobin Concent 33.3 G/DL (32.0-36.0) Red Cell Distribution Width 12.3 % (11.6-14.8) Platelet Count 188 K/UL (150-450) Mean Platelet Volume 6.5 FL (6.5-10.1) Neutrophils (%) (Auto) 61.5 % (45.0-75.0) Lymphocytes (%) (Auto) 28.8 % (20.0-45.0) Monocytes (%) (Auto) 6.8 % (1.0-10.0) Eosinophils (%) (Auto) 2.4 % (0.0-3.0) Basophils (%) (Auto) 0.6 % (0.0-2.0) Prothrombin Time 10.5 SEC (9.30-11.50) Prothromb Time International Ratio 1.0 (0.9-1.1) Activated Partial Thromboplast Time 30 SEC (23-33) Sodium Level 147 MMOL/L (136-145) H Potassium Level 3.8 MMOL/L (3.5-5.1) Chloride Level 110 MMOL/L (98-107) H Carbon Dioxide Level 26 MMOL/L (21-32) Anion Gap 11 mmol/L (5-15) Blood Urea Nitrogen 19 mg/dL (7-18) H Creatinine 1.5 MG/DL (0.55-1.30) H Estimat Glomerular Filtration Rate 32.7 mL/min (>60) Glucose Level 125 MG/DL (74-106) H Calcium Level 9.1 MG/DL (8.5-10.1) Total Bilirubin 0.7 MG/DL (0.2-1.0) Aspartate Amino Transf (AST/SGOT) 63 U/L (15-37) H Alanine Aminotransferase (ALT/SGPT) 126 U/L (12-78) H Alkaline Phosphatase 718 U/L (46-116) H Total Protein 6.9 G/DL (6.4-8.2) Albumin 2.9 G/DL (3.4-5.0) L Globulin 4.0 g/dL Albumin/Globulin Ratio 0.7 (1.0-2.7) L Plan Problems: (1) Choledocholithiasis Assessment & Plan: Gallbladder is filled with sludge and also demonstrates gallstones. There is distended and there is trace pericholecystic fluid. Sonographic August's sign is negative. Common bile duct measures 20 mm in diameter. It is filled with debris. There is marked intrahepatic biliary ductal dilatation. Liver demonstrates normal echogenicity, no focal abnormality. Portal vein and hepatic veins are patent. Pancreas is unremarkable. The pancreatic duct is dilated, however, measuring 4 mm in diameter. Spleen is unremarkable. Left kidney measures 9.1 cm in length. Right kidney measures 9.3 cm length. Both kidneys demonstrate increased echogenicity. There is no hydronephrosis. There are bilateral renal cysts . Abdominal aorta is obscured by bowel gas . Biliary ductal dilatation is increased from prior study (2) Acute cholangitis Assessment & Plan: discussed with GI patient currently stable and not septic afebrile, HD Stable labs reviewed and improving hold on ERCP or stent exchange for now no acute surgical intervention given age and status abx iv fluids okay for diet trend labs started ABX discussed with GI may need ERCP / stent change will follow with recs thank you discussed with GI. plan for stent change. would not recommend surgery at this time given age, condition, and overall status would benefit from metallic stent at some point (3) Obstructive jaundice Jay Kemp Oct 27, 2019 13:24
[2019-10-27 16:00] VITALS: BP 189/75
[2019-10-27 20:00] VITALS: BP 189/71
[2019-10-27] MEDS: Morphine Sulfate 2mg/ml Inj(IV/IM USE ONLY) IVP PRN (20:24)
[2019-10-27] MEDS: Carvedilol 12.5mg tab ORAL SCH (20:25)
[2019-10-28] VITALS (14 sets, daily range): BP systolic 132–210; BP diastolic 63–83
--- NOTE | 2019-10-28 06:33 | Pre-Procedure Note/Attestation ---
Pre-Procedure Note/Attestation Complete Prior to Procedure Planned Procedure: not applicable Procedure Narrative: ERCP Indications for Procedure Pre-Operative Diagnosis: choledocholithiasis Attestation I attest that I discussed the nature of the procedure; its benefits; risks and complications; and alternatives (and the risks and benefits of such alternatives ), prior to the procedure, with the patient (or the patient's legal sales representative health insurance). I attest that, if there was a reasonable possibility of needing a blood transfusion, the patient (or the patient's legal sales representative health insurance) was given the [facility] standardized written summary, pursuant to the Alejandro Bennett Blood Safety Act ([place] Health and Safety Code # 1645, as amended). I attest that I re-evaluated the patient just prior to the surgery and that there has been no change in the patient's H&P, except as documented below: Tashi Hope MD Oct 28, 2019 06:33
[2019-10-28 06:35] LABS: BASOPHILS % (AUTO) 0.6 % (0.0-2.0); EOSINOPHILS % (AUTO) 2.3 % (0.0-3.0); HEMATOCRIT 32.7 % (37.0-47.0); HEMOGLOBIN 10.9 G/DL (12.0-16.0); LYMPHOCYTES % (AUTO) 30.5 % (20.0-45.0); MEAN CORPUSCULAR VOLUME 96 FL (80-99); MONOCYTES % (AUTO) 5.7 % (1.0-10.0); PLATELET COUNT 211 K/UL (150-450); RED BLOOD COUNT 3.42 M/UL (4.20-5.40); RED CELL DISTRIBUTION WIDTH 12.3 % (11.6-14.8); WHITE BLOOD COUNT 8.6 K/UL (4.8-10.8)
[2019-10-28] MEDS ORDERED: fentaNYL 100 mcg/2 mL IV ONE (06:48)
[2019-10-28 07:07] LABS: ALANINE AMINOTRANSFERASE 82 U/L (12-78); ALBUMIN 2.8 G/DL (3.4-5.0); ALBUMIN/GLOBULIN RATIO 0.8 (1.0-2.7); ALKALINE PHOSPHATASE 579 U/L (46-116); ANION GAP 11 mmol/L (5-15); ASPARTATE AMINO TRANSFERASE 34 U/L (15-37); BILIRUBIN,TOTAL 0.6 MG/DL (0.2-1.0); BLOOD UREA NITROGEN 20 mg/dL (7-18); CARBON DIOXIDE 27 MMOL/L (21-32); CHLORIDE 107 MMOL/L (98-107); CREATININE 1.5 MG/DL (0.55-1.30); POTASSIUM 3.2 MMOL/L (3.5-5.1); SODIUM 145 MMOL/L (136-145)
[2019-10-28] MEDS ORDERED: NS 500ML IVPB ONE ×2 (07:25→07:45)
[2019-10-28] MEDS ORDERED: Neostigmine 1mg/ml 10ml Inj ONE (07:30)
[2019-10-28] MEDS ORDERED: Rocuronium Bromide 50mg/5ml Inj IV ONE (07:30)
[2019-10-28] MEDS ORDERED: Glycopyrrolate 0.2mg/ml 1ml Vial ONE (07:30)
[2019-10-28] MEDS ORDERED: Iothalamate Meglumine 60% 50ML INJ ONE (07:45)
--- NOTE | 2019-10-28 08:37 | Endoscopy Procedure Note ---
Endoscopy Procedure Note General Indication for Procedure: choledocholithiasis Procedures Performed: ERCP Operative Findings/Diagnosis: same Specimen: none Pt Tolerated Procedure Well: Yes Estimated Blood Loss: none Anesthesia Anesthesiologist: [place] Anesthesia: general Inserted Devices Implant(s) used?: No Quality Was there any complications?: No GI Core Measures 50 yrs or older w/o bx or poly: Not Applicable 10yrs. F/U recommended: Not Applicable Tashi Hope MD Oct 28, 2019 08:37
--- NOTE | 2019-10-28 08:46 | Anethesia Preoperative Eval ---
Anesthesia Pre-op PMH/ROS General Date of Evaluation: Oct 28, 2019 Time of Evaluation: 07:10 Anesthesiologist: Gonzalez ASA Score: ASA 3 Mallampati Score Class I : Soft palate, uvula, fauces, pillars visible Class II: Soft palate, uvula, fauces visible Class III: Soft palate, base of uvula visible Class IV: Only hard plate visible Mallampati Classification: Class II Surgeon: Herminia Diagnosis: Choloangitis Surgical Procedure: ERCP Anesthesia History: none Family History: no anesthesia problems Allergies: Coded Allergies: HYDROCODONE (Verified Allergy, Unknown, 06/13/19) Medications: see eMAR Patient NPO?: Yes NPO Date: Oct 28, 2019 NPO Time: 0000 Past Medical History Cardiovascular: Reports: HTN; Denies: CAD, [place], valve dz, arrhythmia, other Pulmonary: Denies: asthma, COPD, ROBERTO, other Gastrointestinal/Genitourinary: Reports: GERD, CRI, other - recurrent cholangitis; Denies: ESRD Neurologic/Psychiatric: Reports: dementia; Denies: CVA, depression/anxiety, TIA, other Endocrine: Reports: hypothyroidism; Denies: DM, steroids, other HEENT: Denies: cataract (L), cataract (R), glaucoma, QUINAULT (L), QUINAULT (R), other Hematology/Immune: Denies: anemia, DVT, bleeding disorder, other Musculoskeletal/Integumentary: Reports: OA, DJD PMH Narrative: as above admitted for abdominal pain PSxH Narrative: hip replacement ERCP x2 Anesthesia Pre-op Phys. Exam Physician Exam Last Vital Signs Date Time Temp Pulse Resp B/P (MAP) Pulse Ox O2 Delivery O2 Flow Rate FiO2 10/28/19 04:00 97.6 53 18 152/73 (99) 95 10/27/19 21:00 Room Air Constitutional: NAD Neurologic: other - u nable to obtaine Cardiovascular: RRR Respiratory: CTA Gastrointestinal: S/NT/ND Airway Exam Mallampati Score: Class II MO: limited Neck: stiff ROM: limited Teeth: missing Dentures: no upper, no lower Anesthesia Pre-op A/P Labs Hematology Test 10/28/19 05:10 White Blood Count 8.6 K/UL (4.8-10.8) Red Blood Count 3.42 M/UL (4.20-5.40) L Hemoglobin 10.9 G/DL (12.0-16.0) L Hematocrit 32.7 % (37.0-47.0) L Mean Corpuscular Volume 96 FL (80-99) Mean Corpuscular Hemoglobin 31.9 PG (27.0-31.0) H Mean Corpuscular Hemoglobin Concent 33.3 G/DL (32.0-36.0) Red Cell Distribution Width 12.3 % (11.6-14.8) Platelet Count 211 K/UL (150-450) Mean Platelet Volume 6.5 FL (6.5-10.1) Neutrophils (%) (Auto) 61.0 % (45.0-75.0) Lymphocytes (%) (Auto) 30.5 % (20.0-45.0) Monocytes (%) (Auto) 5.7 % (1.0-10.0) Eosinophils (%) (Auto) 2.3 % (0.0-3.0) Basophils (%) (Auto) 0.6 % (0.0-2.0) Chemistry Test 10/28/19 05:10 Sodium Level 145 MMOL/L (136-145) Potassium Level 3.2 MMOL/L (3.5-5.1) L Chloride Level 107 MMOL/L (98-107) Carbon Dioxide Level 27 MMOL/L (21-32) Anion Gap 11 mmol/L (5-15) Blood Urea Nitrogen 20 mg/dL (7-18) H Creatinine 1.5 MG/DL (0.55-1.30) H Estimat Glomerular Filtration Rate 32.7 mL/min (>60) Glucose Level 134 MG/DL (74-106) H Calcium Level 9.0 MG/DL (8.5-10.1) Total Bilirubin 0.6 MG/DL (0.2-1.0) Aspartate Amino Transf (AST/SGOT) 34 U/L (15-37) Alanine Aminotransferase (ALT/SGPT) 82 U/L (12-78) H Alkaline Phosphatase 579 U/L (46-116) H Total Protein 6.4 G/DL (6.4-8.2) Albumin 2.8 G/DL (3.4-5.0) L Globulin 3.6 g/dL Albumin/Globulin Ratio 0.8 (1.0-2.7) L Risk Assessment & Plan Assessment: ASA 3 Plan: GA with ETT Status Change Before Surgery: No Pre-Antibiotics Drug: as scheduled Landon Roth MD Oct 28, 2019 08:45
--- NOTE | 2019-10-28 08:47 | Immediate Post-Op Evaluation ---
Immediate Post-Op Evalulation Immediate Post-Op Evalulation Procedure: ERCP stent change Date of Evaluation: Oct 28, 2019 Time of Evaluation: 08:46 IV Fluids: 250 Blood Products: none Estimated Blood Loss: min Urinary Output: n/a Blood Pressure Systolic: 132 Blood Pressure Diastolic: 76 Pulse Rate: 62 Respiratory Rate: 20 O2 Sat by Pulse Oximetry: 99 Temperature (Fahrenheit): 97.6 Pain Score (1-10): 1 Nausea: No Vomiting: No Complications none Patient Status: reacts, patent, extubated, none Hydration Status: adequate Landon Roth MD Oct 28, 2019 08:47
[2019-10-28] MEDS: Allopurinol 100mg Tab ORAL SCH (09:00)
--- NOTE | 2019-10-28 09:04 | General Progress Note ---
Assessment/Plan Assessment/Plan: Cholecystitis/cholangitis Previous CBD stent, elevated CA 199 Hypertension Hypertensive heart disease Alzheimer's dementia Gout Failure to thrive Status post ERCP x2 recurrent pain elevated Liver enzymes PLAN monitor BP RX GI recommendations and clearance liver enzymes follow up iv hydration advance diet resume home meds stabilize hope to dc soon impression, plan, and exam edited and reviewed in detail care discussed with RN Subjective Allergies: Coded Allergies: HYDROCODONE (Verified Allergy, Unknown, 06/13/19) Subjective elevated blood pressure s/p ERCP d/w GI overnight events noted LFTs remain elevated Objective Last 24 Hour Vital Signs Date Time Temp Pulse Resp B/P (MAP) Pulse Ox O2 Delivery O2 Flow Rate FiO2 10/28/19 08:55 53 16 143/63 100 Simple Mask 6 10/28/19 08:47 62 20 99 10/28/19 08:45 55 18 145/74 100 Simple Mask 6 10/28/19 08:40 58 15 132/65 100 Simple Mask 6 10/28/19 08:35 97.0 63 17 148/64 100 Simple Mask 6 10/28/19 04:00 97.6 53 18 152/73 (99) 95 10/28/19 00:00 98.1 52 18 165/69 (101) 95 10/27/19 21:00 Room Air 10/27/19 20:25 55 201/76 10/27/19 20:00 98.8 52 18 189/71 (110) 95 10/27/19 18:20 189/75 10/27/19 16:00 97.6 53 18 189/75 (113) 95 10/27/19 14:28 189/79 10/27/19 12:00 97.4 55 18 175/72 (106) 97 10/27/19 10:52 189/79 Intake and Output 10/27/19 10/28/19 19:00 07:00 Intake Total 720 ml Output Total 600 ml Balance 120 ml Intake Oral 720 ml Output Urine Total 600 ml # Voids 3 Laboratory Tests 10/28/19 05:10: White Blood Count 8.6, Red Blood Count 3.42L, Hemoglobin 10.9L, Hematocrit 32.7L , Mean Corpuscular Volume 96, Mean Corpuscular Hemoglobin 31.9H, Mean Corpuscular Hemoglobin Concent 33.3, Red Cell Distribution Width 12.3, Platelet Count 211, Mean Platelet Volume 6.5, Neutrophils (%) (Auto) 61.0, Lymphocytes (% ) (Auto) 30.5, Monocytes (%) (Auto) 5.7, Eosinophils (%) (Auto) 2.3, Basophils ( %) (Auto) 0.6, Sodium Level 145, Potassium Level 3.2L, Chloride Level 107, Carbon Dioxide Level 27, Anion Gap 11, Blood Urea Nitrogen 20H, Creatinine 1.5H , Estimat Glomerular Filtration Rate 32.7, Glucose Level 134H, Calcium Level 9.0 , Total Bilirubin 0.6, Aspartate Amino Transf (AST/SGOT) 34, Alanine Aminotransferase (ALT/SGPT) 82H, Alkaline Phosphatase 579H, Total Protein 6.4, Albumin 2.8L, Globulin 3.6, Albumin/Globulin Ratio 0.8L Height (Feet): 4 Height (Inches): 11.00 Weight (Pounds): 131 Objective WDWN NAD clear breath sounds bilaterally without rhonchi or wheeze [id number] without MRG NABS mildly tender abdomen no CCE nonfocal confused Roel Jack MD Oct 28, 2019 09:04
[2019-10-28] MEDS: COMBIGAN 0.2%-0.5% BOTH EYES SCH ×2 (10:05→18:16)
[2019-10-28] MEDS: cefTRIAXone 1 GM in D5W 55 ML IVPB SCH (10:06)
[2019-10-28] MEDS: Carvedilol 12.5mg tab ORAL SCH ×2 (10:26→21:21)
[2019-10-28] MEDS: Memantine 5 MG TAB ORAL SCH (10:27)
[2019-10-28] MEDS: Losartan 50mg tab ORAL SCH (10:27)
[2019-10-28] MEDS: Furosemide 40mg tab ORAL SCH (10:31)
[2019-10-28] MEDS: Aspirin EC 81mg tab ORAL SCH (10:32)
--- NOTE | 2019-10-28 11:28 | Diagnostic Imaging Report ---
INDICATION: Pain, intraoperative TECHNIQUE: Intraoperative imaging Fluoroscopy time: 375.8 seconds Total dose: 1.6 mGym2 Total number of images: 8 COMPARISON: 06/16/2019, 08/11/2019, ultrasound dated 10/23/2019 FINDINGS: Initial images demonstrate endobiliary stent. Subsequent images document removal of the stent and opacification of the common hepatic duct and central intrahepatic ducts which are dilated. Subsequent images document deployment of 2 endobiliary stents. IMPRESSION: Intraoperative images, as described
--- NOTE | 2019-10-28 12:30 | Surgery Progress Note ---
Surgery Progress Note Subjective Additional Comments ERCP today stones, sludge and pus noted discussed with GI. recommend cholecystectomy but high risk will discuss with patient and daughter Objective Last 24 Hour Vital Signs Date Time Temp Pulse Resp B/P (MAP) Pulse Ox O2 Delivery O2 Flow Rate FiO2 10/28/19 11:32 156/71 10/28/19 10:27 156/71 10/28/19 10:26 50 156/71 10/28/19 09:30 97.8 50 15 156/71 100 Nasal Cannula 3 10/28/19 09:20 51 16 156/70 100 Nasal Cannula 3 10/28/19 09:05 53 16 148/66 100 Simple Mask 6 10/28/19 08:55 53 16 143/63 100 Simple Mask 6 10/28/19 08:47 62 20 99 10/28/19 08:45 55 18 145/74 100 Simple Mask 6 10/28/19 08:40 58 15 132/65 100 Simple Mask 6 10/28/19 08:35 97.0 63 17 148/64 100 Simple Mask 6 10/28/19 04:00 97.6 53 18 152/73 (99) 95 10/28/19 00:00 98.1 52 18 165/69 (101) 95 10/27/19 21:00 Room Air 10/27/19 20:25 55 201/76 10/27/19 20:00 98.8 52 18 189/71 (110) 95 10/27/19 18:20 189/75 10/27/19 16:00 97.6 53 18 189/75 (113) 95 10/27/19 14:28 189/79 I&O Intake and Output 10/27/19 10/28/19 19:00 07:00 Intake Total 720 ml Output Total 600 ml Balance 120 ml Intake Oral 720 ml Output Urine Total 600 ml # Voids 3 Cardiovascular: RSR Respiratory: clear Abdomen: soft, non-tender, present bowel sounds Extremities: no edema, no tenderness, no cyanosis Laboratory Tests Test 10/28/19 05:10 White Blood Count 8.6 K/UL (4.8-10.8) Red Blood Count 3.42 M/UL (4.20-5.40) L Hemoglobin 10.9 G/DL (12.0-16.0) L Hematocrit 32.7 % (37.0-47.0) L Mean Corpuscular Volume 96 FL (80-99) Mean Corpuscular Hemoglobin 31.9 PG (27.0-31.0) H Mean Corpuscular Hemoglobin Concent 33.3 G/DL (32.0-36.0) Red Cell Distribution Width 12.3 % (11.6-14.8) Platelet Count 211 K/UL (150-450) Mean Platelet Volume 6.5 FL (6.5-10.1) Neutrophils (%) (Auto) 61.0 % (45.0-75.0) Lymphocytes (%) (Auto) 30.5 % (20.0-45.0) Monocytes (%) (Auto) 5.7 % (1.0-10.0) Eosinophils (%) (Auto) 2.3 % (0.0-3.0) Basophils (%) (Auto) 0.6 % (0.0-2.0) Sodium Level 145 MMOL/L (136-145) Potassium Level 3.2 MMOL/L (3.5-5.1) L Chloride Level 107 MMOL/L (98-107) Carbon Dioxide Level 27 MMOL/L (21-32) Anion Gap 11 mmol/L (5-15) Blood Urea Nitrogen 20 mg/dL (7-18) H Creatinine 1.5 MG/DL (0.55-1.30) H Estimat Glomerular Filtration Rate 32.7 mL/min (>60) Glucose Level 134 MG/DL (74-106) H Calcium Level 9.0 MG/DL (8.5-10.1) Total Bilirubin 0.6 MG/DL (0.2-1.0) Aspartate Amino Transf (AST/SGOT) 34 U/L (15-37) Alanine Aminotransferase (ALT/SGPT) 82 U/L (12-78) H Alkaline Phosphatase 579 U/L (46-116) H Total Protein 6.4 G/DL (6.4-8.2) Albumin 2.8 G/DL (3.4-5.0) L Globulin 3.6 g/dL Albumin/Globulin Ratio 0.8 (1.0-2.7) L Plan Problems: (1) Choledocholithiasis Assessment & Plan: Gallbladder is filled with sludge and also demonstrates gallstones. There is distended and there is trace pericholecystic fluid. Sonographic August's sign is negative. Common bile duct measures 20 mm in diameter. It is filled with debris. There is marked intrahepatic biliary ductal dilatation. Liver demonstrates normal echogenicity, no focal abnormality. Portal vein and hepatic veins are patent. Pancreas is unremarkable. The pancreatic duct is dilated, however, measuring 4 mm in diameter. Spleen is unremarkable. Left kidney measures 9.1 cm in length. Right kidney measures 9.3 cm length. Both kidneys demonstrate increased echogenicity. There is no hydronephrosis. There are bilateral renal cysts . Abdominal aorta is obscured by bowel gas . Biliary ductal dilatation is increased from prior study (2) Acute cholangitis Assessment & Plan: discussed with GI patient currently stable and not septic afebrile, HD Stable labs reviewed and improving hold on ERCP or stent exchange for now no acute surgical intervention given age and status abx iv fluids okay for diet trend labs started ABX discussed with GI may need ERCP / stent change will follow with recs thank you discussed with GI. plan for stent change. would not recommend surgery at this time given age, condition, and overall status would benefit from metallic stent at some point ERCP noted stones, sludge and pus noted discussed with GI. recommend cholecystectomy but high risk will discuss with patient and daughter (3) Obstructive jaundice Jay Kemp Oct 28, 2019 12:30
--- NOTE | 2019-10-28 12:52 | Pre-Procedure Note/Attestation ---
Pre-Procedure Note/Attestation Complete Prior to Procedure Procedure Narrative: laparoscopic cholecystectomy possible open Indications for Procedure Pre-Operative Diagnosis: cholangitis, choledocholithiasis Attestation I attest that I discussed the nature of the procedure; its benefits; risks and complications; and alternatives (and the risks and benefits of such alternatives ), prior to the procedure, with the patient (or the patient's legal outbound telemarketing representative). I attest that, if there was a reasonable possibility of needing a blood transfusion, the patient (or the patient's legal outbound telemarketing representative) was given the [facility] standardized written summary, pursuant to the Aeljandro Bennett Blood Safety Act ([place] Health and Safety Code # 1645, as amended). I attest that I re-evaluated the patient just prior to the surgery and that there has been no change in the patient's H&P, except as documented below: Jay Kemp Oct 28, 2019 12:52
--- NOTE | 2019-10-28 17:45 | Procedure Note ---
DATE OF PROCEDURE: 10/28/2019 SURGEON: Tashi Hope MD. PROCEDURE: ERCP, stent removal, stone removal, two stents placement. ANESTHESIA: Per Dr. Roth. INSTRUMENT: Olympus adult ERCP scope. INDICATION: Choledocholithiasis, cholangitis, elevated liver function tests. The procedure, risks, benefits, and possible consequences, including hemorrhage, aspiration, perforation and infection, and alternative treatments, were explained to the patient/legal guardian by Dr. Tashi Hope and the patient/legal guardian understood and accepted these risks. PROCEDURE IN DETAIL: After informed consent was obtained and the patient was adequately sedated, ERCP scope was advanced from the mouth into second portion of the duodenum. The patient had two stents in the common bile duct. There was a large periampullary diverticulum. Using a snare, two stents were removed. Then, we used a balloon to cannulate the common bile duct. Initial cholangiogram showed multiple filling defects in the common bile duct. There was a very dilated intrahepatic duct. Using a 2 cm balloon, we swept the duct multiple times and removed lots of stone, sludge, and some pus from distal common bile duct. Then, we washed the common bile duct with 60 mL of water. Then, we swept again and removed as much as sludge and stones we could remove from distal common bile duct. The patient became a little hypotensive, so Anesthesia was recommending to finish the procedure as fast as possible, so we placed two stents, one 10 x 7 and the other one 10 x 5 in the distal common bile duct. The patient tolerated the procedure very well without any complication. SUMMARY OF FINDINGS: 1. Multiple stones, sludge, and pus in the common bile duct, status post clearing it. 2. Status post two stent exchange. RECOMMENDATIONS: 1. We discussed with Dr. Kemp, Surgery. The patient might benefit from cholecystectomy given this rapid development of this much of sludge and stone in the common bile duct. 2. We recommend ursodiol two tablets p.o. daily. 3. The patient will need a repeat ERCP in three months and stent removal or exchange. I want to thank Dr. Roel Jack for this kind referral. Tashi Jace Hope DR: CARROL JOB#: [id number] CC: Roel Jack M.D.; Fax#: [phone]
[2019-10-28] MEDS ORDERED: Milk of Magnesia 30ml Ud ORAL PRN (20:15)
[2019-10-29] VITALS (15 sets, daily range): BP systolic 110–189; BP diastolic 54–92
[2019-10-29] MEDS: Morphine Sulfate 2mg/ml Inj(IV/IM USE ONLY) IVP PRN ×3 (02:32→17:10)
[2019-10-29 05:42] LABS: BASOPHILS % (AUTO) 0.7 % (0.0-2.0); HEMATOCRIT 31.4 % (37.0-47.0); HEMOGLOBIN 10.7 G/DL (12.0-16.0); LYMPHOCYTES % (AUTO) 29.9 % (20.0-45.0); MEAN CORPUSCULAR VOLUME 96 FL (80-99); MONOCYTES % (AUTO) 6.3 % (1.0-10.0); NEUTROPHILS % (AUTO) 60.2 % (45.0-75.0); PLATELET COUNT 209 K/UL (150-450); RED BLOOD COUNT 3.27 M/UL (4.20-5.40); RED CELL DISTRIBUTION WIDTH 12.3 % (11.6-14.8); WHITE BLOOD COUNT 9.1 K/UL (4.8-10.8)
[2019-10-29 05:50] LABS: INR 1.1 (0.9-1.1)
[2019-10-29] MEDS ORDERED: HydrALAZINE 50mg tab ORAL SCH (06:00)
[2019-10-29 06:01] LABS: ALANINE AMINOTRANSFERASE 61 U/L (12-78); ALBUMIN 2.7 G/DL (3.4-5.0); ALBUMIN/GLOBULIN RATIO 0.8 (1.0-2.7); ALKALINE PHOSPHATASE 485 U/L (46-116); ANION GAP 11 mmol/L (5-15); ASPARTATE AMINO TRANSFERASE 25 U/L (15-37); BILIRUBIN,TOTAL 0.5 MG/DL (0.2-1.0); BLOOD UREA NITROGEN 24 mg/dL (7-18); CALCIUM 8.3 MG/DL (8.5-10.1); CARBON DIOXIDE 27 MMOL/L (21-32); CHLORIDE 109 MMOL/L (98-107); CREATININE 1.6 MG/DL (0.55-1.30); POTASSIUM 3.7 MMOL/L (3.5-5.1); SODIUM 147 MMOL/L (136-145)
[2019-10-29] MEDS ORDERED: Iothalamate Meglumine 60% 30ML INJ ONE (07:30)
[2019-10-29] MEDS ORDERED: fentaNYL 100 mcg/2 mL IV ONE (07:56)
[2019-10-29] MEDS ORDERED: Lidocaine 1% MPF 10mg/ml 5ml ONE (07:57)
[2019-10-29] MEDS ORDERED: Sterile Water Irrig 1000ml IRRIG ONE (08:00)
[2019-10-29] MEDS ORDERED: LR 1000ml ONE (08:00)
[2019-10-29] MEDS ORDERED: Neostigmine 1mg/ml 10ml Inj ONE (08:00)
[2019-10-29] MEDS ORDERED: Rocuronium Bromide 50mg/5ml Inj IV ONE (08:10)
[2019-10-29] MEDS: COMBIGAN 0.2%-0.5% BOTH EYES SCH ×2 (08:38→17:09)
[2019-10-29] MEDS: Carvedilol 12.5mg tab ORAL SCH ×2 (08:39→21:29)
[2019-10-29] MEDS: Furosemide 40mg tab ORAL SCH (08:40)
[2019-10-29] MEDS: Aspirin EC 81mg tab ORAL SCH (08:40)
[2019-10-29] MEDS: Memantine 5 MG TAB ORAL SCH (08:40)
[2019-10-29] MEDS: Allopurinol 100mg Tab ORAL SCH (08:40)
[2019-10-29] MEDS: Losartan 50mg tab ORAL SCH (08:40)
--- NOTE | 2019-10-29 09:14 | General Progress Note ---
Assessment/Plan Problem List: (1) Cholelithiasis ICD Codes: K80.20 - Calculus of gallbladder without cholecystitis without obstruction SNOMED: 868606525 (2) Dehydration ICD Codes: E86.0 - Dehydration SNOMED: 34280491 (3) Obstructive jaundice ICD Codes: K83.1 - Obstruction of bile duct SNOMED: 03204059 (4) CKD (chronic kidney disease) stage 5, GFR less than 15 ml/min ICD Codes: N18.5 - Chronic kidney disease, stage 5 SNOMED: 242822097 (5) Choledocholithiasis ICD Codes: K80.50 - Calculus of bile duct without cholangitis or cholecystitis without obstruction SNOMED: 666280489 Assessment/Plan: s/p ERCP and stent exchange going for surg today will fu Subjective ROS Limited/Unobtainable: No Allergies: Coded Allergies: HYDROCODONE (Verified Allergy, Unknown, 06/13/19) Objective Last 24 Hour Vital Signs Date Time Temp Pulse Resp B/P (MAP) Pulse Ox O2 Delivery O2 Flow Rate FiO2 10/29/19 07:00 151/59 (89) 10/29/19 05:45 188/68 10/29/19 04:45 97.2 52 18 188/68 (108) 96 10/29/19 00:00 97.4 52 18 130/66 (87) 96 10/28/19 22:00 50 210/80 (123) 10/28/19 21:21 52 194/71 10/28/19 21:00 52 194/71 (112) 10/28/19 21:00 Room Air 10/28/19 20:00 96.9 53 18 206/78 (120) 96 10/28/19 18:17 170/75 10/28/19 16:00 98.1 49 18 170/75 (106) 93 10/28/19 12:00 98.3 46 18 169/83 (111) 93 10/28/19 11:32 156/71 10/28/19 10:27 156/71 10/28/19 10:26 50 156/71 10/28/19 09:30 97.8 50 15 156/71 100 Nasal Cannula 3 10/28/19 09:20 51 16 156/70 100 Nasal Cannula 3 Intake and Output 10/28/19 10/29/19 19:00 07:00 Intake Total 500 ml Balance 500 ml IV Total 500 ml # Voids 4 Laboratory Tests 10/29/19 04:55: White Blood Count 9.1, Red Blood Count 3.27L, Hemoglobin 10.7L, Hematocrit 31.4L , Mean Corpuscular Volume 96, Mean Corpuscular Hemoglobin 32.8H, Mean Corpuscular Hemoglobin Concent 34.1, Red Cell Distribution Width 12.3, Platelet Count 209, Mean Platelet Volume 6.7, Neutrophils (%) (Auto) 60.2, Lymphocytes (% ) (Auto) 29.9, Monocytes (%) (Auto) 6.3, Eosinophils (%) (Auto) 3.0, Basophils ( %) (Auto) 0.7, Prothrombin Time 11.3, Prothromb Time International Ratio 1.1, Activated Partial Thromboplast Time 28, Sodium Level 147H, Potassium Level 3.7, Chloride Level 109H, Carbon Dioxide Level 27, Anion Gap 11, Blood Urea Nitrogen 24H, Creatinine 1.6H, Estimat Glomerular Filtration Rate 30.3, Glucose Level 116H, Calcium Level 8.3L, Total Bilirubin 0.5, Aspartate Amino Transf (AST/SGOT ) 25, Alanine Aminotransferase (ALT/SGPT) 61, Alkaline Phosphatase 485H, Total Protein 6.2L, Albumin 2.7L, Globulin 3.5, Albumin/Globulin Ratio 0.8L Height (Feet): 4 Height (Inches): 9.00 Weight (Pounds): 123 General Appearance: no apparent distress EENT: normal ENT inspection Neck: supple Cardiovascular: normal rate Respiratory/Chest: decreased breath sounds Abdomen: normal bowel sounds, non tender, soft Extremities: non-tender Tashi Hope MD Oct 29, 2019 09:14
[2019-10-29] MEDS ORDERED: NS Irrig 1000ml IRRIG ONE ×2 (09:23→10:04)
[2019-10-29] MEDS ORDERED: LR 1000ml 1,000 ML IVLG SCH (09:26)
--- NOTE | 2019-10-29 09:26 | Anethesia Preoperative Eval ---
Anesthesia Pre-op PMH/ROS General Date of Evaluation: Oct 29, 2019 Time of Evaluation: 08:12 Anesthesiologist: Gonzalez ASA Score: ASA 3 Mallampati Score Class I : Soft palate, uvula, fauces, pillars visible Class II: Soft palate, uvula, fauces visible Class III: Soft palate, base of uvula visible Class IV: Only hard plate visible Mallampati Classification: Class II Surgeon: Nikki Diagnosis: Cholecystitis Surgical Procedure: Lap cholecystectomy Anesthesia History: none Family History: no anesthesia problems Allergies: Coded Allergies: HYDROCODONE (Verified Allergy, Unknown, 06/13/19) Patient NPO?: Yes NPO Date: Oct 29, 2019 NPO Time: 0000 Past Medical History Cardiovascular: Reports: HTN; Denies: CAD, [place], valve dz, arrhythmia, other Pulmonary: Denies: asthma, COPD, ROBERTO, other Gastrointestinal/Genitourinary: Reports: GERD, CRI, other (recurent cholajitis) ; Denies: ESRD Neurologic/Psychiatric: Reports: dementia (mild); Denies: CVA, depression/anxiety, TIA, other Endocrine: Reports: hypothyroidism; Denies: DM, steroids, other HEENT: Denies: cataract (L), cataract (R), glaucoma, [place] (L), [place] (R), other Hematology/Immune: Reports: anemia (mild); Denies: DVT, bleeding disorder, other Musculoskeletal/Integumentary: Reports: OA; Denies: RA, DJD, DDD, edema, other PMH Narrative: as above PSxH Narrative: Hip arthroplasty, ERCP Anesthesia Pre-op Phys. Exam Physician Exam Last Vital Signs Date Time Temp Pulse Resp B/P (MAP) Pulse Ox O2 Delivery O2 Flow Rate FiO2 10/29/19 07:00 151/59 (89) 10/29/19 04:45 97.2 52 18 96 10/28/19 21:00 Room Air 10/28/19 09:30 3 Constitutional: NAD Neurologic: other (unable to obtaine) Cardiovascular: RRR, no M/R/G Respiratory: CTA Gastrointestinal: S/NT/ND Airway Exam Mallampati Score: Class II MO: limited Neck: stiff ROM: limited Teeth: missing Dentures: no upper, no lower Anesthesia Pre-op A/P Labs Hematology Test 10/29/19 04:55 White Blood Count 9.1 K/UL (4.8-10.8) Red Blood Count 3.27 M/UL (4.20-5.40) L Hemoglobin 10.7 G/DL (12.0-16.0) L Hematocrit 31.4 % (37.0-47.0) L Mean Corpuscular Volume 96 FL (80-99) Mean Corpuscular Hemoglobin 32.8 PG (27.0-31.0) H Mean Corpuscular Hemoglobin Concent 34.1 G/DL (32.0-36.0) Red Cell Distribution Width 12.3 % (11.6-14.8) Platelet Count 209 K/UL (150-450) Mean Platelet Volume 6.7 FL (6.5-10.1) Neutrophils (%) (Auto) 60.2 % (45.0-75.0) Lymphocytes (%) (Auto) 29.9 % (20.0-45.0) Monocytes (%) (Auto) 6.3 % (1.0-10.0) Eosinophils (%) (Auto) 3.0 % (0.0-3.0) Basophils (%) (Auto) 0.7 % (0.0-2.0) Coagulation Test 10/29/19 04:55 Prothrombin Time 11.3 SEC (9.30-11.50) Prothromb Time International Ratio 1.1 (0.9-1.1) Activated Partial Thromboplast Time 28 SEC (23-33) Chemistry Test 10/29/19 04:55 Sodium Level 147 MMOL/L (136-145) H Potassium Level 3.7 MMOL/L (3.5-5.1) Chloride Level 109 MMOL/L (98-107) H Carbon Dioxide Level 27 MMOL/L (21-32) Anion Gap 11 mmol/L (5-15) Blood Urea Nitrogen 24 mg/dL (7-18) H Creatinine 1.6 MG/DL (0.55-1.30) H Estimat Glomerular Filtration Rate 30.3 mL/min (>60) Glucose Level 116 MG/DL (74-106) H Calcium Level 8.3 MG/DL (8.5-10.1) L Total Bilirubin 0.5 MG/DL (0.2-1.0) Aspartate Amino Transf (AST/SGOT) 25 U/L (15-37) Alanine Aminotransferase (ALT/SGPT) 61 U/L (12-78) Alkaline Phosphatase 485 U/L (46-116) H Total Protein 6.2 G/DL (6.4-8.2) L Albumin 2.7 G/DL (3.4-5.0) L Globulin 3.5 g/dL Albumin/Globulin Ratio 0.8 (1.0-2.7) L Risk Assessment & Plan Assessment: ASA 3 Plan: GA with ETT Status Change Before Surgery: No Pre-Antibiotics Drug: Ancef 1gr. Given Within 1 Hr of Incision: Yes Time Given: 10:08 Landon Roth MD Oct 29, 2019 09:26
[2019-10-29] MEDS ORDERED: Hydromorphone 0.5mg/0.5ml inj IVP PRN (09:30)
[2019-10-29] MEDS ORDERED: Glycopyrrolate 0.2mg/ml 1ml Vial ONE (09:41)
[2019-10-29] MEDS ORDERED: ePHEDrine 50mg/ml Inj ONE (09:43)
[2019-10-29] MEDS ORDERED: Sodium Chloride 10ml vial INJ ONE (09:43)
[2019-10-29] MEDS ORDERED: Surgicel 4in x 8in TOPIC ONE (09:55)
[2019-10-29] MEDS: cefTRIAXone 1 GM in D5W 55 ML IVPB SCH (10:00)
--- NOTE | 2019-10-29 10:31 | General Progress Note ---
Assessment/Plan Assessment/Plan: Cholecystitis/cholangitis Previous CBD stent, elevated CA 199 Hypertension Hypertensive heart disease Alzheimer's dementia Gout Failure to thrive Status post ERCP x2 recurrent pain elevated Liver enzymes PLAN monitor BP RX rosaura today GI recommendations noted liver enzymes follow up iv hydration advance diet resume home meds stabilize monitor postop impression, plan, and exam edited and reviewed in detail care discussed with RN Subjective Allergies: Coded Allergies: HYDROCODONE (Verified Allergy, Unknown, 06/13/19) Subjective elevated blood pressure s/p ERCP d/w GI- proceed with surgery today overnight events noted Objective Last 24 Hour Vital Signs Date Time Temp Pulse Resp B/P (MAP) Pulse Ox O2 Delivery O2 Flow Rate FiO2 10/29/19 08:00 Room Air 10/29/19 07:00 151/59 (89) 10/29/19 05:45 188/68 10/29/19 04:45 97.2 52 18 188/68 (108) 96 10/29/19 00:00 97.4 52 18 130/66 (87) 96 10/28/19 22:00 50 210/80 (123) 10/28/19 21:21 52 194/71 10/28/19 21:00 52 194/71 (112) 10/28/19 21:00 Room Air 10/28/19 20:00 96.9 53 18 206/78 (120) 96 10/28/19 18:17 170/75 10/28/19 16:00 98.1 49 18 170/75 (106) 93 10/28/19 12:00 98.3 46 18 169/83 (111) 93 10/28/19 11:32 156/71 Intake and Output 10/28/19 10/29/19 19:00 07:00 Intake Total 500 ml Balance 500 ml IV Total 500 ml # Voids 4 Laboratory Tests 10/29/19 04:55: White Blood Count 9.1, Red Blood Count 3.27L, Hemoglobin 10.7L, Hematocrit 31.4L , Mean Corpuscular Volume 96, Mean Corpuscular Hemoglobin 32.8H, Mean Corpuscular Hemoglobin Concent 34.1, Red Cell Distribution Width 12.3, Platelet Count 209, Mean Platelet Volume 6.7, Neutrophils (%) (Auto) 60.2, Lymphocytes (% ) (Auto) 29.9, Monocytes (%) (Auto) 6.3, Eosinophils (%) (Auto) 3.0, Basophils ( %) (Auto) 0.7, Prothrombin Time 11.3, Prothromb Time International Ratio 1.1, Activated Partial Thromboplast Time 28, Sodium Level 147H, Potassium Level 3.7, Chloride Level 109H, Carbon Dioxide Level 27, Anion Gap 11, Blood Urea Nitrogen 24H, Creatinine 1.6H, Estimat Glomerular Filtration Rate 30.3, Glucose Level 116H, Calcium Level 8.3L, Total Bilirubin 0.5, Aspartate Amino Transf (AST/SGOT ) 25, Alanine Aminotransferase (ALT/SGPT) 61, Alkaline Phosphatase 485H, Total Protein 6.2L, Albumin 2.7L, Globulin 3.5, Albumin/Globulin Ratio 0.8L Height (Feet): 4 Height (Inches): 9.00 Weight (Pounds): 123 Objective WDWN NAD clear breath sounds bilaterally without rhonchi or wheeze [id number] without MRG NABS mildly tender abdomen no CCE nonfocal confused Roel Jack MD Oct 29, 2019 10:31
--- NOTE | 2019-10-29 10:36 | Immediate Post-Op Evaluation ---
Immediate Post-Op Evalulation Immediate Post-Op Evalulation Procedure: Laparoscopic cholecystectomy Date of Evaluation: Oct 29, 2019 Time of Evaluation: 10:35 IV Fluids: 600 Blood Products: none Estimated Blood Loss: 50 Urinary Output: none Blood Pressure Systolic: 172 Blood Pressure Diastolic: 68 Pulse Rate: 58 Respiratory Rate: 20 O2 Sat by Pulse Oximetry: 99 Temperature (Fahrenheit): 97.4 Pain Score (1-10): 1 Nausea: No Vomiting: No Complications none Patient Status: reacts, patent, extubated Hydration Status: adequate Landon Roth MD Oct 29, 2019 10:36
[2019-10-29] MEDS ORDERED: Sennosides 8.6mg tab ORAL PRN (10:45)
[2019-10-29] MEDS ORDERED: DiphenhydrAMINE 25mg Tab ORAL PRN (10:45)
[2019-10-29] MEDS ORDERED: Milk of Magnesia 30ml Ud ORAL PRN (10:45)
[2019-10-29] MEDS ORDERED: Morphine Sulfate 2mg/ml Inj(IV/IM USE ONLY) IVP PRN (10:45)
--- NOTE | 2019-10-29 13:53 | Brief Operative Note ---
Immediate Post Operative Note Operative Note Pre-op Diagnosis: cholangitis, choledocholithiasis Procedure: lap rosaura lap lysis of adhesion Post-op Diagnosis: same as pre-op Surgeon: evonne Anesthesiologist: di Anesthesia: general, local Specimen: yes Complications: none Condition: stable Fluids: see records Estimated Blood Loss: volume - 50 Drains: none Implant(s) used?: No Jay Kemp Oct 29, 2019 13:53
[2019-10-29] MEDS ORDERED: HYDROmorphone 1mg/ml Carpuject IVP SCH (14:00)
[2019-10-29] MEDS ORDERED: Hydromorphone 0.5mg/0.5ml inj IVP SCH (14:00)
--- NOTE | 2019-10-29 14:58 | 48 Hour Post Anesthesia Eval ---
Post Anesthesia Evaluation Procedure: Laparoscopic cholecystectomy Date of Evaluation: Oct 29, 2019 Time of Evaluation: 14:57 Blood Pressure Systolic: 116 0: 72 Pulse Rate: 52 Respiratory Rate: 20 Temperature (Fahrenheit): 97.6 O2 Sat by Pulse Oximetry: 98 Airway: patent Nausea: No Vomiting: No Pain Intensity: 3 Hydration Status: adequate Cardiopulmonary Status: stable Mental Status/LOC: patient returned to baseline Follow-up Care/Observations: n/a Post-Anesthesia Complications: none Follow-up care needed: N/A Landon Roth MD Oct 29, 2019 14:58
[2019-10-29] MEDS: Docusate 100mg cap ORAL SCH (17:10)
--- NOTE | 2019-10-29 21:14 | Operative Note - Dictated ---
DATE OF OPERATION: 10/29/2019 PREOPERATIVE DIAGNOSES: 1. Cholangitis. 2. Choledocholithiasis. POSTOPERATIVE DIAGNOSES: 1. Cholangitis. 2. Choledocholithiasis. OPERATION PERFORMED: 1. Laparoscopic cholecystectomy. 2. Laparoscopic lysis of adhesions. ATTENDING SURGEON: Jay Kemp MD. CAMERA MECHANIC: None. ANESTHESIOLOGIST: Landon Roth MD. 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 ESTIMATED BLOOD LOSS: 50 mL. IV FLUIDS: Please see anesthesia records. COMPLICATIONS: None. DRAINS: None. COUNTS: Sponge and needle count correct x2. WOUND CLASSIFICATION: Class 3. SPECIMENS: Gallbladder stone sludge, sent to pathology for review. INDICATIONS FOR PROCEDURE: This is an 88-year-old female with multiple medical comorbidities, who has recently developed choledocholithiasis and cholangitis. In the past, has had ERCP with stent placement and recently had 2 stents placed on prior admission. Patient continues to deteriorate and presents to [facility] for evaluation with abnormal LFTs. Had a repeat ERCP, which identified acute cholangitis with pus coming out of the duct as well as significant amount of sludge despite stent being in place. I had a long discussion with patient's service station attendant who performed the procedure and stent placements and given patient's current medical status, condition, and ongoing problems, she is very likely to consistently have cholangitis and worsening events that could be very dangerous given her above findings. We had considered cholecystectomy in the past, but given her age and comorbidities she is considered high risk, but given the continued problems with conservative management, surgery is indicated and recommended though high risk. I had a long discussion with patient's daughter and patient using translation services regarding the risks, benefits, and alternative of surgical intervention in detail. High risk nature of the procedure was discussed and patient's daughter expressed that she has wanted this for sometime, but no one considered it and she knew that her mother would not get better and therefore given the continued deterioration, if this potential surgery could make her better, to proceed with surgical intervention despite understanding the risks. Consent was obtained. OPERATIVE NOTE: Patient was taken to the operating room and placed on the operating table in supine position with bilateral arms out. All bony prominences well padded. SCDs placed. Preoperative time-out taken identifying patient, procedure, operative staff, and surgical staff. General anesthesia induced. Patient was intubated. The abdomen was clipped, prepped, draped in standard surgical fashion. Local anesthetic was infiltrated in all proposed skin incisions. An infraumbilical incision was made using a fresh #11 scalpel and carried down. The fascia was elevated and incised. Entry into the abdomen obtained using open Robert technique without complication. A 12 mm Robert trocar was inserted and the abdomen was insufflated to 12 to 15 mmHg. Patient tolerated the insufflation well. Laparoscope was inserted. The abdomen was inspected. Immediately upon inspecting the abdomen, it was very clear that there was significant inflammatory infectious process in the right upper quadrant. There were omental adhesions to the anterior abdominal wall, peritoneal lining as well as the liver with omentum draping over the entirety of the gallbladder, which seemingly was very distended. Secondary trocars were placed under direct visualization beginning with a 12 mm subxiphoid followed by two 5 mm right subcostal. Laparoscopic graspers were used and approximately 20 to 30 minutes were spent doing laparoscopic lysis of adhesions to dissect the omentum safely off the gallbladder and the peritoneal lining without injuring the colon or bowel. Once this was completed, the gallbladder was noted to be very distended, inflamed, and abnormal. The gallbladder could not be grasped given how distended it was and a needle decompression was performed. It was with significant pressure and after initial needle decompression, the gallbladder opened further and very foul smelling purulent appearing sludge and stones evacuated and were suctioned out using the suction from the gallbladder, which was then decompressed. The gallbladder infundibulum was then identified and careful dissection performed in the infundibulum. The cystic artery was identified, doubly clipped and divided. The remaining structure was the cystic duct, which was very enlarged and would not tolerate a laparoscopic clip. Endoloop was considered, but given the size and the consistency with inflammation, decision was made to use a laparoscopic linear stapler to staple the duct. After this duct was circumferentially cleared out and critical view obtained, the duct was ligated and divided using a laparoscopic linear stapler vascular load. The gallbladder was then taken off the liver bed using electrocautery. Gallbladder was placed in endoscopic retrieval bag and removed using the subxiphoid port. Right upper quadrant was irrigated and suctioned until clear. Hemostasis obtained from the liver bed with electrocautery. No leakage of bile or bleeding identified at the end the procedure. Surgicel was left in the liver bed. The bed was then flattened and placed in neutral position and the secondary trocars removed under direct visualization. The umbilical trocar site was then removed and the abdomen desufflated. The umbilical trocar site and subxiphoid port site fascia reapproximated using [id number] #0 Vicryl sutures. Skin incisions were reapproximated using 4-0 Monocryl subcuticular interrupted sutures. Steri-Strips and dressings applied. Patient tolerated procedure well, was extubated, and taken to postanesthetic care unit in stable condition. Jay Kemp M.D. DR: NAVYA JOB#: [id number] CC:
[2019-10-29] MEDS: Morphine Sulfate 4mg/ml Inj (IV USE ONLY) IVP PRN (21:30)
[2019-10-30] VITALS: BP 134/50
[2019-10-30] MEDS: Morphine Sulfate 4mg/ml Inj (IV USE ONLY) IVP PRN ×5 (01:38→18:22)
[2019-10-30 04:00] VITALS: BP 129/59
[2019-10-30 07:04] LABS: ALANINE AMINOTRANSFERASE 48 U/L (12-78); ALBUMIN 2.5 G/DL (3.4-5.0); ALBUMIN/GLOBULIN RATIO 0.8 (1.0-2.7); ALKALINE PHOSPHATASE 352 U/L (46-116); ANION GAP 10 mmol/L (5-15); ASPARTATE AMINO TRANSFERASE 71 U/L (15-37); BILIRUBIN,TOTAL 0.4 MG/DL (0.2-1.0); BLOOD UREA NITROGEN 25 mg/dL (7-18); CALCIUM 8.2 MG/DL (8.5-10.1); CARBON DIOXIDE 25 MMOL/L (21-32); CHLORIDE 111 MMOL/L (98-107); CREATININE 1.5 MG/DL (0.55-1.30); POTASSIUM 3.6 MMOL/L (3.5-5.1); SODIUM 146 MMOL/L (136-145)
[2019-10-30 07:13] LABS: BASOPHILS % (AUTO) 0.4 % (0.0-2.0); EOSINOPHILS % (AUTO) 1.2 % (0.0-3.0); HEMATOCRIT 30.8 % (37.0-47.0); HEMOGLOBIN 10.3 G/DL (12.0-16.0); LYMPHOCYTES % (AUTO) 14.4 % (20.0-45.0); MEAN CORPUSCULAR VOLUME 97 FL (80-99); MONOCYTES % (AUTO) 3.9 % (1.0-10.0); NEUTROPHILS % (AUTO) 80.2 % (45.0-75.0); PLATELET COUNT 186 K/UL (150-450); RED BLOOD COUNT 3.15 M/UL (4.20-5.40); RED CELL DISTRIBUTION WIDTH 12.5 % (11.6-14.8); WHITE BLOOD COUNT 13.4 K/UL (4.8-10.8)
[2019-10-30 08:00] VITALS: BP 131/56
[2019-10-30] MEDS: Losartan 50mg tab ORAL SCH (08:38)
[2019-10-30] MEDS: Allopurinol 100mg Tab ORAL SCH (08:38)
[2019-10-30] MEDS: Docusate 100mg cap ORAL SCH ×2 (08:38→18:22)
--- NOTE | 2019-10-30 08:38 | General Progress Note ---
Assessment/Plan Assessment/Plan: Cholecystitis/cholangitis Previous CBD stent, elevated CA 199 Hypertension Hypertensive heart disease Alzheimer's dementia Gout Failure to thrive Status post ERCP x2 recurrent pain elevated Liver enzymes PLAN monitor BP RX postop care GI recommendations noted liver enzymes follow up - for improvement iv hydration advance diet resume home meds stabilize monitor postop and hope to dc soon impression, plan, and exam edited and reviewed in detail care discussed with RN Subjective Allergies: Coded Allergies: HYDROCODONE (Verified Allergy, Unknown, 06/13/19) Subjective elevated blood pressure s/p ERCP s/p rosaura overnight events noted Objective Last 24 Hour Vital Signs Date Time Temp Pulse Resp B/P (MAP) Pulse Ox O2 Delivery O2 Flow Rate FiO2 10/30/19 08:00 98.0 58 18 131/56 (81) 97 10/30/19 04:00 97.1 53 18 129/59 (82) 96 10/30/19 00:00 97.0 53 18 134/50 (78) 97 10/29/19 21:29 52 129/54 10/29/19 21:00 Room Air 10/29/19 20:00 97.6 52 16 129/54 (79) 94 10/29/19 16:00 97.7 55 16 166/65 (98) 99 10/29/19 14:58 52 20 98 10/29/19 13:15 97.7 50 16 110/92 (98) 99 10/29/19 12:15 97.9 46 16 169/62 (97) 99 10/29/19 11:45 97.9 46 16 149/59 (89) 100 10/29/19 11:28 97.8 10/29/19 11:26 97.8 53 20 148/62 100 Nasal Cannula 3 10/29/19 11:13 51 16 147/63 100 Nasal Cannula 3 10/29/19 10:58 50 14 181/82 100 Simple Mask 6 10/29/19 10:48 52 15 189/83 100 Simple Mask 6 10/29/19 10:38 54 19 187/85 100 Simple Mask 6 10/29/19 10:36 58 20 99 10/29/19 10:33 57 15 182/88 100 Simple Mask 6 10/29/19 10:28 97.6 63 20 162/76 100 Simple Mask 6 Intake and Output 10/29/19 10/30/19 19:00 07:00 Intake Total 700 ml 1000 ml Output Total 50 ml Balance 650 ml 1000 ml Intake Oral 100 ml IV Total 700 ml 900 ml Estimated Blood Loss 50 ml # Voids 2 Laboratory Tests 10/30/19 05:00: White Blood Count 13.4H, Red Blood Count 3.15L, Hemoglobin 10.3L, Hematocrit 30.8L, Mean Corpuscular Volume 97, Mean Corpuscular Hemoglobin 32.5H, Mean Corpuscular Hemoglobin Concent 33.4, Red Cell Distribution Width 12.5, Platelet Count 186, Mean Platelet Volume 6.6, Neutrophils (%) (Auto) 80.2H, Lymphocytes ( %) (Auto) 14.4L, Monocytes (%) (Auto) 3.9, Eosinophils (%) (Auto) 1.2, Basophils (%) (Auto) 0.4, Sodium Level 146H, Potassium Level 3.6, Chloride Level 111H, Carbon Dioxide Level 25, Anion Gap 10, Blood Urea Nitrogen 25H, Creatinine 1.5H, Estimat Glomerular Filtration Rate 32.7, Glucose Level 113H, Calcium Level 8.2L, Total Bilirubin 0.4, Aspartate Amino Transf (AST/SGOT) 71H, Alanine Aminotransferase (ALT/SGPT) 48, Alkaline Phosphatase 352H, Total Protein 5.6L, Albumin 2.5L, Globulin 3.1, Albumin/Globulin Ratio 0.8L Height (Feet): 4 Height (Inches): 9.00 Weight (Pounds): 123 Objective WDWN NAD clear breath sounds bilaterally without rhonchi or wheeze [id number] without MRG NABS mildly tender abdomen; incision sites clean no CCE nonfocal confused Roel Jack MD Oct 30, 2019 08:38
[2019-10-30] MEDS: Carvedilol 12.5mg tab ORAL SCH ×2 (08:39→20:58)
[2019-10-30] MEDS: Aspirin EC 81mg tab ORAL SCH (08:39)
[2019-10-30] MEDS: COMBIGAN 0.2%-0.5% BOTH EYES SCH ×2 (08:39→18:22)
[2019-10-30] MEDS: Furosemide 40mg tab ORAL SCH (08:39)
[2019-10-30] MEDS: Memantine 5 MG TAB ORAL SCH (08:39)
[2019-10-30] MEDS: cefTRIAXone 1 GM in D5W 55 ML IVPB SCH (08:55)
--- NOTE | 2019-10-30 09:01 | General Progress Note ---
Assessment/Plan Problem List: (1) Cholelithiasis ICD Codes: K80.20 - Calculus of gallbladder without cholecystitis without obstruction SNOMED: 540113111 (2) Dehydration ICD Codes: E86.0 - Dehydration SNOMED: 17956519 (3) Obstructive jaundice ICD Codes: K83.1 - Obstruction of bile duct SNOMED: 89710195 (4) CKD (chronic kidney disease) stage 5, GFR less than 15 ml/min ICD Codes: N18.5 - Chronic kidney disease, stage 5 SNOMED: 738315873 (5) Choledocholithiasis ICD Codes: K80.50 - Calculus of bile duct without cholangitis or cholecystitis without obstruction SNOMED: 158857395 Assessment/Plan: s/p ERCP and stent exchange s/p surg yesterday improving LFTS will fu Subjective ROS Limited/Unobtainable: No Allergies: Coded Allergies: HYDROCODONE (Verified Allergy, Unknown, 06/13/19) Objective Last 24 Hour Vital Signs Date Time Temp Pulse Resp B/P (MAP) Pulse Ox O2 Delivery O2 Flow Rate FiO2 10/30/19 08:39 58 131/56 10/30/19 08:38 131/56 10/30/19 08:00 98.0 58 18 131/56 (81) 97 10/30/19 04:00 97.1 53 18 129/59 (82) 96 10/30/19 00:00 97.0 53 18 134/50 (78) 97 10/29/19 21:29 52 129/54 10/29/19 21:00 Room Air 10/29/19 20:00 97.6 52 16 129/54 (79) 94 10/29/19 16:00 97.7 55 16 166/65 (98) 99 10/29/19 14:58 52 20 98 10/29/19 13:15 97.7 50 16 110/92 (98) 99 10/29/19 12:15 97.9 46 16 169/62 (97) 99 10/29/19 11:45 97.9 46 16 149/59 (89) 100 10/29/19 11:28 97.8 10/29/19 11:26 97.8 53 20 148/62 100 Nasal Cannula 3 10/29/19 11:13 51 16 147/63 100 Nasal Cannula 3 10/29/19 10:58 50 14 181/82 100 Simple Mask 6 10/29/19 10:48 52 15 189/83 100 Simple Mask 6 10/29/19 10:38 54 19 187/85 100 Simple Mask 6 10/29/19 10:36 58 20 99 10/29/19 10:33 57 15 182/88 100 Simple Mask 6 10/29/19 10:28 97.6 63 20 162/76 100 Simple Mask 6 Intake and Output 10/29/19 10/30/19 19:00 07:00 Intake Total 700 ml 1000 ml Output Total 50 ml Balance 650 ml 1000 ml Intake Oral 100 ml IV Total 700 ml 900 ml Estimated Blood Loss 50 ml # Voids 2 Laboratory Tests 10/30/19 05:00: White Blood Count 13.4H, Red Blood Count 3.15L, Hemoglobin 10.3L, Hematocrit 30.8L, Mean Corpuscular Volume 97, Mean Corpuscular Hemoglobin 32.5H, Mean Corpuscular Hemoglobin Concent 33.4, Red Cell Distribution Width 12.5, Platelet Count 186, Mean Platelet Volume 6.6, Neutrophils (%) (Auto) 80.2H, Lymphocytes ( %) (Auto) 14.4L, Monocytes (%) (Auto) 3.9, Eosinophils (%) (Auto) 1.2, Basophils (%) (Auto) 0.4, Sodium Level 146H, Potassium Level 3.6, Chloride Level 111H, Carbon Dioxide Level 25, Anion Gap 10, Blood Urea Nitrogen 25H, Creatinine 1.5H, Estimat Glomerular Filtration Rate 32.7, Glucose Level 113H, Calcium Level 8.2L, Total Bilirubin 0.4, Aspartate Amino Transf (AST/SGOT) 71H, Alanine Aminotransferase (ALT/SGPT) 48, Alkaline Phosphatase 352H, Total Protein 5.6L, Albumin 2.5L, Globulin 3.1, Albumin/Globulin Ratio 0.8L Height (Feet): 4 Height (Inches): 9.00 Weight (Pounds): 123 General Appearance: alert EENT: normal ENT inspection Neck: supple Cardiovascular: normal rate Respiratory/Chest: decreased breath sounds Abdomen: normal bowel sounds, non tender, soft Extremities: non-tender Tashi Hope MD Oct 30, 2019 09:01
[2019-10-30 12:00] VITALS: BP 142/92
[2019-10-30 16:00] VITALS: BP 130/66
--- NOTE | 2019-10-30 16:36 | Surgery Progress Note ---
Surgery Progress Note Subjective Procedure Performed lap rosaura lap lysis of adhesion Additional Comments incisional pain tolerating diet leukocytosis likely reactive no n/v/f/c Objective Last 24 Hour Vital Signs Date Time Temp Pulse Resp B/P (MAP) Pulse Ox O2 Delivery O2 Flow Rate FiO2 10/30/19 12:00 98.3 70 18 142/92 (109) 97 10/30/19 09:00 Room Air 10/30/19 08:39 58 131/56 10/30/19 08:38 131/56 10/30/19 08:00 98.0 58 18 131/56 (81) 97 10/30/19 04:00 97.1 53 18 129/59 (82) 96 10/30/19 00:00 97.0 53 18 134/50 (78) 97 10/29/19 21:29 52 129/54 10/29/19 21:00 Room Air 10/29/19 20:00 97.6 52 16 129/54 (79) 94 I&O Intake and Output 10/29/19 10/30/19 19:00 07:00 Intake Total 700 ml 1000 ml Output Total 50 ml Balance 650 ml 1000 ml Intake Oral 100 ml IV Total 700 ml 900 ml Estimated Blood Loss 50 ml # Voids 2 Dressing: dry Wound: clean Cardiovascular: RSR Respiratory: clear Abdomen: soft, non-tender, present bowel sounds Extremities: no edema, no tenderness, no cyanosis Laboratory Tests Test 10/30/19 05:00 White Blood Count 13.4 K/UL (4.8-10.8) H Red Blood Count 3.15 M/UL (4.20-5.40) L Hemoglobin 10.3 G/DL (12.0-16.0) L Hematocrit 30.8 % (37.0-47.0) L Mean Corpuscular Volume 97 FL (80-99) Mean Corpuscular Hemoglobin 32.5 PG (27.0-31.0) H Mean Corpuscular Hemoglobin Concent 33.4 G/DL (32.0-36.0) Red Cell Distribution Width 12.5 % (11.6-14.8) Platelet Count 186 K/UL (150-450) Mean Platelet Volume 6.6 FL (6.5-10.1) Neutrophils (%) (Auto) 80.2 % (45.0-75.0) H Lymphocytes (%) (Auto) 14.4 % (20.0-45.0) L Monocytes (%) (Auto) 3.9 % (1.0-10.0) Eosinophils (%) (Auto) 1.2 % (0.0-3.0) Basophils (%) (Auto) 0.4 % (0.0-2.0) Sodium Level 146 MMOL/L (136-145) H Potassium Level 3.6 MMOL/L (3.5-5.1) Chloride Level 111 MMOL/L (98-107) H Carbon Dioxide Level 25 MMOL/L (21-32) Anion Gap 10 mmol/L (5-15) Blood Urea Nitrogen 25 mg/dL (7-18) H Creatinine 1.5 MG/DL (0.55-1.30) H Estimat Glomerular Filtration Rate 32.7 mL/min (>60) Glucose Level 113 MG/DL (74-106) H Calcium Level 8.2 MG/DL (8.5-10.1) L Total Bilirubin 0.4 MG/DL (0.2-1.0) Aspartate Amino Transf (AST/SGOT) 71 U/L (15-37) H Alanine Aminotransferase (ALT/SGPT) 48 U/L (12-78) Alkaline Phosphatase 352 U/L (46-116) H Total Protein 5.6 G/DL (6.4-8.2) L Albumin 2.5 G/DL (3.4-5.0) L Globulin 3.1 g/dL Albumin/Globulin Ratio 0.8 (1.0-2.7) L Plan Problems: (1) Choledocholithiasis Assessment & Plan: Gallbladder is filled with sludge and also demonstrates gallstones. There is distended and there is trace pericholecystic fluid. Sonographic August's sign is negative. Common bile duct measures 20 mm in diameter. It is filled with debris. There is marked intrahepatic biliary ductal dilatation. Liver demonstrates normal echogenicity, no focal abnormality. Portal vein and hepatic veins are patent. Pancreas is unremarkable. The pancreatic duct is dilated, however, measuring 4 mm in diameter. Spleen is unremarkable. Left kidney measures 9.1 cm in length. Right kidney measures 9.3 cm length. Both kidneys demonstrate increased echogenicity. There is no hydronephrosis. There are bilateral renal cysts . Abdominal aorta is obscured by bowel gas . Biliary ductal dilatation is increased from prior study (2) Acute cholangitis Assessment & Plan: discussed with GI patient currently stable and not septic afebrile, HD Stable labs reviewed and improving hold on ERCP or stent exchange for now no acute surgical intervention given age and status abx iv fluids okay for diet trend labs started ABX discussed with GI may need ERCP / stent change will follow with recs thank you discussed with GI. plan for stent change. would not recommend surgery at this time given age, condition, and overall status would benefit from metallic stent at some point ERCP noted stones, sludge and pus noted discussed with GI. recommend cholecystectomy but high risk will discuss with patient and daughter s/p lap rosaura doing well d/c planning (3) Obstructive jaundice Jay Kemp Oct 30, 2019 16:36
[2019-10-30 20:00] VITALS: BP 112/59
[2019-10-31] VITALS: BP 119/53
[2019-10-31 04:00] VITALS: BP 127/53
[2019-10-31] MEDS: Morphine Sulfate 4mg/ml Inj (IV USE ONLY) IVP PRN (06:20)
[2019-10-31 07:04] LABS: BASOPHILS % (AUTO) 0.2 % (0.0-2.0); EOSINOPHILS % (AUTO) 1.4 % (0.0-3.0); HEMATOCRIT 29.4 % (37.0-47.0); HEMOGLOBIN 9.8 G/DL (12.0-16.0); LYMPHOCYTES % (AUTO) 10.4 % (20.0-45.0); MEAN CORPUSCULAR VOLUME 98 FL (80-99); MONOCYTES % (AUTO) 4.4 % (1.0-10.0); NEUTROPHILS % (AUTO) 83.5 % (45.0-75.0); PLATELET COUNT 163 K/UL (150-450); RED BLOOD COUNT 2.99 M/UL (4.20-5.40); RED CELL DISTRIBUTION WIDTH 12.7 % (11.6-14.8); WHITE BLOOD COUNT 16.3 K/UL (4.8-10.8)
[2019-10-31 07:38] LABS: ALBUMIN 2.2 G/DL (3.4-5.0); ALKALINE PHOSPHATASE 266 U/L (46-116); ANION GAP 11 mmol/L (5-15); ASPARTATE AMINO TRANSFERASE 48 U/L (15-37); BILIRUBIN,TOTAL 0.4 MG/DL (0.2-1.0); BLOOD UREA NITROGEN 34 mg/dL (7-18); CALCIUM 8.7 MG/DL (8.5-10.1); CARBON DIOXIDE 22 MMOL/L (21-32); CHLORIDE 110 MMOL/L (98-107); POTASSIUM 3.8 MMOL/L (3.5-5.1); SODIUM 142 MMOL/L (136-145)
[2019-10-31 08:00] VITALS: BP 127/68
[2019-10-31 08:08] LABS: ALANINE AMINOTRANSFERASE 35 U/L (12-78)
--- NOTE | 2019-10-31 08:09 | General Progress Note ---
Assessment/Plan Assessment/Plan: Cholecystitis/cholangitis Previous CBD stent, elevated CA 199 Hypertension Hypertensive heart disease Alzheimer's dementia Gout Failure to thrive Status post ERCP x2 recurrent pain elevated Liver enzymes leukocytosis PLAN monitor BP RX postop care GI recommendations noted liver enzymes follow up - for improvement iv hydration advance diet resume home meds stabilize dc per surgery if agreed impression, plan, and exam edited and reviewed in detail care discussed with RN Subjective Allergies: Coded Allergies: HYDROCODONE (Verified Allergy, Unknown, 06/13/19) Subjective elevated blood pressure improved s/p ERCP s/p rosaura overnight events noted cleared by surgery Objective Last 24 Hour Vital Signs Date Time Temp Pulse Resp B/P (MAP) Pulse Ox O2 Delivery O2 Flow Rate FiO2 10/31/19 04:00 98.1 58 17 127/53 (77) 94 10/31/19 00:00 97.9 58 18 119/53 (75) 94 10/30/19 21:00 Room Air 10/30/19 20:58 54 112/59 10/30/19 20:00 98.2 54 18 112/59 (76) 94 10/30/19 16:00 98.7 60 18 130/66 (87) 97 10/30/19 12:00 98.3 70 18 142/92 (109) 97 10/30/19 09:00 Room Air 10/30/19 08:39 58 131/56 10/30/19 08:38 131/56 Intake and Output 10/30/19 10/31/19 19:00 07:00 Intake Total 975 ml Balance 975 ml Intake Oral 200 ml IV Total 775 ml # Voids 1 Laboratory Tests 10/31/19 05:00: White Blood Count 16.3H, Red Blood Count 2.99L, Hemoglobin 9.8L, Hematocrit 29.4L, Mean Corpuscular Volume 98, Mean Corpuscular Hemoglobin 32.7H, Mean Corpuscular Hemoglobin Concent 33.2, Red Cell Distribution Width 12.7, Platelet Count 163, Mean Platelet Volume 6.5, Neutrophils (%) (Auto) 83.5H, Lymphocytes ( %) (Auto) 10.4L, Monocytes (%) (Auto) 4.4, Eosinophils (%) (Auto) 1.4, Basophils (%) (Auto) 0.2, Sodium Level [Pending], Potassium Level [Pending], Chloride Level [Pending], Carbon Dioxide Level [Pending], Blood Urea Nitrogen [ Pending], Creatinine [Pending], Estimat Glomerular Filtration Rate [Pending], Glucose Level [Pending], Calcium Level [Pending], Total Bilirubin [Pending], Aspartate Amino Transf (AST/SGOT) [Pending], Alanine Aminotransferase (ALT/SGPT ) [Pending], Alkaline Phosphatase [Pending], Total Protein [Pending], Albumin [ Pending], Globulin [Pending] Height (Feet): 4 Height (Inches): 9.00 Weight (Pounds): 123 Objective WDWN NAD clear breath sounds bilaterally without rhonchi or wheeze [id number] without MRG NABS mildly tender abdomen; incision sites clean no CCE nonfocal confused Roel Jack MD October 31, 2019 08:09
--- NOTE | 2019-10-31 08:38 | General Progress Note ---
Assessment/Plan Problem List: (1) Cholelithiasis ICD Codes: K80.20 - Calculus of gallbladder without cholecystitis without obstruction SNOMED: 438117176 (2) Dehydration ICD Codes: E86.0 - Dehydration SNOMED: 89880374 (3) Obstructive jaundice ICD Codes: K83.1 - Obstruction of bile duct SNOMED: 03760578 (4) CKD (chronic kidney disease) stage 5, GFR less than 15 ml/min ICD Codes: N18.5 - Chronic kidney disease, stage 5 SNOMED: 391765236 (5) Choledocholithiasis ICD Codes: K80.50 - Calculus of bile duct without cholangitis or cholecystitis without obstruction SNOMED: 283512967 Assessment/Plan: s/p ERCP and stent exchange s/p surg improving LFTS needs out patient fu for repeat ERCP in 8 weeks will fu Subjective ROS Limited/Unobtainable: No Allergies: Coded Allergies: HYDROCODONE (Verified Allergy, Unknown, 06/13/19) Objective Last 24 Hour Vital Signs Date Time Temp Pulse Resp B/P (MAP) Pulse Ox O2 Delivery O2 Flow Rate FiO2 10/31/19 08:00 98.5 61 18 127/68 (87) 95 10/31/19 04:00 98.1 58 17 127/53 (77) 94 10/31/19 00:00 97.9 58 18 119/53 (75) 94 10/30/19 21:00 Room Air 10/30/19 20:58 54 112/59 10/30/19 20:00 98.2 54 18 112/59 (76) 94 10/30/19 16:00 98.7 60 18 130/66 (87) 97 10/30/19 12:00 98.3 70 18 142/92 (109) 97 10/30/19 09:00 Room Air 10/30/19 08:39 58 131/56 10/30/19 08:38 131/56 Intake and Output 10/30/19 10/31/19 19:00 07:00 Intake Total 975 ml Balance 975 ml Intake Oral 200 ml IV Total 775 ml # Voids 1 Laboratory Tests 10/31/19 05:00: White Blood Count 16.3H, Red Blood Count 2.99L, Hemoglobin 9.8L, Hematocrit 29.4L, Mean Corpuscular Volume 98, Mean Corpuscular Hemoglobin 32.7H, Mean Corpuscular Hemoglobin Concent 33.2, Red Cell Distribution Width 12.7, Platelet Count 163, Mean Platelet Volume 6.5, Neutrophils (%) (Auto) 83.5H, Lymphocytes ( %) (Auto) 10.4L, Monocytes (%) (Auto) 4.4, Eosinophils (%) (Auto) 1.4, Basophils (%) (Auto) 0.2, Sodium Level 142, Potassium Level 3.8, Chloride Level 110H, Carbon Dioxide Level 22, Anion Gap 11, Blood Urea Nitrogen 34H, Creatinine 2.0H, Estimat Glomerular Filtration Rate 23.4, Glucose Level 99, Calcium Level 8.7, Total Bilirubin 0.4, Aspartate Amino Transf (AST/SGOT) 48H, Alanine Aminotransferase (ALT/SGPT) 35, Alkaline Phosphatase 266H, Total Protein 5.3L, Albumin 2.2L, Globulin 3.1 Height (Feet): 4 Height (Inches): 9.00 Weight (Pounds): 123 General Appearance: no apparent distress EENT: normal ENT inspection Neck: normal alignment Cardiovascular: normal rate Respiratory/Chest: decreased breath sounds Abdomen: normal bowel sounds, non tender, soft Extremities: non-tender Tashi Hope MD October 31, 2019 08:38
[2019-10-31] MEDS: COMBIGAN 0.2%-0.5% BOTH EYES SCH ×2 (08:55→18:13)
[2019-10-31] MEDS: Memantine 5 MG TAB ORAL SCH (08:56)
[2019-10-31] MEDS: Aspirin EC 81mg tab ORAL SCH (08:56)
[2019-10-31] MEDS: Furosemide 40mg tab ORAL SCH (08:56)
[2019-10-31] MEDS: Carvedilol 12.5mg tab ORAL SCH ×3 (08:56→21:00)
[2019-10-31] MEDS: Docusate 100mg cap ORAL SCH ×2 (08:56→18:14)
[2019-10-31] MEDS: Allopurinol 100mg Tab ORAL SCH (08:56)
[2019-10-31] MEDS: cefTRIAXone 1 GM in D5W 55 ML IVPB SCH (08:57)
[2019-10-31] MEDS: Losartan 50mg tab ORAL SCH (08:57)
--- NOTE | 2019-10-31 11:33 | Surgery Progress Note ---
Surgery Progress Note Subjective Procedure Performed lap rosaura lap lysis of adhesion Additional Comments doing well eating okay family bring food flatus and bm no n/v/f/c worsening leukocytosis hold on dc for now. am labs Objective Last 24 Hour Vital Signs Date Time Temp Pulse Resp B/P (MAP) Pulse Ox O2 Delivery O2 Flow Rate FiO2 10/31/19 08:57 127/68 10/31/19 08:56 61 127/68 10/31/19 08:00 98.5 61 18 127/68 (87) 95 10/31/19 04:00 98.1 58 17 127/53 (77) 94 10/31/19 00:00 97.9 58 18 119/53 (75) 94 10/30/19 21:00 Room Air 10/30/19 20:58 54 112/59 10/30/19 20:00 98.2 54 18 112/59 (76) 94 10/30/19 16:00 98.7 60 18 130/66 (87) 97 10/30/19 12:00 98.3 70 18 142/92 (109) 97 I&O Intake and Output 10/30/19 10/31/19 19:00 07:00 Intake Total 975 ml Balance 975 ml Intake Oral 200 ml IV Total 775 ml # Voids 1 Dressing: dry Wound: clean Cardiovascular: RSR Respiratory: clear Abdomen: soft, non-tender, present bowel sounds, non-distended Extremities: no edema, no tenderness, no cyanosis Laboratory Tests Test 10/31/19 05:00 White Blood Count 16.3 K/UL (4.8-10.8) H Red Blood Count 2.99 M/UL (4.20-5.40) L Hemoglobin 9.8 G/DL (12.0-16.0) L Hematocrit 29.4 % (37.0-47.0) L Mean Corpuscular Volume 98 FL (80-99) Mean Corpuscular Hemoglobin 32.7 PG (27.0-31.0) H Mean Corpuscular Hemoglobin Concent 33.2 G/DL (32.0-36.0) Red Cell Distribution Width 12.7 % (11.6-14.8) Platelet Count 163 K/UL (150-450) Mean Platelet Volume 6.5 FL (6.5-10.1) Neutrophils (%) (Auto) 83.5 % (45.0-75.0) H Lymphocytes (%) (Auto) 10.4 % (20.0-45.0) L Monocytes (%) (Auto) 4.4 % (1.0-10.0) Eosinophils (%) (Auto) 1.4 % (0.0-3.0) Basophils (%) (Auto) 0.2 % (0.0-2.0) Sodium Level 142 MMOL/L (136-145) Potassium Level 3.8 MMOL/L (3.5-5.1) Chloride Level 110 MMOL/L (98-107) H Carbon Dioxide Level 22 MMOL/L (21-32) Anion Gap 11 mmol/L (5-15) Blood Urea Nitrogen 34 mg/dL (7-18) H Creatinine 2.0 MG/DL (0.55-1.30) H Estimat Glomerular Filtration Rate 23.4 mL/min (>60) Glucose Level 99 MG/DL (74-106) Calcium Level 8.7 MG/DL (8.5-10.1) Total Bilirubin 0.4 MG/DL (0.2-1.0) Aspartate Amino Transf (AST/SGOT) 48 U/L (15-37) H Alanine Aminotransferase (ALT/SGPT) 35 U/L (12-78) Alkaline Phosphatase 266 U/L (46-116) H Total Protein 5.3 G/DL (6.4-8.2) L Albumin 2.2 G/DL (3.4-5.0) L Globulin 3.1 g/dL Plan Problems: (1) Choledocholithiasis Assessment & Plan: Gallbladder is filled with sludge and also demonstrates gallstones. There is distended and there is trace pericholecystic fluid. Sonographic August's sign is negative. Common bile duct measures 20 mm in diameter. It is filled with debris. There is marked intrahepatic biliary ductal dilatation. Liver demonstrates normal echogenicity, no focal abnormality. Portal vein and hepatic veins are patent. Pancreas is unremarkable. The pancreatic duct is dilated, however, measuring 4 mm in diameter. Spleen is unremarkable. Left kidney measures 9.1 cm in length. Right kidney measures 9.3 cm length. Both kidneys demonstrate increased echogenicity. There is no hydronephrosis. There are bilateral renal cysts . Abdominal aorta is obscured by bowel gas . Biliary ductal dilatation is increased from prior study (2) Acute cholangitis Assessment & Plan: discussed with GI patient currently stable and not septic afebrile, HD Stable labs reviewed and improving hold on ERCP or stent exchange for now no acute surgical intervention given age and status abx iv fluids okay for diet trend labs started ABX discussed with GI may need ERCP / stent change will follow with recs thank you discussed with GI. plan for stent change. would not recommend surgery at this time given age, condition, and overall status would benefit from metallic stent at some point ERCP noted stones, sludge and pus noted discussed with GI. recommend cholecystectomy but high risk will discuss with patient and daughter s/p lap rosaura doing well d/c planning (3) Obstructive jaundice Additional Comments hold d/c check am cbc cont abx Jay Kemp October 31, 2019 11:33
[2019-10-31 12:00] VITALS: BP 136/72
[2019-10-31] MEDS ORDERED: Tubing IV Secondary IV ONE (13:33)
[2019-10-31 16:00] VITALS: BP 128/52
[2019-10-31 20:00] VITALS: BP 125/55
[2019-11-01] VITALS (9 sets, daily range): BP systolic 143–180; BP diastolic 55–81
[2019-11-01] MEDS: Morphine Sulfate 4mg/ml Inj (IV USE ONLY) IVP PRN (02:17)
[2019-11-01] MEDS: HydrALAZINE 50mg tab ORAL PRN ×2 (03:43→16:43)
[2019-11-01 05:51] LABS: BASOPHILS % (AUTO) 0.3 % (0.0-2.0); EOSINOPHILS % (AUTO) 1.5 % (0.0-3.0); HEMATOCRIT 28.2 % (37.0-47.0); HEMOGLOBIN 9.3 G/DL (12.0-16.0); MEAN CORPUSCULAR VOLUME 98 FL (80-99); MONOCYTES % (AUTO) 4.6 % (1.0-10.0); NEUTROPHILS % (AUTO) 81.6 % (45.0-75.0); PLATELET COUNT 198 K/UL (150-450); RED BLOOD COUNT 2.89 M/UL (4.20-5.40); RED CELL DISTRIBUTION WIDTH 13.2 % (11.6-14.8); WHITE BLOOD COUNT 17.5 K/UL (4.8-10.8)
[2019-11-01 05:58] LABS: ALANINE AMINOTRANSFERASE 18 U/L (12-78); ALBUMIN 2.1 G/DL (3.4-5.0); ALBUMIN/GLOBULIN RATIO 0.6 (1.0-2.7); ALKALINE PHOSPHATASE 228 U/L (46-116); AMYLASE 37 U/L (25-115); ANION GAP 8 mmol/L (5-15); ASPARTATE AMINO TRANSFERASE 26 U/L (15-37); BILIRUBIN,TOTAL 0.3 MG/DL (0.2-1.0); BLOOD UREA NITROGEN 28 mg/dL (7-18); CALCIUM 8.6 MG/DL (8.5-10.1); CARBON DIOXIDE 22 MMOL/L (21-32); CHLORIDE 108 MMOL/L (98-107); CREATININE 1.9 MG/DL (0.55-1.30); POTASSIUM 3.7 MMOL/L (3.5-5.1); SODIUM 138 MMOL/L (136-145)
--- NOTE | 2019-11-01 07:01 | General Progress Note ---
Assessment/Plan Problem List: (1) Cholelithiasis ICD Codes: K80.20 - Calculus of gallbladder without cholecystitis without obstruction SNOMED: 734051730 (2) Dehydration ICD Codes: E86.0 - Dehydration SNOMED: 18695118 (3) Obstructive jaundice ICD Codes: K83.1 - Obstruction of bile duct SNOMED: 61643956 (4) CKD (chronic kidney disease) stage 5, GFR less than 15 ml/min ICD Codes: N18.5 - Chronic kidney disease, stage 5 SNOMED: 668457357 (5) Choledocholithiasis ICD Codes: K80.50 - Calculus of bile duct without cholangitis or cholecystitis without obstruction SNOMED: 630305278 Assessment/Plan: s/p ERCP and stent exchange s/p surg improving LFTS needs out patient fu for repeat ERCP in 8 weeks bradycardic and hypertesive over night rising WBC now on Venti mask hold DC abx fu surg recs cardiology and pulm eval pending transfer to [facility] Subjective Allergies: Coded Allergies: HYDROCODONE (Verified Allergy, Unknown, 06/13/19) Objective Last 24 Hour Vital Signs Date Time Temp Pulse Resp B/P (MAP) Pulse Ox O2 Delivery O2 Flow Rate FiO2 11/01/19 05:13 65 19 158/72 (100) 95 11/01/19 04:00 98.2 65 18 172/72 (105) 94 11/01/19 03:43 172/72 11/01/19 00:00 98.1 64 18 158/71 (100) 95 10/31/19 23:39 Room Air 10/31/19 21:00 Room Air 10/31/19 21:00 64 158/71 10/31/19 20:00 97.7 55 16 125/55 (78) 97 10/31/19 16:00 98.1 57 18 128/52 (77) 95 10/31/19 12:23 98.5 10/31/19 12:00 98.1 64 18 136/72 (93) 95 10/31/19 09:00 Room Air 10/31/19 08:57 127/68 10/31/19 08:56 61 127/68 10/31/19 08:00 98.5 61 18 127/68 (87) 95 Intake and Output 10/31/19 11/01/19 19:00 07:00 Intake Total 750 ml 800 ml Balance 750 ml 800 ml Intake Oral 750 ml 400 ml IV Total 400 ml # Voids 1 # Bowel Movements 1 Laboratory Tests 11/01/19 05:10: White Blood Count 17.5H, Red Blood Count 2.89L, Hemoglobin 9.3L, Hematocrit 28.2L, Mean Corpuscular Volume 98, Mean Corpuscular Hemoglobin 32.3H, Mean Corpuscular Hemoglobin Concent 33.0, Red Cell Distribution Width 13.2, Platelet Count 198, Mean Platelet Volume 7.1, Neutrophils (%) (Auto) 81.6H, Lymphocytes ( %) (Auto) 12.0L, Monocytes (%) (Auto) 4.6, Eosinophils (%) (Auto) 1.5, Basophils (%) (Auto) 0.3, Erythrocyte Sedimentation Rate [Pending], Sodium Level 138, Potassium Level 3.7, Chloride Level 108H, Carbon Dioxide Level 22, Anion Gap 8, Blood Urea Nitrogen 28H, Creatinine 1.9H, Estimat Glomerular Filtration Rate 24.9, Glucose Level 130H, Lactic Acid Level 0.90, Calcium Level 8.6, Total Bilirubin 0.3, Aspartate Amino Transf (AST/SGOT) 26, Alanine Aminotransferase (ALT/SGPT) 18, Alkaline Phosphatase 228H, C-Reactive Protein, Quantitative 22.7H, Total Protein 5.4L, Albumin 2.1L, Globulin 3.3, Albumin/ Globulin Ratio 0.6L, Amylase Level 37, Lipase 162 Height (Feet): 4 Height (Inches): 9.00 Weight (Pounds): 123 General Appearance: confused EENT: normal ENT inspection Neck: supple Cardiovascular: bradycardia Respiratory/Chest: decreased breath sounds Abdomen: non tender, soft Extremities: non-tender Tashi Hope MD November 01, 2019 07:00
[2019-11-01] MEDS ORDERED: Aspirin EC 325mg tab ORAL SCH (08:45)
[2019-11-01] MEDS: COMBIGAN 0.2%-0.5% BOTH EYES SCH ×2 (08:53→17:57)
[2019-11-01] MEDS: Docusate 100mg cap ORAL SCH ×2 (08:53→17:57)
[2019-11-01] MEDS: Carvedilol 12.5mg tab ORAL SCH (08:54)
[2019-11-01] MEDS: Losartan 50mg tab ORAL SCH (08:55)
[2019-11-01] MEDS: Allopurinol 100mg Tab ORAL SCH (08:55)
[2019-11-01] MEDS: Memantine 5 MG TAB ORAL SCH (08:57)
[2019-11-01] MEDS: Furosemide 40mg tab ORAL SCH (08:57)
--- NOTE | 2019-11-01 08:58 | Diagnostic Imaging Report ---
EXAM: XR Chest, 2 Views CLINICAL HISTORY: SOB TECHNIQUE: Frontal and lateral views of the chest. COMPARISON: Chest x-ray 08/09/19 FINDINGS: Lungs: Hypoventilatory lungs. Right lower lobe atelectasis/consolidation. Mild vascular congestion. Pleural space: Small right pleural effusion. No pneumothorax. Heart: Cardiomegaly. Mediastinum: Unremarkable. Bones/joints: Unremarkable. IMPRESSION: 1. Right lower lobe atelectasis/consolidation. Mild vascular congestion. Small right pleural effusion. Findings may be CHF versus pneumonia.
[2019-11-01] MEDS: Aspirin EC 81mg tab ORAL SCH (09:00)
[2019-11-01] MEDS: cefTRIAXone 1 GM in D5W 55 ML IVPB SCH (09:54)
--- NOTE | 2019-11-01 11:10 | Surgery Progress Note ---
Surgery Progress Note Subjective Procedure Performed lap rosaura lap lysis of adhesion Additional Comments overnight a fib and desaturation sob now improved states she is well minimal pain only mild right sided incisional tolerating diet has not voided since last night - pending cath Objective Last 24 Hour Vital Signs Date Time Temp Pulse Resp B/P (MAP) Pulse Ox O2 Delivery O2 Flow Rate FiO2 11/01/19 09:20 76 173/71 11/01/19 09:00 Room Air 11/01/19 09:00 98.3 76 14 173/71 (105) 94 11/01/19 08:55 173/71 11/01/19 08:54 45 173/71 11/01/19 06:40 39 21 93 11/01/19 05:13 65 19 158/72 (100) 95 11/01/19 04:00 98.2 65 18 172/72 (105) 94 11/01/19 03:43 172/72 11/01/19 00:00 98.1 64 18 158/71 (100) 95 10/31/19 23:39 Room Air 10/31/19 21:00 Room Air 10/31/19 21:00 64 158/71 10/31/19 20:00 97.7 55 16 125/55 (78) 97 10/31/19 16:00 98.1 57 18 128/52 (77) 95 10/31/19 12:23 98.5 10/31/19 12:00 98.1 64 18 136/72 (93) 95 I&O Intake and Output 10/31/19 11/01/19 19:00 07:00 Intake Total 750 ml 800 ml Balance 750 ml 800 ml Intake Oral 750 ml 400 ml IV Total 400 ml # Voids 1 # Bowel Movements 1 Cardiovascular: RSR Respiratory: decreased breath sounds Abdomen: soft, non-tender, tenderness - incisional , present bowel sounds, non- distended Extremities: no edema, no tenderness, no cyanosis Laboratory Tests Test 11/01/19 05:10 White Blood Count 17.5 K/UL (4.8-10.8) H Red Blood Count 2.89 M/UL (4.20-5.40) L Hemoglobin 9.3 G/DL (12.0-16.0) L Hematocrit 28.2 % (37.0-47.0) L Mean Corpuscular Volume 98 FL (80-99) Mean Corpuscular Hemoglobin 32.3 PG (27.0-31.0) H Mean Corpuscular Hemoglobin Concent 33.0 G/DL (32.0-36.0) Red Cell Distribution Width 13.2 % (11.6-14.8) Platelet Count 198 K/UL (150-450) Mean Platelet Volume 7.1 FL (6.5-10.1) Neutrophils (%) (Auto) 81.6 % (45.0-75.0) H Lymphocytes (%) (Auto) 12.0 % (20.0-45.0) L Monocytes (%) (Auto) 4.6 % (1.0-10.0) Eosinophils (%) (Auto) 1.5 % (0.0-3.0) Basophils (%) (Auto) 0.3 % (0.0-2.0) Erythrocyte Sedimentation Rate 75 MM/HR (0-30) H Sodium Level 138 MMOL/L (136-145) Potassium Level 3.7 MMOL/L (3.5-5.1) Chloride Level 108 MMOL/L (98-107) H Carbon Dioxide Level 22 MMOL/L (21-32) Anion Gap 8 mmol/L (5-15) Blood Urea Nitrogen 28 mg/dL (7-18) H Creatinine 1.9 MG/DL (0.55-1.30) H Estimat Glomerular Filtration Rate 24.9 mL/min (>60) Glucose Level 130 MG/DL (74-106) H Lactic Acid Level 0.90 mmol/L (0.4-2.0) Calcium Level 8.6 MG/DL (8.5-10.1) Magnesium Level 1.7 MG/DL (1.8-2.4) L Total Bilirubin 0.3 MG/DL (0.2-1.0) Aspartate Amino Transf (AST/SGOT) 26 U/L (15-37) Alanine Aminotransferase (ALT/SGPT) 18 U/L (12-78) Alkaline Phosphatase 228 U/L (46-116) H Troponin I 0.173 ng/mL (0.000-0.056) C-Reactive Protein, Quantitative 22.7 mg/dL (0.00-0.90) H Total Protein 5.4 G/DL (6.4-8.2) L Albumin 2.1 G/DL (3.4-5.0) L Globulin 3.3 g/dL Albumin/Globulin Ratio 0.6 (1.0-2.7) L Amylase Level 37 U/L (25-115) Lipase 162 U/L (73-393) Plan Problems: (1) Choledocholithiasis Assessment & Plan: Gallbladder is filled with sludge and also demonstrates gallstones. There is distended and there is trace pericholecystic fluid. Sonographic August's sign is negative. Common bile duct measures 20 mm in diameter. It is filled with debris. There is marked intrahepatic biliary ductal dilatation. Liver demonstrates normal echogenicity, no focal abnormality. Portal vein and hepatic veins are patent. Pancreas is unremarkable. The pancreatic duct is dilated, however, measuring 4 mm in diameter. Spleen is unremarkable. Left kidney measures 9.1 cm in length. Right kidney measures 9.3 cm length. Both kidneys demonstrate increased echogenicity. There is no hydronephrosis. There are bilateral renal cysts . Abdominal aorta is obscured by bowel gas . Biliary ductal dilatation is increased from prior study (2) Acute cholangitis Assessment & Plan: discussed with GI patient currently stable and not septic afebrile, HD Stable labs reviewed and improving hold on ERCP or stent exchange for now no acute surgical intervention given age and status abx iv fluids okay for diet trend labs started ABX discussed with GI may need ERCP / stent change will follow with recs thank you discussed with GI. plan for stent change. would not recommend surgery at this time given age, condition, and overall status would benefit from metallic stent at some point ERCP noted stones, sludge and pus noted discussed with GI. recommend cholecystectomy but high risk will discuss with patient and daughter s/p lap rosaura doing well d/c planning sob, desaturation, a fib fluids stopped labs noted cont abx okay for diet tele transfer (3) Obstructive jaundice Jay Kemp November 01, 2019 11:10
[2019-11-01 12:25] LABS: APPEARANCE,URINE CLEAR; BILIRUBIN, URINE NEGATIVE (NEGATIVE); GLUCOSE, URINE (UA) NEGATIVE (NEGATIVE); KETONES,URINE NEGATIVE (NEGATIVE); LEUKOCYTE ESTERASE ,URINE 1+ (NEGATIVE); NITRITE,URINE POSITIVE (NEGATIVE); PH,URINE 5 (4.5-8.0); PROTEIN,URINE 3+ (NEGATIVE); UROBILINOGEN,URINE NORMAL MG/DL (0.0-1.0)
[2019-11-01 13:11] LABS: COLOR,URINE YELLOW
[2019-11-01] MEDS ORDERED: Tubing IV Secondary IV ONE (15:16)
[2019-11-01] MEDS ORDERED: DiphenhydrAMINE 25mg Tab ORAL PRN (18:45)
[2019-11-01] MEDS ORDERED: Morphine Sulfate 2mg/ml Inj(IV/IM USE ONLY) IVP PRN ×2 (18:45)
[2019-11-01] MEDS ORDERED: Milk of Magnesia 30ml Ud ORAL PRN (18:45)
[2019-11-01] MEDS ORDERED: Morphine Sulfate 4mg/ml Inj (IV USE ONLY) IVP PRN (18:46)
[2019-11-01] MEDS ORDERED: Sennosides 8.6mg tab ORAL PRN (18:47)
[2019-11-01] MEDS ORDERED: Carvedilol 12.5mg tab ORAL SCH (21:00)
--- NOTE | 2019-11-01 23:02 | Pulmonology Progress Note ---
Assessment/Plan Assessment/Plan Pulmonary Progress Note Assessment/Plan: Cholecystitis/cholangitis Previous CBD stent, elevated CA 199 Hypertension Hypertensive heart disease Episode Afib Elevated [place] Now on Telemetry Alzheimer's dementia Gout Failure to thrive Status post ERCP x2 recurrent pain elevated Liver enzymes leukocytosis Urinary Retention PLAN Cardiology Consultation Metoprolol PRN Hydralazine/Clonidine ASA Teixeira Catheter monitor BP RX postop care GI recommendations noted liver enzymes follow up - for improvement iv hydration advance diet resume home meds stabilize dc per surgery if agreed impression, plan, and exam edited and reviewed in detail care discussed with RN Subjective Allergies: Coded Allergies: HYDROCODONE (Verified Allergy, Unknown, 06/13/19) Subjective elevated blood pressure improved s/p ERCP s/p rosaura overnight events noted cleared by surgery Objective Vital Signs Noted Laboratory Tests Noted Height (Feet): 4 Height (Inches): 9.00 Weight (Pounds): 123 Objective WDWN NAD clear breath sounds bilaterally without rhonchi or wheeze [id number] without MRG NABS mildly tender abdomen; incision sites clean no CCE nonfocal confused Subjective ROS Limited/Unobtainable: No Allergies: Coded Allergies: HYDROCODONE (Verified Allergy, Unknown, 06/13/19) Objective Last 24 Hour Vital Signs Date Time Temp Pulse Resp B/P (MAP) Pulse Ox O2 Delivery O2 Flow Rate FiO2 11/01/19 21:38 77 143/62 11/01/19 20:23 52 150/62 11/01/19 20:00 97.8 72 19 143/60 (87) 96 11/01/19 20:00 70 11/01/19 17:00 59 11/01/19 17:00 97.5 59 20 153/55 (87) 99 11/01/19 16:43 174/74 11/01/19 16:00 98.1 58 18 178/81 (113) 98 11/01/19 12:00 97.9 58 18 148/64 (92) 98 11/01/19 09:20 76 173/71 11/01/19 09:00 Room Air 11/01/19 09:00 98.3 76 14 173/71 (105) 94 11/01/19 08:55 173/71 11/01/19 08:54 45 173/71 11/01/19 06:40 39 21 93 11/01/19 05:13 65 19 158/72 (100) 95 11/01/19 04:00 98.2 65 18 172/72 (105) 94 11/01/19 03:43 172/72 11/01/19 00:00 98.1 64 18 158/71 (100) 95 10/31/19 23:39 Room Air Intake and Output 10/31/19 11/01/19 19:00 07:00 Intake Total 750 ml 800 ml Balance 750 ml 800 ml Intake Oral 750 ml 400 ml IV Total 400 ml # Voids 1 # Bowel Movements 1 Laboratory Tests 11/01/19 05:10: White Blood Count 17.5H, Red Blood Count 2.89L, Hemoglobin 9.3L, Hematocrit 28.2L, Mean Corpuscular Volume 98, Mean Corpuscular Hemoglobin 32.3H, Mean Corpuscular Hemoglobin Concent 33.0, Red Cell Distribution Width 13.2, Platelet Count 198, Mean Platelet Volume 7.1, Neutrophils (%) (Auto) 81.6H, Lymphocytes ( %) (Auto) 12.0L, Monocytes (%) (Auto) 4.6, Eosinophils (%) (Auto) 1.5, Basophils (%) (Auto) 0.3, Erythrocyte Sedimentation Rate 75H, Sodium Level 138, Potassium Level 3.7, Chloride Level 108H, Carbon Dioxide Level 22, Anion Gap 8, Blood Urea Nitrogen 28H, Creatinine 1.9H, Estimat Glomerular Filtration Rate 24.9, Glucose Level 130H, Lactic Acid Level 0.90, Calcium Level 8.6, Magnesium Level 1.7L, Total Bilirubin 0.3, Aspartate Amino Transf (AST/SGOT) 26, Alanine Aminotransferase (ALT/SGPT) 18, Alkaline Phosphatase 228H, Troponin I 0.173H, C- Reactive Protein, Quantitative 22.7H, Total Protein 5.4L, Albumin 2.1L, Globulin 3.3, Albumin/Globulin Ratio 0.6L, Amylase Level 37, Lipase 162 11/01/19 11:00: Urine Color Yellow, Urine Appearance Clear, Urine pH 5, Urine Specific [place]ley 1.010, Urine Protein 3+H, Urine Glucose (UA) Negative, Urine Ketones Negative, Urine Blood Negative, Urine Nitrite PositiveH, Urine Bilirubin Negative, Urine Urobilinogen Normal, Urine Leukocyte Esterase 1+H, Urine RBC 0-2, Urine WBC 2-4 , Urine Squamous Epithelial Cells Few, Urine Bacteria ModerateH Current Medications Medications (Trade) Dose Ordered Sig/Manny Route PRN Reason Start Time Stop Time Status Last Admin Dose Admin Acetaminophen (Tylenol) 650 mg Q4H PRN ORAL Mild Pain (Pain Scale 1-3) 11/01/19 18:42 11/22/19 18:41 Acetaminophen (Tylenol) 650 mg Q4H PRN ORAL FEVER 11/01/19 18:45 11/28/19 10:44 Al Hydroxide/Mg Hydroxide (Mylanta) 15 ml Q6H PRN ORAL DYSPEPSIA 11/01/19 18:46 11/28/19 18:45 Allopurinol (Zyloprim) 100 mg DAILY ORAL 11/02/19 09:00 11/23/19 08:59 Amlodipine Besylate (Norvasc) 5 mg DAILY ORAL 11/01/19 19:00 12/01/19 18:59 11/01/19 20:23 Aspirin (Ecotrin) 81 mg DAILY ORAL 11/02/19 09:00 12/08/19 08:59 Ceftriaxone Sodium 1 gm/ Dextrose 55 ml @ 110 mls/hr Q24H IVPB 11/02/19 10:00 11/06/19 09:59 Clonidine HCl (Catapres Tab) 0.1 mg Q6H PRN ORAL For High Blood Pressure 11/01/19 18:44 01/30/20 18:43 Diphenhydramine HCl (Benadryl) 25 mg Q8H PRN ORAL Itching/Pruritis 11/01/19 18:45 11/28/19 10:44 Docusate Sodium (Colace) 100 mg TWICE A DAY ORAL 11/02/19 09:00 11/28/19 17:59 Ferrous Sulfate (Feosol) 325 mg DAILY ORAL 11/02/19 09:00 01/22/20 08:59 Hydralazine HCl (Apresoline) 50 mg Q6H PRN ORAL SBP>150 11/01/19 18:45 01/27/20 18:44 Losartan Potassium (Cozaar) 100 mg DAILY ORAL 11/02/19 09:00 11/23/19 08:59 Magnesium Hydroxide (Mom) 30 ml BIDPRN PRN ORAL Constipation 11/01/19 18:45 12/01/19 18:44 Memantine (Namenda) 5 mg DAILY ORAL 11/02/19 09:00 11/23/19 08:59 Metoprolol Tartrate (Lopressor) 25 mg Q12HR ORAL 11/01/19 21:00 01/30/20 20:59 11/01/19 21:38 Metronidazole 100 ml @ 100 mls/hr Q8H IVPB 11/01/19 19:00 11/06/19 10:59 11/01/19 20:22 Morphine Sulfate (Morphine Sulfate) 1 mg Q4H PRN IVP pain scale 1-3 11/01/19 18:45 11/05/19 10:44 Morphine Sulfate (Morphine Sulfate) 2 mg Q4H PRN IVP pain scale 4-6 11/01/19 18:45 11/05/19 10:44 Morphine Sulfate (Morphine Sulfate) 4 mg Q4H PRN IVP Severe Pain (Pain Scale 7-10) 11/01/19 18:46 11/05/19 18:45 Ondansetron HCl (Zofran) 4 mg Q6H PRN IVP Nausea & Vomiting 11/01/19 18:46 11/28/19 18:45 Pantoprazole (Protonix) 40 mg DAILY ORAL 11/02/19 09:00 11/23/19 08:59 Patient Own Medication (Patient's Own Med) 1 ea BID BOTH EYES 11/02/19 09:00 11/25/19 17:59 Sennosides (Senokot) 8.6 mg BIDPRN PRN ORAL Constipation 11/01/19 18:47 12/01/19 18:46 Yefri Bustillo MD November 01, 2019 23:02
[2019-11-02] VITALS: BP 162/85
[2019-11-02] MEDS: HydrALAZINE 50mg tab ORAL PRN (00:50)
--- NOTE | 2019-11-02 01:59 | Consultation ---
DATE OF CONSULTATION: 11/01/2019 CONSULTING PHYSICIAN: Yefri Galvan M.D. REQUESTING PHYSICIAN: Roel Jack M.D. REASON FOR REFERRAL: Postoperative atrial fibrillation. HISTORY OF PRESENT ILLNESS: This is an 88-year-old Hebrew female. She is postop day 1 following laparoscopic cholecystectomy with lysis of adhesions. She developed hypoxia, shortness of breath, and rapid atrial fibrillation hours postoperatively overnight. She did not have any chest pain noted. She was noted to also have a distended bladder and had a Teixeira catheter in place with good urine output and some improvement in her symptoms. The patient was continued on her oral beta-rebeca therapy. She apparently converted to sinus rhythm spontaneously. At the time of my evaluation, her EKG reveals sinus bradyarrhythmia with PACs and no acute ST-T wave abnormality. PAST MEDICAL HISTORY: Notable for osteoarthritis, hyperuricemia, hyperlipidemia, hypertensive heart disease, history of congestive heart failure, and chronic kidney disease. ALLERGIES: Hydrocodone. SOCIAL HISTORY: Negative for smoking, alcohol, or substance abuse. FAMILY HISTORY: Noncontributory. ADVANCED DIRECTIVES: Full code. REVIEW OF SYSTEMS: Otherwise unremarkable with data obtained from the patient with the assistance of a Hebrew director of corporate sponsorships. PHYSICAL EXAMINATION: VITAL SIGNS: Blood pressure 178/81, pulse 58, respirations 18, and afebrile. LUNGS: Clear. CARDIAC: Regular. Frequent ectopic beats. 1/6 systolic murmur at apex. ABDOMEN: Soft. Mild tenderness at surgical site. EXTREMITIES: No edema. LABORATORY DATA: Her labs today were notable for white count of 17.5 and hemoglobin 9.3. Magnesium 1.7. Troponin 0.173, BUN 28, creatinine 1.9, potassium 3.7, and albumin is 2.1. Chest x-ray today revealed right lower lobe consolidation, mild vascular congestion, and effusion on the right as well. IMPRESSION: 1. Paroxysmal atrial fibrillation postoperatively now with rapid ventricular response, spontaneously converted to sinus arrhythmia with atrial ectopy. 2. Hypomagnesemia. 3. Acute myocardial ischemia and possible non-ST elevation infarction. 4. Severe protein-calorie malnutrition. 5. Chronic kidney disease. 6. Postoperative anemia and leukocytosis. 7. Hypertensive heart disease now with labile blood pressure. PLAN: 1. Continue beta-rebeca. 2. DVT prophylaxis. 3. Intravenous magnesium. 4. Optimize antihypertensive regimen. 5. Cardiac monitoring. 6. Follow up troponin levels. Yefri Galvan M.D. DR: SHAN JOB#: [id number] CC:
[2019-11-02 04:00] VITALS: BP 160/70
--- NOTE | 2019-11-02 06:27 | General Progress Note ---
Assessment/Plan Problem List: (1) Cholelithiasis ICD Codes: K80.20 - Calculus of gallbladder without cholecystitis without obstruction SNOMED: 281566543 (2) Dehydration ICD Codes: E86.0 - Dehydration SNOMED: 12713955 (3) Obstructive jaundice ICD Codes: K83.1 - Obstruction of bile duct SNOMED: 95404822 (4) CKD (chronic kidney disease) stage 5, GFR less than 15 ml/min ICD Codes: N18.5 - Chronic kidney disease, stage 5 SNOMED: 398579872 (5) Choledocholithiasis ICD Codes: K80.50 - Calculus of bile duct without cholangitis or cholecystitis without obstruction SNOMED: 954169037 Assessment/Plan: s/p ERCP and stent exchange s/p surg improving LFTS needs out patient fu for repeat ERCP in 8 weeks abx fu surg recs cardiology and pulm eval appreciated repeat labs for AM Subjective Allergies: Coded Allergies: HYDROCODONE (Verified Allergy, Unknown, 06/13/19) Objective Last 24 Hour Vital Signs Date Time Temp Pulse Resp B/P (MAP) Pulse Ox O2 Delivery O2 Flow Rate FiO2 11/02/19 05:28 160/70 11/02/19 04:00 59 11/02/19 04:00 96.8 59 16 160/70 (100) 97 11/02/19 00:50 162/85 11/02/19 00:00 54 11/02/19 00:00 97.7 63 17 162/85 (110) 96 11/01/19 21:38 77 143/62 11/01/19 21:00 Room Air 11/01/19 20:23 52 150/62 11/01/19 20:00 97.8 72 19 143/60 (87) 96 11/01/19 20:00 70 11/01/19 17:00 59 11/01/19 17:00 97.5 59 20 153/55 (87) 99 11/01/19 16:43 174/74 11/01/19 16:00 98.1 58 18 178/81 (113) 98 11/01/19 12:00 97.9 58 18 148/64 (92) 98 11/01/19 09:20 76 173/71 11/01/19 09:00 Room Air 11/01/19 09:00 98.3 76 14 173/71 (105) 94 5/2/20 08:55 173/71 11/01/19 08:54 45 173/71 11/01/19 06:40 39 21 93 Intake and Output 11/01/19 11/02/19 19:00 07:00 Output Total 1700 ml Balance -1700 ml Output Urine Total 1700 ml Laboratory Tests 11/01/19 11:00: Urine Color Yellow, Urine Appearance Clear, Urine pH 5, Urine Specific [place] 1.010, Urine Protein 3+H, Urine Glucose (UA) Negative, Urine Ketones Negative, Urine Blood Negative, Urine Nitrite PositiveH, Urine Bilirubin Negative, Urine Urobilinogen Normal, Urine Leukocyte Esterase 1+H, Urine RBC 0-2, Urine WBC 2-4 , Urine Squamous Epithelial Cells Few, Urine Bacteria ModerateH Height (Feet): 4 Height (Inches): 9.00 Weight (Pounds): 123 General Appearance: alert EENT: normal ENT inspection Neck: supple Cardiovascular: tachycardia Respiratory/Chest: decreased breath sounds Abdomen: soft, hypoactive bowel sounds, tender Extremities: non-tender Tashi Hope MD November 02, 2019 06:27
[2019-11-02 08:00] VITALS: BP 156/59
[2019-11-02] MEDS ORDERED: Furosemide 40mg tab ORAL SCH (09:00)
[2019-11-02] MEDS: COMBIGAN OPTH BOTH EYES SCH ×2 (09:04→17:09)
[2019-11-02] MEDS: Aspirin EC 81mg tab ORAL SCH (09:05)
[2019-11-02] MEDS: Losartan 50mg tab ORAL SCH (09:05)
[2019-11-02] MEDS: Docusate 100mg cap ORAL SCH ×2 (09:05→17:09)
[2019-11-02] MEDS: Memantine 5 MG TAB ORAL SCH (09:06)
[2019-11-02] MEDS: Allopurinol 100mg Tab ORAL SCH (09:07)
[2019-11-02] MEDS: cefTRIAXone 1 GM in D5W 55 ML IVPB SCH (09:16)
[2019-11-02 09:31] LABS: INR 1.3 (0.9-1.1)
[2019-11-02 09:40] LABS: BASOPHILS % (AUTO) 0.5 % (0.0-2.0); EOSINOPHILS % (AUTO) 1.6 % (0.0-3.0); HEMATOCRIT 30.9 % (37.0-47.0); HEMOGLOBIN 10.3 G/DL (12.0-16.0); LYMPHOCYTES % (AUTO) 10.5 % (20.0-45.0); MEAN CORPUSCULAR VOLUME 97 FL (80-99); NEUTROPHILS % (AUTO) 83.4 % (45.0-75.0); PLATELET COUNT 266 K/UL (150-450); RED BLOOD COUNT 3.19 M/UL (4.20-5.40); RED CELL DISTRIBUTION WIDTH 12.6 % (11.6-14.8); WHITE BLOOD COUNT 15.4 K/UL (4.8-10.8)
[2019-11-02 09:49] LABS: ALANINE AMINOTRANSFERASE 18 U/L (12-78); ALBUMIN 2.1 G/DL (3.4-5.0); ALBUMIN/GLOBULIN RATIO 0.6 (1.0-2.7); ALKALINE PHOSPHATASE 222 U/L (46-116); ANION GAP 10 mmol/L (5-15); ASPARTATE AMINO TRANSFERASE 21 U/L (15-37); BILIRUBIN,TOTAL 0.4 MG/DL (0.2-1.0); BLOOD UREA NITROGEN 24 mg/dL (7-18); CALCIUM 8.5 MG/DL (8.5-10.1); CARBON DIOXIDE 23 MMOL/L (21-32); CHLORIDE 109 MMOL/L (98-107); CREATININE 1.4 MG/DL (0.55-1.30); POTASSIUM 3.6 MMOL/L (3.5-5.1); SODIUM 142 MMOL/L (136-145)
[2019-11-02 12:00] VITALS: BP 158/66
[2019-11-02 16:00] VITALS: BP 151/63
--- NOTE | 2019-11-02 18:38 | Pulmonology Progress Note ---
Assessment/Plan Assessment/Plan Pulmonary Progress Note Assessment/Plan: Cholecystitis/cholangitis Post operative troponin elevation, atrial fibrillation Previous CBD stent, elevated CA 199 Hypertension Hypertensive heart disease Cardiology following Now on Telemetry Alzheimer's dementia Gout Failure to thrive Status post ERCP x2 recurrent pain elevated Liver enzymes leukocytosis Urinary Retention PLAN Trend troponin Metoprolol PRN Hydralazine/Clonidine ASA Teixeira Catheter monitor BP RX postop care GI recommendations noted liver enzymes follow up - for improvement iv hydration advance diet resume home meds stabilize dc per surgery if agreed impression, plan, and exam edited and reviewed in detail care discussed with RN Subjective Allergies: Coded Allergies: HYDROCODONE (Verified Allergy, Unknown, 06/13/19) Subjective elevated blood pressure improved s/p ERCP s/p rosaura overnight events noted cleared by surgery Objective Vital Signs Noted Laboratory Tests Noted Height (Feet): 4 Height (Inches): 9.00 Weight (Pounds): 123 Objective WDWN NAD clear breath sounds bilaterally without rhonchi or wheeze [id number] without MRG NABS mildly tender abdomen; incision sites clean no CCE nonfocal confused Subjective ROS Limited/Unobtainable: No Allergies: Coded Allergies: HYDROCODONE (Verified Allergy, Unknown, 06/13/19) Objective Last 24 Hour Vital Signs Date Time Temp Pulse Resp B/P (MAP) Pulse Ox O2 Delivery O2 Flow Rate FiO2 11/02/19 09:07 63 154/63 11/02/19 09:06 63 154/63 11/02/19 09:05 154/63 11/02/19 05:28 160/70 11/02/19 04:00 59 11/02/19 04:00 96.8 59 16 160/70 (100) 97 11/02/19 00:50 162/85 11/02/19 00:00 54 11/02/19 00:00 97.7 63 17 162/85 (110) 96 11/01/19 21:38 77 143/62 11/01/19 21:00 Room Air 11/01/19 20:23 52 150/62 11/01/19 20:00 97.8 72 19 143/60 (87) 96 11/01/19 20:00 70 Intake and Output 11/01/19 11/02/19 19:00 07:00 Output Total 1700 ml Balance -1700 ml Output Urine Total 1700 ml # Voids 2 Laboratory Tests 11/02/19 08:15: White Blood Count 15.4H, Red Blood Count 3.19L, Hemoglobin 10.3L, Hematocrit 30.9L, Mean Corpuscular Volume 97, Mean Corpuscular Hemoglobin 32.3H, Mean Corpuscular Hemoglobin Concent 33.2, Red Cell Distribution Width 12.6, Platelet Count 266, Mean Platelet Volume 6.9, Neutrophils (%) (Auto) 83.4H, Lymphocytes ( %) (Auto) 10.5L, Monocytes (%) (Auto) 4.0, Eosinophils (%) (Auto) 1.6, Basophils (%) (Auto) 0.5, Erythrocyte Sedimentation Rate 54H, Prothrombin Time 13.8H, Prothromb Time International Ratio 1.3H, Activated Partial Thromboplast Time 36H, Sodium Level 142, Potassium Level 3.6, Chloride Level 109H, Carbon Dioxide Level 23, Anion Gap 10, Blood Urea Nitrogen 24H, Creatinine 1.4H, Estimat Glomerular Filtration Rate 35.4, Glucose Level 133H, Calcium Level 8.5, Total Bilirubin 0.4, Aspartate Amino Transf (AST/SGOT) 21, Alanine Aminotransferase (ALT/SGPT) 18, Alkaline Phosphatase 222H, Troponin I 0.056, C- Reactive Protein, Quantitative 11.7H, Pro-B-Type Natriuretic Peptide 41494H, Total Protein 5.4L, Albumin 2.1L, Globulin 3.3, Albumin/Globulin Ratio 0.6L, Amylase Level 31, Lipase 167 Current Medications Medications (Trade) Dose Ordered Sig/Manny Route PRN Reason Start Time Stop Time Status Last Admin Dose Admin Acetaminophen (Tylenol) 650 mg Q4H PRN ORAL Mild Pain (Pain Scale 1-3) 11/01/19 18:42 11/22/19 18:41 Acetaminophen (Tylenol) 650 mg Q4H PRN ORAL FEVER 11/01/19 18:45 11/28/19 10:44 Al Hydroxide/Mg Hydroxide (Mylanta) 15 ml Q6H PRN ORAL DYSPEPSIA 11/01/19 18:46 11/28/19 18:45 Allopurinol (Zyloprim) 100 mg DAILY ORAL 11/02/19 09:00 11/23/19 08:59 11/02/19 09:07 Amlodipine Besylate (Norvasc) 5 mg DAILY ORAL 11/01/19 19:00 12/01/19 18:59 11/02/19 09:07 Aspirin (Ecotrin) 81 mg DAILY ORAL 11/02/19 09:00 12/08/19 08:59 11/02/19 09:05 Ceftriaxone Sodium 1 gm/ Dextrose 55 ml @ 110 mls/hr Q24H IVPB 11/02/19 10:00 11/06/19 09:59 11/02/19 09:16 Clonidine HCl (Catapres Tab) 0.1 mg Q6H PRN ORAL For High Blood Pressure 11/01/19 18:44 01/30/20 18:43 11/02/19 05:28 Diphenhydramine HCl (Benadryl) 25 mg Q8H PRN ORAL Itching/Pruritis 11/01/19 18:45 11/28/19 10:44 Docusate Sodium (Colace) 100 mg TWICE A DAY ORAL 11/02/19 09:00 11/28/19 17:59 11/02/19 17:09 Ferrous Sulfate (Feosol) 325 mg DAILY ORAL 11/02/19 09:00 01/22/20 08:59 11/02/19 09:06 Furosemide (Lasix) 20 mg ONCE IV 11/02/19 18:15 11/02/19 20:00 11/02/19 18:22 Hydralazine HCl (Apresoline) 50 mg Q6H PRN ORAL SBP>150 11/01/19 18:45 01/27/20 18:44 11/02/19 00:50 Losartan Potassium (Cozaar) 100 mg DAILY ORAL 11/02/19 09:00 11/23/19 08:59 11/02/19 09:05 Magnesium Hydroxide (Mom) 30 ml BIDPRN PRN ORAL Constipation 11/01/19 18:45 12/01/19 18:44 Memantine (Namenda) 5 mg DAILY ORAL 11/02/19 09:00 11/23/19 08:59 11/02/19 09:06 Metoprolol Tartrate (Lopressor) 25 mg Q12HR ORAL 11/01/19 21:00 01/30/20 20:59 11/02/19 09:06 Metronidazole 100 ml @ 100 mls/hr Q8H IVPB 11/01/19 19:00 11/06/19 10:59 11/02/19 18:23 Morphine Sulfate (Morphine Sulfate) 1 mg Q4H PRN IVP pain scale 1-3 11/01/19 18:45 11/05/19 10:44 Morphine Sulfate (Morphine Sulfate) 2 mg Q4H PRN IVP pain scale 4-6 11/01/19 18:45 11/05/19 10:44 Morphine Sulfate (Morphine Sulfate) 4 mg Q4H PRN IVP Severe Pain (Pain Scale 7-10) 11/01/19 18:46 11/05/19 18:45 Ondansetron HCl (Zofran) 4 mg Q6H PRN IVP Nausea & Vomiting 11/01/19 18:46 11/28/19 18:45 11/02/19 16:51 Pantoprazole (Protonix) 40 mg DAILY ORAL 11/02/19 09:00 11/23/19 08:59 11/02/19 09:07 Patient Own Medication (Patient's Own Med) 1 ea BID BOTH EYES 11/02/19 09:00 11/25/19 17:59 11/02/19 17:09 Potassium Chloride (K-Dur) 40 meq ONCE ORAL 11/02/19 18:15 11/02/19 20:00 11/02/19 18:23 Sennosides (Senokot) 8.6 mg BIDPRN PRN ORAL Constipation 11/01/19 18:47 12/01/19 18:46 Yefri Bustillo MD November 02, 2019 18:38
[2019-11-02 20:00] VITALS: BP 139/65
--- NOTE | 2019-11-02 21:20 | Surgery Progress Note ---
Surgery Progress Note Subjective Procedure Performed lap rosaura lap lysis of adhesion Additional Comments Afebrile Leukocytosis improving ESR CRP improving Episode of emesis given Zofran improved No bowel movement today Resting comfortable Objective Last 24 Hour Vital Signs Date Time Temp Pulse Resp B/P (MAP) Pulse Ox O2 Delivery O2 Flow Rate FiO2 11/02/19 21:00 55 139/65 11/02/19 16:00 97.5 61 18 151/63 (92) 95 11/02/19 16:00 71 11/02/19 12:00 97.5 59 18 158/66 (96) 95 11/02/19 12:00 83 11/02/19 09:07 63 154/63 11/02/19 09:06 63 154/63 11/02/19 09:05 154/63 11/02/19 09:00 Room Air 11/02/19 08:00 70 11/02/19 08:00 97.0 62 18 156/59 (91) 98 11/02/19 05:28 160/70 11/02/19 04:00 59 11/02/19 04:00 96.8 59 16 160/70 (100) 97 11/02/19 00:50 162/85 11/02/19 00:00 54 11/02/19 00:00 97.7 63 17 162/85 (110) 96 11/01/19 21:38 77 143/62 I&O Intake and Output 11/01/19 11/02/19 19:00 07:00 Output Total 1700 ml Balance -1700 ml Output Urine Total 1700 ml # Voids 2 Dressing: dry Wound: clean Cardiovascular: RSR Respiratory: clear Abdomen: soft, non-tender, present bowel sounds Extremities: no edema, no tenderness, no cyanosis Laboratory Tests Test 11/02/19 08:15 White Blood Count 15.4 K/UL (4.8-10.8) H Red Blood Count 3.19 M/UL (4.20-5.40) L Hemoglobin 10.3 G/DL (12.0-16.0) L Hematocrit 30.9 % (37.0-47.0) L Mean Corpuscular Volume 97 FL (80-99) Mean Corpuscular Hemoglobin 32.3 PG (27.0-31.0) H Mean Corpuscular Hemoglobin Concent 33.2 G/DL (32.0-36.0) Red Cell Distribution Width 12.6 % (11.6-14.8) Platelet Count 266 K/UL (150-450) Mean Platelet Volume 6.9 FL (6.5-10.1) Neutrophils (%) (Auto) 83.4 % (45.0-75.0) H Lymphocytes (%) (Auto) 10.5 % (20.0-45.0) L Monocytes (%) (Auto) 4.0 % (1.0-10.0) Eosinophils (%) (Auto) 1.6 % (0.0-3.0) Basophils (%) (Auto) 0.5 % (0.0-2.0) Erythrocyte Sedimentation Rate 54 MM/HR (0-30) H Prothrombin Time 13.8 SEC (9.30-11.50) H Prothromb Time International Ratio 1.3 (0.9-1.1) H Activated Partial Thromboplast Time 36 SEC (23-33) H Sodium Level 142 MMOL/L (136-145) Potassium Level 3.6 MMOL/L (3.5-5.1) Chloride Level 109 MMOL/L (98-107) H Carbon Dioxide Level 23 MMOL/L (21-32) Anion Gap 10 mmol/L (5-15) Blood Urea Nitrogen 24 mg/dL (7-18) H Creatinine 1.4 MG/DL (0.55-1.30) H Estimat Glomerular Filtration Rate 35.4 mL/min (>60) Glucose Level 133 MG/DL (74-106) H Calcium Level 8.5 MG/DL (8.5-10.1) Total Bilirubin 0.4 MG/DL (0.2-1.0) Aspartate Amino Transf (AST/SGOT) 21 U/L (15-37) Alanine Aminotransferase (ALT/SGPT) 18 U/L (12-78) Alkaline Phosphatase 222 U/L (46-116) H Troponin I 0.056 ng/mL (0.000-0.056) C-Reactive Protein, Quantitative 11.7 mg/dL (0.00-0.90) H Pro-B-Type Natriuretic Peptide 39114 pg/mL (0-125) H Total Protein 5.4 G/DL (6.4-8.2) L Albumin 2.1 G/DL (3.4-5.0) L Globulin 3.3 g/dL Albumin/Globulin Ratio 0.6 (1.0-2.7) L Amylase Level 31 U/L (25-115) Lipase 167 U/L (73-393) Plan Problems: (1) Choledocholithiasis Assessment & Plan: Gallbladder is filled with sludge and also demonstrates gallstones. There is distended and there is trace pericholecystic fluid. Sonographic August's sign is negative. Common bile duct measures 20 mm in diameter. It is filled with debris. There is marked intrahepatic biliary ductal dilatation. Liver demonstrates normal echogenicity, no focal abnormality. Portal vein and hepatic veins are patent. Pancreas is unremarkable. The pancreatic duct is dilated, however, measuring 4 mm in diameter. Spleen is unremarkable. Left kidney measures 9.1 cm in length. Right kidney measures 9.3 cm length. Both kidneys demonstrate increased echogenicity. There is no hydronephrosis. There are bilateral renal cysts . Abdominal aorta is obscured by bowel gas . Biliary ductal dilatation is increased from prior study (2) Acute cholangitis Assessment & Plan: discussed with GI patient currently stable and not septic afebrile, HD Stable labs reviewed and improving hold on ERCP or stent exchange for now no acute surgical intervention given age and status abx iv fluids okay for diet trend labs started ABX discussed with GI may need ERCP / stent change will follow with recs thank you discussed with GI. plan for stent change. would not recommend surgery at this time given age, condition, and overall status would benefit from metallic stent at some point ERCP noted stones, sludge and pus noted discussed with GI. recommend cholecystectomy but high risk will discuss with patient and daughter s/p lap rosaura doing well d/c planning sob, desaturation, a fib fluids stopped labs noted cont abx okay for diet tele transfer Labs improving exam stable Bowel regimen (3) Obstructive jaundice Jay Kemp November 02, 2019 21:20
[2019-11-03] VITALS (7 sets, daily range): BP systolic 145–166; BP diastolic 56–70
--- NOTE | 2019-11-03 00:45 | Progress Note ---
DATE: 11/02/2019 CARDIOLOGY PROGRESS NOTE SUBJECTIVE: The patient was transferred to the cardiac observation unit yesterday after having episodes of rapid atrial fibrillation overnight. She had an elevated troponin level the following morning of 0.17. She has not had any new complaints of shortness of breath. Monitored rhythm, continues to reveal episodes of atrial fibrillation but are self limited. Heart rates have mostly controlled. There are some slow heart rate episodes. PHYSICAL EXAMINATION: VITAL SIGNS: Blood pressure 160/70, heart rate 59, respiratory rate 16, and afebrile. LUNGS: Diminished breath sounds. Few rales. CARDIAC: Regular rhythm and rate. Normal S1 and S2 with occasional ectopic beats. No new murmur. ABDOMEN: Soft. Surgical site is dry. EXTREMITIES: No edema. LABORATORY AND DIAGNOSTIC DATA: Troponin now 0.056. Pro-natriuretic peptide is 12,800. Sodium 142, potassium 3.6, bicarb 23, BUN 24, creatinine 1.4. White count 15.4, hemoglobin 10.3. IMPRESSION: 1. Status post laparoscopic cholecystectomy. 2. Paroxysmal atrial fibrillation with rapid ventricular response, resolved. 3. Acute diastolic congestive heart failure. 4. Acute myocardial ischemia, resolved. 5. Borderline normal potassium level. 6. Paroxysmal atrial ectopy. 7. Nonsustained ventricular ectopy. PLAN: 1. Condition remains serious. 2. Prognosis guarded. 3. Continue cardiac monitoring. 4. Replace potassium. 5. Check magnesium. 6. Diuresis. 7. Continue beta blockade with hold parameters for slow heart rate. 8. Postop care per primary care physician and advance diet as tolerated. Yefri Galvan M.D. DR: Ugo JOB#: [id number] CC:
[2019-11-03] MEDS: HydrALAZINE 50mg tab ORAL PRN (06:23)
[2019-11-03 07:10] LABS: BASOPHILS % (AUTO) 0.4 % (0.0-2.0); EOSINOPHILS % (AUTO) 1.4 % (0.0-3.0); HEMATOCRIT 30.3 % (37.0-47.0); HEMOGLOBIN 10.4 G/DL (12.0-16.0); LYMPHOCYTES % (AUTO) 11.3 % (20.0-45.0); MEAN CORPUSCULAR VOLUME 96 FL (80-99); MONOCYTES % (AUTO) 5.6 % (1.0-10.0); NEUTROPHILS % (AUTO) 81.2 % (45.0-75.0); PLATELET COUNT 323 K/UL (150-450); RED BLOOD COUNT 3.16 M/UL (4.20-5.40); RED CELL DISTRIBUTION WIDTH 13.2 % (11.6-14.8); WHITE BLOOD COUNT 14.3 K/UL (4.8-10.8)
[2019-11-03 07:37] LABS: ALANINE AMINOTRANSFERASE 12 U/L (12-78); ALBUMIN 2.2 G/DL (3.4-5.0); ALBUMIN/GLOBULIN RATIO 0.6 (1.0-2.7); ALKALINE PHOSPHATASE 206 U/L (46-116); ANION GAP 9 mmol/L (5-15); ASPARTATE AMINO TRANSFERASE 14 U/L (15-37); BILIRUBIN,TOTAL 0.4 MG/DL (0.2-1.0); BLOOD UREA NITROGEN 25 mg/dL (7-18); CALCIUM 8.8 MG/DL (8.5-10.1); CARBON DIOXIDE 23 MMOL/L (21-32); CHLORIDE 106 MMOL/L (98-107); CREATININE 1.4 MG/DL (0.55-1.30); POTASSIUM 4.2 MMOL/L (3.5-5.1); SODIUM 138 MMOL/L (136-145)
--- NOTE | 2019-11-03 08:59 | General Progress Note ---
Assessment/Plan Assessment/Plan: Cholecystitis/cholangitis Previous CBD stent, elevated CA 199 Hypertension Hypertensive heart disease Alzheimer's dementia Gout Failure to thrive Status post ERCP x2 recurrent pain elevated Liver enzymes leukocytosis postop pneumonia PLAN monitor BP RX on antibiotics ID to assist folliow up imaging monitor lft monitor diet dc once CXR cleared impression, plan, and exam edited and reviewed in detail care discussed with RN Subjective Allergies: Coded Allergies: HYDROCODONE (Verified Allergy, Unknown, 06/13/19) Subjective elevated wbc abnormal CXR antibotics added weekend events noted Objective Last 24 Hour Vital Signs Date Time Temp Pulse Resp B/P (MAP) Pulse Ox O2 Delivery O2 Flow Rate FiO2 11/03/19 06:23 155/56 11/03/19 04:00 98.5 64 16 155/56 (89) 95 11/03/19 04:00 73 11/03/19 00:00 98.0 67 17 150/70 (96) 95 11/03/19 00:00 67 11/02/19 21:00 Room Air 11/02/19 21:00 55 139/65 11/02/19 20:00 69 11/02/19 20:00 98.3 55 18 139/65 (89) 95 11/02/19 16:00 97.5 61 18 151/63 (92) 95 11/02/19 16:00 71 11/02/19 12:00 97.5 59 18 158/66 (96) 95 11/02/19 12:00 83 11/02/19 09:07 63 154/63 11/02/19 09:06 63 154/63 11/02/19 09:05 154/63 11/02/19 09:00 Room Air Intake and Output 11/02/19 11/03/19 19:00 07:00 Intake Total 240 ml 400 ml Output Total 300 ml 1200 ml Balance -60 ml -800 ml Intake Oral 240 ml 400 ml Output Urine Total 300 ml 1200 ml Laboratory Tests 11/03/19 06:32: White Blood Count 14.3H, Red Blood Count 3.16L, Hemoglobin 10.4L, Hematocrit 30.3L, Mean Corpuscular Volume 96, Mean Corpuscular Hemoglobin 33.0H, Mean Corpuscular Hemoglobin Concent 34.4, Red Cell Distribution Width 13.2, Platelet Count 323, Mean Platelet Volume 6.5, Neutrophils (%) (Auto) 81.2H, Lymphocytes ( %) (Auto) 11.3L, Monocytes (%) (Auto) 5.6, Eosinophils (%) (Auto) 1.4, Basophils (%) (Auto) 0.4, Sodium Level 138, Potassium Level 4.2, Chloride Level 106, Carbon Dioxide Level 23, Anion Gap 9, Blood Urea Nitrogen 25H, Creatinine 1.4H, Estimat Glomerular Filtration Rate 35.4, Glucose Level 101, Calcium Level 8.8, Magnesium Level 1.8, Total Bilirubin 0.4, Aspartate Amino Transf (AST/SGOT ) 14L, Alanine Aminotransferase (ALT/SGPT) 12, Alkaline Phosphatase 206H, Total Protein 5.6L, Albumin 2.2L, Globulin 3.4, Albumin/Globulin Ratio 0.6L Height (Feet): 4 Height (Inches): 9.00 Weight (Pounds): 123 Objective WDWN NAD reduced breath sounds bilaterally with some rhonchi [id number] without MRG NABS minimally tender abdomen; incision sites clean no CCE nonfocal confused Roel Jack MD November 03, 2019 08:59
--- NOTE | 2019-11-03 09:09 | General Progress Note ---
Assessment/Plan Problem List: (1) Cholelithiasis ICD Codes: K80.20 - Calculus of gallbladder without cholecystitis without obstruction SNOMED: 326458337 (2) Dehydration ICD Codes: E86.0 - Dehydration SNOMED: 29705736 (3) Obstructive jaundice ICD Codes: K83.1 - Obstruction of bile duct SNOMED: 85186083 (4) CKD (chronic kidney disease) stage 5, GFR less than 15 ml/min ICD Codes: N18.5 - Chronic kidney disease, stage 5 SNOMED: 311503365 (5) Choledocholithiasis ICD Codes: K80.50 - Calculus of bile duct without cholangitis or cholecystitis without obstruction SNOMED: 873998363 Assessment/Plan: s/p ERCP and stent exchange s/p surg improving LFTS needs out patient fu for repeat ERCP in 8 weeks abx fu surg recs cardiology and pulm eval appreciated repeat labs for AM Subjective ROS Limited/Unobtainable: No Allergies: Coded Allergies: HYDROCODONE (Verified Allergy, Unknown, 06/13/19) Objective Last 24 Hour Vital Signs Date Time Temp Pulse Resp B/P (MAP) Pulse Ox O2 Delivery O2 Flow Rate FiO2 11/03/19 06:23 155/56 11/03/19 04:00 98.5 64 16 155/56 (89) 95 11/03/19 04:00 73 11/03/19 00:00 98.0 67 17 150/70 (96) 95 11/03/19 00:00 67 11/02/19 21:00 Room Air 11/02/19 21:00 55 139/65 11/02/19 20:00 69 11/02/19 20:00 98.3 55 18 139/65 (89) 95 11/02/19 16:00 97.5 61 18 151/63 (92) 95 11/02/19 16:00 71 11/02/19 12:00 97.5 59 18 158/66 (96) 95 11/02/19 12:00 83 Intake and Output 11/02/19 11/03/19 19:00 07:00 Intake Total 240 ml 400 ml Output Total 300 ml 1200 ml Balance -60 ml -800 ml Intake Oral 240 ml 400 ml Output Urine Total 300 ml 1200 ml Laboratory Tests 11/03/19 06:32: White Blood Count 14.3H, Red Blood Count 3.16L, Hemoglobin 10.4L, Hematocrit 30.3L, Mean Corpuscular Volume 96, Mean Corpuscular Hemoglobin 33.0H, Mean Corpuscular Hemoglobin Concent 34.4, Red Cell Distribution Width 13.2, Platelet Count 323, Mean Platelet Volume 6.5, Neutrophils (%) (Auto) 81.2H, Lymphocytes ( %) (Auto) 11.3L, Monocytes (%) (Auto) 5.6, Eosinophils (%) (Auto) 1.4, Basophils (%) (Auto) 0.4, Sodium Level 138, Potassium Level 4.2, Chloride Level 106, Carbon Dioxide Level 23, Anion Gap 9, Blood Urea Nitrogen 25H, Creatinine 1.4H, Estimat Glomerular Filtration Rate 35.4, Glucose Level 101, Calcium Level 8.8, Magnesium Level 1.8, Total Bilirubin 0.4, Aspartate Amino Transf (AST/SGOT ) 14L, Alanine Aminotransferase (ALT/SGPT) 12, Alkaline Phosphatase 206H, Total Protein 5.6L, Albumin 2.2L, Globulin 3.4, Albumin/Globulin Ratio 0.6L Height (Feet): 4 Height (Inches): 9.00 Weight (Pounds): 123 General Appearance: no apparent distress EENT: normal ENT inspection Neck: supple Cardiovascular: normal rate Respiratory/Chest: decreased breath sounds Abdomen: normal bowel sounds, non tender, soft Extremities: non-tender Tashi Hope MD November 03, 2019 09:09
[2019-11-03] MEDS: COMBIGAN OPTH BOTH EYES SCH ×2 (10:00→10:20)
[2019-11-03] MEDS: Allopurinol 100mg Tab ORAL SCH (10:20)
[2019-11-03] MEDS: Docusate 100mg cap ORAL SCH ×2 (10:20→18:23)
[2019-11-03] MEDS: Memantine 5 MG TAB ORAL SCH (10:21)
[2019-11-03] MEDS: Losartan 50mg tab ORAL SCH (10:21)
[2019-11-03] MEDS: Aspirin EC 81mg tab ORAL SCH (10:21)
[2019-11-03] MEDS: cefTRIAXone 1 GM in D5W 55 ML IVPB SCH (10:23)
--- NOTE | 2019-11-03 10:59 | Diagnostic Imaging Report ---
Indication: Cough Technique: One view of the chest Comparison: 11/01/2019 Findings: Overall slightly lower lung volumes. Atelectasis and infiltrate persists at the right lung base, rest slightly improved.. There is probably some pleural fluid as well. There is some atelectasis and possibly pleural fluid at the left lung base, which appears somewhat increased. Impression: Improved persistent right basilar atelectasis and infiltrate. Increasing left basilar atelectasis and possibly pleural fluid
[2019-11-03] MEDS ORDERED: HydrALAZINE 50mg tab ORAL PRN (14:00)
[2019-11-03] MEDS ORDERED: Morphine Sulfate 2mg/ml Inj(IV/IM USE ONLY) IVP PRN ×2 (14:00)
[2019-11-03] MEDS ORDERED: Milk of Magnesia 30ml Ud ORAL PRN (14:00)
[2019-11-03] MEDS ORDERED: DiphenhydrAMINE 25mg Tab ORAL PRN (14:00)
[2019-11-03] MEDS ORDERED: Sennosides 8.6mg tab ORAL PRN (14:00)
[2019-11-03] MEDS ORDERED: Morphine Sulfate 4mg/ml Inj (IV USE ONLY) IVP PRN (14:00)
--- NOTE | 2019-11-03 14:53 | Surgery Progress Note ---
Surgery Progress Note Subjective Procedure Performed lap rosaura lap lysis of adhesion Additional Comments downgraded labs improved no fevers comfortable d/c planning Objective Last 24 Hour Vital Signs Date Time Temp Pulse Resp B/P (MAP) Pulse Ox O2 Delivery O2 Flow Rate FiO2 11/03/19 12:59 98.5 64 16 145/62 (89) 95 11/03/19 10:52 98.5 64 16 165/69 (101) 95 11/03/19 10:27 73 165/69 11/03/19 10:21 73 165/69 11/03/19 10:21 165/69 11/03/19 09:00 Room Air 11/03/19 07:54 75 11/03/19 06:23 155/56 11/03/19 04:00 98.5 64 16 155/56 (89) 95 11/03/19 04:00 73 11/03/19 00:00 98.0 67 17 150/70 (96) 95 11/03/19 00:00 67 11/02/19 21:00 Room Air 11/02/19 21:00 55 139/65 11/02/19 20:00 69 11/02/19 20:00 98.3 55 18 139/65 (89) 95 11/02/19 16:00 97.5 61 18 151/63 (92) 95 11/02/19 16:00 71 I&O Intake and Output 11/02/19 11/03/19 19:00 07:00 Intake Total 240 ml 400 ml Output Total 300 ml 1200 ml Balance -60 ml -800 ml Intake Oral 240 ml 400 ml Output Urine Total 300 ml 1200 ml Dressing: other Wound: other Drains: other Cardiovascular: RSR Respiratory: decreased breath sounds Abdomen: soft, non-tender, present bowel sounds Extremities: no tenderness, no cyanosis Laboratory Tests Test 11/03/19 06:32 White Blood Count 14.3 K/UL (4.8-10.8) H Red Blood Count 3.16 M/UL (4.20-5.40) L Hemoglobin 10.4 G/DL (12.0-16.0) L Hematocrit 30.3 % (37.0-47.0) L Mean Corpuscular Volume 96 FL (80-99) Mean Corpuscular Hemoglobin 33.0 PG (27.0-31.0) H Mean Corpuscular Hemoglobin Concent 34.4 G/DL (32.0-36.0) Red Cell Distribution Width 13.2 % (11.6-14.8) Platelet Count 323 K/UL (150-450) Mean Platelet Volume 6.5 FL (6.5-10.1) Neutrophils (%) (Auto) 81.2 % (45.0-75.0) H Lymphocytes (%) (Auto) 11.3 % (20.0-45.0) L Monocytes (%) (Auto) 5.6 % (1.0-10.0) Eosinophils (%) (Auto) 1.4 % (0.0-3.0) Basophils (%) (Auto) 0.4 % (0.0-2.0) Sodium Level 138 MMOL/L (136-145) Potassium Level 4.2 MMOL/L (3.5-5.1) Chloride Level 106 MMOL/L (98-107) Carbon Dioxide Level 23 MMOL/L (21-32) Anion Gap 9 mmol/L (5-15) Blood Urea Nitrogen 25 mg/dL (7-18) H Creatinine 1.4 MG/DL (0.55-1.30) H Estimat Glomerular Filtration Rate 35.4 mL/min (>60) Glucose Level 101 MG/DL (74-106) Calcium Level 8.8 MG/DL (8.5-10.1) Magnesium Level 1.8 MG/DL (1.8-2.4) Total Bilirubin 0.4 MG/DL (0.2-1.0) Aspartate Amino Transf (AST/SGOT) 14 U/L (15-37) L Alanine Aminotransferase (ALT/SGPT) 12 U/L (12-78) Alkaline Phosphatase 206 U/L (46-116) H Total Protein 5.6 G/DL (6.4-8.2) L Albumin 2.2 G/DL (3.4-5.0) L Globulin 3.4 g/dL Albumin/Globulin Ratio 0.6 (1.0-2.7) L Plan Problems: (1) Choledocholithiasis Assessment & Plan: Gallbladder is filled with sludge and also demonstrates gallstones. There is distended and there is trace pericholecystic fluid. Sonographic August's sign is negative. Common bile duct measures 20 mm in diameter. It is filled with debris. There is marked intrahepatic biliary ductal dilatation. Liver demonstrates normal echogenicity, no focal abnormality. Portal vein and hepatic veins are patent. Pancreas is unremarkable. The pancreatic duct is dilated, however, measuring 4 mm in diameter. Spleen is unremarkable. Left kidney measures 9.1 cm in length. Right kidney measures 9.3 cm length. Both kidneys demonstrate increased echogenicity. There is no hydronephrosis. There are bilateral renal cysts . Abdominal aorta is obscured by bowel gas . Biliary ductal dilatation is increased from prior study (2) Acute cholangitis Assessment & Plan: discussed with GI patient currently stable and not septic afebrile, HD Stable labs reviewed and improving hold on ERCP or stent exchange for now no acute surgical intervention given age and status abx iv fluids okay for diet trend labs started ABX discussed with GI may need ERCP / stent change will follow with recs thank you discussed with GI. plan for stent change. would not recommend surgery at this time given age, condition, and overall status would benefit from metallic stent at some point ERCP noted stones, sludge and pus noted discussed with GI. recommend cholecystectomy but high risk will discuss with patient and daughter s/p lap rosaura doing well d/c planning sob, desaturation, a fib fluids stopped labs noted cont abx okay for diet tele transfer Labs improving exam stable Bowel regimen improving d/c planning (3) Obstructive jaundice Jay Kemp November 03, 2019 14:53
[2019-11-03] MEDS: COMBIGAN BOTH EYES SCH (18:23)
--- NOTE | 2019-11-03 18:45 | Consultation ---
DATE OF CONSULTATION: 11/03/2019 INFECTIOUS DISEASES CONSULTATION CONSULTING PHYSICIAN: Maryjane Cheng MD. REFERRING PHYSICIAN: Roel Jack MD. REASON FOR CONSULTATION: Cholecystitis and cholangitis. HISTORY OF PRESENTING ILLNESS: This is an 88-year-old lady with history of hypertension, dementia, gout who comes in with right-sided abdominal pain along with malaise. She had a previous CBD stent placed. Her liver function tests were elevated. She had a CBD dilatation with sludge or stones. She underwent laparoscopic cholecystectomy and an Infectious Diseases consultation has been obtained for cholangitis. PAST MEDICAL HISTORY: 1. History of cholecystitis, cholangitis. 2. History of CBD stent placement. 3. Hypertension. 4. Dementia. 5. Gout. SOCIAL HISTORY: Unknown. FAMILY HISTORY: Unknown. REVIEW OF SYSTEMS: Unable to obtain currently. MEDICATIONS: As an inpatient, she is on ceftriaxone, allopurinol, aspirin, docusate, ferrous sulfate, losartan, memantine, Protonix, metoprolol, Flagyl, amlodipine, senna, morphine, Mylanta, Zofran, Tylenol, Benadryl, hydralazine, milk of magnesia, morphine, clonidine. ALLERGIES: To hydrocodone noted. PHYSICAL EXAMINATION: VITAL SIGNS: Temperature of 98.5, T-max of 98.5, pulse of 73, respiratory rate of 16, blood pressure 165/69, O2 saturation of 95%. HEENT: Pupils equally reactive to light and accommodation. Mouth appears clean without thrush. NECK: Supple. No adenopathy. No JVD. CARDIOVASCULAR: Regular rate and rhythm. No murmurs. LUNGS: Clear to auscultation bilaterally. No crackles. No wheezes. ABDOMEN: Soft. Wound is clean. EXTREMITIES: No cyanosis, no clubbing, no edema. LABORATORY AND DIAGNOSTIC DATA: White count of 17.5 on 11/01/2019, white count of 14.3 today, hemoglobin 10.4, hematocrit 30.3, MCV 96, platelet count 323 with neutrophils of 81%. Sodium 138, potassium 4.2, chloride 106, bicarb 23, BUN 25, creatinine 1.4, glucose 101, calcium 8.8. Total bilirubin 0.4, AST 14, ALT 12, alkaline phosphatase 206. Total protein 5.6, albumin 2.2. Amylase of 31, lipase of 167. C-reactive protein 11.7. Beta natriuretic peptide 12,861. Troponin 0.056. UA showing 2 to 4 white cells. Urine cultures are negative. Chest x-ray is showing right lower lobe atelectasis or consolidation, mild vascular congestion, small right-sided pleural effusion. Abdominal ultrasound showing increasingly dilated extrahepatic and intrahepatic bile ducts despite placement of a stent, distended gallbladder containing sludge and stones, trace pericholecystic fluid raises a possibility of acute cholecystitis. Medical renal disease noted. ASSESSMENT: This is an 88-year-old lady with history of hypertension, dementia, gout who comes in with elevated liver function tests and abdominal pain and malaise and is found to have. 1. Cholangitis. She underwent a laparoscopic cholecystectomy. 2. Leukocytosis is improving. 3. Hypertension. 4. Gout. 5. Pneumonia. PLAN: 1. Continue IV ceftriaxone and Flagyl. 2. We will follow up cultures. 3. We will follow up patient clinically. I would like to thank, Dr. Jack, for this consultation. Maryjane Cheng M.D. DR: ELDER JOB#: [id number] CC: Roel Jack M.D.; Fax#: [phone]
[2019-11-04] VITALS: BP 168/66
[2019-11-04 04:00] VITALS: BP 169/67
[2019-11-04] MEDS: HydrALAZINE 25mg tab ORAL PRN ×2 (04:57→23:47)
[2019-11-04 06:41] LABS: BASOPHILS % (AUTO) 0.5 % (0.0-2.0); EOSINOPHILS % (AUTO) 1.2 % (0.0-3.0); HEMATOCRIT 29.9 % (37.0-47.0); LYMPHOCYTES % (AUTO) 13.9 % (20.0-45.0); MEAN CORPUSCULAR VOLUME 98 FL (80-99); MONOCYTES % (AUTO) 5.6 % (1.0-10.0); NEUTROPHILS % (AUTO) 78.9 % (45.0-75.0); PLATELET COUNT 324 K/UL (150-450); RED BLOOD COUNT 3.06 M/UL (4.20-5.40); RED CELL DISTRIBUTION WIDTH 13.2 % (11.6-14.8); WHITE BLOOD COUNT 17.1 K/UL (4.8-10.8)
--- NOTE | 2019-11-04 07:00 | Progress Note ---
DATE: 11/03/2019 CARDIOLOGY PROGRESS NOTE SUBJECTIVE: Blood pressure parameters stable, high normal range. Heart rate remains in the 60s. The patient has episodes of sinus bradycardia, first and second-degree AV block, asymptomatic. PHYSICAL EXAMINATION: LUNGS: Clear. CARDIAC: Regular. Normal S1 and S2. A 1/6 systolic apical murmur. EXTREMITIES: No edema. LABORATORY AND DIAGNOSTIC DATA: White count 14.3, hemoglobin 10.4. Magnesium 1.8. Potassium 4.2, BUN 25, creatinine 1.4. Albumin 2.2. Chest x-ray today reveals decreased atelectasis and infiltrate on the right, small amount of fluid, no edema. IMPRESSION: 1. Paroxysmal atrial fibrillation. 2. 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 3. Cholecystitis status post common bile duct stent and AICD. 4. Hypertensive heart disease. 5. Compensated diastolic congestive heart failure. PLAN: 1. Respiratory hygiene. 2. Antimicrobials. 3. Anti-platelet therapy. 4. Titrate antihypertensives. 5. Avoid orthostasis and tight blood pressure control. 6. Iron replacement. 7. Decrease beta-rebeca to avoid risk for symptomatic bradyarrhythmias. Yefri Galvan M.D. DR: Ugo JOB#: [id number] CC:
[2019-11-04 08:00] VITALS: BP 164/70
[2019-11-04 08:23] LABS: ALANINE AMINOTRANSFERASE 15 U/L (12-78); ALBUMIN 2.1 G/DL (3.4-5.0); ALBUMIN/GLOBULIN RATIO 0.6 (1.0-2.7); ALKALINE PHOSPHATASE 184 U/L (46-116); ANION GAP 13 mmol/L (5-15); ASPARTATE AMINO TRANSFERASE 17 U/L (15-37); BILIRUBIN,TOTAL 0.4 MG/DL (0.2-1.0); BLOOD UREA NITROGEN 22 mg/dL (7-18); CALCIUM 8.8 MG/DL (8.5-10.1); CARBON DIOXIDE 21 MMOL/L (21-32); CHLORIDE 107 MMOL/L (98-107); CREATININE 1.3 MG/DL (0.55-1.30); POTASSIUM 3.7 MMOL/L (3.5-5.1); SODIUM 141 MMOL/L (136-145)
[2019-11-04] MEDS: Memantine 5 MG TAB ORAL SCH (08:49)
[2019-11-04] MEDS: Losartan 50mg tab ORAL SCH (08:49)
[2019-11-04] MEDS: Aspirin EC 81mg tab ORAL SCH (08:49)
[2019-11-04] MEDS: Docusate 100mg cap ORAL SCH ×2 (08:49→17:54)
[2019-11-04] MEDS: Allopurinol 100mg Tab ORAL SCH (08:50)
[2019-11-04] MEDS: Metoprolol Succinate XL 25mg tab ORAL SCH (08:50)
--- NOTE | 2019-11-04 08:56 | General Progress Note ---
Assessment/Plan Assessment/Plan: Cholecystitis/cholangitis Previous CBD stent, elevated CA 199 Hypertension Hypertensive heart disease Alzheimer's dementia Gout Failure to thrive Status post ERCP x2 elevated Liver enzymes leukocytosis postop pneumonia PLAN monitor BP RX and increase on antibiotics ID noted folliow up imaging not yet stable for dc impression, plan, and exam edited and reviewed in detail care discussed with RN Subjective Allergies: Coded Allergies: HYDROCODONE (Verified Allergy, Unknown, 06/13/19) Subjective persistently elevated wbc abnormal CXR noted antibotics noted ID reviewed elevated bp Objective Last 24 Hour Vital Signs Date Time Temp Pulse Resp B/P (MAP) Pulse Ox O2 Delivery O2 Flow Rate FiO2 11/04/19 08:50 93 164/70 11/04/19 08:49 164/70 11/04/19 08:49 93 164/70 11/04/19 08:00 98.1 93 19 164/70 (101) 97 11/04/19 04:57 169/67 11/04/19 04:00 97.6 54 18 169/67 (101) 95 11/04/19 00:00 98.1 64 17 168/66 (100) 95 11/03/19 21:00 Room Air 11/03/19 20:53 166/64 11/03/19 20:52 54 166/64 11/03/19 20:00 97.7 54 17 166/64 (98) 94 11/03/19 19:19 62 153/58 (89) 11/03/19 16:00 97.8 60 16 166/69 (101) 94 11/03/19 12:59 98.5 64 16 145/62 (89) 95 11/03/19 10:52 98.5 64 16 165/69 (101) 95 11/03/19 10:27 73 165/69 11/03/19 10:21 73 165/69 11/03/19 10:21 165/69 11/03/19 09:00 Room Air Intake and Output 11/03/19 11/04/19 19:00 07:00 Intake Total 150 ml 440 ml Output Total 400 ml 600 ml Balance -250 ml -160 ml Intake Oral 150 ml 240 ml IV Total 200 ml Output Urine Total 400 ml 600 ml Laboratory Tests 11/04/19 05:20: White Blood Count 17.1H, Red Blood Count 3.06L, Hemoglobin 10.0L, Hematocrit 29.9L, Mean Corpuscular Volume 98, Mean Corpuscular Hemoglobin 32.7H, Mean Corpuscular Hemoglobin Concent 33.5, Red Cell Distribution Width 13.2, Platelet Count 324, Mean Platelet Volume 5.9L, Neutrophils (%) (Auto) 78.9H, Lymphocytes (%) (Auto) 13.9L, Monocytes (%) (Auto) 5.6, Eosinophils (%) (Auto) 1.2, Basophils (%) (Auto) 0.5, Sodium Level 141, Potassium Level 3.7, Chloride Level 107, Carbon Dioxide Level 21, Anion Gap 13, Blood Urea Nitrogen 22H, Creatinine 1.3, Estimat Glomerular Filtration Rate 38.6, Glucose Level 95, Calcium Level 8.8, Total Bilirubin 0.4, Aspartate Amino Transf (AST/SGOT) 17, Alanine Aminotransferase (ALT/SGPT) 15, Alkaline Phosphatase 184H, Total Protein 5.4L, Albumin 2.1L, Globulin 3.3, Albumin/Globulin Ratio 0.6L Height (Feet): 4 Height (Inches): 9.00 Weight (Pounds): 123 Objective WDWN NAD reduced breath sounds bilaterally with rhonchi [id number] without MRG NABS no distention no CCE nonfocal confused Roel Jack MD November 04, 2019 08:56
[2019-11-04] MEDS: COMBIGAN BOTH EYES SCH ×2 (09:00→17:54)
[2019-11-04] MEDS: cefTRIAXone 1 GM in D5W 55 ML IVPB SCH (10:05)
--- NOTE | 2019-11-04 10:39 | Infectious Diseases Prog Note ---
Assessment/Plan Assessment/Plan antibiotics : ceftriaxone, flagyl A 1. Cholangitis. She underwent a laparoscopic cholecystectomy. 2. Leukocytosis 3. Hypertension. 4. Gout. 5. Pneumonia. P 1. continue ceftriaxone, flagyl 2. will follow up cultures Subjective ROS Limited/Unobtainable: Yes Allergies: Coded Allergies: HYDROCODONE (Verified Allergy, Unknown, 06/13/19) Objective Vital Signs Last 24 Hour Vital Signs Date Time Temp Pulse Resp B/P (MAP) Pulse Ox O2 Delivery O2 Flow Rate FiO2 11/04/19 08:50 93 164/70 11/04/19 08:49 164/70 11/04/19 08:49 93 164/70 11/04/19 08:00 98.1 93 19 164/70 (101) 97 11/04/19 04:57 169/67 11/04/19 04:00 97.6 54 18 169/67 (101) 95 11/04/19 00:00 98.1 64 17 168/66 (100) 95 11/03/19 21:00 Room Air 11/03/19 20:53 166/64 11/03/19 20:52 54 166/64 11/03/19 20:00 97.7 54 17 166/64 (98) 94 11/03/19 19:19 62 153/58 (89) 11/03/19 16:00 97.8 60 16 166/69 (101) 94 11/03/19 12:59 98.5 64 16 145/62 (89) 95 11/03/19 10:52 98.5 64 16 165/69 (101) 95 Height (Feet): 4 Height (Inches): 9.00 Weight (Pounds): 123 Respiratory/Chest: lungs clear Cardiovascular: normal rate, regular rhythm, no gallop/murmur Abdomen: soft, non tender Extremities: no edema Microbiology Date/Time Source Procedure Growth Status 11/01/19 11:00 Urine,Clean Catch Urine Culture - Preliminary NO GROWTH AFTER 24 HOURS Resulted Laboratory Tests Test 11/04/19 05:20 White Blood Count 17.1 K/UL (4.8-10.8) H Red Blood Count 3.06 M/UL (4.20-5.40) L Hemoglobin 10.0 G/DL (12.0-16.0) L Hematocrit 29.9 % (37.0-47.0) L Mean Corpuscular Volume 98 FL (80-99) Mean Corpuscular Hemoglobin 32.7 PG (27.0-31.0) H Mean Corpuscular Hemoglobin Concent 33.5 G/DL (32.0-36.0) Red Cell Distribution Width 13.2 % (11.6-14.8) Platelet Count 324 K/UL (150-450) Mean Platelet Volume 5.9 FL (6.5-10.1) L Neutrophils (%) (Auto) 78.9 % (45.0-75.0) H Lymphocytes (%) (Auto) 13.9 % (20.0-45.0) L Monocytes (%) (Auto) 5.6 % (1.0-10.0) Eosinophils (%) (Auto) 1.2 % (0.0-3.0) Basophils (%) (Auto) 0.5 % (0.0-2.0) Sodium Level 141 MMOL/L (136-145) Potassium Level 3.7 MMOL/L (3.5-5.1) Chloride Level 107 MMOL/L (98-107) Carbon Dioxide Level 21 MMOL/L (21-32) Anion Gap 13 mmol/L (5-15) Blood Urea Nitrogen 22 mg/dL (7-18) H Creatinine 1.3 MG/DL (0.55-1.30) Estimat Glomerular Filtration Rate 38.6 mL/min (>60) Glucose Level 95 MG/DL (74-106) Calcium Level 8.8 MG/DL (8.5-10.1) Total Bilirubin 0.4 MG/DL (0.2-1.0) Aspartate Amino Transf (AST/SGOT) 17 U/L (15-37) Alanine Aminotransferase (ALT/SGPT) 15 U/L (12-78) Alkaline Phosphatase 184 U/L (46-116) H Total Protein 5.4 G/DL (6.4-8.2) L Albumin 2.1 G/DL (3.4-5.0) L Globulin 3.3 g/dL Albumin/Globulin Ratio 0.6 (1.0-2.7) L Current Medications Medications (Trade) Dose Ordered Sig/Manny Route PRN Reason Start Time Stop Time Status Last Admin Dose Admin Acetaminophen (Tylenol) 650 mg Q4H PRN ORAL Mild Pain (Pain Scale 1-3) 11/03/19 14:00 11/22/19 13:59 11/04/19 00:17 Al Hydroxide/Mg Hydroxide (Mylanta) 15 ml Q6H PRN ORAL DYSPEPSIA 11/03/19 14:00 11/28/19 13:59 Allopurinol (Zyloprim) 100 mg DAILY ORAL 11/04/19 09:00 11/23/19 08:59 11/04/19 08:50 Amlodipine Besylate (Norvasc) 5 mg DAILY ORAL 11/04/19 09:00 12/01/19 18:59 11/04/19 08:49 Aspirin (Ecotrin) 81 mg DAILY ORAL 11/04/19 09:00 12/08/19 08:59 11/04/19 08:49 Ceftriaxone Sodium 1 gm/ Dextrose 55 ml @ 110 mls/hr Q24H IVPB 11/04/19 10:00 11/06/19 09:59 11/04/19 10:05 Diphenhydramine HCl (Benadryl) 25 mg Q8H PRN ORAL Itching/Pruritis 11/03/19 14:00 11/28/19 13:59 Docusate Sodium (Colace) 100 mg TWICE A DAY ORAL 11/03/19 18:00 11/28/19 17:59 11/04/19 08:49 Ferrous Sulfate (Feosol) 325 mg DAILY ORAL 11/04/19 09:00 01/22/20 08:59 11/04/19 08:49 Hydralazine HCl (Apresoline) 25 mg Q6H PRN ORAL SBP>150 11/04/19 03:00 02/02/20 02:59 11/04/19 04:57 Hydralazine HCl (Apresoline) 50 mg Q8HR ORAL 11/04/19 14:00 02/02/20 13:59 Losartan Potassium (Cozaar) 100 mg DAILY ORAL 11/04/19 09:00 11/23/19 08:59 11/04/19 08:49 Magnesium Hydroxide (Mom) 30 ml BIDPRN PRN ORAL Constipation 11/03/19 14:00 12/01/19 13:59 Memantine (Namenda) 5 mg DAILY ORAL 11/04/19 09:00 11/23/19 08:59 11/04/19 08:49 Metoprolol Succinate (Toprol XL) 25 mg DAILY ORAL 11/04/19 09:00 02/02/20 08:59 11/04/19 08:50 Metronidazole 100 ml @ 100 mls/hr Q8H IVPB 11/03/19 19:00 11/06/19 10:59 11/04/19 02:06 Morphine Sulfate (Morphine Sulfate) 1 mg Q4H PRN IVP pain scale 1-3 11/03/19 14:00 11/05/19 13:59 Morphine Sulfate (Morphine Sulfate) 2 mg Q4H PRN IVP pain scale 4-6 11/03/19 14:00 11/05/19 13:59 Morphine Sulfate (Morphine Sulfate) 4 mg Q4H PRN IVP Severe Pain (Pain Scale 7-10) 11/03/19 14:00 11/05/19 13:59 Ondansetron HCl (Zofran) 4 mg Q6H PRN IVP Nausea & Vomiting 11/03/19 14:00 11/28/19 13:59 Pantoprazole (Protonix) 40 mg DAILY ORAL 11/04/19 09:00 11/23/19 08:59 11/04/19 08:48 Patient Own Medication (Patient's Own Med) 1 ea BID BOTH EYES 11/03/19 18:00 11/25/19 17:59 11/04/19 09:00 Sennosides (Senokot) 8.6 mg BIDPRN PRN ORAL Constipation 11/03/19 14:00 12/01/19 13:59 Maryjane Cheng MD November 04, 2019 10:38
--- NOTE | 2019-11-04 11:00 | General Progress Note ---
Assessment/Plan Problem List: (1) Cholelithiasis ICD Codes: K80.20 - Calculus of gallbladder without cholecystitis without obstruction SNOMED: 827298352 (2) Dehydration ICD Codes: E86.0 - Dehydration SNOMED: 59950136 (3) Obstructive jaundice ICD Codes: K83.1 - Obstruction of bile duct SNOMED: 86086742 (4) CKD (chronic kidney disease) stage 5, GFR less than 15 ml/min ICD Codes: N18.5 - Chronic kidney disease, stage 5 SNOMED: 804457834 (5) Choledocholithiasis ICD Codes: K80.50 - Calculus of bile duct without cholangitis or cholecystitis without obstruction SNOMED: 464250676 Assessment/Plan: s/p ERCP and stent exchange s/p surg improving LFTS needs out patient fu for repeat ERCP in 8 weeks abx fu surg recs cardiology and pulm eval appreciated repeat labs for AM Subjective ROS Limited/Unobtainable: No Allergies: Coded Allergies: HYDROCODONE (Verified Allergy, Unknown, 06/13/19) Objective Last 24 Hour Vital Signs Date Time Temp Pulse Resp B/P (MAP) Pulse Ox O2 Delivery O2 Flow Rate FiO2 11/04/19 08:50 93 164/70 11/04/19 08:49 164/70 11/04/19 08:49 93 164/70 11/04/19 08:00 98.1 93 19 164/70 (101) 97 11/04/19 04:57 169/67 11/04/19 04:00 97.6 54 18 169/67 (101) 95 11/04/19 00:00 98.1 64 17 168/66 (100) 95 11/03/19 21:00 Room Air 11/03/19 20:53 166/64 11/03/19 20:52 54 166/64 11/03/19 20:00 97.7 54 17 166/64 (98) 94 11/03/19 19:19 62 153/58 (89) 11/03/19 16:00 97.8 60 16 166/69 (101) 94 11/03/19 12:59 98.5 64 16 145/62 (89) 95 Intake and Output 11/03/19 11/04/19 19:00 07:00 Intake Total 150 ml 440 ml Output Total 400 ml 600 ml Balance -250 ml -160 ml Intake Oral 150 ml 240 ml IV Total 200 ml Output Urine Total 400 ml 600 ml Laboratory Tests 11/04/19 05:20: White Blood Count 17.1H, Red Blood Count 3.06L, Hemoglobin 10.0L, Hematocrit 29.9L, Mean Corpuscular Volume 98, Mean Corpuscular Hemoglobin 32.7H, Mean Corpuscular Hemoglobin Concent 33.5, Red Cell Distribution Width 13.2, Platelet Count 324, Mean Platelet Volume 5.9L, Neutrophils (%) (Auto) 78.9H, Lymphocytes (%) (Auto) 13.9L, Monocytes (%) (Auto) 5.6, Eosinophils (%) (Auto) 1.2, Basophils (%) (Auto) 0.5, Sodium Level 141, Potassium Level 3.7, Chloride Level 107, Carbon Dioxide Level 21, Anion Gap 13, Blood Urea Nitrogen 22H, Creatinine 1.3, Estimat Glomerular Filtration Rate 38.6, Glucose Level 95, Calcium Level 8.8, Total Bilirubin 0.4, Aspartate Amino Transf (AST/SGOT) 17, Alanine Aminotransferase (ALT/SGPT) 15, Alkaline Phosphatase 184H, Total Protein 5.4L, Albumin 2.1L, Globulin 3.3, Albumin/Globulin Ratio 0.6L Height (Feet): 4 Height (Inches): 9.00 Weight (Pounds): 123 General Appearance: no apparent distress EENT: normal ENT inspection Neck: supple Cardiovascular: normal rate Respiratory/Chest: decreased breath sounds Abdomen: normal bowel sounds, non tender, soft Extremities: non-tender Tashi Hope MD November 04, 2019 11:00
[2019-11-04 12:00] VITALS: BP 136/57
[2019-11-04] MEDS: HydrALAZINE 50mg tab ORAL SCH ×2 (14:56→21:55)
[2019-11-04 16:00] VITALS: BP 156/70
--- NOTE | 2019-11-04 16:12 | Surgery Progress Note ---
Surgery Progress Note Subjective Procedure Performed lap rosaura lap lysis of adhesion Additional Comments clinically improving leukocytosis persistent discussed with ID on abx may change tomorrow if labs not improved tolerating diet looks well Objective Last 24 Hour Vital Signs Date Time Temp Pulse Resp B/P (MAP) Pulse Ox O2 Delivery O2 Flow Rate FiO2 11/04/19 14:56 136/57 11/04/19 12:00 97.8 59 18 136/57 (83) 94 11/04/19 11:17 98.1 11/04/19 09:00 Room Air 11/04/19 08:50 93 164/70 11/04/19 08:49 164/70 11/04/19 08:49 93 164/70 11/04/19 08:00 98.1 93 19 164/70 (101) 97 11/04/19 04:57 169/67 11/04/19 04:00 97.6 54 18 169/67 (101) 95 11/04/19 00:00 98.1 64 17 168/66 (100) 95 11/03/19 21:00 Room Air 11/03/19 20:53 166/64 11/03/19 20:52 54 166/64 11/03/19 20:00 97.7 54 17 166/64 (98) 94 11/03/19 19:19 62 153/58 (89) I&O Intake and Output 11/03/19 11/04/19 19:00 07:00 Intake Total 150 ml 440 ml Output Total 400 ml 600 ml Balance -250 ml -160 ml Intake Oral 150 ml 240 ml IV Total 200 ml Output Urine Total 400 ml 600 ml Dressing: dry Wound: clean Cardiovascular: RSR Respiratory: clear Abdomen: soft, non-tender, present bowel sounds Extremities: no tenderness, no cyanosis Laboratory Tests Test 11/04/19 05:20 White Blood Count 17.1 K/UL (4.8-10.8) H Red Blood Count 3.06 M/UL (4.20-5.40) L Hemoglobin 10.0 G/DL (12.0-16.0) L Hematocrit 29.9 % (37.0-47.0) L Mean Corpuscular Volume 98 FL (80-99) Mean Corpuscular Hemoglobin 32.7 PG (27.0-31.0) H Mean Corpuscular Hemoglobin Concent 33.5 G/DL (32.0-36.0) Red Cell Distribution Width 13.2 % (11.6-14.8) Platelet Count 324 K/UL (150-450) Mean Platelet Volume 5.9 FL (6.5-10.1) L Neutrophils (%) (Auto) 78.9 % (45.0-75.0) H Lymphocytes (%) (Auto) 13.9 % (20.0-45.0) L Monocytes (%) (Auto) 5.6 % (1.0-10.0) Eosinophils (%) (Auto) 1.2 % (0.0-3.0) Basophils (%) (Auto) 0.5 % (0.0-2.0) Sodium Level 141 MMOL/L (136-145) Potassium Level 3.7 MMOL/L (3.5-5.1) Chloride Level 107 MMOL/L (98-107) Carbon Dioxide Level 21 MMOL/L (21-32) Anion Gap 13 mmol/L (5-15) Blood Urea Nitrogen 22 mg/dL (7-18) H Creatinine 1.3 MG/DL (0.55-1.30) Estimat Glomerular Filtration Rate 38.6 mL/min (>60) Glucose Level 95 MG/DL (74-106) Calcium Level 8.8 MG/DL (8.5-10.1) Total Bilirubin 0.4 MG/DL (0.2-1.0) Aspartate Amino Transf (AST/SGOT) 17 U/L (15-37) Alanine Aminotransferase (ALT/SGPT) 15 U/L (12-78) Alkaline Phosphatase 184 U/L (46-116) H Total Protein 5.4 G/DL (6.4-8.2) L Albumin 2.1 G/DL (3.4-5.0) L Globulin 3.3 g/dL Albumin/Globulin Ratio 0.6 (1.0-2.7) L Plan Problems: (1) Choledocholithiasis Assessment & Plan: Gallbladder is filled with sludge and also demonstrates gallstones. There is distended and there is trace pericholecystic fluid. Sonographic August's sign is negative. Common bile duct measures 20 mm in diameter. It is filled with debris. There is marked intrahepatic biliary ductal dilatation. Liver demonstrates normal echogenicity, no focal abnormality. Portal vein and hepatic veins are patent. Pancreas is unremarkable. The pancreatic duct is dilated, however, measuring 4 mm in diameter. Spleen is unremarkable. Left kidney measures 9.1 cm in length. Right kidney measures 9.3 cm length. Both kidneys demonstrate increased echogenicity. There is no hydronephrosis. There are bilateral renal cysts . Abdominal aorta is obscured by bowel gas . Biliary ductal dilatation is increased from prior study (2) Acute cholangitis Assessment & Plan: discussed with GI patient currently stable and not septic afebrile, HD Stable labs reviewed and improving hold on ERCP or stent exchange for now no acute surgical intervention given age and status abx iv fluids okay for diet trend labs started ABX discussed with GI may need ERCP / stent change will follow with recs thank you discussed with GI. plan for stent change. would not recommend surgery at this time given age, condition, and overall status would benefit from metallic stent at some point ERCP noted stones, sludge and pus noted discussed with GI. recommend cholecystectomy but high risk will discuss with patient and daughter s/p lap rosaura doing well d/c planning sob, desaturation, a fib fluids stopped labs noted cont abx okay for diet tele transfer Labs improving exam stable Bowel regimen improving d/c planning (3) Obstructive jaundice Jay Kemp November 04, 2019 16:12
[2019-11-04 20:00] VITALS: BP 166/67
--- NOTE | 2019-11-04 21:15 | Progress Note ---
DATE: 11/04/2019 CARDIOLOGY PROGRESS NOTE SUBJECTIVE: Patient without chest pain or shortness of breath. Oxygen saturation on room air is 94 to 97%. Monitored rhythm, sinus with atrial ectopy. Occasional short pauses. No recurring atrial fibrillation. Blood pressure parameters are increasing. PHYSICAL EXAMINATION: LUNGS: Bilateral breath sounds. No wheezing. CARDIAC: Regular rhythm and rate. Normal S1, S2 with a fourth heart sound. ABDOMEN: Soft. No focal tenderness. EXTREMITIES: No edema. LABORATORY DATA: White count 17, hemoglobin 10. Sodium 141, potassium 3.7, bicarb 21, BUN 22, creatinine 1.3. Albumin 2.1. IMPRESSION: 1. Biliary sepsis. 2. Choledocholithiasis, status post ERCP. 3. Paroxysmal atrial fibrillation. 4. Conduction system disease with bradyarrhythmias. 5. Hypertensive heart disease. 6. Acute on chronic diastolic congestive heart failure. PLAN: 1. Advance antihypertensive regimen. 2. Titrate beta-rebeca regimen. 3. Monitor volume status. 4. Periodic diuresis. 5. Continue cardiac monitoring. 6. Trend natriuretic peptide assay. 7. Reassess for diuresis. Yefri Galvan M.D. DR: MITA JOB#: [id number] CC:
[2019-11-05] VITALS (7 sets, daily range): BP systolic 136–185; BP diastolic 60–84
[2019-11-05] MEDS: HydrALAZINE 50mg tab ORAL SCH ×3 (05:51→21:36)
[2019-11-05 08:49] LABS: BASOPHILS % (AUTO) 0.5 % (0.0-2.0); EOSINOPHILS % (AUTO) 1.4 % (0.0-3.0); HEMATOCRIT 31.1 % (37.0-47.0); HEMOGLOBIN 10.4 G/DL (12.0-16.0); LYMPHOCYTES % (AUTO) 12.6 % (20.0-45.0); MEAN CORPUSCULAR VOLUME 98 FL (80-99); MONOCYTES % (AUTO) 5.2 % (1.0-10.0); NEUTROPHILS % (AUTO) 80.3 % (45.0-75.0); PLATELET COUNT 333 K/UL (150-450); RED BLOOD COUNT 3.18 M/UL (4.20-5.40); RED CELL DISTRIBUTION WIDTH 13.5 % (11.6-14.8); WHITE BLOOD COUNT 17.4 K/UL (4.8-10.8)
--- NOTE | 2019-11-05 08:55 | General Progress Note ---
Assessment/Plan Problem List: (1) Cholelithiasis ICD Codes: K80.20 - Calculus of gallbladder without cholecystitis without obstruction SNOMED: 265109355 (2) Dehydration ICD Codes: E86.0 - Dehydration SNOMED: 95321945 (3) Obstructive jaundice ICD Codes: K83.1 - Obstruction of bile duct SNOMED: 39457340 (4) CKD (chronic kidney disease) stage 5, GFR less than 15 ml/min ICD Codes: N18.5 - Chronic kidney disease, stage 5 SNOMED: 827071113 (5) Choledocholithiasis ICD Codes: K80.50 - Calculus of bile duct without cholangitis or cholecystitis without obstruction SNOMED: 384196349 Assessment/Plan: s/p ERCP and stent exchange s/p surg improving LFTS needs out patient fu for repeat ERCP in 8 weeks abx fu surg recs cardiology and pulm eval appreciated repeat labs for AM Subjective Allergies: Coded Allergies: HYDROCODONE (Verified Allergy, Unknown, 06/13/19) Objective Last 24 Hour Vital Signs Date Time Temp Pulse Resp B/P (MAP) Pulse Ox O2 Delivery O2 Flow Rate FiO2 11/05/19 08:00 99.2 66 18 141/68 (92) 94 11/05/19 05:51 150/84 11/05/19 04:30 99.1 69 18 150/84 (106) 95 11/05/19 01:00 167/78 (107) 11/05/19 00:00 98.0 68 18 185/76 (112) 97 11/04/19 23:47 185/76 11/04/19 21:55 169/69 11/04/19 21:00 Room Air 11/04/19 20:00 98.7 61 18 166/67 (100) 97 11/04/19 16:00 97.4 59 19 156/70 (98) 94 11/04/19 14:56 136/57 11/04/19 12:00 97.8 59 18 136/57 (83) 94 11/04/19 11:17 98.1 11/04/19 09:00 Room Air Intake and Output 11/04/19 11/05/19 19:00 07:00 Intake Total 635 ml 100 ml Output Total 350 ml 1550 ml Balance 285 ml -1450 ml Intake Oral 480 ml 100 ml IV Total 155 ml Output Urine Total 350 ml 1550 ml Laboratory Tests 11/05/19 08:33: White Blood Count 17.4H, Red Blood Count 3.18L, Hemoglobin 10.4L, Hematocrit 31.1L, Mean Corpuscular Volume 98, Mean Corpuscular Hemoglobin 32.8H, Mean Corpuscular Hemoglobin Concent 33.5, Red Cell Distribution Width 13.5, Platelet Count 333, Mean Platelet Volume 6.2L, Neutrophils (%) (Auto) 80.3H, Lymphocytes (%) (Auto) 12.6L, Monocytes (%) (Auto) 5.2, Eosinophils (%) (Auto) 1.4, Basophils (%) (Auto) 0.5, Sodium Level [Pending], Potassium Level [Pending], Chloride Level [Pending], Carbon Dioxide Level [Pending], Blood Urea Nitrogen [ Pending], Creatinine [Pending], Estimat Glomerular Filtration Rate [Pending], Glucose Level [Pending], Calcium Level [Pending], Magnesium Level [Pending], Total Bilirubin [Pending], Aspartate Amino Transf (AST/SGOT) [Pending], Alanine Aminotransferase (ALT/SGPT) [Pending], Alkaline Phosphatase [Pending], Pro-B- Type Natriuretic Peptide [Pending], Total Protein [Pending], Albumin [Pending], Globulin [Pending] Height (Feet): 4 Height (Inches): 9.00 Weight (Pounds): 128 General Appearance: no apparent distress EENT: normal ENT inspection Neck: supple Cardiovascular: normal rate Respiratory/Chest: decreased breath sounds Abdomen: normal bowel sounds, non tender, soft Extremities: non-tender Tashi Hope MD November 05, 2019 08:55
[2019-11-05] MEDS: Brimonidine 0.2% Opth Sol BOTH EYES SCH ×2 (09:14→18:37)
[2019-11-05] MEDS: Memantine 5 MG TAB ORAL SCH (09:14)
[2019-11-05] MEDS: Losartan 50mg tab ORAL SCH (09:15)
[2019-11-05] MEDS: Docusate 100mg cap ORAL SCH ×2 (09:15→18:37)
[2019-11-05] MEDS: Allopurinol 100mg Tab ORAL SCH (09:15)
[2019-11-05] MEDS: Aspirin EC 81mg tab ORAL SCH (09:16)
[2019-11-05] MEDS: Metoprolol Succinate XL 25mg tab ORAL SCH (09:16)
[2019-11-05 09:24] LABS: ALANINE AMINOTRANSFERASE 13 U/L (12-78); ALBUMIN 2.2 G/DL (3.4-5.0); ALBUMIN/GLOBULIN RATIO 0.6 (1.0-2.7); ALKALINE PHOSPHATASE 227 U/L (46-116); ANION GAP 9 mmol/L (5-15); ASPARTATE AMINO TRANSFERASE 15 U/L (15-37); BILIRUBIN,TOTAL 0.3 MG/DL (0.2-1.0); BLOOD UREA NITROGEN 19 mg/dL (7-18); CALCIUM 8.7 MG/DL (8.5-10.1); CARBON DIOXIDE 24 MMOL/L (21-32); CHLORIDE 105 MMOL/L (98-107); CREATININE 1.2 MG/DL (0.55-1.30); POTASSIUM 4.1 MMOL/L (3.5-5.1); SODIUM 138 MMOL/L (136-145)
--- NOTE | 2019-11-05 09:39 | General Progress Note ---
Assessment/Plan Assessment/Plan: Cholecystitis/cholangitis Previous CBD stent, elevated CA 199 Hypertension Hypertensive heart disease Alzheimer's dementia Gout Failure to thrive Status post ERCP x2 elevated Liver enzymes leukocytosis postop pneumonia PLAN monitor BP RX and increase if needed further await improvement in wbc eye drops added ID noted folliow up imaging for change not yet stable for dc / hope to get home soon impression, plan, and exam edited and reviewed in detail care discussed with RN Subjective Allergies: Coded Allergies: HYDROCODONE (Verified Allergy, Unknown, 06/13/19) Subjective persistently elevated wbc d/w surgery antibotics noted ID reviewed elevated bp better Objective Last 24 Hour Vital Signs Date Time Temp Pulse Resp B/P (MAP) Pulse Ox O2 Delivery O2 Flow Rate FiO2 11/05/19 09:16 66 141/68 11/05/19 09:15 141/68 11/05/19 09:14 66 141/68 11/05/19 08:00 99.2 66 18 141/68 (92) 94 11/05/19 05:51 150/84 11/05/19 04:30 99.1 69 18 150/84 (106) 95 11/05/19 01:00 167/78 (107) 11/05/19 00:00 98.0 68 18 185/76 (112) 97 11/04/19 23:47 185/76 11/04/19 21:55 169/69 11/04/19 21:00 Room Air 11/04/19 20:00 98.7 61 18 166/67 (100) 97 11/04/19 16:00 97.4 59 19 156/70 (98) 94 11/04/19 14:56 136/57 11/04/19 12:00 97.8 59 18 136/57 (83) 94 11/04/19 11:17 98.1 Intake and Output 11/04/19 11/05/19 19:00 07:00 Intake Total 635 ml 100 ml Output Total 350 ml 1550 ml Balance 285 ml -1450 ml Intake Oral 480 ml 100 ml IV Total 155 ml Output Urine Total 350 ml 1550 ml Laboratory Tests 11/05/19 08:33: White Blood Count 17.4H, Red Blood Count 3.18L, Hemoglobin 10.4L, Hematocrit 31.1L, Mean Corpuscular Volume 98, Mean Corpuscular Hemoglobin 32.8H, Mean Corpuscular Hemoglobin Concent 33.5, Red Cell Distribution Width 13.5, Platelet Count 333, Mean Platelet Volume 6.2L, Neutrophils (%) (Auto) 80.3H, Lymphocytes (%) (Auto) 12.6L, Monocytes (%) (Auto) 5.2, Eosinophils (%) (Auto) 1.4, Basophils (%) (Auto) 0.5, Sodium Level 138, Potassium Level 4.1, Chloride Level 105, Carbon Dioxide Level 24, Anion Gap 9, Blood Urea Nitrogen 19H, Creatinine 1.2, Estimat Glomerular Filtration Rate 42.3, Glucose Level 148H, Calcium Level 8.7, Magnesium Level 1.7L, Total Bilirubin 0.3, Aspartate Amino Transf (AST/SGOT ) 15, Alanine Aminotransferase (ALT/SGPT) 13, Alkaline Phosphatase 227H, Pro-B- Type Natriuretic Peptide 7677H, Total Protein 5.7L, Albumin 2.2L, Globulin 3.5, Albumin/Globulin Ratio 0.6L Height (Feet): 4 Height (Inches): 9.00 Weight (Pounds): 128 Objective WDWN NAD reduced breath sounds bilaterally with rhonchi [id number] without MRG NABS no distention no CCE nonfocal confused Roel Jack MD November 05, 2019 09:39
[2019-11-05] MEDS: cefTRIAXone 1 GM in D5W 55 ML IVPB SCH (10:20)
--- NOTE | 2019-11-05 10:40 | Infectious Diseases Prog Note ---
Assessment/Plan Assessment/Plan antibiotics : ceftriaxone, flagyl A 1. Cholangitis. She underwent a laparoscopic cholecystectomy. 2. Leukocytosis 3. Hypertension. 4. Gout. 5. Pneumonia. P 1. continue ceftriaxone, flagyl 2. will follow up cultures Subjective ROS Limited/Unobtainable: Yes Allergies: Coded Allergies: HYDROCODONE (Verified Allergy, Unknown, 06/13/19) Objective Vital Signs Last 24 Hour Vital Signs Date Time Temp Pulse Resp B/P (MAP) Pulse Ox O2 Delivery O2 Flow Rate FiO2 11/05/19 09:16 66 141/68 11/05/19 09:15 141/68 11/05/19 09:14 66 141/68 11/05/19 08:00 99.2 66 18 141/68 (92) 94 11/05/19 05:51 150/84 11/05/19 04:30 99.1 69 18 150/84 (106) 95 11/05/19 01:00 167/78 (107) 11/05/19 00:00 98.0 68 18 185/76 (112) 97 11/04/19 23:47 185/76 11/04/19 21:55 169/69 11/04/19 21:00 Room Air 11/04/19 20:00 98.7 61 18 166/67 (100) 97 11/04/19 16:00 97.4 59 19 156/70 (98) 94 11/04/19 14:56 136/57 11/04/19 12:00 97.8 59 18 136/57 (83) 94 11/04/19 11:17 98.1 Height (Feet): 4 Height (Inches): 9.00 Weight (Pounds): 128 Respiratory/Chest: lungs clear Cardiovascular: normal rate, regular rhythm, no gallop/murmur Abdomen: soft, non tender, other - wounds clean Extremities: no edema Laboratory Tests Test 11/05/19 08:33 White Blood Count 17.4 K/UL (4.8-10.8) H Red Blood Count 3.18 M/UL (4.20-5.40) L Hemoglobin 10.4 G/DL (12.0-16.0) L Hematocrit 31.1 % (37.0-47.0) L Mean Corpuscular Volume 98 FL (80-99) Mean Corpuscular Hemoglobin 32.8 PG (27.0-31.0) H Mean Corpuscular Hemoglobin Concent 33.5 G/DL (32.0-36.0) Red Cell Distribution Width 13.5 % (11.6-14.8) Platelet Count 333 K/UL (150-450) Mean Platelet Volume 6.2 FL (6.5-10.1) L Neutrophils (%) (Auto) 80.3 % (45.0-75.0) H Lymphocytes (%) (Auto) 12.6 % (20.0-45.0) L Monocytes (%) (Auto) 5.2 % (1.0-10.0) Eosinophils (%) (Auto) 1.4 % (0.0-3.0) Basophils (%) (Auto) 0.5 % (0.0-2.0) Sodium Level 138 MMOL/L (136-145) Potassium Level 4.1 MMOL/L (3.5-5.1) Chloride Level 105 MMOL/L (98-107) Carbon Dioxide Level 24 MMOL/L (21-32) Anion Gap 9 mmol/L (5-15) Blood Urea Nitrogen 19 mg/dL (7-18) H Creatinine 1.2 MG/DL (0.55-1.30) Estimat Glomerular Filtration Rate 42.3 mL/min (>60) Glucose Level 148 MG/DL (74-106) H Calcium Level 8.7 MG/DL (8.5-10.1) Magnesium Level 1.7 MG/DL (1.8-2.4) L Total Bilirubin 0.3 MG/DL (0.2-1.0) Aspartate Amino Transf (AST/SGOT) 15 U/L (15-37) Alanine Aminotransferase (ALT/SGPT) 13 U/L (12-78) Alkaline Phosphatase 227 U/L (46-116) H Pro-B-Type Natriuretic Peptide 7677 pg/mL (0-125) H Total Protein 5.7 G/DL (6.4-8.2) L Albumin 2.2 G/DL (3.4-5.0) L Globulin 3.5 g/dL Albumin/Globulin Ratio 0.6 (1.0-2.7) L Current Medications Medications (Trade) Dose Ordered Sig/Manny Route PRN Reason Start Time Stop Time Status Last Admin Dose Admin Acetaminophen (Tylenol) 650 mg Q4H PRN ORAL Mild Pain (Pain Scale 1-3) 11/03/19 14:00 11/22/19 13:59 11/04/19 10:47 Al Hydroxide/Mg Hydroxide (Mylanta) 15 ml Q6H PRN ORAL DYSPEPSIA 11/03/19 14:00 11/28/19 13:59 Allopurinol (Zyloprim) 100 mg DAILY ORAL 11/04/19 09:00 11/23/19 08:59 11/05/19 09:15 Amlodipine Besylate (Norvasc) 5 mg DAILY ORAL 11/04/19 09:00 12/01/19 18:59 11/05/19 09:14 Aspirin (Ecotrin) 81 mg DAILY ORAL 11/04/19 09:00 12/08/19 08:59 11/05/19 09:16 Brimonidine Tartrate (Alphagan) 1 drop BID BOTH EYES 11/05/19 09:00 02/03/20 08:59 11/05/19 09:14 Ceftriaxone Sodium 1 gm/ Dextrose 55 ml @ 110 mls/hr Q24H IVPB 11/04/19 10:00 11/06/19 09:59 11/05/19 10:20 Diphenhydramine HCl (Benadryl) 25 mg Q8H PRN ORAL Itching/Pruritis 11/03/19 14:00 11/28/19 13:59 Docusate Sodium (Colace) 100 mg TWICE A DAY ORAL 11/03/19 18:00 11/28/19 17:59 11/05/19 09:15 Ferrous Sulfate (Feosol) 325 mg DAILY ORAL 11/04/19 09:00 01/22/20 08:59 11/05/19 09:14 Hydralazine HCl (Apresoline) 25 mg Q6H PRN ORAL SBP>150 11/04/19 03:00 02/02/20 02:59 11/04/19 23:47 Hydralazine HCl (Apresoline) 50 mg Q8HR ORAL 11/04/19 14:00 02/02/20 13:59 11/05/19 05:51 Losartan Potassium (Cozaar) 100 mg DAILY ORAL 11/04/19 09:00 11/23/19 08:59 11/05/19 09:15 Magnesium Hydroxide (Mom) 30 ml BIDPRN PRN ORAL Constipation 11/03/19 14:00 12/01/19 13:59 Memantine (Namenda) 5 mg DAILY ORAL 11/04/19 09:00 11/23/19 08:59 11/05/19 09:14 Metoprolol Succinate (Toprol XL) 25 mg DAILY ORAL 11/04/19 09:00 02/02/20 08:59 11/05/19 09:16 Metronidazole 100 ml @ 100 mls/hr Q8H IVPB 11/03/19 19:00 11/06/19 10:59 11/05/19 02:36 Morphine Sulfate (Morphine Sulfate) 1 mg Q4H PRN IVP pain scale 1-3 11/03/19 14:00 11/05/19 13:59 Morphine Sulfate (Morphine Sulfate) 2 mg Q4H PRN IVP pain scale 4-6 11/03/19 14:00 11/05/19 13:59 11/05/19 04:38 Morphine Sulfate (Morphine Sulfate) 4 mg Q4H PRN IVP Severe Pain (Pain Scale 7-10) 11/03/19 14:00 11/05/19 13:59 11/04/19 22:01 Ondansetron HCl (Zofran) 4 mg Q6H PRN IVP Nausea & Vomiting 11/03/19 14:00 11/28/19 13:59 11/04/19 23:46 Pantoprazole (Protonix) 40 mg DAILY ORAL 11/04/19 09:00 11/23/19 08:59 11/05/19 09:14 Sennosides (Senokot) 8.6 mg BIDPRN PRN ORAL Constipation 11/03/19 14:00 12/01/19 13:59 11/04/19 20:19 Maryjane Cheng MD November 05, 2019 10:40
--- NOTE | 2019-11-05 15:01 | Surgery Progress Note ---
Surgery Progress Note Subjective Procedure Performed lap rosaura lap lysis of adhesion Additional Comments no acute events comfortable stable no n/v/f/c labs noted. wbc persistent discussed with Id and pcp Objective Last 24 Hour Vital Signs Date Time Temp Pulse Resp B/P (MAP) Pulse Ox O2 Delivery O2 Flow Rate FiO2 11/05/19 14:56 146/63 11/05/19 12:00 98.6 61 16 146/63 (90) 93 11/05/19 09:16 66 141/68 11/05/19 09:15 141/68 11/05/19 09:14 66 141/68 11/05/19 08:00 99.2 66 18 141/68 (92) 94 11/05/19 05:51 150/84 11/05/19 04:30 99.1 69 18 150/84 (106) 95 11/05/19 01:00 167/78 (107) 11/05/19 00:00 98.0 68 18 185/76 (112) 97 11/04/19 23:47 185/76 11/04/19 21:55 169/69 11/04/19 21:00 Room Air 11/04/19 20:00 98.7 61 18 166/67 (100) 97 11/04/19 16:00 97.4 59 19 156/70 (98) 94 I&O Intake and Output 11/04/19 11/05/19 19:00 07:00 Intake Total 635 ml 100 ml Output Total 350 ml 1550 ml Balance 285 ml -1450 ml Intake Oral 480 ml 100 ml IV Total 155 ml Output Urine Total 350 ml 1550 ml Dressing: dry Wound: clean Drains: hemovac Respiratory: clear Abdomen: soft, non-tender, present bowel sounds Extremities: no edema, no tenderness, no cyanosis Laboratory Tests Test 11/05/19 08:33 White Blood Count 17.4 K/UL (4.8-10.8) H Red Blood Count 3.18 M/UL (4.20-5.40) L Hemoglobin 10.4 G/DL (12.0-16.0) L Hematocrit 31.1 % (37.0-47.0) L Mean Corpuscular Volume 98 FL (80-99) Mean Corpuscular Hemoglobin 32.8 PG (27.0-31.0) H Mean Corpuscular Hemoglobin Concent 33.5 G/DL (32.0-36.0) Red Cell Distribution Width 13.5 % (11.6-14.8) Platelet Count 333 K/UL (150-450) Mean Platelet Volume 6.2 FL (6.5-10.1) L Neutrophils (%) (Auto) 80.3 % (45.0-75.0) H Lymphocytes (%) (Auto) 12.6 % (20.0-45.0) L Monocytes (%) (Auto) 5.2 % (1.0-10.0) Eosinophils (%) (Auto) 1.4 % (0.0-3.0) Basophils (%) (Auto) 0.5 % (0.0-2.0) Sodium Level 138 MMOL/L (136-145) Potassium Level 4.1 MMOL/L (3.5-5.1) Chloride Level 105 MMOL/L (98-107) Carbon Dioxide Level 24 MMOL/L (21-32) Anion Gap 9 mmol/L (5-15) Blood Urea Nitrogen 19 mg/dL (7-18) H Creatinine 1.2 MG/DL (0.55-1.30) Estimat Glomerular Filtration Rate 42.3 mL/min (>60) Glucose Level 148 MG/DL (74-106) H Calcium Level 8.7 MG/DL (8.5-10.1) Magnesium Level 1.7 MG/DL (1.8-2.4) L Total Bilirubin 0.3 MG/DL (0.2-1.0) Aspartate Amino Transf (AST/SGOT) 15 U/L (15-37) Alanine Aminotransferase (ALT/SGPT) 13 U/L (12-78) Alkaline Phosphatase 227 U/L (46-116) H Pro-B-Type Natriuretic Peptide 7677 pg/mL (0-125) H Total Protein 5.7 G/DL (6.4-8.2) L Albumin 2.2 G/DL (3.4-5.0) L Globulin 3.5 g/dL Albumin/Globulin Ratio 0.6 (1.0-2.7) L Plan Problems: (1) Choledocholithiasis Assessment & Plan: Gallbladder is filled with sludge and also demonstrates gallstones. There is distended and there is trace pericholecystic fluid. Sonographic August's sign is negative. Common bile duct measures 20 mm in diameter. It is filled with debris. There is marked intrahepatic biliary ductal dilatation. Liver demonstrates normal echogenicity, no focal abnormality. Portal vein and hepatic veins are patent. Pancreas is unremarkable. The pancreatic duct is dilated, however, measuring 4 mm in diameter. Spleen is unremarkable. Left kidney measures 9.1 cm in length. Right kidney measures 9.3 cm length. Both kidneys demonstrate increased echogenicity. There is no hydronephrosis. There are bilateral renal cysts . Abdominal aorta is obscured by bowel gas . Biliary ductal dilatation is increased from prior study (2) Acute cholangitis Assessment & Plan: discussed with GI patient currently stable and not septic afebrile, HD Stable labs reviewed and improving hold on ERCP or stent exchange for now no acute surgical intervention given age and status abx iv fluids okay for diet trend labs started ABX discussed with GI may need ERCP / stent change will follow with recs thank you discussed with GI. plan for stent change. would not recommend surgery at this time given age, condition, and overall status would benefit from metallic stent at some point ERCP noted stones, sludge and pus noted discussed with GI. recommend cholecystectomy but high risk will discuss with patient and daughter s/p lap rosaura doing well d/c planning sob, desaturation, a fib fluids stopped labs noted cont abx okay for diet tele transfer Labs improving exam stable Bowel regimen improving d/c planning (3) Obstructive jaundice Jay Kemp November 05, 2019 15:01
[2019-11-05] MEDS ORDERED: Morphine Sulfate 2mg/ml Inj(IV/IM USE ONLY) IVP PRN ×2 (20:15)
[2019-11-05] MEDS: Morphine Sulfate 4mg/ml Inj (IV USE ONLY) IVP PRN (22:42)
[2019-11-06] VITALS: BP 138/58
[2019-11-06 05:30] VITALS: BP 152/62
[2019-11-06] MEDS: Morphine Sulfate 4mg/ml Inj (IV USE ONLY) IVP PRN (05:44)
[2019-11-06] MEDS: HydrALAZINE 50mg tab ORAL SCH ×3 (05:44→21:22)
--- NOTE | 2019-11-06 06:29 | Progress Note ---
DATE: 11/05/2019 CARDIOLOGY PROGRESS NOTE SUBJECTIVE: Low-grade temperature, rising white count, blood pressure control is slightly better. Oxygen saturation 94 to 97 percent on room air. The patient is on antimicrobials. Monitored rhythm sinus with atrial ectopics. No pauses. No recurring atrial fibrillation. PHYSICAL EXAMINATION: LUNGS: Diminished breath sounds. No wheezing or rales. CARDIAC: Regular rhythm and rate. Occasional ectopic beats. Normal S1, S2. ABDOMEN: Soft. EXTREMITIES: No edema. LABORATORY DATA: White count 17, hemoglobin 10. Potassium 4.1, magnesium 1.7. BUN 19, creatinine 1.2. Pro natriuretic peptide has decreased to 7600. IMPRESSION: 1. Status post ERCP. 2. History of biliary stent. 3. Persisting and worsening leukocytosis. 4. Hypomagnesemia. 5. Hypokalemia. 6. Hypertensive heart disease. 7. Acute on chronic diastolic congestive heart failure. PLAN: 1. Antimicrobials. 2. Monitor liver function studies. 3. IV magnesium. 4. Replace potassium as needed. 5. Titrating antihypertensives. 6. Avoiding orthostasis. 7. Monitor volume status and diuresis based on clinical parameters. Yefri Galvan M.D. DR: Ugo JOB#: [id number] CC:
[2019-11-06 07:10] LABS: BASOPHILS % (AUTO) 0.4 % (0.0-2.0); EOSINOPHILS % (AUTO) 1.4 % (0.0-3.0); HEMATOCRIT 28.3 % (37.0-47.0); HEMOGLOBIN 9.6 G/DL (12.0-16.0); LYMPHOCYTES % (AUTO) 13.9 % (20.0-45.0); MEAN CORPUSCULAR VOLUME 98 FL (80-99); MONOCYTES % (AUTO) 6.2 % (1.0-10.0); NEUTROPHILS % (AUTO) 78.1 % (45.0-75.0); PLATELET COUNT 335 K/UL (150-450); RED BLOOD COUNT 2.88 M/UL (4.20-5.40); RED CELL DISTRIBUTION WIDTH 13.4 % (11.6-14.8); WHITE BLOOD COUNT 16.6 K/UL (4.8-10.8)
[2019-11-06 07:21] LABS: ALANINE AMINOTRANSFERASE 12 U/L (12-78); ALBUMIN/GLOBULIN RATIO 0.6 (1.0-2.7); ALKALINE PHOSPHATASE 182 U/L (46-116); ANION GAP 7 mmol/L (5-15); ASPARTATE AMINO TRANSFERASE 14 U/L (15-37); BILIRUBIN,TOTAL 0.3 MG/DL (0.2-1.0); BLOOD UREA NITROGEN 17 mg/dL (7-18); CALCIUM 8.6 MG/DL (8.5-10.1); CARBON DIOXIDE 25 MMOL/L (21-32); CHLORIDE 106 MMOL/L (98-107); CREATININE 1.3 MG/DL (0.55-1.30); POTASSIUM 4.1 MMOL/L (3.5-5.1); SODIUM 138 MMOL/L (136-145)
[2019-11-06 08:00] VITALS: BP 133/55
--- NOTE | 2019-11-06 09:09 | General Progress Note ---
Assessment/Plan Assessment/Plan: Cholecystitis/cholangitis Previous CBD stent, elevated CA 199 Hypertension Hypertensive heart disease Alzheimer's dementia Gout Failure to thrive Status post ERCP x2 elevated Liver enzymes leukocytosis postop pneumonia PLAN await improvement in wbc eye drops ID noted and awaiting clearance folliow up imaging for change not yet stable for dc / hope to get home soon with HH impression, plan, and exam edited and reviewed in detail care discussed with RN Subjective Allergies: Coded Allergies: HYDROCODONE (Verified Allergy, Unknown, 06/13/19) Subjective persistently elevated wbc not much improved antibiotics noted ID reviewed and discussed Objective Last 24 Hour Vital Signs Date Time Temp Pulse Resp B/P (MAP) Pulse Ox O2 Delivery O2 Flow Rate FiO2 11/06/19 08:00 98.3 64 20 133/55 (81) 94 11/06/19 05:44 152/62 11/06/19 05:30 98.2 60 20 152/62 (92) 99 11/06/19 00:00 97.9 63 20 138/58 (84) 95 11/05/19 21:36 136/60 11/05/19 21:00 Room Air 11/05/19 20:00 97.6 63 20 136/60 (85) 94 11/05/19 16:00 98.8 52 20 150/65 (93) 93 11/05/19 14:56 146/63 11/05/19 12:00 98.6 61 16 146/63 (90) 93 11/05/19 09:16 66 141/68 11/05/19 09:15 141/68 11/05/19 09:14 66 141/68 Intake and Output 11/05/19 11/06/19 19:00 07:00 Intake Total 300 ml 100 ml Output Total 400 ml 350 ml Balance -100 ml -250 ml Intake Oral 300 ml 100 ml Output Urine Total 400 ml 350 ml Laboratory Tests 11/06/19 05:05: White Blood Count 16.6H, Red Blood Count 2.88L, Hemoglobin 9.6L, Hematocrit 28.3L, Mean Corpuscular Volume 98, Mean Corpuscular Hemoglobin 33.3H, Mean Corpuscular Hemoglobin Concent 33.9, Red Cell Distribution Width 13.4, Platelet Count 335, Mean Platelet Volume 6.0L, Neutrophils (%) (Auto) 78.1H, Lymphocytes (%) (Auto) 13.9L, Monocytes (%) (Auto) 6.2, Eosinophils (%) (Auto) 1.4, Basophils (%) (Auto) 0.4, Sodium Level 138, Potassium Level 4.1, Chloride Level 106, Carbon Dioxide Level 25, Anion Gap 7, Blood Urea Nitrogen 17, Creatinine 1.3, Estimat Glomerular Filtration Rate 38.6, Glucose Level 96, Calcium Level 8.6, Total Bilirubin 0.3, Aspartate Amino Transf (AST/SGOT) 14L, Alanine Aminotransferase (ALT/SGPT) 12, Alkaline Phosphatase 182H, Pro-B-Type Natriuretic Peptide [Pending], Total Protein 5.4L, Albumin 2.0L, Globulin 3.4, Albumin/Globulin Ratio 0.6L Height (Feet): 4 Height (Inches): 9.00 Weight (Pounds): 128 Objective WDWN NAD reduced breath sounds bilaterally with rhonchi [id number] without MRG NABS no distention no CCE nonfocal confused reviewed and edited Roel Jack MD November 06, 2019 09:08
[2019-11-06] MEDS: cefTRIAXone 1 GM in D5W 55 ML IVPB SCH (09:42)
[2019-11-06] MEDS: Brimonidine 0.2% Opth Sol BOTH EYES SCH ×2 (09:42→18:17)
[2019-11-06] MEDS: Docusate 100mg cap ORAL SCH ×2 (09:42→18:17)
[2019-11-06] MEDS: Losartan 50mg tab ORAL SCH (09:43)
[2019-11-06] MEDS: Memantine 5 MG TAB ORAL SCH (09:43)
[2019-11-06] MEDS: Allopurinol 100mg Tab ORAL SCH (09:43)
[2019-11-06] MEDS: Aspirin EC 81mg tab ORAL SCH (09:43)
[2019-11-06] MEDS: Metoprolol Succinate XL 25mg tab ORAL SCH (09:43)
--- NOTE | 2019-11-06 10:46 | Infectious Diseases Prog Note ---
Assessment/Plan Assessment/Plan A 1. Cholangitis. She underwent a laparoscopic cholecystectomy. 2. Leukocytosis 3. Hypertension. 4. Gout. 5. Pneumonia. 6. s/p ERCP & biliary stent P 1. continue ceftriaxone, Flagyl 2. will follow up cultures Subjective ROS Limited/Unobtainable: Yes Constitutional: Reports: no symptoms Respiratory: Reports: no symptoms Gastrointestinal/Abdominal: Reports: other - pain Genitourinary: Reports: no symptoms Allergies: Coded Allergies: HYDROCODONE (Verified Allergy, Unknown, 06/13/19) Objective Vital Signs Last 24 Hour Vital Signs Date Time Temp Pulse Resp B/P (MAP) Pulse Ox O2 Delivery O2 Flow Rate FiO2 11/06/19 09:43 64 133/55 11/06/19 09:43 133/55 11/06/19 09:42 64 133/55 11/06/19 09:00 Room Air 11/06/19 08:00 98.3 64 20 133/55 (81) 94 11/06/19 05:44 152/62 11/06/19 05:30 98.2 60 20 152/62 (92) 99 11/06/19 00:00 97.9 63 20 138/58 (84) 95 11/05/19 21:36 136/60 11/05/19 21:00 Room Air 11/05/19 20:00 97.6 63 20 136/60 (85) 94 11/05/19 16:00 98.8 52 20 150/65 (93) 93 11/05/19 14:56 146/63 11/05/19 12:00 98.6 61 16 146/63 (90) 93 Height (Feet): 4 Height (Inches): 9.00 Weight (Pounds): 128 General Appearance: no acute distress HEENT: mucous membranes moist Respiratory/Chest: lungs clear Cardiovascular: normal rate Abdomen: soft, non tender Extremities: no edema, other - Bilateral SCD of legs Neurologic/Psychiatric: alert, responsive Laboratory Tests Test 11/06/19 05:05 White Blood Count 16.6 K/UL (4.8-10.8) H Red Blood Count 2.88 M/UL (4.20-5.40) L Hemoglobin 9.6 G/DL (12.0-16.0) L Hematocrit 28.3 % (37.0-47.0) L Mean Corpuscular Volume 98 FL (80-99) Mean Corpuscular Hemoglobin 33.3 PG (27.0-31.0) H Mean Corpuscular Hemoglobin Concent 33.9 G/DL (32.0-36.0) Red Cell Distribution Width 13.4 % (11.6-14.8) Platelet Count 335 K/UL (150-450) Mean Platelet Volume 6.0 FL (6.5-10.1) L Neutrophils (%) (Auto) 78.1 % (45.0-75.0) H Lymphocytes (%) (Auto) 13.9 % (20.0-45.0) L Monocytes (%) (Auto) 6.2 % (1.0-10.0) Eosinophils (%) (Auto) 1.4 % (0.0-3.0) Basophils (%) (Auto) 0.4 % (0.0-2.0) Sodium Level 138 MMOL/L (136-145) Potassium Level 4.1 MMOL/L (3.5-5.1) Chloride Level 106 MMOL/L (98-107) Carbon Dioxide Level 25 MMOL/L (21-32) Anion Gap 7 mmol/L (5-15) Blood Urea Nitrogen 17 mg/dL (7-18) Creatinine 1.3 MG/DL (0.55-1.30) Estimat Glomerular Filtration Rate 38.6 mL/min (>60) Glucose Level 96 MG/DL (74-106) Calcium Level 8.6 MG/DL (8.5-10.1) Total Bilirubin 0.3 MG/DL (0.2-1.0) Aspartate Amino Transf (AST/SGOT) 14 U/L (15-37) L Alanine Aminotransferase (ALT/SGPT) 12 U/L (12-78) Alkaline Phosphatase 182 U/L (46-116) H Pro-B-Type Natriuretic Peptide Pending Total Protein 5.4 G/DL (6.4-8.2) L Albumin 2.0 G/DL (3.4-5.0) L Globulin 3.4 g/dL Albumin/Globulin Ratio 0.6 (1.0-2.7) L Current Medications Medications (Trade) Dose Ordered Sig/Manny Route PRN Reason Start Time Stop Time Status Last Admin Dose Admin Acetaminophen (Tylenol) 650 mg Q4H PRN ORAL Mild Pain (Pain Scale 1-3) 11/03/19 14:00 11/22/19 13:59 11/04/19 10:47 Al Hydroxide/Mg Hydroxide (Mylanta) 15 ml Q6H PRN ORAL DYSPEPSIA 11/03/19 14:00 11/28/19 13:59 Allopurinol (Zyloprim) 100 mg DAILY ORAL 11/04/19 09:00 11/23/19 08:59 11/06/19 09:43 Amlodipine Besylate (Norvasc) 5 mg DAILY ORAL 11/04/19 09:00 12/01/19 18:59 11/06/19 09:42 Aspirin (Ecotrin) 81 mg DAILY ORAL 11/04/19 09:00 12/08/19 08:59 11/06/19 09:43 Brimonidine Tartrate (Alphagan) 1 drop BID BOTH EYES 11/05/19 09:00 02/03/20 08:59 11/06/19 09:42 Ceftriaxone Sodium 1 gm/ Dextrose 55 ml @ 110 mls/hr Q24H IVPB 11/04/19 10:00 11/07/19 09:59 11/06/19 09:42 Diphenhydramine HCl (Benadryl) 25 mg Q8H PRN ORAL Itching/Pruritis 11/03/19 14:00 11/28/19 13:59 Docusate Sodium (Colace) 100 mg TWICE A DAY ORAL 11/03/19 18:00 11/28/19 17:59 11/06/19 09:42 Ferrous Sulfate (Feosol) 325 mg DAILY ORAL 11/04/19 09:00 01/22/20 08:59 11/06/19 09:43 Hydralazine HCl (Apresoline) 25 mg Q6H PRN ORAL SBP>150 11/04/19 03:00 02/02/20 02:59 11/04/19 23:47 Hydralazine HCl (Apresoline) 50 mg Q8HR ORAL 11/04/19 14:00 02/02/20 13:59 11/06/19 05:44 Losartan Potassium (Cozaar) 100 mg DAILY ORAL 11/04/19 09:00 11/23/19 08:59 11/06/19 09:43 Magnesium Hydroxide (Mom) 30 ml BIDPRN PRN ORAL Constipation 11/03/19 14:00 12/01/19 13:59 Memantine (Namenda) 5 mg DAILY ORAL 11/04/19 09:00 11/23/19 08:59 11/06/19 09:43 Metoprolol Succinate (Toprol XL) 25 mg DAILY ORAL 11/04/19 09:00 02/02/20 08:59 11/06/19 09:43 Metronidazole 100 ml @ 100 mls/hr Q8H IVPB 11/03/19 19:00 11/07/19 18:59 11/06/19 03:24 Morphine Sulfate (Morphine Sulfate) 2 mg Q4H PRN IVP Mild Pain (Pain Scale 1-3) 11/05/19 20:15 11/12/19 20:14 Morphine Sulfate (Morphine Sulfate) 2 mg Q4H PRN IVP Moderate Pain (Pain Scale 4-6) 11/05/19 20:15 11/12/19 20:14 Morphine Sulfate (Morphine Sulfate) 4 mg Q4H PRN IVP Severe Pain (Pain Scale 7-10) 11/05/19 20:15 11/12/19 20:14 11/06/19 05:44 Ondansetron HCl (Zofran) 4 mg Q6H PRN IVP Nausea & Vomiting 11/03/19 14:00 11/28/19 13:59 11/04/19 23:46 Pantoprazole (Protonix) 40 mg DAILY ORAL 11/04/19 09:00 11/23/19 08:59 11/06/19 09:42 Sennosides (Senokot) 8.6 mg BIDPRN PRN ORAL Constipation 11/03/19 14:00 12/01/19 13:59 11/04/19 20:19 Brenden Moreno MD November 06, 2019 10:46
--- NOTE | 2019-11-06 11:00 | General Progress Note ---
Assessment/Plan Problem List: (1) Cholelithiasis ICD Codes: K80.20 - Calculus of gallbladder without cholecystitis without obstruction SNOMED: 293128098 (2) Dehydration ICD Codes: E86.0 - Dehydration SNOMED: 87787061 (3) Obstructive jaundice ICD Codes: K83.1 - Obstruction of bile duct SNOMED: 99732383 (4) CKD (chronic kidney disease) stage 5, GFR less than 15 ml/min ICD Codes: N18.5 - Chronic kidney disease, stage 5 SNOMED: 444327964 (5) Choledocholithiasis ICD Codes: K80.50 - Calculus of bile duct without cholangitis or cholecystitis without obstruction SNOMED: 377138447 Assessment/Plan: s/p ERCP and stent exchange s/p surg improving LFTS needs out patient fu for repeat ERCP in 8 weeks abx fu surg recs cardiology and pulm eval appreciated repeat labs for AM Subjective ROS Limited/Unobtainable: No Allergies: Coded Allergies: HYDROCODONE (Verified Allergy, Unknown, 06/13/19) Objective Last 24 Hour Vital Signs Date Time Temp Pulse Resp B/P (MAP) Pulse Ox O2 Delivery O2 Flow Rate FiO2 11/06/19 09:43 64 133/55 11/06/19 09:43 133/55 11/06/19 09:42 64 133/55 11/06/19 09:00 Room Air 11/06/19 08:00 98.3 64 20 133/55 (81) 94 11/06/19 05:44 152/62 11/06/19 05:30 98.2 60 20 152/62 (92) 99 11/06/19 00:00 97.9 63 20 138/58 (84) 95 11/05/19 21:36 136/60 11/05/19 21:00 Room Air 11/05/19 20:00 97.6 63 20 136/60 (85) 94 11/05/19 16:00 98.8 52 20 150/65 (93) 93 11/05/19 14:56 146/63 11/05/19 12:00 98.6 61 16 146/63 (90) 93 Intake and Output 11/05/19 11/06/19 18:59 06:59 Intake Total 300 ml 100 ml Output Total 400 ml 350 ml Balance -100 ml -250 ml Intake Oral 300 ml 100 ml Output Urine Total 400 ml 350 ml Laboratory Tests 11/06/19 05:05: White Blood Count 16.6H, Red Blood Count 2.88L, Hemoglobin 9.6L, Hematocrit 28.3L, Mean Corpuscular Volume 98, Mean Corpuscular Hemoglobin 33.3H, Mean Corpuscular Hemoglobin Concent 33.9, Red Cell Distribution Width 13.4, Platelet Count 335, Mean Platelet Volume 6.0L, Neutrophils (%) (Auto) 78.1H, Lymphocytes (%) (Auto) 13.9L, Monocytes (%) (Auto) 6.2, Eosinophils (%) (Auto) 1.4, Basophils (%) (Auto) 0.4, Sodium Level 138, Potassium Level 4.1, Chloride Level 106, Carbon Dioxide Level 25, Anion Gap 7, Blood Urea Nitrogen 17, Creatinine 1.3, Estimat Glomerular Filtration Rate 38.6, Glucose Level 96, Calcium Level 8.6, Total Bilirubin 0.3, Aspartate Amino Transf (AST/SGOT) 14L, Alanine Aminotransferase (ALT/SGPT) 12, Alkaline Phosphatase 182H, Pro-B-Type Natriuretic Peptide [Pending], Total Protein 5.4L, Albumin 2.0L, Globulin 3.4, Albumin/Globulin Ratio 0.6L Height (Feet): 4 Height (Inches): 9.00 Weight (Pounds): 128 General Appearance: no apparent distress EENT: normal ENT inspection Neck: supple Cardiovascular: normal rate Respiratory/Chest: decreased breath sounds Abdomen: normal bowel sounds, non tender, soft Extremities: non-tender Tashi Hope MD November 06, 2019 11:00
[2019-11-06 12:00] VITALS: BP 156/65
[2019-11-06 16:00] VITALS: BP 150/59
--- NOTE | 2019-11-06 17:15 | Progress Note ---
DATE: 11/06/2019 CARDIOLOGY PROGRESS NOTE SUBJECTIVE: The patient remains afebrile, no respiratory distress. No signs of recurring atrial fibrillation, rapid rate. PHYSICAL EXAMINATION: VITAL SIGNS: Blood pressure 133/55, heart rate 64, respiratory rate 20. LUNGS: Clear with slightly diminished breath sounds. CARDIAC: Regular rhythm rate. Normal S1, S2 with occasional ectopic beats. ABDOMEN: Soft. Minimal focal tenderness in the midepigastric region. EXTREMITIES: No edema. LABORATORY DATA: Sodium 138, potassium 4.1, bicarb 25, BUN 17, creatinine 1.3. Pro natriuretic peptide has decreased to 6200. Albumin is 2. Magnesium yesterday was 1.7 and repleted. White count is 16.6 with hemoglobin 9.6. IMPRESSION: 1. Persistent leukocytosis. 2. Status post ERCP. 3. History of common bile duct stent. 4. Recovering cholangitis. 5. Acute on chronic diastolic congestive heart failure, improved and clinically compensated. 6. Hypertensive heart disease with controlled blood pressure. 7. Paroxysmal atrial fibrillation and paroxysmal atrial ectopy, now suppressed. 8. Acute myocardial ischemia, resolved. PLAN: 1. Continue beta-rebeca. 2. Maintain current antihypertensive regimen. 3. Follow up magnesium levels. 4. Periodic diuresis based on clinical parameters. Yefri Galvan M.D. DR: Ugo JOB#: [id number] CC:
--- NOTE | 2019-11-06 18:10 | Surgery Progress Note ---
Surgery Progress Note Subjective Procedure Performed lap rosaura lap lysis of adhesion Additional Comments afebrile tolerating diet wbc trending down Objective Last 24 Hour Vital Signs Date Time Temp Pulse Resp B/P (MAP) Pulse Ox O2 Delivery O2 Flow Rate FiO2 11/06/19 14:40 156/65 11/06/19 12:00 98.1 66 20 156/65 (95) 94 11/06/19 09:43 64 133/55 11/06/19 09:43 133/55 11/06/19 09:42 64 133/55 11/06/19 09:00 Room Air 11/06/19 08:00 98.3 64 20 133/55 (81) 94 11/06/19 05:44 152/62 11/06/19 05:30 98.2 60 20 152/62 (92) 99 11/06/19 00:00 97.9 63 20 138/58 (84) 95 11/05/19 21:36 136/60 11/05/19 21:00 Room Air 11/05/19 20:00 97.6 63 20 136/60 (85) 94 I&O Intake and Output 11/05/19 11/06/19 19:00 07:00 Intake Total 300 ml 100 ml Output Total 400 ml 350 ml Balance -100 ml -250 ml Intake Oral 300 ml 100 ml Output Urine Total 400 ml 350 ml Cardiovascular: RSR Respiratory: clear Abdomen: soft Extremities: no edema Laboratory Tests Test 11/06/19 05:05 White Blood Count 16.6 K/UL (4.8-10.8) H Red Blood Count 2.88 M/UL (4.20-5.40) L Hemoglobin 9.6 G/DL (12.0-16.0) L Hematocrit 28.3 % (37.0-47.0) L Mean Corpuscular Volume 98 FL (80-99) Mean Corpuscular Hemoglobin 33.3 PG (27.0-31.0) H Mean Corpuscular Hemoglobin Concent 33.9 G/DL (32.0-36.0) Red Cell Distribution Width 13.4 % (11.6-14.8) Platelet Count 335 K/UL (150-450) Mean Platelet Volume 6.0 FL (6.5-10.1) L Neutrophils (%) (Auto) 78.1 % (45.0-75.0) H Lymphocytes (%) (Auto) 13.9 % (20.0-45.0) L Monocytes (%) (Auto) 6.2 % (1.0-10.0) Eosinophils (%) (Auto) 1.4 % (0.0-3.0) Basophils (%) (Auto) 0.4 % (0.0-2.0) Sodium Level 138 MMOL/L (136-145) Potassium Level 4.1 MMOL/L (3.5-5.1) Chloride Level 106 MMOL/L (98-107) Carbon Dioxide Level 25 MMOL/L (21-32) Anion Gap 7 mmol/L (5-15) Blood Urea Nitrogen 17 mg/dL (7-18) Creatinine 1.3 MG/DL (0.55-1.30) Estimat Glomerular Filtration Rate 38.6 mL/min (>60) Glucose Level 96 MG/DL (74-106) Calcium Level 8.6 MG/DL (8.5-10.1) Total Bilirubin 0.3 MG/DL (0.2-1.0) Aspartate Amino Transf (AST/SGOT) 14 U/L (15-37) L Alanine Aminotransferase (ALT/SGPT) 12 U/L (12-78) Alkaline Phosphatase 182 U/L (46-116) H Pro-B-Type Natriuretic Peptide 6275 pg/mL (0-125) H Total Protein 5.4 G/DL (6.4-8.2) L Albumin 2.0 G/DL (3.4-5.0) L Globulin 3.4 g/dL Albumin/Globulin Ratio 0.6 (1.0-2.7) L Plan Problems: (1) Choledocholithiasis Assessment & Plan: Gallbladder is filled with sludge and also demonstrates gallstones. There is distended and there is trace pericholecystic fluid. Sonographic August's sign is negative. Common bile duct measures 20 mm in diameter. It is filled with debris. There is marked intrahepatic biliary ductal dilatation. Liver demonstrates normal echogenicity, no focal abnormality. Portal vein and hepatic veins are patent. Pancreas is unremarkable. The pancreatic duct is dilated, however, measuring 4 mm in diameter. Spleen is unremarkable. Left kidney measures 9.1 cm in length. Right kidney measures 9.3 cm length. Both kidneys demonstrate increased echogenicity. There is no hydronephrosis. There are bilateral renal cysts . Abdominal aorta is obscured by bowel gas . Biliary ductal dilatation is increased from prior study (2) Acute cholangitis Assessment & Plan: discussed with GI patient currently stable and not septic afebrile, HD Stable labs reviewed and improving hold on ERCP or stent exchange for now no acute surgical intervention given age and status abx iv fluids okay for diet trend labs started ABX discussed with GI may need ERCP / stent change will follow with recs thank you discussed with GI. plan for stent change. would not recommend surgery at this time given age, condition, and overall status would benefit from metallic stent at some point ERCP noted stones, sludge and pus noted discussed with GI. recommend cholecystectomy but high risk will discuss with patient and daughter s/p lap rosaura doing well d/c planning sob, desaturation, a fib fluids stopped labs noted cont abx okay for diet tele transfer Labs improving exam stable Bowel regimen improving d/c planning (3) Obstructive jaundice Jay Kemp November 06, 2019 18:10
[2019-11-06 20:00] VITALS: BP 116/55
[2019-11-07] VITALS: BP 133/54
[2019-11-07 04:00] VITALS: BP 111/64
[2019-11-07] MEDS: HydrALAZINE 50mg tab ORAL SCH ×3 (05:28→21:49)
[2019-11-07 06:37] LABS: BASOPHILS % (AUTO) 0.4 % (0.0-2.0); EOSINOPHILS % (AUTO) 1.6 % (0.0-3.0); HEMATOCRIT 28.2 % (37.0-47.0); HEMOGLOBIN 9.5 G/DL (12.0-16.0); LYMPHOCYTES % (AUTO) 14.5 % (20.0-45.0); MEAN CORPUSCULAR VOLUME 98 FL (80-99); MONOCYTES % (AUTO) 4.9 % (1.0-10.0); NEUTROPHILS % (AUTO) 78.6 % (45.0-75.0); PLATELET COUNT 320 K/UL (150-450); RED BLOOD COUNT 2.87 M/UL (4.20-5.40); RED CELL DISTRIBUTION WIDTH 13.2 % (11.6-14.8); WHITE BLOOD COUNT 15.9 K/UL (4.8-10.8)
[2019-11-07 08:00] VITALS: BP 145/63
[2019-11-07 08:01] LABS: ALANINE AMINOTRANSFERASE 10 U/L (12-78); ALBUMIN 2.1 G/DL (3.4-5.0); ALBUMIN/GLOBULIN RATIO 0.6 (1.0-2.7); ALKALINE PHOSPHATASE 161 U/L (46-116); ANION GAP 7 mmol/L (5-15); ASPARTATE AMINO TRANSFERASE 20 U/L (15-37); BILIRUBIN,TOTAL 0.4 MG/DL (0.2-1.0); BLOOD UREA NITROGEN 16 mg/dL (7-18); CALCIUM 8.7 MG/DL (8.5-10.1); CARBON DIOXIDE 25 MMOL/L (21-32); CHLORIDE 105 MMOL/L (98-107); CREATININE 1.2 MG/DL (0.55-1.30); POTASSIUM 4.7 MMOL/L (3.5-5.1); SODIUM 137 MMOL/L (136-145)
[2019-11-07] MEDS ORDERED: NS 275ml ONE (09:03)
[2019-11-07] MEDS ORDERED: Tubing IV Secondary IV ONE (09:03)
[2019-11-07] MEDS ORDERED: 1/2 NS 1000ml IV ONE (09:03)
[2019-11-07] MEDS: Brimonidine 0.2% Opth Sol BOTH EYES SCH ×2 (09:13→17:38)
[2019-11-07] MEDS: Metoprolol Succinate XL 25mg tab ORAL SCH (09:14)
[2019-11-07] MEDS: Memantine 5 MG TAB ORAL SCH (09:14)
[2019-11-07] MEDS: Allopurinol 100mg Tab ORAL SCH (09:14)
[2019-11-07] MEDS: Losartan 50mg tab ORAL SCH (09:15)
[2019-11-07] MEDS: Docusate 100mg cap ORAL SCH ×2 (09:15→17:38)
[2019-11-07] MEDS: Aspirin EC 81mg tab ORAL SCH (09:15)
[2019-11-07] MEDS: cefTRIAXone 1 GM in D5W 55 ML IVPB SCH (09:16)
--- NOTE | 2019-11-07 10:26 | General Progress Note ---
Assessment/Plan Problem List: (1) Cholelithiasis ICD Codes: K80.20 - Calculus of gallbladder without cholecystitis without obstruction SNOMED: 804882052 (2) Dehydration ICD Codes: E86.0 - Dehydration SNOMED: 92565852 (3) Obstructive jaundice ICD Codes: K83.1 - Obstruction of bile duct SNOMED: 59878527 (4) CKD (chronic kidney disease) stage 5, GFR less than 15 ml/min ICD Codes: N18.5 - Chronic kidney disease, stage 5 SNOMED: 677985862 (5) Choledocholithiasis ICD Codes: K80.50 - Calculus of bile duct without cholangitis or cholecystitis without obstruction SNOMED: 673056072 Assessment/Plan: s/p ERCP and stent exchange s/p surg improving LFTS needs out patient fu for repeat ERCP in 8 weeks abx fu surg recs cardiology and pulm eval appreciated repeat labs for AM Subjective ROS Limited/Unobtainable: No Allergies: Coded Allergies: HYDROCODONE (Verified Allergy, Unknown, 06/13/19) Objective Last 24 Hour Vital Signs Date Time Temp Pulse Resp B/P (MAP) Pulse Ox O2 Delivery O2 Flow Rate FiO2 11/07/19 09:15 145/63 11/07/19 09:15 65 145/63 11/07/19 09:14 65 145/63 11/07/19 09:00 Room Air 11/07/19 08:00 97.7 65 18 145/63 (90) 95 11/07/19 05:28 155/63 11/07/19 04:00 97.5 64 18 111/64 (80) 98 11/07/19 00:00 98.0 58 18 133/54 (80) 94 11/06/19 21:22 125/58 11/06/19 21:00 Room Air 11/06/19 20:00 98.2 56 19 116/55 (75) 96 11/06/19 16:00 97.9 71 20 150/59 (89) 93 11/06/19 14:40 156/65 11/06/19 12:00 98.1 66 20 156/65 (95) 94 Intake and Output 11/06/19 11/07/19 19:02 07:02 Intake Total 600 ml 400 ml Output Total 400 ml 380 ml Balance 200 ml 20 ml Intake Oral 600 ml 400 ml Output Urine Total 400 ml 380 ml Laboratory Tests 11/07/19 04:00: Sodium Level 137, Potassium Level 4.7, Chloride Level 105, Carbon Dioxide Level 25, Anion Gap 7, Blood Urea Nitrogen 16, Creatinine 1.2, Estimat Glomerular Filtration Rate 42.3, Glucose Level 100, Calcium Level 8.7, Magnesium Level 2.2 , Total Bilirubin 0.4, Aspartate Amino Transf (AST/SGOT) 20, Alanine Aminotransferase (ALT/SGPT) 10L, Alkaline Phosphatase 161H, Total Protein 5.6L, Albumin 2.1L, Globulin 3.5, Albumin/Globulin Ratio 0.6L 11/07/19 04:45: White Blood Count 15.9H, Red Blood Count 2.87L, Hemoglobin 9.5L, Hematocrit 28.2L, Mean Corpuscular Volume 98, Mean Corpuscular Hemoglobin 33.0H, Mean Corpuscular Hemoglobin Concent 33.6, Red Cell Distribution Width 13.2, Platelet Count 320, Mean Platelet Volume 5.7L, Neutrophils (%) (Auto) 78.6H, Lymphocytes (%) (Auto) 14.5L, Monocytes (%) (Auto) 4.9, Eosinophils (%) (Auto) 1.6, Basophils (%) (Auto) 0.4 Height (Feet): 4 Height (Inches): 9.00 Weight (Pounds): 128 General Appearance: no apparent distress EENT: normal ENT inspection Neck: supple Cardiovascular: normal rate Respiratory/Chest: decreased breath sounds Abdomen: normal bowel sounds, non tender, soft Extremities: non-tender Tashi Hope MD November 07, 2019 10:26
--- NOTE | 2019-11-07 10:44 | Infectious Diseases Prog Note ---
Assessment/Plan Assessment/Plan antibiotics : ceftriaxone, flagyl A 1. Cholangitis. She underwent a laparoscopic cholecystectomy. 2. Leukocytosis improving 3. Hypertension. 4. Gout. 5. Pneumonia. P 1. continue ceftriaxone, flagyl 2. will follow up cultures Subjective ROS Limited/Unobtainable: Yes Allergies: Coded Allergies: HYDROCODONE (Verified Allergy, Unknown, 06/13/19) Objective Vital Signs Last 24 Hour Vital Signs Date Time Temp Pulse Resp B/P (MAP) Pulse Ox O2 Delivery O2 Flow Rate FiO2 11/07/19 09:15 145/63 11/07/19 09:15 65 145/63 11/07/19 09:14 65 145/63 11/07/19 09:00 Room Air 11/07/19 08:00 97.7 65 18 145/63 (90) 95 11/07/19 05:28 155/63 11/07/19 04:00 97.5 64 18 111/64 (80) 98 11/07/19 00:00 98.0 58 18 133/54 (80) 94 11/06/19 21:22 125/58 11/06/19 21:00 Room Air 11/06/19 20:00 98.2 56 19 116/55 (75) 96 11/06/19 16:00 97.9 71 20 150/59 (89) 93 11/06/19 14:40 156/65 11/06/19 12:00 98.1 66 20 156/65 (95) 94 Height (Feet): 4 Height (Inches): 9.00 Weight (Pounds): 128 Respiratory/Chest: lungs clear Cardiovascular: normal rate, regular rhythm, no gallop/murmur Abdomen: soft, non tender, other - wounds clean Extremities: no edema Laboratory Tests Test 11/07/19 04:00 11/07/19 04:45 Sodium Level 137 MMOL/L (136-145) Potassium Level 4.7 MMOL/L (3.5-5.1) Chloride Level 105 MMOL/L (98-107) Carbon Dioxide Level 25 MMOL/L (21-32) Anion Gap 7 mmol/L (5-15) Blood Urea Nitrogen 16 mg/dL (7-18) Creatinine 1.2 MG/DL (0.55-1.30) Estimat Glomerular Filtration Rate 42.3 mL/min (>60) Glucose Level 100 MG/DL (74-106) Calcium Level 8.7 MG/DL (8.5-10.1) Magnesium Level 2.2 MG/DL (1.8-2.4) Total Bilirubin 0.4 MG/DL (0.2-1.0) Aspartate Amino Transf (AST/SGOT) 20 U/L (15-37) Alanine Aminotransferase (ALT/SGPT) 10 U/L (12-78) L Alkaline Phosphatase 161 U/L (46-116) H Total Protein 5.6 G/DL (6.4-8.2) L Albumin 2.1 G/DL (3.4-5.0) L Globulin 3.5 g/dL Albumin/Globulin Ratio 0.6 (1.0-2.7) L White Blood Count 15.9 K/UL (4.8-10.8) H Red Blood Count 2.87 M/UL (4.20-5.40) L Hemoglobin 9.5 G/DL (12.0-16.0) L Hematocrit 28.2 % (37.0-47.0) L Mean Corpuscular Volume 98 FL (80-99) Mean Corpuscular Hemoglobin 33.0 PG (27.0-31.0) H Mean Corpuscular Hemoglobin Concent 33.6 G/DL (32.0-36.0) Red Cell Distribution Width 13.2 % (11.6-14.8) Platelet Count 320 K/UL (150-450) Mean Platelet Volume 5.7 FL (6.5-10.1) L Neutrophils (%) (Auto) 78.6 % (45.0-75.0) H Lymphocytes (%) (Auto) 14.5 % (20.0-45.0) L Monocytes (%) (Auto) 4.9 % (1.0-10.0) Eosinophils (%) (Auto) 1.6 % (0.0-3.0) Basophils (%) (Auto) 0.4 % (0.0-2.0) Current Medications Medications (Trade) Dose Ordered Sig/Manny Route PRN Reason Start Time Stop Time Status Last Admin Dose Admin Acetaminophen (Tylenol) 650 mg Q4H PRN ORAL Mild Pain (Pain Scale 1-3) 11/03/19 14:00 11/22/19 13:59 5/20 18:18 Al Hydroxide/Mg Hydroxide (Mylanta) 15 ml Q6H PRN ORAL DYSPEPSIA 11/03/19 14:00 11/28/19 13:59 Allopurinol (Zyloprim) 100 mg DAILY ORAL 11/04/19 09:00 11/23/19 08:59 11/07/19 09:14 Amlodipine Besylate (Norvasc) 5 mg DAILY ORAL 11/04/19 09:00 12/01/19 18:59 11/07/19 09:15 Aspirin (Ecotrin) 81 mg DAILY ORAL 11/04/19 09:00 12/08/19 08:59 11/07/19 09:15 Brimonidine Tartrate (Alphagan) 1 drop BID BOTH EYES 11/05/19 09:00 02/03/20 08:59 11/07/19 09:13 Ceftriaxone Sodium 1 gm/ Dextrose 55 ml @ 110 mls/hr Q24H IVPB 11/04/19 10:00 11/13/19 09:59 11/07/19 09:16 Diphenhydramine HCl (Benadryl) 25 mg Q8H PRN ORAL Itching/Pruritis 11/03/19 14:00 11/28/19 13:59 Docusate Sodium (Colace) 100 mg TWICE A DAY ORAL 11/03/19 18:00 11/28/19 17:59 11/07/19 09:15 Ferrous Sulfate (Feosol) 325 mg DAILY ORAL 11/04/19 09:00 01/22/20 08:59 11/07/19 09:15 Hydralazine HCl (Apresoline) 25 mg Q6H PRN ORAL SBP>150 11/04/19 03:00 02/02/20 02:59 11/04/19 23:47 Hydralazine HCl (Apresoline) 50 mg Q8HR ORAL 11/04/19 14:00 02/02/20 13:59 11/07/19 05:28 Losartan Potassium (Cozaar) 100 mg DAILY ORAL 11/04/19 09:00 11/23/19 08:59 11/07/19 09:15 Magnesium Hydroxide (Mom) 30 ml BIDPRN PRN ORAL Constipation 11/03/19 14:00 12/01/19 13:59 11/07/19 06:10 Memantine (Namenda) 5 mg DAILY ORAL 11/04/19 09:00 11/23/19 08:59 11/07/19 09:14 Metoprolol Succinate (Toprol XL) 25 mg DAILY ORAL 11/04/19 09:00 02/02/20 08:59 11/07/19 09:14 Metronidazole 100 ml @ 100 mls/hr Q8H IVPB 11/03/19 19:00 11/13/19 18:59 11/07/19 03:01 Morphine Sulfate (Morphine Sulfate) 2 mg Q4H PRN IVP Mild Pain (Pain Scale 1-3) 11/05/19 20:15 11/12/19 20:14 Morphine Sulfate (Morphine Sulfate) 2 mg Q4H PRN IVP Moderate Pain (Pain Scale 4-6) 11/05/19 20:15 11/12/19 20:14 Morphine Sulfate (Morphine Sulfate) 4 mg Q4H PRN IVP Severe Pain (Pain Scale 7-10) 11/05/19 20:15 11/12/19 20:14 11/06/19 05:44 Ondansetron HCl (Zofran) 4 mg Q6H PRN IVP Nausea & Vomiting 11/03/19 14:00 11/28/19 13:59 11/04/19 23:46 Pantoprazole (Protonix) 40 mg DAILY ORAL 11/04/19 09:00 11/23/19 08:59 11/07/19 09:15 Sennosides (Senokot) 8.6 mg BIDPRN PRN ORAL Constipation 11/03/19 14:00 12/01/19 13:59 11/04/19 20:19 Maryjane Cheng MD November 07, 2019 10:44
[2019-11-07 11:14] VITALS: BP 143/65
--- NOTE | 2019-11-07 13:57 | Surgery Progress Note ---
Surgery Progress Note Subjective Procedure Performed lap rosaura lap lysis of adhesion Additional Comments no acute events comfortable stable labs noted exam okay wbc improving Objective Last 24 Hour Vital Signs Date Time Temp Pulse Resp B/P (MAP) Pulse Ox O2 Delivery O2 Flow Rate FiO2 11/07/19 13:41 151/60 11/07/19 11:14 98.3 66 20 143/65 (91) 95 11/07/19 09:15 145/63 11/07/19 09:15 65 145/63 11/07/19 09:14 65 145/63 11/07/19 09:00 Room Air 11/07/19 08:00 97.7 65 18 145/63 (90) 95 11/07/19 05:28 155/63 11/07/19 04:00 97.5 64 18 111/64 (80) 98 11/07/19 00:00 98.0 58 18 133/54 (80) 94 11/06/19 21:22 125/58 11/06/19 21:00 Room Air 11/06/19 20:00 98.2 56 19 116/55 (75) 96 11/06/19 16:00 97.9 71 20 150/59 (89) 93 11/06/19 14:40 156/65 I&O Intake and Output 11/06/19 11/07/19 19:00 07:00 Intake Total 600 ml 400 ml Output Total 400 ml 380 ml Balance 200 ml 20 ml Intake Oral 600 ml 400 ml Output Urine Total 400 ml 380 ml Dressing: other Wound: other Drains: other Cardiovascular: RSR Respiratory: decreased breath sounds Abdomen: soft, non-tender, present bowel sounds, non-distended Extremities: no edema, no tenderness, no cyanosis Laboratory Tests Test 11/07/19 04:00 11/07/19 04:45 Sodium Level 137 MMOL/L (136-145) Potassium Level 4.7 MMOL/L (3.5-5.1) Chloride Level 105 MMOL/L (98-107) Carbon Dioxide Level 25 MMOL/L (21-32) Anion Gap 7 mmol/L (5-15) Blood Urea Nitrogen 16 mg/dL (7-18) Creatinine 1.2 MG/DL (0.55-1.30) Estimat Glomerular Filtration Rate 42.3 mL/min (>60) Glucose Level 100 MG/DL (74-106) Calcium Level 8.7 MG/DL (8.5-10.1) Magnesium Level 2.2 MG/DL (1.8-2.4) Total Bilirubin 0.4 MG/DL (0.2-1.0) Aspartate Amino Transf (AST/SGOT) 20 U/L (15-37) Alanine Aminotransferase (ALT/SGPT) 10 U/L (12-78) L Alkaline Phosphatase 161 U/L (46-116) H Total Protein 5.6 G/DL (6.4-8.2) L Albumin 2.1 G/DL (3.4-5.0) L Globulin 3.5 g/dL Albumin/Globulin Ratio 0.6 (1.0-2.7) L White Blood Count 15.9 K/UL (4.8-10.8) H Red Blood Count 2.87 M/UL (4.20-5.40) L Hemoglobin 9.5 G/DL (12.0-16.0) L Hematocrit 28.2 % (37.0-47.0) L Mean Corpuscular Volume 98 FL (80-99) Mean Corpuscular Hemoglobin 33.0 PG (27.0-31.0) H Mean Corpuscular Hemoglobin Concent 33.6 G/DL (32.0-36.0) Red Cell Distribution Width 13.2 % (11.6-14.8) Platelet Count 320 K/UL (150-450) Mean Platelet Volume 5.7 FL (6.5-10.1) L Neutrophils (%) (Auto) 78.6 % (45.0-75.0) H Lymphocytes (%) (Auto) 14.5 % (20.0-45.0) L Monocytes (%) (Auto) 4.9 % (1.0-10.0) Eosinophils (%) (Auto) 1.6 % (0.0-3.0) Basophils (%) (Auto) 0.4 % (0.0-2.0) Plan Problems: (1) Choledocholithiasis Assessment & Plan: Gallbladder is filled with sludge and also demonstrates gallstones. There is distended and there is trace pericholecystic fluid. Sonographic August's sign is negative. Common bile duct measures 20 mm in diameter. It is filled with debris. There is marked intrahepatic biliary ductal dilatation. Liver demonstrates normal echogenicity, no focal abnormality. Portal vein and hepatic veins are patent. Pancreas is unremarkable. The pancreatic duct is dilated, however, measuring 4 mm in diameter. Spleen is unremarkable. Left kidney measures 9.1 cm in length. Right kidney measures 9.3 cm length. Both kidneys demonstrate increased echogenicity. There is no hydronephrosis. There are bilateral renal cysts . Abdominal aorta is obscured by bowel gas . Biliary ductal dilatation is increased from prior study (2) Acute cholangitis Assessment & Plan: discussed with GI patient currently stable and not septic afebrile, HD Stable labs reviewed and improving hold on ERCP or stent exchange for now no acute surgical intervention given age and status abx iv fluids okay for diet trend labs started ABX discussed with GI may need ERCP / stent change will follow with recs thank you discussed with GI. plan for stent change. would not recommend surgery at this time given age, condition, and overall status would benefit from metallic stent at some point ERCP noted stones, sludge and pus noted discussed with GI. recommend cholecystectomy but high risk will discuss with patient and daughter s/p lap rosaura doing well d/c planning sob, desaturation, a fib fluids stopped labs noted cont abx okay for diet tele transfer Labs improving exam stable Bowel regimen improving d/c planning (3) Obstructive jaundice Jay Kemp November 07, 2019 13:57
--- NOTE | 2019-11-07 16:31 | General Progress Note ---
Assessment/Plan Assessment/Plan: Cholecystitis/cholangitis Previous CBD stent, elevated CA 199 Hypertension Hypertensive heart disease Alzheimer's dementia Gout Failure to thrive Status post ERCP x2 elevated Liver enzymes leukocytosis postop pneumonia PLAN await improvement and resolution of wbc eye drops ID noted and awaiting clearance folliow up imaging for change not yet stable for dc / hope to get home soon with HH impression, plan, and exam edited and reviewed in detail care discussed with RN Subjective Allergies: Coded Allergies: HYDROCODONE (Verified Allergy, Unknown, 06/13/19) Subjective persistently elevated wbc but slightly improved antibiotics noted ID reviewed and discussed Objective Last 24 Hour Vital Signs Date Time Temp Pulse Resp B/P (MAP) Pulse Ox O2 Delivery O2 Flow Rate FiO2 11/07/19 13:41 151/60 11/07/19 11:14 98.3 66 20 143/65 (91) 95 11/07/19 09:15 145/63 11/07/19 09:15 65 145/63 11/07/19 09:14 65 145/63 11/07/19 09:00 Room Air 11/07/19 08:00 97.7 65 18 145/63 (90) 95 11/07/19 05:28 155/63 11/07/19 04:00 97.5 64 18 111/64 (80) 98 11/07/19 00:00 98.0 58 18 133/54 (80) 94 11/06/19 21:22 125/58 11/06/19 21:00 Room Air 11/06/19 20:00 98.2 56 19 116/55 (75) 96 Intake and Output 11/06/19 11/07/19 19:00 07:00 Intake Total 600 ml 400 ml Output Total 400 ml 380 ml Balance 200 ml 20 ml Intake Oral 600 ml 400 ml Output Urine Total 400 ml 380 ml Laboratory Tests 11/07/19 04:00: Sodium Level 137, Potassium Level 4.7, Chloride Level 105, Carbon Dioxide Level 25, Anion Gap 7, Blood Urea Nitrogen 16, Creatinine 1.2, Estimat Glomerular Filtration Rate 42.3, Glucose Level 100, Calcium Level 8.7, Magnesium Level 2.2 , Total Bilirubin 0.4, Aspartate Amino Transf (AST/SGOT) 20, Alanine Aminotransferase (ALT/SGPT) 10L, Alkaline Phosphatase 161H, Total Protein 5.6L, Albumin 2.1L, Globulin 3.5, Albumin/Globulin Ratio 0.6L 11/07/19 04:45: White Blood Count 15.9H, Red Blood Count 2.87L, Hemoglobin 9.5L, Hematocrit 28.2L, Mean Corpuscular Volume 98, Mean Corpuscular Hemoglobin 33.0H, Mean Corpuscular Hemoglobin Concent 33.6, Red Cell Distribution Width 13.2, Platelet Count 320, Mean Platelet Volume 5.7L, Neutrophils (%) (Auto) 78.6H, Lymphocytes (%) (Auto) 14.5L, Monocytes (%) (Auto) 4.9, Eosinophils (%) (Auto) 1.6, Basophils (%) (Auto) 0.4 Height (Feet): 4 Height (Inches): 9.00 Weight (Pounds): 128 Objective WDWN NAD reduced breath sounds bilaterally with rhonchi [id number] without MRG NABS no distention no CCE nonfocal confused reviewed and edited Roel Jack MD November 07, 2019 16:31
[2019-11-07 16:49] VITALS: BP 162/58
[2019-11-07] MEDS: HydrALAZINE 25mg tab ORAL PRN (17:06)
[2019-11-07 20:00] VITALS: BP 124/45
--- NOTE | 2019-11-07 23:59 | Progress Note ---
DATE: 11/07/2019 CARDIOLOGY PROGRESS NOTE SUBJECTIVE: The patient remains afebrile, concern remains over elevated white blood count. No shortness of breath noted. PHYSICAL EXAMINATION: VITAL SIGNS: Blood pressure 143/65, pulse 66, respiratory rate 20, oxygen saturation on room air 95%. LUNGS: Bilateral breath sounds. No wheezing. HEART: Regular rhythm and rate. Normal S1, S2 with a fourth heart sound. ABDOMEN: Soft. EXTREMITIES: There is no edema. LABORATORY AND DIAGNOSTIC DATA: White count 16, hemoglobin 9.5. Potassium 4.7, BUN 16, creatinine 1.2. Magnesium 2.2. Albumin 2.1. IMPRESSION: 1. Cholangitis, status post stone extraction by ERCP. 2. Persistent leukocytosis. 3. Hypertensive heart disease. 4. Acute on chronic diastolic congestive heart failure. 5. Paroxysmal arrhythmias. 6. Paroxysmal atrial ectopy. PLAN: 1. Antimicrobials. 2. Monitor white blood count. 3. Maintain beta-rebeca. 4. Diuresis based on clinical parameters. 5. Antiplatelet therapy. 6. May need to advance antihypertensive regimen if blood pressure trend continues to increase. Yefri Galvan M.D. DR: Ugo JOB#: [id number] CC:
[2019-11-08] VITALS: BP 129/56
[2019-11-08 04:30] VITALS: BP 156/64
[2019-11-08] MEDS: HydrALAZINE 50mg tab ORAL SCH ×3 (05:20→21:58)
[2019-11-08 06:29] LABS: BASOPHILS % (AUTO) 0.3 % (0.0-2.0); EOSINOPHILS % (AUTO) 1.3 % (0.0-3.0); HEMATOCRIT 29.5 % (37.0-47.0); HEMOGLOBIN 9.9 G/DL (12.0-16.0); LYMPHOCYTES % (AUTO) 12.5 % (20.0-45.0); MEAN CORPUSCULAR VOLUME 98 FL (80-99); MONOCYTES % (AUTO) 4.5 % (1.0-10.0); NEUTROPHILS % (AUTO) 81.3 % (45.0-75.0); PLATELET COUNT 357 K/UL (150-450); RED BLOOD COUNT 3.02 M/UL (4.20-5.40); RED CELL DISTRIBUTION WIDTH 13.1 % (11.6-14.8)
[2019-11-08 07:00] LABS: ANION GAP 7 mmol/L (5-15); BLOOD UREA NITROGEN 17 mg/dL (7-18); CALCIUM 8.8 MG/DL (8.5-10.1); CARBON DIOXIDE 28 MMOL/L (21-32); CHLORIDE 104 MMOL/L (98-107); CREATININE 1.2 MG/DL (0.55-1.30); SODIUM 139 MMOL/L (136-145)
[2019-11-08 08:00] VITALS: BP 127/59
[2019-11-08] MEDS: Brimonidine 0.2% Opth Sol BOTH EYES SCH ×2 (09:06→17:58)
[2019-11-08] MEDS: Docusate 100mg cap ORAL SCH ×2 (09:06→17:58)
[2019-11-08] MEDS: Allopurinol 100mg Tab ORAL SCH (09:07)
[2019-11-08] MEDS: Aspirin EC 81mg tab ORAL SCH (09:07)
[2019-11-08] MEDS: Losartan 50mg tab ORAL SCH (09:08)
[2019-11-08] MEDS: Memantine 5 MG TAB ORAL SCH (09:09)
[2019-11-08] MEDS: Metoprolol Succinate XL 25mg tab ORAL SCH (09:09)
[2019-11-08] MEDS: cefTRIAXone 1 GM in D5W 55 ML IVPB SCH (09:09)
--- NOTE | 2019-11-08 10:35 | General Progress Note ---
Assessment/Plan Assessment/Plan: Cholecystitis/cholangitis Previous CBD stent, elevated CA 199 Hypertension Hypertensive heart disease Alzheimer's dementia Gout Failure to thrive Status post ERCP x2 elevated Liver enzymes leukocytosis postop pneumonia PLAN await improvement and improvement of wbc eye drops as is ID noted and awaiting clearance folliow up imaging for change not yet stable for dc / hope to get home soon with HH once wbc better impression, plan, and exam edited and reviewed in detail care discussed with RN Subjective Allergies: Coded Allergies: HYDROCODONE (Verified Allergy, Unknown, 06/13/19) Subjective persistently elevated wbc but slightly improved antibiotics noted ID reviewed and discussed Objective Last 24 Hour Vital Signs Date Time Temp Pulse Resp B/P (MAP) Pulse Ox O2 Delivery O2 Flow Rate FiO2 11/08/19 09:09 71 127/59 11/08/19 09:08 127/59 11/08/19 09:08 71 127/59 11/08/19 08:00 99.3 71 18 127/59 (81) 94 11/08/19 07:51 Room Air 11/08/19 05:20 156/64 11/08/19 04:30 97.7 64 18 156/64 (94) 95 11/08/19 00:00 98.3 66 18 129/56 (80) 95 11/07/19 21:49 123/55 11/07/19 21:00 Room Air 11/07/19 20:00 99.1 66 20 124/45 (71) 95 11/07/19 17:06 162/58 11/07/19 16:49 98.4 69 18 162/58 (92) 95 11/07/19 13:41 151/60 11/07/19 11:14 98.3 66 20 143/65 (91) 95 Intake and Output 11/07/19 11/08/19 19:00 07:00 Intake Total 100 ml Output Total 800 ml 1820 ml Balance -800 ml -1720 ml Intake Oral 100 ml Output Urine Total 800 ml 1820 ml # Bowel Movements 2 1 Laboratory Tests 11/08/19 04:55: White Blood Count 16.0H, Red Blood Count 3.02L, Hemoglobin 9.9L, Hematocrit 29.5L, Mean Corpuscular Volume 98, Mean Corpuscular Hemoglobin 32.7H, Mean Corpuscular Hemoglobin Concent 33.4, Red Cell Distribution Width 13.1, Platelet Count 357, Mean Platelet Volume 6.1L, Neutrophils (%) (Auto) 81.3H, Lymphocytes (%) (Auto) 12.5L, Monocytes (%) (Auto) 4.5, Eosinophils (%) (Auto) 1.3, Basophils (%) (Auto) 0.3, Sodium Level 139, Potassium Level 4.0, Chloride Level 104, Carbon Dioxide Level 28, Anion Gap 7, Blood Urea Nitrogen 17, Creatinine 1.2, Estimat Glomerular Filtration Rate 42.3, Glucose Level 118H, Calcium Level 8.8, Magnesium Level 2.1, Pro-B-Type Natriuretic Peptide 5182H Height (Feet): 4 Height (Inches): 9.00 Weight (Pounds): 128 Objective WDWN NAD reduced breath sounds bilaterally with rhonchi [id number] without MRG NABS no distention no CCE nonfocal confused reviewed and edited Roel Jack MD November 08, 2019 10:35
--- NOTE | 2019-11-08 11:12 | Infectious Diseases Prog Note ---
Assessment/Plan Assessment/Plan antibiotics : ceftriaxone, flagyl A 1. Cholangitis. She underwent a laparoscopic cholecystectomy. 2. Leukocytosis 3. Hypertension. 4. Gout. 5. Pneumonia. P 1. continue flagyl 6 more days 2. d/c ceftriaxone 3. start and continue levoquin 6 more days 4. will follow up cultures Subjective Constitutional: Denies: fever, chills Respiratory: Denies: shortness of breath, dry cough Gastrointestinal/Abdominal: Denies: nausea, vomiting, diarrhea Musculoskeletal: Reports: pain Allergies: Coded Allergies: HYDROCODONE (Verified Allergy, Unknown, 06/13/19) Objective Vital Signs Last 24 Hour Vital Signs Date Time Temp Pulse Resp B/P (MAP) Pulse Ox O2 Delivery O2 Flow Rate FiO2 11/08/19 09:09 71 127/59 11/08/19 09:08 127/59 11/08/19 09:08 71 127/59 11/08/19 08:00 99.3 71 18 127/59 (81) 94 11/08/19 07:51 Room Air 11/08/19 05:20 156/64 11/08/19 04:30 97.7 64 18 156/64 (94) 95 11/08/19 00:00 98.3 66 18 129/56 (80) 95 11/07/19 21:49 123/55 11/07/19 21:00 Room Air 11/07/19 20:00 99.1 66 20 124/45 (71) 95 11/07/19 17:06 162/58 11/07/19 16:49 98.4 69 18 162/58 (92) 95 11/07/19 13:41 151/60 11/07/19 11:14 98.3 66 20 143/65 (91) 95 Height (Feet): 4 Height (Inches): 9.00 Weight (Pounds): 128 Respiratory/Chest: lungs clear Cardiovascular: normal rate, regular rhythm, no gallop/murmur Abdomen: soft, non tender Extremities: no edema Laboratory Tests Test 11/08/19 04:55 White Blood Count 16.0 K/UL (4.8-10.8) H Red Blood Count 3.02 M/UL (4.20-5.40) L Hemoglobin 9.9 G/DL (12.0-16.0) L Hematocrit 29.5 % (37.0-47.0) L Mean Corpuscular Volume 98 FL (80-99) Mean Corpuscular Hemoglobin 32.7 PG (27.0-31.0) H Mean Corpuscular Hemoglobin Concent 33.4 G/DL (32.0-36.0) Red Cell Distribution Width 13.1 % (11.6-14.8) Platelet Count 357 K/UL (150-450) Mean Platelet Volume 6.1 FL (6.5-10.1) L Neutrophils (%) (Auto) 81.3 % (45.0-75.0) H Lymphocytes (%) (Auto) 12.5 % (20.0-45.0) L Monocytes (%) (Auto) 4.5 % (1.0-10.0) Eosinophils (%) (Auto) 1.3 % (0.0-3.0) Basophils (%) (Auto) 0.3 % (0.0-2.0) Sodium Level 139 MMOL/L (136-145) Potassium Level 4.0 MMOL/L (3.5-5.1) Chloride Level 104 MMOL/L (98-107) Carbon Dioxide Level 28 MMOL/L (21-32) Anion Gap 7 mmol/L (5-15) Blood Urea Nitrogen 17 mg/dL (7-18) Creatinine 1.2 MG/DL (0.55-1.30) Estimat Glomerular Filtration Rate 42.3 mL/min (>60) Glucose Level 118 MG/DL (74-106) H Calcium Level 8.8 MG/DL (8.5-10.1) Magnesium Level 2.1 MG/DL (1.8-2.4) Pro-B-Type Natriuretic Peptide 5182 pg/mL (0-125) H Current Medications Medications (Trade) Dose Ordered Sig/Manny Route PRN Reason Start Time Stop Time Status Last Admin Dose Admin Acetaminophen (Tylenol) 650 mg Q4H PRN ORAL Mild Pain (Pain Scale 1-3) 11/03/19 14:00 11/22/19 13:59 11/07/19 17:35 Al Hydroxide/Mg Hydroxide (Mylanta) 15 ml Q6H PRN ORAL DYSPEPSIA 11/03/19 14:00 11/28/19 13:59 Allopurinol (Zyloprim) 100 mg DAILY ORAL 11/04/19 09:00 11/23/19 08:59 11/08/19 09:07 Amlodipine Besylate (Norvasc) 5 mg DAILY ORAL 11/04/19 09:00 12/01/19 18:59 11/08/19 09:08 Aspirin (Ecotrin) 81 mg DAILY ORAL 11/04/19 09:00 12/08/19 08:59 11/08/19 09:07 Brimonidine Tartrate (Alphagan) 1 drop BID BOTH EYES 11/05/19 09:00 02/03/20 08:59 11/08/19 09:06 Ceftriaxone Sodium 1 gm/ Dextrose 55 ml @ 110 mls/hr Q24H IVPB 11/04/19 10:00 11/13/19 09:59 11/08/19 09:09 Diphenhydramine HCl (Benadryl) 25 mg Q8H PRN ORAL Itching/Pruritis 11/03/19 14:00 11/28/19 13:59 Docusate Sodium (Colace) 100 mg TWICE A DAY ORAL 11/03/19 18:00 11/28/19 17:59 11/08/19 09:06 Ferrous Sulfate (Feosol) 325 mg DAILY ORAL 11/04/19 09:00 01/22/20 08:59 11/08/19 09:07 Hydralazine HCl (Apresoline) 25 mg Q6H PRN ORAL SBP>150 11/04/19 03:00 02/02/20 02:59 11/07/19 17:06 Hydralazine HCl (Apresoline) 50 mg Q8HR ORAL 11/04/19 14:00 02/02/20 13:59 11/08/19 05:20 Losartan Potassium (Cozaar) 100 mg DAILY ORAL 11/04/19 09:00 11/23/19 08:59 11/08/19 09:08 Magnesium Hydroxide (Mom) 30 ml BIDPRN PRN ORAL Constipation 11/03/19 14:00 12/01/19 13:59 11/07/19 06:10 Memantine (Namenda) 5 mg DAILY ORAL 11/04/19 09:00 11/23/19 08:59 11/08/19 09:09 Metoprolol Succinate (Toprol XL) 25 mg DAILY ORAL 11/04/19 09:00 02/02/20 08:59 11/08/19 09:09 Metronidazole 100 ml @ 100 mls/hr Q8H IVPB 11/03/19 19:00 11/13/19 18:59 11/08/19 11:00 Morphine Sulfate (Morphine Sulfate) 2 mg Q4H PRN IVP Mild Pain (Pain Scale 1-3) 11/05/19 20:15 11/12/19 20:14 Morphine Sulfate (Morphine Sulfate) 2 mg Q4H PRN IVP Moderate Pain (Pain Scale 4-6) 11/05/19 20:15 11/12/19 20:14 Morphine Sulfate (Morphine Sulfate) 4 mg Q4H PRN IVP Severe Pain (Pain Scale 7-10) 11/05/19 20:15 11/12/19 20:14 11/06/19 05:44 Ondansetron HCl (Zofran) 4 mg Q6H PRN IVP Nausea & Vomiting 11/03/19 14:00 11/28/19 13:59 11/04/19 23:46 Pantoprazole (Protonix) 40 mg DAILY ORAL 11/04/19 09:00 11/23/19 08:59 11/08/19 09:08 Sennosides (Senokot) 8.6 mg BIDPRN PRN ORAL Constipation 11/03/19 14:00 12/01/19 13:59 11/04/19 20:19 Maryjane Cheng MD November 08, 2019 11:12
[2019-11-08] MEDS ORDERED: Levofloxacin 500mg tab ORAL SCH (11:15)
[2019-11-08 12:00] VITALS: BP 102/60
[2019-11-08 16:00] VITALS: BP 138/74
--- NOTE | 2019-11-08 16:20 | GI Progress Note ---
Assessment/Plan Problems: (1) Choledocholithiasis ICD Codes: K80.50 - Calculus of bile duct without cholangitis or cholecystitis without obstruction SNOMED: 194666372 (2) Cholecystitis ICD Codes: K81.9 - Cholecystitis, unspecified SNOMED: 82646327 Status: stable Status Narrative Discussed with Dr. Hope. Assessment/Plan s/p ERCP and stent exchange s/p surg improving LFTS needs out patient fu for repeat ERCP in 8 weeks ppi regular diet pain control abx fu surg recs cardiology and pulm eval appreciated repeat labs for AM The patient was seen and examined at bedside and all new and available data was reviewed in the patients chart. I agree with the above findings, impression and plan. (Patient seen earlier today. Signature stamp does not reflect patient encounter time.). - Tashi Hope MD Subjective Gastrointestinal/Abdominal: Denies: no symptoms, abdomen distended, abdominal pain, black stools, tarry stools, blood in stool, constipated, diarrhea, difficulty swallowing, nausea, poor appetite, poor fluid intake, rectal bleeding , vomiting, other Objective Last 24 Hour Vital Signs Date Time Temp Pulse Resp B/P (MAP) Pulse Ox O2 Delivery O2 Flow Rate FiO2 11/08/19 14:58 138/65 11/08/19 12:00 97.2 69 20 102/60 (74) 99 11/08/19 09:09 71 127/59 11/08/19 09:08 127/59 11/08/19 09:08 71 127/59 11/08/19 08:00 99.3 71 18 127/59 (81) 94 11/08/19 07:51 Room Air 11/08/19 05:20 156/64 11/08/19 04:30 97.7 64 18 156/64 (94) 95 11/08/19 00:00 98.3 66 18 129/56 (80) 95 11/07/19 21:49 123/55 11/07/19 21:00 Room Air 11/07/19 20:00 99.1 66 20 124/45 (71) 95 11/07/19 17:06 162/58 11/07/19 16:49 98.4 69 18 162/58 (92) 95 Intake and Output 11/07/19 11/08/19 19:00 07:00 Intake Total 100 ml Output Total 800 ml 1820 ml Balance -800 ml -1720 ml Intake Oral 100 ml Output Urine Total 800 ml 1820 ml # Bowel Movements 2 1 Laboratory Tests Test 11/08/19 04:55 White Blood Count 16.0 K/UL (4.8-10.8) H Red Blood Count 3.02 M/UL (4.20-5.40) L Hemoglobin 9.9 G/DL (12.0-16.0) L Hematocrit 29.5 % (37.0-47.0) L Mean Corpuscular Volume 98 FL (80-99) Mean Corpuscular Hemoglobin 32.7 PG (27.0-31.0) H Mean Corpuscular Hemoglobin Concent 33.4 G/DL (32.0-36.0) Red Cell Distribution Width 13.1 % (11.6-14.8) Platelet Count 357 K/UL (150-450) Mean Platelet Volume 6.1 FL (6.5-10.1) L Neutrophils (%) (Auto) 81.3 % (45.0-75.0) H Lymphocytes (%) (Auto) 12.5 % (20.0-45.0) L Monocytes (%) (Auto) 4.5 % (1.0-10.0) Eosinophils (%) (Auto) 1.3 % (0.0-3.0) Basophils (%) (Auto) 0.3 % (0.0-2.0) Sodium Level 139 MMOL/L (136-145) Potassium Level 4.0 MMOL/L (3.5-5.1) Chloride Level 104 MMOL/L (98-107) Carbon Dioxide Level 28 MMOL/L (21-32) Anion Gap 7 mmol/L (5-15) Blood Urea Nitrogen 17 mg/dL (7-18) Creatinine 1.2 MG/DL (0.55-1.30) Estimat Glomerular Filtration Rate 42.3 mL/min (>60) Glucose Level 118 MG/DL (74-106) H Calcium Level 8.8 MG/DL (8.5-10.1) Magnesium Level 2.1 MG/DL (1.8-2.4) Pro-B-Type Natriuretic Peptide 5182 pg/mL (0-125) H Height (Feet): 4 Height (Inches): 9.00 Weight (Pounds): 128 General Appearance: WD/WN, no apparent distress, alert Cardiovascular: normal rate Respiratory/Chest: normal breath sounds, no respiratory distress Abdominal Exam: normal bowel sounds, non tender, soft Extremities: normal range of motion, non-tender Scot Lopez NP November 08, 2019 16:20
--- NOTE | 2019-11-08 18:18 | Surgery Progress Note ---
Surgery Progress Note Subjective Procedure Performed lap rosaura lap lysis of adhesion Additional Comments persistent leukocytosis otherwise stable doing well comfortable appearing Objective Last 24 Hour Vital Signs Date Time Temp Pulse Resp B/P (MAP) Pulse Ox O2 Delivery O2 Flow Rate FiO2 11/08/19 16:00 98.3 72 18 138/74 (95) 99 11/08/19 14:58 138/65 11/08/19 12:00 97.2 69 20 102/60 (74) 99 11/08/19 09:09 71 127/59 11/08/19 09:08 127/59 11/08/19 09:08 71 127/59 11/08/19 08:00 99.3 71 18 127/59 (81) 94 11/08/19 07:51 Room Air 11/08/19 05:20 156/64 11/08/19 04:30 97.7 64 18 156/64 (94) 95 11/08/19 00:00 98.3 66 18 129/56 (80) 95 11/07/19 21:49 123/55 11/07/19 21:00 Room Air 11/07/19 20:00 99.1 66 20 124/45 (71) 95 I&O Intake and Output 11/07/19 11/08/19 19:00 07:00 Intake Total 100 ml Output Total 800 ml 1820 ml Balance -800 ml -1720 ml Intake Oral 100 ml Output Urine Total 800 ml 1820 ml # Bowel Movements 2 1 Dressing: dry Wound: clean Cardiovascular: RSR Respiratory: clear Abdomen: soft, flat, non-tender, present bowel sounds Extremities: no edema, no tenderness, no cyanosis Laboratory Tests Test 11/08/19 04:55 White Blood Count 16.0 K/UL (4.8-10.8) H Red Blood Count 3.02 M/UL (4.20-5.40) L Hemoglobin 9.9 G/DL (12.0-16.0) L Hematocrit 29.5 % (37.0-47.0) L Mean Corpuscular Volume 98 FL (80-99) Mean Corpuscular Hemoglobin 32.7 PG (27.0-31.0) H Mean Corpuscular Hemoglobin Concent 33.4 G/DL (32.0-36.0) Red Cell Distribution Width 13.1 % (11.6-14.8) Platelet Count 357 K/UL (150-450) Mean Platelet Volume 6.1 FL (6.5-10.1) L Neutrophils (%) (Auto) 81.3 % (45.0-75.0) H Lymphocytes (%) (Auto) 12.5 % (20.0-45.0) L Monocytes (%) (Auto) 4.5 % (1.0-10.0) Eosinophils (%) (Auto) 1.3 % (0.0-3.0) Basophils (%) (Auto) 0.3 % (0.0-2.0) Sodium Level 139 MMOL/L (136-145) Potassium Level 4.0 MMOL/L (3.5-5.1) Chloride Level 104 MMOL/L (98-107) Carbon Dioxide Level 28 MMOL/L (21-32) Anion Gap 7 mmol/L (5-15) Blood Urea Nitrogen 17 mg/dL (7-18) Creatinine 1.2 MG/DL (0.55-1.30) Estimat Glomerular Filtration Rate 42.3 mL/min (>60) Glucose Level 118 MG/DL (74-106) H Calcium Level 8.8 MG/DL (8.5-10.1) Magnesium Level 2.1 MG/DL (1.8-2.4) Pro-B-Type Natriuretic Peptide 5182 pg/mL (0-125) H Plan Problems: (1) Choledocholithiasis Assessment & Plan: Gallbladder is filled with sludge and also demonstrates gallstones. There is distended and there is trace pericholecystic fluid. Sonographic August's sign is negative. Common bile duct measures 20 mm in diameter. It is filled with debris. There is marked intrahepatic biliary ductal dilatation. Liver demonstrates normal echogenicity, no focal abnormality. Portal vein and hepatic veins are patent. Pancreas is unremarkable. The pancreatic duct is dilated, however, measuring 4 mm in diameter. Spleen is unremarkable. Left kidney measures 9.1 cm in length. Right kidney measures 9.3 cm length. Both kidneys demonstrate increased echogenicity. There is no hydronephrosis. There are bilateral renal cysts . Abdominal aorta is obscured by bowel gas . Biliary ductal dilatation is increased from prior study (2) Acute cholangitis Assessment & Plan: discussed with GI patient currently stable and not septic afebrile, HD Stable labs reviewed and improving hold on ERCP or stent exchange for now no acute surgical intervention given age and status abx iv fluids okay for diet trend labs started ABX discussed with GI may need ERCP / stent change will follow with recs thank you discussed with GI. plan for stent change. would not recommend surgery at this time given age, condition, and overall status would benefit from metallic stent at some point ERCP noted stones, sludge and pus noted discussed with GI. recommend cholecystectomy but high risk will discuss with patient and daughter s/p lap rosaura doing well d/c planning sob, desaturation, a fib fluids stopped labs noted cont abx okay for diet tele transfer Labs improving exam stable Bowel regimen improving may consider repeat CT scan . did place surgicel in OR in liver bed so will look like abscess there but unlikely (3) Obstructive jaundice Jay Kemp November 08, 2019 18:18
[2019-11-08 20:00] VITALS: BP 129/56
[2019-11-08] MEDS ORDERED: Tubing IV Secondary IV ONE (21:26)
[2019-11-08] MEDS ORDERED: NS 275ml ONE (21:26)
[2019-11-08] MEDS: metroNIDAZOLE 500mg tab ORAL SCH (21:58)
[2019-11-09] VITALS: BP 145/59
--- NOTE | 2019-11-09 00:59 | Progress Note ---
DATE: 11/08/2019 The patient has no new complaints. Remains on antimicrobials. White blood count slightly better. Patient denies chest pain or shortness of breath. Denies palpitations or dizziness. Now off monitor. PHYSICAL EXAMINATION: VITAL SIGNS: Blood pressure 127/59, heart rate 71, respiratory rate 18, temperature max 99.3. Oxygen saturation 94-95% on room air. LUNGS: Bilateral breath sounds. No wheezing. CARDIAC: Regular rhythm and rate. Normal S1, S2 with no new murmur. ABDOMEN: Soft. EXTREMITIES: No edema. LABORATORY DATA: White count 16, hemoglobin 10, potassium 4, magnesium 2.1, BUN 17, creatinine 1.2, pro-natriuretic peptide 5100. IMPRESSION: 1. Persistent leukocytosis, status post ERCP for cholangitis. 2. Severe protein-calorie malnutrition. 3. Paroxysmal atrial fibrillation, now stabilized. 4. Conduction system disease, asymptomatic. 5. Acute on chronic diastolic congestive heart failure, improved and better compensated. PLAN: 1. Antimicrobials per infectious disease consultants. 2. Continue current cardiovascular regimen with periodic diuresis based on clinical parameters. 3. Maintain beta-blockade. 4. Titrate amlodipine for optimal blood pressure control. 5. Avoid orthostasis, Yefri Galvan M.D. DR: ARTEM JOB#: [id number] CC:
[2019-11-09 04:45] VITALS: BP 152/65
[2019-11-09] MEDS: HydrALAZINE 50mg tab ORAL SCH ×3 (05:10→21:05)
[2019-11-09 06:30] LABS: BASOPHILS % (AUTO) 0.5 % (0.0-2.0); EOSINOPHILS % (AUTO) 1.2 % (0.0-3.0); HEMATOCRIT 28.8 % (37.0-47.0); HEMOGLOBIN 9.6 G/DL (12.0-16.0); LYMPHOCYTES % (AUTO) 14.4 % (20.0-45.0); MEAN CORPUSCULAR VOLUME 97 FL (80-99); MONOCYTES % (AUTO) 5.8 % (1.0-10.0); NEUTROPHILS % (AUTO) 78.2 % (45.0-75.0); PLATELET COUNT 357 K/UL (150-450); RED BLOOD COUNT 2.97 M/UL (4.20-5.40); RED CELL DISTRIBUTION WIDTH 13.1 % (11.6-14.8)
[2019-11-09] MEDS: metroNIDAZOLE 500mg tab ORAL SCH ×3 (06:32→21:05)
[2019-11-09 06:51] LABS: ALANINE AMINOTRANSFERASE 11 U/L (12-78); ALBUMIN 2.1 G/DL (3.4-5.0); ALBUMIN/GLOBULIN RATIO 0.6 (1.0-2.7); ALKALINE PHOSPHATASE 131 U/L (46-116); ANION GAP 3 mmol/L (5-15); ASPARTATE AMINO TRANSFERASE 15 U/L (15-37); BILIRUBIN,TOTAL 0.3 MG/DL (0.2-1.0); BLOOD UREA NITROGEN 20 mg/dL (7-18); CARBON DIOXIDE 29 MMOL/L (21-32); CHLORIDE 102 MMOL/L (98-107); CREATININE 1.2 MG/DL (0.55-1.30); POTASSIUM 4.1 MMOL/L (3.5-5.1); SODIUM 134 MMOL/L (136-145)
--- NOTE | 2019-11-09 07:59 | General Progress Note ---
Assessment/Plan Status: stable Assessment/Plan: Cholecystitis/cholangitis Previous CBD stent, elevated CA 199 Hypertension Hypertensive heart disease Alzheimer's dementia Gout Failure to thrive Status post ERCP x2 elevated Liver enzymes leukocytosis postop pneumonia PLAN await improvement and improvement of wbc ID noted and awaiting clearance folliow up imaging for change await follow up cbc d/w family and proceed with dc planning monitor po impression, plan, and exam edited and reviewed in detail care discussed with RN Subjective Allergies: Coded Allergies: HYDROCODONE (Verified Allergy, Unknown, 06/13/19) Subjective improved wbc antibiotics noted ID reviewed Objective Last 24 Hour Vital Signs Date Time Temp Pulse Resp B/P (MAP) Pulse Ox O2 Delivery O2 Flow Rate FiO2 11/09/19 05:10 152/65 11/09/19 04:45 97.9 65 18 152/65 (94) 94 11/09/19 00:00 97.4 64 18 145/59 (87) 95 11/08/19 21:58 129/56 11/08/19 21:00 Room Air 11/08/19 20:00 97.5 61 18 129/56 (80) 98 11/08/19 16:00 98.3 72 18 138/74 (95) 99 11/08/19 14:58 138/65 11/08/19 12:00 97.2 69 20 102/60 (74) 99 11/08/19 09:09 71 127/59 11/08/19 09:08 127/59 11/08/19 09:08 71 127/59 11/08/19 08:00 99.3 71 18 127/59 (81) 94 Intake and Output 11/08/19 11/09/19 19:00 07:00 Intake Total 500 ml 200 ml Output Total 360 ml 950 ml Balance 140 ml -750 ml Intake Oral 500 ml 200 ml Output Urine Total 360 ml 950 ml # Bowel Movements 2 Laboratory Tests 11/09/19 04:50: White Blood Count 14.0H, Red Blood Count 2.97L, Hemoglobin 9.6L, Hematocrit 28.8L, Mean Corpuscular Volume 97, Mean Corpuscular Hemoglobin 32.5H, Mean Corpuscular Hemoglobin Concent 33.5, Red Cell Distribution Width 13.1, Platelet Count 357, Mean Platelet Volume 6.2L, Neutrophils (%) (Auto) 78.2H, Lymphocytes (%) (Auto) 14.4L, Monocytes (%) (Auto) 5.8, Eosinophils (%) (Auto) 1.2, Basophils (%) (Auto) 0.5, Erythrocyte Sedimentation Rate [Pending], Sodium Level 134L, Potassium Level 4.1, Chloride Level 102, Carbon Dioxide Level 29, Anion Gap 3L, Blood Urea Nitrogen 20H, Creatinine 1.2, Estimat Glomerular Filtration Rate 42.3, Glucose Level 107H, Calcium Level 9.0, Total Bilirubin 0.3 , Aspartate Amino Transf (AST/SGOT) 15, Alanine Aminotransferase (ALT/SGPT) 11L , Alkaline Phosphatase 131H, C-Reactive Protein, Quantitative 4.6H, Total Protein 5.8L, Albumin 2.1L, Globulin 3.7, Albumin/Globulin Ratio 0.6L Height (Feet): 4 Height (Inches): 9.00 Weight (Pounds): 128 Objective WDWN NAD reduced breath sounds bilaterally with rhonchi [id number] without MRG NABS no distention no CCE nonfocal confused reviewed and edited Roel Jack MD November 09, 2019 07:59
[2019-11-09 08:00] VITALS: BP 157/65
[2019-11-09] MEDS: Docusate 100mg cap ORAL SCH ×3 (09:00→18:00)
[2019-11-09] MEDS: Memantine 5 MG TAB ORAL SCH (09:18)
[2019-11-09] MEDS: Brimonidine 0.2% Opth Sol BOTH EYES SCH ×2 (09:18→18:56)
[2019-11-09] MEDS: Aspirin EC 81mg tab ORAL SCH (09:18)
[2019-11-09] MEDS: Metoprolol Succinate XL 25mg tab ORAL SCH (09:19)
[2019-11-09] MEDS: Allopurinol 100mg Tab ORAL SCH (09:19)
[2019-11-09] MEDS: Losartan 50mg tab ORAL SCH (09:19)
--- NOTE | 2019-11-09 11:45 | GI Progress Note ---
Assessment/Plan Problems: (1) Choledocholithiasis ICD Codes: K80.50 - Calculus of bile duct without cholangitis or cholecystitis without obstruction SNOMED: 255506006 (2) Cholecystitis ICD Codes: K81.9 - Cholecystitis, unspecified SNOMED: 06322303 Status: stable Status Narrative Discussed with Dr. Hope. Assessment/Plan s/p ERCP and stent exchange s/p surg improving LFTS needs out patient fu for repeat ERCP in 8 weeks (~12/28/19) ppi regular diet pain control abx fu surg recs cardiology and pulm eval appreciated repeat labs for AM The patient was seen and examined at bedside and all new and available data was reviewed in the patients chart. I agree with the above findings, impression and plan. (Patient seen earlier today. Signature stamp does not reflect patient encounter time.). - Tashi Hope MD Subjective Gastrointestinal/Abdominal: Denies: no symptoms, abdomen distended, abdominal pain, black stools, tarry stools, blood in stool, constipated, diarrhea, difficulty swallowing, nausea, poor appetite, poor fluid intake, rectal bleeding , vomiting, other Objective Last 24 Hour Vital Signs Date Time Temp Pulse Resp B/P (MAP) Pulse Ox O2 Delivery O2 Flow Rate FiO2 11/09/19 09:19 66 157/65 11/09/19 09:19 157/65 11/09/19 09:19 66 157/65 11/09/19 08:00 98.0 66 19 157/65 (95) 97 11/09/19 05:10 152/65 11/09/19 04:45 97.9 65 18 152/65 (94) 94 11/09/19 00:00 97.4 64 18 145/59 (87) 95 11/08/19 21:58 129/56 11/08/19 21:00 Room Air 11/08/19 20:00 97.5 61 18 129/56 (80) 98 11/08/19 16:00 98.3 72 18 138/74 (95) 99 11/08/19 14:58 138/65 11/08/19 12:00 97.2 69 20 102/60 (74) 99 Intake and Output 11/08/19 11/09/19 19:00 07:00 Intake Total 500 ml 200 ml Output Total 360 ml 950 ml Balance 140 ml -750 ml Intake Oral 500 ml 200 ml Output Urine Total 360 ml 950 ml # Bowel Movements 2 Laboratory Tests Test 11/09/19 04:50 White Blood Count 14.0 K/UL (4.8-10.8) H Red Blood Count 2.97 M/UL (4.20-5.40) L Hemoglobin 9.6 G/DL (12.0-16.0) L Hematocrit 28.8 % (37.0-47.0) L Mean Corpuscular Volume 97 FL (80-99) Mean Corpuscular Hemoglobin 32.5 PG (27.0-31.0) H Mean Corpuscular Hemoglobin Concent 33.5 G/DL (32.0-36.0) Red Cell Distribution Width 13.1 % (11.6-14.8) Platelet Count 357 K/UL (150-450) Mean Platelet Volume 6.2 FL (6.5-10.1) L Neutrophils (%) (Auto) 78.2 % (45.0-75.0) H Lymphocytes (%) (Auto) 14.4 % (20.0-45.0) L Monocytes (%) (Auto) 5.8 % (1.0-10.0) Eosinophils (%) (Auto) 1.2 % (0.0-3.0) Basophils (%) (Auto) 0.5 % (0.0-2.0) Erythrocyte Sedimentation Rate 100 MM/HR (0-30) H Sodium Level 134 MMOL/L (136-145) L Potassium Level 4.1 MMOL/L (3.5-5.1) Chloride Level 102 MMOL/L (98-107) Carbon Dioxide Level 29 MMOL/L (21-32) Anion Gap 3 mmol/L (5-15) L Blood Urea Nitrogen 20 mg/dL (7-18) H Creatinine 1.2 MG/DL (0.55-1.30) Estimat Glomerular Filtration Rate 42.3 mL/min (>60) Glucose Level 107 MG/DL (74-106) H Calcium Level 9.0 MG/DL (8.5-10.1) Total Bilirubin 0.3 MG/DL (0.2-1.0) Aspartate Amino Transf (AST/SGOT) 15 U/L (15-37) Alanine Aminotransferase (ALT/SGPT) 11 U/L (12-78) L Alkaline Phosphatase 131 U/L (46-116) H C-Reactive Protein, Quantitative 4.6 mg/dL (0.00-0.90) H Total Protein 5.8 G/DL (6.4-8.2) L Albumin 2.1 G/DL (3.4-5.0) L Globulin 3.7 g/dL Albumin/Globulin Ratio 0.6 (1.0-2.7) L Height (Feet): 4 Height (Inches): 9.00 Weight (Pounds): 128 General Appearance: WD/WN, no apparent distress, alert Cardiovascular: normal rate Respiratory/Chest: no respiratory distress, decreased breath sounds Abdominal Exam: normal bowel sounds, non tender, soft Extremities: non-tender Scot Lopez NP November 09, 2019 11:45
[2019-11-09 11:49] VITALS: BP 132/58
--- NOTE | 2019-11-09 14:31 | Infectious Diseases Prog Note ---
Assessment/Plan Assessment/Plan A 1. Cholangitis. She underwent a laparoscopic cholecystectomy. 2. Leukocytosis 3. Hypertension. 4. Gout. 5. Pneumonia. 6. s/p ERCP & biliary stent P 1. continue Levaquin &Flagyl X 5 days 2. will follow up cultures Subjective ROS Limited/Unobtainable: Yes Constitutional: Reports: no symptoms Gastrointestinal/Abdominal: Reports: no symptoms Allergies: Coded Allergies: HYDROCODONE (Verified Allergy, Unknown, 06/13/19) Objective Vital Signs Last 24 Hour Vital Signs Date Time Temp Pulse Resp B/P (MAP) Pulse Ox O2 Delivery O2 Flow Rate FiO2 11/09/19 11:49 98.6 67 18 132/58 (82) 98 11/09/19 09:19 66 157/65 11/09/19 09:19 157/65 11/09/19 09:19 66 157/65 11/09/19 08:00 98.0 66 19 157/65 (95) 97 11/09/19 05:10 152/65 11/09/19 04:45 97.9 65 18 152/65 (94) 94 11/09/19 00:00 97.4 64 18 145/59 (87) 95 11/08/19 21:58 129/56 11/08/19 21:00 Room Air 11/08/19 20:00 97.5 61 18 129/56 (80) 98 11/08/19 16:00 98.3 72 18 138/74 (95) 99 11/08/19 14:58 138/65 Height (Feet): 4 Height (Inches): 9.00 Weight (Pounds): 128 General Appearance: no acute distress HEENT: mucous membranes moist Respiratory/Chest: lungs clear Cardiovascular: normal rate Abdomen: soft, non tender Extremities: no edema Neurologic/Psychiatric: alert, responsive Laboratory Tests Test 11/09/19 04:50 White Blood Count 14.0 K/UL (4.8-10.8) H Red Blood Count 2.97 M/UL (4.20-5.40) L Hemoglobin 9.6 G/DL (12.0-16.0) L Hematocrit 28.8 % (37.0-47.0) L Mean Corpuscular Volume 97 FL (80-99) Mean Corpuscular Hemoglobin 32.5 PG (27.0-31.0) H Mean Corpuscular Hemoglobin Concent 33.5 G/DL (32.0-36.0) Red Cell Distribution Width 13.1 % (11.6-14.8) Platelet Count 357 K/UL (150-450) Mean Platelet Volume 6.2 FL (6.5-10.1) L Neutrophils (%) (Auto) 78.2 % (45.0-75.0) H Lymphocytes (%) (Auto) 14.4 % (20.0-45.0) L Monocytes (%) (Auto) 5.8 % (1.0-10.0) Eosinophils (%) (Auto) 1.2 % (0.0-3.0) Basophils (%) (Auto) 0.5 % (0.0-2.0) Erythrocyte Sedimentation Rate 100 MM/HR (0-30) H Sodium Level 134 MMOL/L (136-145) L Potassium Level 4.1 MMOL/L (3.5-5.1) Chloride Level 102 MMOL/L (98-107) Carbon Dioxide Level 29 MMOL/L (21-32) Anion Gap 3 mmol/L (5-15) L Blood Urea Nitrogen 20 mg/dL (7-18) H Creatinine 1.2 MG/DL (0.55-1.30) Estimat Glomerular Filtration Rate 42.3 mL/min (>60) Glucose Level 107 MG/DL (74-106) H Calcium Level 9.0 MG/DL (8.5-10.1) Total Bilirubin 0.3 MG/DL (0.2-1.0) Aspartate Amino Transf (AST/SGOT) 15 U/L (15-37) Alanine Aminotransferase (ALT/SGPT) 11 U/L (12-78) L Alkaline Phosphatase 131 U/L (46-116) H C-Reactive Protein, Quantitative 4.6 mg/dL (0.00-0.90) H Total Protein 5.8 G/DL (6.4-8.2) L Albumin 2.1 G/DL (3.4-5.0) L Globulin 3.7 g/dL Albumin/Globulin Ratio 0.6 (1.0-2.7) L Current Medications Medications (Trade) Dose Ordered Sig/Manny Route PRN Reason Start Time Stop Time Status Last Admin Dose Admin Acetaminophen (Tylenol) 650 mg Q4H PRN ORAL Mild Pain (Pain Scale 1-3) 11/03/19 14:00 11/22/19 13:59 11/09/19 09:30 Al Hydroxide/Mg Hydroxide (Mylanta) 15 ml Q6H PRN ORAL DYSPEPSIA 11/03/19 14:00 11/28/19 13:59 Allopurinol (Zyloprim) 100 mg DAILY ORAL 11/04/19 09:00 11/23/19 08:59 11/09/19 09:19 Amlodipine Besylate (Norvasc) 5 mg DAILY ORAL 11/04/19 09:00 12/01/19 18:59 11/09/19 09:19 Aspirin (Ecotrin) 81 mg DAILY ORAL 11/04/19 09:00 12/08/19 08:59 11/09/19 09:18 Brimonidine Tartrate (Alphagan) 1 drop BID BOTH EYES 11/05/19 09:00 02/03/20 08:59 11/09/19 09:18 Diphenhydramine HCl (Benadryl) 25 mg Q8H PRN ORAL Itching/Pruritis 11/03/19 14:00 11/28/19 13:59 Docusate Sodium (Colace) 100 mg TWICE A DAY ORAL 11/03/19 18:00 11/28/19 17:59 11/08/19 17:58 Ferrous Sulfate (Feosol) 325 mg DAILY ORAL 11/04/19 09:00 01/22/20 08:59 11/09/19 09:18 Hydralazine HCl (Apresoline) 25 mg Q6H PRN ORAL SBP>150 11/04/19 03:00 02/02/20 02:59 11/07/19 17:06 Hydralazine HCl (Apresoline) 50 mg Q8HR ORAL 11/04/19 14:00 02/02/20 13:59 11/09/19 05:10 Levofloxacin (Levaquin) 250 mg DAILY ORAL 11/09/19 09:00 11/16/19 08:59 11/09/19 09:19 Losartan Potassium (Cozaar) 100 mg DAILY ORAL 11/04/19 09:00 11/23/19 08:59 11/09/19 09:19 Magnesium Hydroxide (Mom) 30 ml BIDPRN PRN ORAL Constipation 11/03/19 14:00 12/01/19 13:59 11/07/19 06:10 Memantine (Namenda) 5 mg DAILY ORAL 11/04/19 09:00 11/23/19 08:59 11/09/19 09:18 Metoprolol Succinate (Toprol XL) 25 mg DAILY ORAL 11/04/19 09:00 02/02/20 08:59 11/09/19 09:19 Metronidazole (Flagyl) 500 mg Q8HR ORAL 11/08/19 22:00 11/15/19 21:59 11/09/19 06:32 Morphine Sulfate (Morphine Sulfate) 2 mg Q4H PRN IVP Mild Pain (Pain Scale 1-3) 11/05/19 20:15 11/12/19 20:14 Morphine Sulfate (Morphine Sulfate) 2 mg Q4H PRN IVP Moderate Pain (Pain Scale 4-6) 11/05/19 20:15 11/12/19 20:14 Morphine Sulfate (Morphine Sulfate) 4 mg Q4H PRN IVP Severe Pain (Pain Scale 7-10) 11/05/19 20:15 11/12/19 20:14 11/06/19 05:44 Ondansetron HCl (Zofran) 4 mg Q6H PRN IVP Nausea & Vomiting 11/03/19 14:00 11/28/19 13:59 11/04/19 23:46 Pantoprazole (Protonix) 40 mg DAILY ORAL 11/04/19 09:00 11/23/19 08:59 11/09/19 09:18 Sennosides (Senokot) 8.6 mg BIDPRN PRN ORAL Constipation 11/03/19 14:00 12/01/19 13:59 11/04/19 20:19 Brenden Moreno MD November 09, 2019 14:31
[2019-11-09 16:00] VITALS: BP 141/62
--- NOTE | 2019-11-09 16:37 | Surgery Progress Note ---
Surgery Progress Note Subjective Procedure Performed lap rosaura lap lysis of adhesion Additional Comments improving wbc trending down esr/crp trending down comfortable no complaints Objective Last 24 Hour Vital Signs Date Time Temp Pulse Resp B/P (MAP) Pulse Ox O2 Delivery O2 Flow Rate FiO2 11/09/19 15:14 141/62 11/09/19 11:49 98.6 67 18 132/58 (82) 98 11/09/19 09:19 66 157/65 11/09/19 09:19 157/65 11/09/19 09:19 66 157/65 11/09/19 08:00 98.0 66 19 157/65 (95) 97 11/09/19 05:10 152/65 11/09/19 04:45 97.9 65 18 152/65 (94) 94 11/09/19 00:00 97.4 64 18 145/59 (87) 95 11/08/19 21:58 129/56 11/08/19 21:00 Room Air 11/08/19 20:00 97.5 61 18 129/56 (80) 98 I&O Intake and Output 11/08/19 11/09/19 19:00 07:00 Intake Total 500 ml 200 ml Output Total 360 ml 950 ml Balance 140 ml -750 ml Intake Oral 500 ml 200 ml Output Urine Total 360 ml 950 ml # Bowel Movements 2 Dressing: dry Wound: clean Cardiovascular: RSR Respiratory: clear Abdomen: soft, non-tender, present bowel sounds Extremities: no edema, no tenderness, no cyanosis Laboratory Tests Test 11/09/19 04:50 White Blood Count 14.0 K/UL (4.8-10.8) H Red Blood Count 2.97 M/UL (4.20-5.40) L Hemoglobin 9.6 G/DL (12.0-16.0) L Hematocrit 28.8 % (37.0-47.0) L Mean Corpuscular Volume 97 FL (80-99) Mean Corpuscular Hemoglobin 32.5 PG (27.0-31.0) H Mean Corpuscular Hemoglobin Concent 33.5 G/DL (32.0-36.0) Red Cell Distribution Width 13.1 % (11.6-14.8) Platelet Count 357 K/UL (150-450) Mean Platelet Volume 6.2 FL (6.5-10.1) L Neutrophils (%) (Auto) 78.2 % (45.0-75.0) H Lymphocytes (%) (Auto) 14.4 % (20.0-45.0) L Monocytes (%) (Auto) 5.8 % (1.0-10.0) Eosinophils (%) (Auto) 1.2 % (0.0-3.0) Basophils (%) (Auto) 0.5 % (0.0-2.0) Erythrocyte Sedimentation Rate 100 MM/HR (0-30) H Sodium Level 134 MMOL/L (136-145) L Potassium Level 4.1 MMOL/L (3.5-5.1) Chloride Level 102 MMOL/L (98-107) Carbon Dioxide Level 29 MMOL/L (21-32) Anion Gap 3 mmol/L (5-15) L Blood Urea Nitrogen 20 mg/dL (7-18) H Creatinine 1.2 MG/DL (0.55-1.30) Estimat Glomerular Filtration Rate 42.3 mL/min (>60) Glucose Level 107 MG/DL (74-106) H Calcium Level 9.0 MG/DL (8.5-10.1) Total Bilirubin 0.3 MG/DL (0.2-1.0) Aspartate Amino Transf (AST/SGOT) 15 U/L (15-37) Alanine Aminotransferase (ALT/SGPT) 11 U/L (12-78) L Alkaline Phosphatase 131 U/L (46-116) H C-Reactive Protein, Quantitative 4.6 mg/dL (0.00-0.90) H Total Protein 5.8 G/DL (6.4-8.2) L Albumin 2.1 G/DL (3.4-5.0) L Globulin 3.7 g/dL Albumin/Globulin Ratio 0.6 (1.0-2.7) L Plan Problems: (1) Choledocholithiasis Assessment & Plan: Gallbladder is filled with sludge and also demonstrates gallstones. There is distended and there is trace pericholecystic fluid. Sonographic August's sign is negative. Common bile duct measures 20 mm in diameter. It is filled with debris. There is marked intrahepatic biliary ductal dilatation. Liver demonstrates normal echogenicity, no focal abnormality. Portal vein and hepatic veins are patent. Pancreas is unremarkable. The pancreatic duct is dilated, however, measuring 4 mm in diameter. Spleen is unremarkable. Left kidney measures 9.1 cm in length. Right kidney measures 9.3 cm length. Both kidneys demonstrate increased echogenicity. There is no hydronephrosis. There are bilateral renal cysts . Abdominal aorta is obscured by bowel gas . Biliary ductal dilatation is increased from prior study (2) Acute cholangitis Assessment & Plan: discussed with GI patient currently stable and not septic afebrile, HD Stable labs reviewed and improving hold on ERCP or stent exchange for now no acute surgical intervention given age and status abx iv fluids okay for diet trend labs started ABX discussed with GI may need ERCP / stent change will follow with recs thank you discussed with GI. plan for stent change. would not recommend surgery at this time given age, condition, and overall status would benefit from metallic stent at some point ERCP noted stones, sludge and pus noted discussed with GI. recommend cholecystectomy but high risk will discuss with patient and daughter s/p lap rosaura doing well d/c planning sob, desaturation, a fib fluids stopped labs noted cont abx okay for diet tele transfer Labs improving exam stable Bowel regimen improving may consider repeat CT scan . did place surgicel in OR in liver bed so will look like abscess there but unlikely (3) Obstructive jaundice Jay Kemp November 09, 2019 16:37
[2019-11-09 20:00] VITALS: BP 153/61
[2019-11-10] VITALS (7 sets, daily range): BP systolic 144–171; BP diastolic 59–70
--- NOTE | 2019-11-10 00:14 | Progress Note ---
DATE: 11/09/2019 CARDIOLOGY PROGRESS NOTE SUBJECTIVE: The patient without shortness of breath, abdominal pain, or chest pain. PHYSICAL EXAMINATION: VITAL SIGNS: Blood pressure ranging from 129/56 to 152/65, heart rate in the 60s, afebrile. CHEST: Diminished, but clear breath sounds. CARDIAC: Regular rhythm and rate. Normal S1 and S2 with occasional ectopic beats. No new murmur. ABDOMEN: Soft. Mild tenderness in the midepigastric region. EXTREMITIES: No edema. LABORATORY DATA: White count 14 and hemoglobin 9.6. Sodium 134, potassium 4.1, bicarb 29, BUN 20, creatinine 1.2, and albumin 2.1. IMPRESSION: 1. Cholangitis, status post ERCP. 2. Leukocytosis, improving. 3. Severe protein-calorie malnutrition. 4. Acute on chronic diastolic congestive heart failure, clinically improved. 5. Prerenal azotemia following diuresis. 6. Hyponatremia, likely dilutional. PLAN: 1. Hold additional diuresis for now. 2. Discontinue morphine. 3. Titrate antihypertensives. 4. Avoid orthostasis. 5. Followup white blood count. Yefri Galvan M.D. DR: Vincenzo JOB#: [id number] CC:
[2019-11-10] MEDS: HydrALAZINE 25mg tab ORAL PRN ×2 (04:38→23:28)
[2019-11-10] MEDS: metroNIDAZOLE 500mg tab ORAL SCH (06:26)
[2019-11-10] MEDS: HydrALAZINE 50mg tab ORAL SCH ×3 (06:26→21:25)
[2019-11-10 07:09] LABS: BASOPHILS % (AUTO) 0.4 % (0.0-2.0); EOSINOPHILS % (AUTO) 1.1 % (0.0-3.0); HEMATOCRIT 28.8 % (37.0-47.0); HEMOGLOBIN 9.7 G/DL (12.0-16.0); LYMPHOCYTES % (AUTO) 16.2 % (20.0-45.0); MEAN CORPUSCULAR VOLUME 97 FL (80-99); MONOCYTES % (AUTO) 5.5 % (1.0-10.0); NEUTROPHILS % (AUTO) 76.8 % (45.0-75.0); PLATELET COUNT 378 K/UL (150-450); RED BLOOD COUNT 2.98 M/UL (4.20-5.40); RED CELL DISTRIBUTION WIDTH 13.1 % (11.6-14.8)
[2019-11-10 07:17] LABS: ALANINE AMINOTRANSFERASE 10 U/L (12-78); ALBUMIN 2.2 G/DL (3.4-5.0); ALBUMIN/GLOBULIN RATIO 0.6 (1.0-2.7); ALKALINE PHOSPHATASE 132 U/L (46-116); ANION GAP 6 mmol/L (5-15); ASPARTATE AMINO TRANSFERASE 16 U/L (15-37); BILIRUBIN,TOTAL 0.3 MG/DL (0.2-1.0); BLOOD UREA NITROGEN 17 mg/dL (7-18); CALCIUM 8.8 MG/DL (8.5-10.1); CARBON DIOXIDE 30 MMOL/L (21-32); CHLORIDE 103 MMOL/L (98-107); CREATININE 1.2 MG/DL (0.55-1.30); POTASSIUM 4.1 MMOL/L (3.5-5.1); SODIUM 138 MMOL/L (136-145)
[2019-11-10] MEDS: Brimonidine 0.2% Opth Sol BOTH EYES SCH ×2 (08:32→17:20)
[2019-11-10] MEDS: Docusate 100mg cap ORAL SCH ×2 (08:33→17:20)
[2019-11-10] MEDS: Allopurinol 100mg Tab ORAL SCH (08:33)
[2019-11-10] MEDS: Memantine 5 MG TAB ORAL SCH (08:33)
[2019-11-10] MEDS: Losartan 50mg tab ORAL SCH (08:34)
[2019-11-10] MEDS: Aspirin EC 81mg tab ORAL SCH (08:35)
[2019-11-10] MEDS: Metoprolol Succinate XL 25mg tab ORAL SCH (08:35)
--- NOTE | 2019-11-10 08:46 | General Progress Note ---
Assessment/Plan Status: stable Assessment/Plan: Cholecystitis/cholangitis Previous CBD stent, elevated CA 199 Hypertension Hypertensive heart disease Alzheimer's dementia Gout Failure to thrive Status post ERCP x2 elevated Liver enzymes leukocytosis postop pneumonia PLAN await improvement and improvement of wbc ID noted and awaiting clearance repeat cbc d/w family and proceed with dc planning monitor po intake impression, plan, and exam edited and reviewed in detail care discussed with RN Subjective Allergies: Coded Allergies: HYDROCODONE (Verified Allergy, Unknown, 06/13/19) Subjective improved wbc but not yet normal antibiotics noted; PO only ID reviewed Objective Last 24 Hour Vital Signs Date Time Temp Pulse Resp B/P (MAP) Pulse Ox O2 Delivery O2 Flow Rate FiO2 11/10/19 08:36 69 155/62 11/10/19 08:35 69 155/62 11/10/19 08:34 155/62 11/10/19 06:26 144/62 11/10/19 06:00 71 144/62 (89) 11/10/19 04:43 98.0 65 17 171/66 (101) 94 11/10/19 04:38 171/66 11/10/19 00:00 97.4 63 17 160/66 (97) 96 11/09/19 21:05 153/61 11/09/19 21:00 Room Air 11/09/19 20:00 98.2 64 16 153/61 (91) 95 11/09/19 16:00 97.9 63 18 141/62 (88) 95 11/09/19 15:14 141/62 11/09/19 11:49 98.6 67 18 132/58 (82) 98 11/09/19 09:19 66 157/65 11/09/19 09:19 157/65 11/09/19 09:19 66 157/65 11/09/19 09:00 Room Air Intake and Output 11/09/19 11/10/19 19:00 07:00 Intake Total 540 ml 360 ml Output Total 425 ml 1000 ml Balance 115 ml -640 ml Intake Oral 540 ml 360 ml Output Urine Total 425 ml 1000 ml # Voids 1 # Bowel Movements 4 4 Laboratory Tests 11/10/19 05:50: White Blood Count 14.0H, Red Blood Count 2.98L, Hemoglobin 9.7L, Hematocrit 28.8L, Mean Corpuscular Volume 97, Mean Corpuscular Hemoglobin 32.4H, Mean Corpuscular Hemoglobin Concent 33.5, Red Cell Distribution Width 13.1, Platelet Count 378, Mean Platelet Volume 5.8L, Neutrophils (%) (Auto) 76.8H, Lymphocytes (%) (Auto) 16.2L, Monocytes (%) (Auto) 5.5, Eosinophils (%) (Auto) 1.1, Basophils (%) (Auto) 0.4, Sodium Level 138, Potassium Level 4.1, Chloride Level 103, Carbon Dioxide Level 30, Anion Gap 6, Blood Urea Nitrogen 17, Creatinine 1.2, Estimat Glomerular Filtration Rate 42.3, Glucose Level 109H, Calcium Level 8.8, Total Bilirubin 0.3, Aspartate Amino Transf (AST/SGOT) 16, Alanine Aminotransferase (ALT/SGPT) 10L, Alkaline Phosphatase 132H, Total Protein 6.0L, Albumin 2.2L, Globulin 3.8, Albumin/Globulin Ratio 0.6L Height (Feet): 4 Height (Inches): 9.00 Weight (Pounds): 128 Objective WDWN NAD reduced breath sounds bilaterally with rhonchi [id number] without MRG NABS no distention no CCE nonfocal confused reviewed and edited Roel Jack MD November 10, 2019 08:46
--- NOTE | 2019-11-10 09:41 | General Progress Note ---
Assessment/Plan Problem List: (1) Cholelithiasis ICD Codes: K80.20 - Calculus of gallbladder without cholecystitis without obstruction SNOMED: 002388360 (2) Dehydration ICD Codes: E86.0 - Dehydration SNOMED: 60764249 (3) Obstructive jaundice ICD Codes: K83.1 - Obstruction of bile duct SNOMED: 78162178 (4) CKD (chronic kidney disease) stage 5, GFR less than 15 ml/min ICD Codes: N18.5 - Chronic kidney disease, stage 5 SNOMED: 732672083 (5) Choledocholithiasis ICD Codes: K80.50 - Calculus of bile duct without cholangitis or cholecystitis without obstruction SNOMED: 623085137 Status: stable Assessment/Plan: s/p ERCP and stent exchange s/p surg improving LFTS needs out patient fu for repeat ERCP in 8 weeks abx fu surg recs cardiology and pulm eval appreciated repeat labs for AM Subjective ROS Limited/Unobtainable: No Allergies: Coded Allergies: HYDROCODONE (Verified Allergy, Unknown, 06/13/19) Objective Last 24 Hour Vital Signs Date Time Temp Pulse Resp B/P (MAP) Pulse Ox O2 Delivery O2 Flow Rate FiO2 11/10/19 08:36 69 155/62 11/10/19 08:35 69 155/62 11/10/19 08:34 155/62 11/10/19 06:26 144/62 11/10/19 06:00 71 144/62 (89) 11/10/19 04:43 98.0 65 17 171/66 (101) 94 11/10/19 04:38 171/66 11/10/19 00:00 97.4 63 17 160/66 (97) 96 11/09/19 21:05 153/61 11/09/19 21:00 Room Air 11/09/19 20:00 98.2 64 16 153/61 (91) 95 11/09/19 16:00 97.9 63 18 141/62 (88) 95 11/09/19 15:14 141/62 11/09/19 11:49 98.6 67 18 132/58 (82) 98 Intake and Output 11/09/19 11/10/19 19:00 07:00 Intake Total 540 ml 360 ml Output Total 425 ml 1000 ml Balance 115 ml -640 ml Intake Oral 540 ml 360 ml Output Urine Total 425 ml 1000 ml # Voids 1 # Bowel Movements 4 4 Laboratory Tests 11/10/19 05:50: White Blood Count 14.0H, Red Blood Count 2.98L, Hemoglobin 9.7L, Hematocrit 28.8L, Mean Corpuscular Volume 97, Mean Corpuscular Hemoglobin 32.4H, Mean Corpuscular Hemoglobin Concent 33.5, Red Cell Distribution Width 13.1, Platelet Count 378, Mean Platelet Volume 5.8L, Neutrophils (%) (Auto) 76.8H, Lymphocytes (%) (Auto) 16.2L, Monocytes (%) (Auto) 5.5, Eosinophils (%) (Auto) 1.1, Basophils (%) (Auto) 0.4, Sodium Level 138, Potassium Level 4.1, Chloride Level 103, Carbon Dioxide Level 30, Anion Gap 6, Blood Urea Nitrogen 17, Creatinine 1.2, Estimat Glomerular Filtration Rate 42.3, Glucose Level 109H, Calcium Level 8.8, Total Bilirubin 0.3, Aspartate Amino Transf (AST/SGOT) 16, Alanine Aminotransferase (ALT/SGPT) 10L, Alkaline Phosphatase 132H, Total Protein 6.0L, Albumin 2.2L, Globulin 3.8, Albumin/Globulin Ratio 0.6L Height (Feet): 4 Height (Inches): 9.00 Weight (Pounds): 128 General Appearance: no apparent distress EENT: normal ENT inspection Neck: supple Cardiovascular: normal peripheral pulses Respiratory/Chest: decreased breath sounds Abdomen: normal bowel sounds, non tender, soft Extremities: non-tender Tashi Hope MD November 10, 2019 09:41
--- NOTE | 2019-11-10 11:20 | Infectious Diseases Prog Note ---
Assessment/Plan Assessment/Plan antibiotics : levoquin, flagyl A 1. Cholangitis. She underwent a laparoscopic cholecystectomy. 2. Leukocytosis improving 3. Hypertension. 4. Gout. 5. Pneumonia. P 1. d/c levoquin, flagyl 2. observe off antibiotics Subjective ROS Limited/Unobtainable: Yes Allergies: Coded Allergies: HYDROCODONE (Verified Allergy, Unknown, 06/13/19) Objective Vital Signs Last 24 Hour Vital Signs Date Time Temp Pulse Resp B/P (MAP) Pulse Ox O2 Delivery O2 Flow Rate FiO2 11/10/19 09:00 Room Air 11/10/19 08:36 69 155/62 11/10/19 08:35 69 155/62 11/10/19 08:34 155/62 11/10/19 08:00 97.3 69 18 155/62 (93) 95 11/10/19 06:26 144/62 11/10/19 06:00 71 144/62 (89) 11/10/19 04:43 98.0 65 17 171/66 (101) 94 11/10/19 04:38 171/66 11/10/19 00:00 97.4 63 17 160/66 (97) 96 11/09/19 21:05 153/61 11/09/19 21:00 Room Air 11/09/19 20:00 98.2 64 16 153/61 (91) 95 11/09/19 16:00 97.9 63 18 141/62 (88) 95 11/09/19 15:14 141/62 11/09/19 11:49 98.6 67 18 132/58 (82) 98 Height (Feet): 4 Height (Inches): 9.00 Weight (Pounds): 128 Respiratory/Chest: lungs clear Cardiovascular: normal rate, regular rhythm, no gallop/murmur Abdomen: soft, non tender, other - wound clean Extremities: no edema Laboratory Tests Test 11/10/19 05:50 White Blood Count 14.0 K/UL (4.8-10.8) H Red Blood Count 2.98 M/UL (4.20-5.40) L Hemoglobin 9.7 G/DL (12.0-16.0) L Hematocrit 28.8 % (37.0-47.0) L Mean Corpuscular Volume 97 FL (80-99) Mean Corpuscular Hemoglobin 32.4 PG (27.0-31.0) H Mean Corpuscular Hemoglobin Concent 33.5 G/DL (32.0-36.0) Red Cell Distribution Width 13.1 % (11.6-14.8) Platelet Count 378 K/UL (150-450) Mean Platelet Volume 5.8 FL (6.5-10.1) L Neutrophils (%) (Auto) 76.8 % (45.0-75.0) H Lymphocytes (%) (Auto) 16.2 % (20.0-45.0) L Monocytes (%) (Auto) 5.5 % (1.0-10.0) Eosinophils (%) (Auto) 1.1 % (0.0-3.0) Basophils (%) (Auto) 0.4 % (0.0-2.0) Sodium Level 138 MMOL/L (136-145) Potassium Level 4.1 MMOL/L (3.5-5.1) Chloride Level 103 MMOL/L (98-107) Carbon Dioxide Level 30 MMOL/L (21-32) Anion Gap 6 mmol/L (5-15) Blood Urea Nitrogen 17 mg/dL (7-18) Creatinine 1.2 MG/DL (0.55-1.30) Estimat Glomerular Filtration Rate 42.3 mL/min (>60) Glucose Level 109 MG/DL (74-106) H Calcium Level 8.8 MG/DL (8.5-10.1) Total Bilirubin 0.3 MG/DL (0.2-1.0) Aspartate Amino Transf (AST/SGOT) 16 U/L (15-37) Alanine Aminotransferase (ALT/SGPT) 10 U/L (12-78) L Alkaline Phosphatase 132 U/L (46-116) H Total Protein 6.0 G/DL (6.4-8.2) L Albumin 2.2 G/DL (3.4-5.0) L Globulin 3.8 g/dL Albumin/Globulin Ratio 0.6 (1.0-2.7) L Current Medications Medications (Trade) Dose Ordered Sig/Manny Route PRN Reason Start Time Stop Time Status Last Admin Dose Admin Acetaminophen (Tylenol) 650 mg Q4H PRN ORAL Mild Pain (Pain Scale 1-3) 11/03/19 14:00 11/22/19 13:59 11/09/19 09:30 Al Hydroxide/Mg Hydroxide (Mylanta) 15 ml Q6H PRN ORAL DYSPEPSIA 11/03/19 14:00 11/28/19 13:59 Allopurinol (Zyloprim) 100 mg DAILY ORAL 11/04/19 09:00 11/23/19 08:59 11/10/19 08:33 Amlodipine Besylate (Norvasc) 5 mg DAILY ORAL 11/04/19 09:00 12/01/19 18:59 11/10/19 08:36 Aspirin (Ecotrin) 81 mg DAILY ORAL 11/04/19 09:00 12/08/19 08:59 11/10/19 08:35 Brimonidine Tartrate (Alphagan) 1 drop BID BOTH EYES 11/05/19 09:00 02/03/20 08:59 11/10/19 08:32 Docusate Sodium (Colace) 100 mg TWICE A DAY ORAL 11/03/19 18:00 11/28/19 17:59 11/08/19 17:58 Ferrous Sulfate (Feosol) 325 mg DAILY ORAL 11/04/19 09:00 01/22/20 08:59 11/10/19 08:34 Hydralazine HCl (Apresoline) 25 mg Q6H PRN ORAL SBP>150 11/04/19 03:00 02/02/20 02:59 11/10/19 04:38 Hydralazine HCl (Apresoline) 50 mg Q8HR ORAL 11/04/19 14:00 02/02/20 13:59 11/10/19 06:26 Levofloxacin (Levaquin) 250 mg DAILY ORAL 11/09/19 09:00 11/16/19 08:59 11/10/19 08:34 Losartan Potassium (Cozaar) 100 mg DAILY ORAL 11/04/19 09:00 11/23/19 08:59 11/10/19 08:34 Magnesium Hydroxide (Mom) 30 ml BIDPRN PRN ORAL Constipation 11/03/19 14:00 12/01/19 13:59 11/07/19 06:10 Memantine (Namenda) 5 mg DAILY ORAL 11/04/19 09:00 11/23/19 08:59 11/10/19 08:33 Metoprolol Succinate (Toprol XL) 25 mg DAILY ORAL 11/04/19 09:00 02/02/20 08:59 11/10/19 08:35 Metronidazole (Flagyl) 500 mg Q8HR ORAL 11/08/19 22:00 11/15/19 21:59 11/10/19 06:26 Ondansetron HCl (Zofran) 4 mg Q6H PRN IVP Nausea & Vomiting 11/03/19 14:00 11/28/19 13:59 11/04/19 23:46 Pantoprazole (Protonix) 40 mg DAILY ORAL 11/04/19 09:00 11/23/19 08:59 11/10/19 08:34 Sennosides (Senokot) 8.6 mg BIDPRN PRN ORAL Constipation 11/03/19 14:00 12/01/19 13:59 11/04/19 20:19 Maryjane Cheng MD November 10, 2019 11:20
--- NOTE | 2019-11-10 12:46 | Surgery Progress Note ---
Surgery Progress Note Subjective Procedure Performed lap rosaura lap lysis of adhesion Additional Comments discussed with infectious disease clinically well persistent wbc without active infection noted monitor off abx if necessary will repeat CT but caution given surgicel placed in liver bed which will look like infection on CT classically Objective Last 24 Hour Vital Signs Date Time Temp Pulse Resp B/P (MAP) Pulse Ox O2 Delivery O2 Flow Rate FiO2 11/10/19 12:00 97.6 62 18 160/66 (97) 96 11/10/19 09:00 Room Air 11/10/19 08:36 69 155/62 11/10/19 08:35 69 155/62 11/10/19 08:34 155/62 11/10/19 08:00 97.3 69 18 155/62 (93) 95 11/10/19 06:26 144/62 11/10/19 06:00 71 144/62 (89) 11/10/19 04:43 98.0 65 17 171/66 (101) 94 11/10/19 04:38 171/66 11/10/19 00:00 97.4 63 17 160/66 (97) 96 11/09/19 21:05 153/61 11/09/19 21:00 Room Air 11/09/19 20:00 98.2 64 16 153/61 (91) 95 11/09/19 16:00 97.9 63 18 141/62 (88) 95 11/09/19 15:14 141/62 I&O Intake and Output 11/09/19 11/10/19 19:00 07:00 Intake Total 540 ml 360 ml Output Total 425 ml 1000 ml Balance 115 ml -640 ml Intake Oral 540 ml 360 ml Output Urine Total 425 ml 1000 ml # Voids 1 # Bowel Movements 4 4 Dressing: dry Wound: clean Cardiovascular: RSR Respiratory: decreased breath sounds Abdomen: soft, non-tender, present bowel sounds Extremities: no tenderness, no cyanosis Laboratory Tests Test 11/10/19 05:50 White Blood Count 14.0 K/UL (4.8-10.8) H Red Blood Count 2.98 M/UL (4.20-5.40) L Hemoglobin 9.7 G/DL (12.0-16.0) L Hematocrit 28.8 % (37.0-47.0) L Mean Corpuscular Volume 97 FL (80-99) Mean Corpuscular Hemoglobin 32.4 PG (27.0-31.0) H Mean Corpuscular Hemoglobin Concent 33.5 G/DL (32.0-36.0) Red Cell Distribution Width 13.1 % (11.6-14.8) Platelet Count 378 K/UL (150-450) Mean Platelet Volume 5.8 FL (6.5-10.1) L Neutrophils (%) (Auto) 76.8 % (45.0-75.0) H Lymphocytes (%) (Auto) 16.2 % (20.0-45.0) L Monocytes (%) (Auto) 5.5 % (1.0-10.0) Eosinophils (%) (Auto) 1.1 % (0.0-3.0) Basophils (%) (Auto) 0.4 % (0.0-2.0) Sodium Level 138 MMOL/L (136-145) Potassium Level 4.1 MMOL/L (3.5-5.1) Chloride Level 103 MMOL/L (98-107) Carbon Dioxide Level 30 MMOL/L (21-32) Anion Gap 6 mmol/L (5-15) Blood Urea Nitrogen 17 mg/dL (7-18) Creatinine 1.2 MG/DL (0.55-1.30) Estimat Glomerular Filtration Rate 42.3 mL/min (>60) Glucose Level 109 MG/DL (74-106) H Calcium Level 8.8 MG/DL (8.5-10.1) Total Bilirubin 0.3 MG/DL (0.2-1.0) Aspartate Amino Transf (AST/SGOT) 16 U/L (15-37) Alanine Aminotransferase (ALT/SGPT) 10 U/L (12-78) L Alkaline Phosphatase 132 U/L (46-116) H Total Protein 6.0 G/DL (6.4-8.2) L Albumin 2.2 G/DL (3.4-5.0) L Globulin 3.8 g/dL Albumin/Globulin Ratio 0.6 (1.0-2.7) L Plan Problems: (1) Choledocholithiasis Assessment & Plan: Gallbladder is filled with sludge and also demonstrates gallstones. There is distended and there is trace pericholecystic fluid. Sonographic August's sign is negative. Common bile duct measures 20 mm in diameter. It is filled with debris. There is marked intrahepatic biliary ductal dilatation. Liver demonstrates normal echogenicity, no focal abnormality. Portal vein and hepatic veins are patent. Pancreas is unremarkable. The pancreatic duct is dilated, however, measuring 4 mm in diameter. Spleen is unremarkable. Left kidney measures 9.1 cm in length. Right kidney measures 9.3 cm length. Both kidneys demonstrate increased echogenicity. There is no hydronephrosis. There are bilateral renal cysts . Abdominal aorta is obscured by bowel gas . Biliary ductal dilatation is increased from prior study (2) Acute cholangitis Assessment & Plan: discussed with GI patient currently stable and not septic afebrile, HD Stable labs reviewed and improving hold on ERCP or stent exchange for now no acute surgical intervention given age and status abx iv fluids okay for diet trend labs started ABX discussed with GI may need ERCP / stent change will follow with recs thank you discussed with GI. plan for stent change. would not recommend surgery at this time given age, condition, and overall status would benefit from metallic stent at some point ERCP noted stones, sludge and pus noted discussed with GI. recommend cholecystectomy but high risk will discuss with patient and daughter s/p lap rosaura doing well d/c planning sob, desaturation, a fib fluids stopped labs noted cont abx okay for diet tele transfer Labs improving exam stable Bowel regimen improving may consider repeat CT scan . did place surgicel in OR in liver bed so will look like abscess there but unlikely monitor off abx (3) Obstructive jaundice Jay Kemp November 10, 2019 12:46
[2019-11-11] VITALS: BP 152/57
[2019-11-11 04:00] VITALS: BP 152/61
[2019-11-11] MEDS: HydrALAZINE 50mg tab ORAL SCH ×3 (05:07→21:07)
--- NOTE | 2019-11-11 06:51 | General Progress Note ---
Assessment/Plan Problem List: (1) Cholelithiasis ICD Codes: K80.20 - Calculus of gallbladder without cholecystitis without obstruction SNOMED: 509820768 (2) Dehydration ICD Codes: E86.0 - Dehydration SNOMED: 17017237 (3) Obstructive jaundice ICD Codes: K83.1 - Obstruction of bile duct SNOMED: 33669205 (4) CKD (chronic kidney disease) stage 5, GFR less than 15 ml/min ICD Codes: N18.5 - Chronic kidney disease, stage 5 SNOMED: 847254427 (5) Choledocholithiasis ICD Codes: K80.50 - Calculus of bile duct without cholangitis or cholecystitis without obstruction SNOMED: 167376725 Status: stable Assessment/Plan: s/p ERCP and stent exchange s/p surg improving LFTS needs out patient fu for repeat ERCP in 8 weeks abx fu surg recs cardiology and pulm eval appreciated repeat labs for AM consider removing [place] cath Subjective ROS Limited/Unobtainable: No Allergies: Coded Allergies: HYDROCODONE (Verified Allergy, Unknown, 06/13/19) Objective Last 24 Hour Vital Signs Date Time Temp Pulse Resp B/P (MAP) Pulse Ox O2 Delivery O2 Flow Rate FiO2 11/11/19 05:07 152/61 11/11/19 04:00 98.7 69 17 152/61 (91) 94 11/11/19 00:00 97.8 63 18 152/57 (88) 97 11/10/19 23:28 152/57 11/10/19 21:25 150/59 11/10/19 21:00 Room Air 11/10/19 20:00 98.1 60 18 150/59 (89) 95 11/10/19 16:00 98.0 68 18 145/70 (95) 96 11/10/19 14:18 97.6 11/10/19 13:48 160/66 11/10/19 12:00 97.6 62 18 160/66 (97) 96 11/10/19 09:00 Room Air 11/10/19 08:36 69 155/62 11/10/19 08:35 69 155/62 11/10/19 08:34 155/62 11/10/19 08:00 97.3 69 18 155/62 (93) 95 Intake and Output 11/10/19 11/11/19 19:00 07:00 Intake Total 360 ml 400 ml Output Total 700 ml 1550 ml Balance -340 ml -1150 ml Intake Oral 360 ml 400 ml Output Urine Total 700 ml 1550 ml # Voids 2 Height (Feet): 4 Height (Inches): 9.00 Weight (Pounds): 128 General Appearance: no apparent distress EENT: normal ENT inspection Neck: normal inspection Cardiovascular: normal rate Respiratory/Chest: decreased breath sounds Abdomen: normal bowel sounds, non tender, soft Extremities: non-tender Tashi Hope MD November 11, 2019 06:51
[2019-11-11 08:00] VITALS: BP 155/65
--- NOTE | 2019-11-11 08:48 | General Progress Note ---
Assessment/Plan Status: stable Assessment/Plan: Cholecystitis/cholangitis Previous CBD stent, elevated CA 199 Hypertension Hypertensive heart disease Alzheimer's dementia Gout Failure to thrive Status post ERCP x2 elevated Liver enzymes leukocytosis postop pneumonia PLAN await improvement and improvement of wbc ID noted and awaiting clearance repeat cbc d/w family and proceed with dc planning monitor po intake dc once wbc near normal impression, plan, and exam edited and reviewed in detail care discussed with RN Subjective Allergies: Coded Allergies: HYDROCODONE (Verified Allergy, Unknown, 06/13/19) Subjective improved wbc but not yet normal antibiotics noted; PO only ID reviewed Objective Last 24 Hour Vital Signs Date Time Temp Pulse Resp B/P (MAP) Pulse Ox O2 Delivery O2 Flow Rate FiO2 11/11/19 08:00 98.4 69 19 155/65 (95) 94 11/11/19 05:07 152/61 11/11/19 04:00 98.7 69 17 152/61 (91) 94 11/11/19 00:00 97.8 63 18 152/57 (88) 97 11/10/19 23:28 152/57 11/10/19 21:25 150/59 11/10/19 21:00 Room Air 11/10/19 20:00 98.1 60 18 150/59 (89) 95 11/10/19 16:00 98.0 68 18 145/70 (95) 96 11/10/19 14:18 97.6 11/10/19 13:48 160/66 11/10/19 12:00 97.6 62 18 160/66 (97) 96 11/10/19 09:00 Room Air Intake and Output 11/10/19 11/11/19 19:00 07:00 Intake Total 360 ml 400 ml Output Total 700 ml 1550 ml Balance -340 ml -1150 ml Intake Oral 360 ml 400 ml Output Urine Total 700 ml 1550 ml # Voids 2 Height (Feet): 4 Height (Inches): 9.00 Weight (Pounds): 128 Objective WDWN NAD reduced breath sounds bilaterally with rhonchi [id number] without MRG NABS no distention no CCE nonfocal confused reviewed and edited Roel Jack MD November 11, 2019 08:48
[2019-11-11] MEDS: Docusate 100mg cap ORAL SCH ×2 (09:13→17:21)
[2019-11-11] MEDS: Brimonidine 0.2% Opth Sol BOTH EYES SCH ×2 (09:13→17:21)
[2019-11-11] MEDS: Losartan 50mg tab ORAL SCH (09:14)
[2019-11-11] MEDS: Memantine 5 MG TAB ORAL SCH (09:14)
[2019-11-11] MEDS: Metoprolol Succinate XL 25mg tab ORAL SCH (09:14)
[2019-11-11] MEDS: Allopurinol 100mg Tab ORAL SCH (09:14)
[2019-11-11] MEDS: Aspirin EC 81mg tab ORAL SCH (09:14)
--- NOTE | 2019-11-11 09:15 | Progress Note ---
DATE: 11/10/2019 CARDIOLOGY PROGRESS NOTE SUBJECTIVE: Blood pressure parameters are on the right. The patient without new complaints. White blood count slowly decreasing. PHYSICAL EXAMINATION: VITAL SIGNS: Blood pressure is 150/59, heart rate 68, respiratory rate 18, afebrile. LUNGS: Diminished breath sounds. No wheezing. CARDIAC: Regular rhythm and rate. Normal S1 and S2 with a fourth heart sound. ABDOMEN: Soft. EXTREMITIES: No focal tenderness or edema. LABORATORY DATA: White count 14, hemoglobin 9.7. Potassium 4.1, BUN 17, creatinine 1.2. Albumin 2.2. IMPRESSION: 1. Cholangitis, status post ERCP. 2. Slowly recovering WBC. 3. Hypertensive heart disease. 4. Slightly elevated blood pressure range noted. 5. Paroxysmal atrial fibrillation, suppressed. 6. Acute on chronic diastolic congestive heart failure, clinically improved. PLAN: 1. Continue current medication regimen. 2. Continue slow diuresis with slightly negative fluid balance. 3. Consider thiazide diuretics, if uric acid levels are not elevated. 4. Discharge planning. Yefri Galvan M.D. DR: KETURAH JOB#: [id number] CC:
--- NOTE | 2019-11-11 10:43 | Infectious Diseases Prog Note ---
Assessment/Plan Assessment/Plan antibiotics : none A 1. Cholangitis. She underwent a laparoscopic cholecystectomy. 2. Leukocytosis improving 3. Hypertension. 4. Gout. 5. Pneumonia. P 1. observe off antibiotics Subjective Constitutional: Denies: fever, chills Respiratory: Denies: shortness of breath, dry cough Gastrointestinal/Abdominal: Denies: nausea, vomiting, diarrhea Musculoskeletal: Denies: pain Allergies: Coded Allergies: HYDROCODONE (Verified Allergy, Unknown, 06/13/19) Objective Vital Signs Last 24 Hour Vital Signs Date Time Temp Pulse Resp B/P (MAP) Pulse Ox O2 Delivery O2 Flow Rate FiO2 11/11/19 09:14 69 155/65 11/11/19 09:14 155/65 11/11/19 09:14 69 155/65 11/11/19 09:00 Room Air 11/11/19 08:00 98.4 69 19 155/65 (95) 94 11/11/19 05:07 152/61 11/11/19 04:00 98.7 69 17 152/61 (91) 94 11/11/19 00:00 97.8 63 18 152/57 (88) 97 11/10/19 23:28 152/57 11/10/19 21:25 150/59 11/10/19 21:00 Room Air 11/10/19 20:00 98.1 60 18 150/59 (89) 95 11/10/19 16:00 98.0 68 18 145/70 (95) 96 11/10/19 14:18 97.6 11/10/19 13:48 160/66 11/10/19 12:00 97.6 62 18 160/66 (97) 96 Height (Feet): 4 Height (Inches): 9.00 Weight (Pounds): 128 Respiratory/Chest: lungs clear Cardiovascular: normal rate, regular rhythm, no gallop/murmur Abdomen: soft, non tender Extremities: no edema Current Medications Medications (Trade) Dose Ordered Sig/Manny Route PRN Reason Start Time Stop Time Status Last Admin Dose Admin Acetaminophen (Tylenol) 650 mg Q4H PRN ORAL Mild Pain (Pain Scale 1-3) 11/03/19 14:00 11/22/19 13:59 11/10/19 13:48 Al Hydroxide/Mg Hydroxide (Mylanta) 15 ml Q6H PRN ORAL DYSPEPSIA 11/03/19 14:00 11/28/19 13:59 Allopurinol (Zyloprim) 100 mg DAILY ORAL 11/04/19 09:00 11/23/19 08:59 11/11/19 09:14 Amlodipine Besylate (Norvasc) 5 mg DAILY ORAL 11/04/19 09:00 12/01/19 18:59 11/11/19 09:14 Aspirin (Ecotrin) 81 mg DAILY ORAL 11/04/19 09:00 12/08/19 08:59 11/11/19 09:14 Brimonidine Tartrate (Alphagan) 1 drop BID BOTH EYES 11/05/19 09:00 02/03/20 08:59 11/11/19 09:13 Docusate Sodium (Colace) 100 mg TWICE A DAY ORAL 11/03/19 18:00 11/28/19 17:59 11/11/19 09:13 Ferrous Sulfate (Feosol) 325 mg DAILY ORAL 11/04/19 09:00 01/22/20 08:59 11/11/19 09:14 Hydralazine HCl (Apresoline) 25 mg Q6H PRN ORAL SBP>150 11/04/19 03:00 02/02/20 02:59 11/10/19 23:28 Hydralazine HCl (Apresoline) 50 mg Q8HR ORAL 11/04/19 14:00 02/02/20 13:59 11/11/19 05:07 Losartan Potassium (Cozaar) 100 mg DAILY ORAL 11/04/19 09:00 11/23/19 08:59 11/11/19 09:14 Magnesium Hydroxide (Mom) 30 ml BIDPRN PRN ORAL Constipation 11/03/19 14:00 12/01/19 13:59 11/07/19 06:10 Memantine (Namenda) 5 mg DAILY ORAL 11/04/19 09:00 11/23/19 08:59 11/11/19 09:14 Metoprolol Succinate (Toprol XL) 25 mg DAILY ORAL 11/04/19 09:00 02/02/20 08:59 11/11/19 09:14 Ondansetron HCl (Zofran) 4 mg Q6H PRN IVP Nausea & Vomiting 11/03/19 14:00 11/28/19 13:59 11/04/19 23:46 Pantoprazole (Protonix) 40 mg DAILY ORAL 11/04/19 09:00 11/23/19 08:59 11/11/19 09:14 Sennosides (Senokot) 8.6 mg BIDPRN PRN ORAL Constipation 11/03/19 14:00 12/01/19 13:59 11/04/19 20:19 Maryjane Cheng MD November 11, 2019 10:43
[2019-11-11 11:08] LABS: BASOPHILS % (AUTO) 0.5 % (0.0-2.0); HEMOGLOBIN 10.4 G/DL (12.0-16.0); MEAN CORPUSCULAR VOLUME 96 FL (80-99); MONOCYTES % (AUTO) 6.1 % (1.0-10.0); NEUTROPHILS % (AUTO) 70.4 % (45.0-75.0); PLATELET COUNT 434 K/UL (150-450); RED BLOOD COUNT 3.22 M/UL (4.20-5.40); RED CELL DISTRIBUTION WIDTH 13.1 % (11.6-14.8); WHITE BLOOD COUNT 15.1 K/UL (4.8-10.8)
[2019-11-11 11:30] LABS: ANION GAP 9 mmol/L (5-15); BLOOD UREA NITROGEN 14 mg/dL (7-18); CARBON DIOXIDE 25 MMOL/L (21-32); CHLORIDE 102 MMOL/L (98-107); CREATININE 1.4 MG/DL (0.55-1.30); POTASSIUM 4.2 MMOL/L (3.5-5.1); SODIUM 136 MMOL/L (136-145)
[2019-11-11 11:47] VITALS: BP 141/64
--- NOTE | 2019-11-11 11:54 | Surgery Progress Note ---
Surgery Progress Note Subjective Procedure Performed lap rosaura lap lysis of adhesion Symptoms: improved Additional Comments intermittent wbc still elevated clinically stable and improving tolerating diet comfortable Objective Last 24 Hour Vital Signs Date Time Temp Pulse Resp B/P (MAP) Pulse Ox O2 Delivery O2 Flow Rate FiO2 11/11/19 11:47 97.6 63 20 141/64 (89) 97 11/11/19 09:14 69 155/65 11/11/19 09:14 155/65 11/11/19 09:14 69 155/65 11/11/19 09:00 Room Air 11/11/19 08:00 98.4 69 19 155/65 (95) 94 11/11/19 05:07 152/61 11/11/19 04:00 98.7 69 17 152/61 (91) 94 11/11/19 00:00 97.8 63 18 152/57 (88) 97 11/10/19 23:28 152/57 11/10/19 21:25 150/59 11/10/19 21:00 Room Air 11/10/19 20:00 98.1 60 18 150/59 (89) 95 11/10/19 16:00 98.0 68 18 145/70 (95) 96 11/10/19 14:18 97.6 11/10/19 13:48 160/66 11/10/19 12:00 97.6 62 18 160/66 (97) 96 I&O Intake and Output 11/10/19 11/11/19 19:00 07:00 Intake Total 360 ml 400 ml Output Total 700 ml 1550 ml Balance -340 ml -1150 ml Intake Oral 360 ml 400 ml Output Urine Total 700 ml 1550 ml # Voids 2 Dressing: dry Wound: clean Cardiovascular: RSR Respiratory: clear Abdomen: soft, non-tender, present bowel sounds, non-distended Extremities: no edema, no tenderness, no cyanosis Laboratory Tests Test 11/11/19 10:25 White Blood Count 15.1 K/UL (4.8-10.8) H Red Blood Count 3.22 M/UL (4.20-5.40) L Hemoglobin 10.4 G/DL (12.0-16.0) L Hematocrit 31.0 % (37.0-47.0) L Mean Corpuscular Volume 96 FL (80-99) Mean Corpuscular Hemoglobin 32.2 PG (27.0-31.0) H Mean Corpuscular Hemoglobin Concent 33.4 G/DL (32.0-36.0) Red Cell Distribution Width 13.1 % (11.6-14.8) Platelet Count 434 K/UL (150-450) Mean Platelet Volume 6.0 FL (6.5-10.1) L Neutrophils (%) (Auto) 70.4 % (45.0-75.0) Lymphocytes (%) (Auto) 22.0 % (20.0-45.0) Monocytes (%) (Auto) 6.1 % (1.0-10.0) Eosinophils (%) (Auto) 1.0 % (0.0-3.0) Basophils (%) (Auto) 0.5 % (0.0-2.0) Sodium Level 136 MMOL/L (136-145) Potassium Level 4.2 MMOL/L (3.5-5.1) Chloride Level 102 MMOL/L (98-107) Carbon Dioxide Level 25 MMOL/L (21-32) Anion Gap 9 mmol/L (5-15) Blood Urea Nitrogen 14 mg/dL (7-18) Creatinine 1.4 MG/DL (0.55-1.30) H Estimat Glomerular Filtration Rate 35.4 mL/min (>60) Glucose Level 126 MG/DL (74-106) H Uric Acid 5.0 MG/DL (2.6-7.2) Calcium Level 9.0 MG/DL (8.5-10.1) Magnesium Level 2.1 MG/DL (1.8-2.4) Pro-B-Type Natriuretic Peptide 4745 pg/mL (0-125) H Plan Problems: (1) Choledocholithiasis Assessment & Plan: Gallbladder is filled with sludge and also demonstrates gallstones. There is distended and there is trace pericholecystic fluid. Sonographic August's sign is negative. Common bile duct measures 20 mm in diameter. It is filled with debris. There is marked intrahepatic biliary ductal dilatation. Liver demonstrates normal echogenicity, no focal abnormality. Portal vein and hepatic veins are patent. Pancreas is unremarkable. The pancreatic duct is dilated, however, measuring 4 mm in diameter. Spleen is unremarkable. Left kidney measures 9.1 cm in length. Right kidney measures 9.3 cm length. Both kidneys demonstrate increased echogenicity. There is no hydronephrosis. There are bilateral renal cysts . Abdominal aorta is obscured by bowel gas . Biliary ductal dilatation is increased from prior study (2) Acute cholangitis Assessment & Plan: discussed with GI patient currently stable and not septic afebrile, HD Stable labs reviewed and improving hold on ERCP or stent exchange for now no acute surgical intervention given age and status abx iv fluids okay for diet trend labs started ABX discussed with GI may need ERCP / stent change will follow with recs thank you discussed with GI. plan for stent change. would not recommend surgery at this time given age, condition, and overall status would benefit from metallic stent at some point ERCP noted stones, sludge and pus noted discussed with GI. recommend cholecystectomy but high risk will discuss with patient and daughter s/p lap rosaura doing well d/c planning sob, desaturation, a fib fluids stopped labs noted cont abx okay for diet tele transfer Labs improving exam stable Bowel regimen improving may consider repeat CT scan . did place surgicel in OR in liver bed so will look like abscess there but unlikely monitor off abx discussed with GI and ID. clinically improving will monitor labs d/c planning (3) Obstructive jaundice Jay Kemp November 11, 2019 11:54
[2019-11-11 16:00] VITALS: BP 141/59
[2019-11-11 20:00] VITALS: BP 120/60
[2019-11-12] VITALS: BP 148/67
--- NOTE | 2019-11-12 01:15 | Progress Note ---
DATE: 11/11/2019 CARDIOLOGY PROGRESS NOTE SUBJECTIVE: The patient without new complaints. No shortness of breath. PHYSICAL EXAMINATION: VITAL SIGNS: Blood pressure 155/65, pulse 69, respiratory rate 19. LUNGS: Clear. CARDIAC: Regular. ABDOMEN: Soft. Mildly tender over surgical site. EXTREMITIES: No edema. IMPRESSION: 1. Hypertensive heart disease. 2. Status post laparoscopic cholecystectomy. 3. Acute on chronic diastolic congestive heart failure. 4. Leukocytosis, slowly recovering. 5. Paroxysmal atrial fibrillation, resolved. 6. Acute on chronic diastolic congestive heart failure, improving. PLAN: 1. Monitor white blood count. 2. Negative fluid balance with diuretic therapy as needed. 3. Titrate antihypertensives. 4. Avoid orthostatic risk. Yefri Galvan M.D. DR: Ugo JOB#: [id number] CC:
[2019-11-12 04:00] VITALS: BP 159/64
[2019-11-12] MEDS: HydrALAZINE 50mg tab ORAL SCH ×2 (05:17→14:02)
[2019-11-12 07:17] LABS: ALANINE AMINOTRANSFERASE 14 U/L (12-78); ALBUMIN 2.4 G/DL (3.4-5.0); ALBUMIN/GLOBULIN RATIO 0.6 (1.0-2.7); ALKALINE PHOSPHATASE 116 U/L (46-116); ANION GAP 6 mmol/L (5-15); ASPARTATE AMINO TRANSFERASE 19 U/L (15-37); BASOPHILS % (AUTO) 0.5 % (0.0-2.0); BILIRUBIN,TOTAL 0.3 MG/DL (0.2-1.0); BLOOD UREA NITROGEN 17 mg/dL (7-18); CALCIUM 8.7 MG/DL (8.5-10.1); CARBON DIOXIDE 28 MMOL/L (21-32); CHLORIDE 105 MMOL/L (98-107); CREATININE 1.4 MG/DL (0.55-1.30); EOSINOPHILS % (AUTO) 1.9 % (0.0-3.0); HEMATOCRIT 29.4 % (37.0-47.0); HEMOGLOBIN 9.8 G/DL (12.0-16.0); LYMPHOCYTES % (AUTO) 17.5 % (20.0-45.0); MEAN CORPUSCULAR VOLUME 96 FL (80-99); PLATELET COUNT 367 K/UL (150-450); POTASSIUM 4.1 MMOL/L (3.5-5.1); RED BLOOD COUNT 3.04 M/UL (4.20-5.40); RED CELL DISTRIBUTION WIDTH 12.9 % (11.6-14.8); SODIUM 139 MMOL/L (136-145); WHITE BLOOD COUNT 12.6 K/UL (4.8-10.8)
[2019-11-12 07:35] VITALS: BP 138/62
[2019-11-12] MEDS: Memantine 5 MG TAB ORAL SCH (08:11)
[2019-11-12] MEDS: Allopurinol 100mg Tab ORAL SCH (08:11)
[2019-11-12] MEDS: Brimonidine 0.2% Opth Sol BOTH EYES SCH (08:11)
[2019-11-12] MEDS: Aspirin EC 81mg tab ORAL SCH (08:12)
[2019-11-12] MEDS: Losartan 50mg tab ORAL SCH (08:12)
[2019-11-12] MEDS: Docusate 100mg cap ORAL SCH (08:13)
[2019-11-12] MEDS: Metoprolol Succinate XL 25mg tab ORAL SCH (08:13)
--- NOTE | 2019-11-12 09:06 | General Progress Note ---
Assessment/Plan Problem List: (1) Cholelithiasis ICD Codes: K80.20 - Calculus of gallbladder without cholecystitis without obstruction SNOMED: 828078661 (2) Dehydration ICD Codes: E86.0 - Dehydration SNOMED: 55504387 (3) Obstructive jaundice ICD Codes: K83.1 - Obstruction of bile duct SNOMED: 20652327 (4) CKD (chronic kidney disease) stage 5, GFR less than 15 ml/min ICD Codes: N18.5 - Chronic kidney disease, stage 5 SNOMED: 674744096 (5) Choledocholithiasis ICD Codes: K80.50 - Calculus of bile duct without cholangitis or cholecystitis without obstruction SNOMED: 475570287 Status: stable Assessment/Plan: s/p ERCP and stent exchange s/p surg improving LFTS needs out patient fu for repeat ERCP in 8 weeks abx fu surg recs cardiology and pulm eval appreciated repeat labs for AM consider removing ratliff cath Subjective ROS Limited/Unobtainable: Yes Allergies: Coded Allergies: HYDROCODONE (Verified Allergy, Unknown, 06/13/19) Objective Last 24 Hour Vital Signs Date Time Temp Pulse Resp B/P (MAP) Pulse Ox O2 Delivery O2 Flow Rate FiO2 11/12/19 08:13 68 138/62 11/12/19 08:13 68 138/62 11/12/19 08:12 138/62 11/12/19 07:35 97.5 68 17 138/62 (87) 96 11/12/19 05:17 159/64 11/12/19 04:00 98.3 65 18 159/64 (95) 94 11/12/19 00:00 98.1 69 19 148/67 (94) 96 11/11/19 21:07 145/62 11/11/19 21:00 Room Air 11/11/19 20:00 98.6 66 18 120/60 (80) 95 11/11/19 16:00 97.9 67 18 141/59 (86) 96 11/11/19 13:56 141/64 11/11/19 11:47 97.6 63 20 141/64 (89) 97 11/11/19 09:14 69 155/65 11/11/19 09:14 155/65 11/11/19 09:14 69 155/65 Intake and Output 11/11/19 11/12/19 19:00 07:00 Intake Total 720 ml 400 ml Output Total 400 ml 850 ml Balance 320 ml -450 ml Intake Oral 720 ml 400 ml Output Urine Total 400 ml 850 ml Laboratory Tests 11/11/19 10:25: White Blood Count 15.1H, Red Blood Count 3.22L, Hemoglobin 10.4L, Hematocrit 31.0L, Mean Corpuscular Volume 96, Mean Corpuscular Hemoglobin 32.2H, Mean Corpuscular Hemoglobin Concent 33.4, Red Cell Distribution Width 13.1, Platelet Count 434, Mean Platelet Volume 6.0L, Neutrophils (%) (Auto) 70.4, Lymphocytes ( %) (Auto) 22.0, Monocytes (%) (Auto) 6.1, Eosinophils (%) (Auto) 1.0, Basophils (%) (Auto) 0.5, Sodium Level 136, Potassium Level 4.2, Chloride Level 102, Carbon Dioxide Level 25, Anion Gap 9, Blood Urea Nitrogen 14, Creatinine 1.4H, Estimat Glomerular Filtration Rate 35.4, Glucose Level 126H, Uric Acid 5.0, Calcium Level 9.0, Magnesium Level 2.1, Pro-B-Type Natriuretic Peptide 4745H 11/12/19 04:50: White Blood Count 12.6H, Red Blood Count 3.04L, Hemoglobin 9.8L, Hematocrit 29.4L, Mean Corpuscular Volume 96, Mean Corpuscular Hemoglobin 32.3H, Mean Corpuscular Hemoglobin Concent 33.5, Red Cell Distribution Width 12.9, Platelet Count 367, Mean Platelet Volume 5.7L, Neutrophils (%) (Auto) 73.0, Lymphocytes ( %) (Auto) 17.5L, Monocytes (%) (Auto) 7.0, Eosinophils (%) (Auto) 1.9, Basophils (%) (Auto) 0.5, Sodium Level 139, Potassium Level 4.1, Chloride Level 105, Carbon Dioxide Level 28, Anion Gap 6, Blood Urea Nitrogen 17, Creatinine 1.4H, Estimat Glomerular Filtration Rate 35.4, Glucose Level 102, Calcium Level 8.7, Total Bilirubin 0.3, Aspartate Amino Transf (AST/SGOT) 19, Alanine Aminotransferase (ALT/SGPT) 14, Alkaline Phosphatase 116, Total Protein 6.1L, Albumin 2.4L, Globulin 3.7, Albumin/Globulin Ratio 0.6L Height (Feet): 4 Height (Inches): 9.00 Weight (Pounds): 132 General Appearance: no apparent distress EENT: normal ENT inspection Neck: supple Cardiovascular: normal rate Respiratory/Chest: decreased breath sounds Abdomen: normal bowel sounds, non tender, soft Tashi Hope MD November 12, 2019 09:06
--- NOTE | 2019-11-12 09:25 | General Progress Note ---
Assessment/Plan Status: stable Assessment/Plan: Cholecystitis/cholangitis Previous CBD stent, elevated CA 199 Hypertension Hypertensive heart disease Alzheimer's dementia Gout Failure to thrive Status post ERCP x2 elevated Liver enzymes leukocytosis postop pneumonia PLAN dc home off antibiotics resume home meds home health ordered impression, plan, and exam edited and reviewed in detail care discussed with RN Subjective Allergies: Coded Allergies: HYDROCODONE (Verified Allergy, Unknown, 06/13/19) Subjective improved wbc antibiotics off ID reviewed Objective Last 24 Hour Vital Signs Date Time Temp Pulse Resp B/P (MAP) Pulse Ox O2 Delivery O2 Flow Rate FiO2 11/12/19 09:00 Room Air 11/12/19 08:13 68 138/62 11/12/19 08:13 68 138/62 11/12/19 08:12 138/62 11/12/19 07:35 97.5 68 17 138/62 (87) 96 11/12/19 05:17 159/64 11/12/19 04:00 98.3 65 18 159/64 (95) 94 11/12/19 00:00 98.1 69 19 148/67 (94) 96 11/11/19 21:07 145/62 11/11/19 21:00 Room Air 11/11/19 20:00 98.6 66 18 120/60 (80) 95 11/11/19 16:00 97.9 67 18 141/59 (86) 96 11/11/19 13:56 141/64 11/11/19 11:47 97.6 63 20 141/64 (89) 97 Intake and Output 11/11/19 11/12/19 19:00 07:00 Intake Total 720 ml 400 ml Output Total 400 ml 850 ml Balance 320 ml -450 ml Intake Oral 720 ml 400 ml Output Urine Total 400 ml 850 ml Laboratory Tests 11/11/19 10:25: White Blood Count 15.1H, Red Blood Count 3.22L, Hemoglobin 10.4L, Hematocrit 31.0L, Mean Corpuscular Volume 96, Mean Corpuscular Hemoglobin 32.2H, Mean Corpuscular Hemoglobin Concent 33.4, Red Cell Distribution Width 13.1, Platelet Count 434, Mean Platelet Volume 6.0L, Neutrophils (%) (Auto) 70.4, Lymphocytes ( %) (Auto) 22.0, Monocytes (%) (Auto) 6.1, Eosinophils (%) (Auto) 1.0, Basophils (%) (Auto) 0.5, Sodium Level 136, Potassium Level 4.2, Chloride Level 102, Carbon Dioxide Level 25, Anion Gap 9, Blood Urea Nitrogen 14, Creatinine 1.4H, Estimat Glomerular Filtration Rate 35.4, Glucose Level 126H, Uric Acid 5.0, Calcium Level 9.0, Magnesium Level 2.1, Pro-B-Type Natriuretic Peptide 4745H 11/12/19 04:50: White Blood Count 12.6H, Red Blood Count 3.04L, Hemoglobin 9.8L, Hematocrit 29.4L, Mean Corpuscular Volume 96, Mean Corpuscular Hemoglobin 32.3H, Mean Corpuscular Hemoglobin Concent 33.5, Red Cell Distribution Width 12.9, Platelet Count 367, Mean Platelet Volume 5.7L, Neutrophils (%) (Auto) 73.0, Lymphocytes ( %) (Auto) 17.5L, Monocytes (%) (Auto) 7.0, Eosinophils (%) (Auto) 1.9, Basophils (%) (Auto) 0.5, Sodium Level 139, Potassium Level 4.1, Chloride Level 105, Carbon Dioxide Level 28, Anion Gap 6, Blood Urea Nitrogen 17, Creatinine 1.4H, Estimat Glomerular Filtration Rate 35.4, Glucose Level 102, Calcium Level 8.7, Total Bilirubin 0.3, Aspartate Amino Transf (AST/SGOT) 19, Alanine Aminotransferase (ALT/SGPT) 14, Alkaline Phosphatase 116, Total Protein 6.1L, Albumin 2.4L, Globulin 3.7, Albumin/Globulin Ratio 0.6L Height (Feet): 4 Height (Inches): 9.00 Weight (Pounds): 132 Objective WDWN NAD reduced breath sounds bilaterally with rhonchi [id number] without MRG NABS no distention no CCE nonfocal confused reviewed and edited Roel Jack MD November 12, 2019 09:25
--- NOTE | 2019-11-12 10:21 | Infectious Diseases Prog Note ---
Assessment/Plan Assessment/Plan antibiotics : none A 1. Cholangitis. She underwent a laparoscopic cholecystectomy. 2. Leukocytosis improving 3. Hypertension. 4. Gout. 5. Pneumonia s/p rx P 1. observe off antibiotics Subjective Constitutional: Denies: fever Respiratory: Denies: shortness of breath, dry cough Gastrointestinal/Abdominal: Denies: nausea, vomiting, diarrhea Musculoskeletal: Denies: pain Allergies: Coded Allergies: HYDROCODONE (Verified Allergy, Unknown, 06/13/19) Objective Vital Signs Last 24 Hour Vital Signs Date Time Temp Pulse Resp B/P (MAP) Pulse Ox O2 Delivery O2 Flow Rate FiO2 11/12/19 09:00 Room Air 11/12/19 08:13 68 138/62 11/12/19 08:13 68 138/62 11/12/19 08:12 138/62 11/12/19 07:35 97.5 68 17 138/62 (87) 96 11/12/19 05:17 159/64 11/12/19 04:00 98.3 65 18 159/64 (95) 94 11/12/19 00:00 98.1 69 19 148/67 (94) 96 11/11/19 21:07 145/62 11/11/19 21:00 Room Air 11/11/19 20:00 98.6 66 18 120/60 (80) 95 11/11/19 16:00 97.9 67 18 141/59 (86) 96 11/11/19 13:56 141/64 11/11/19 11:47 97.6 63 20 141/64 (89) 97 Height (Feet): 4 Height (Inches): 9.00 Weight (Pounds): 132 Respiratory/Chest: lungs clear Cardiovascular: normal rate, regular rhythm, no gallop/murmur Abdomen: soft, non tender, other - wound clean Extremities: no edema Laboratory Tests Test 11/11/19 10:25 11/12/19 04:50 White Blood Count 15.1 K/UL (4.8-10.8) H 12.6 K/UL (4.8-10.8) H Red Blood Count 3.22 M/UL (4.20-5.40) L 3.04 M/UL (4.20-5.40) L Hemoglobin 10.4 G/DL (12.0-16.0) L 9.8 G/DL (12.0-16.0) L Hematocrit 31.0 % (37.0-47.0) L 29.4 % (37.0-47.0) L Mean Corpuscular Volume 96 FL (80-99) 96 FL (80-99) Mean Corpuscular Hemoglobin 32.2 PG (27.0-31.0) H 32.3 PG (27.0-31.0) H Mean Corpuscular Hemoglobin Concent 33.4 G/DL (32.0-36.0) 33.5 G/DL (32.0-36.0) Red Cell Distribution Width 13.1 % (11.6-14.8) 12.9 % (11.6-14.8) Platelet Count 434 K/UL (150-450) 367 K/UL (150-450) Mean Platelet Volume 6.0 FL (6.5-10.1) L 5.7 FL (6.5-10.1) L Neutrophils (%) (Auto) 70.4 % (45.0-75.0) 73.0 % (45.0-75.0) Lymphocytes (%) (Auto) 22.0 % (20.0-45.0) 17.5 % (20.0-45.0) L Monocytes (%) (Auto) 6.1 % (1.0-10.0) 7.0 % (1.0-10.0) Eosinophils (%) (Auto) 1.0 % (0.0-3.0) 1.9 % (0.0-3.0) Basophils (%) (Auto) 0.5 % (0.0-2.0) 0.5 % (0.0-2.0) Sodium Level 136 MMOL/L (136-145) 139 MMOL/L (136-145) Potassium Level 4.2 MMOL/L (3.5-5.1) 4.1 MMOL/L (3.5-5.1) Chloride Level 102 MMOL/L (98-107) 105 MMOL/L (98-107) Carbon Dioxide Level 25 MMOL/L (21-32) 28 MMOL/L (21-32) Anion Gap 9 mmol/L (5-15) 6 mmol/L (5-15) Blood Urea Nitrogen 14 mg/dL (7-18) 17 mg/dL (7-18) Creatinine 1.4 MG/DL (0.55-1.30) H 1.4 MG/DL (0.55-1.30) H Estimat Glomerular Filtration Rate 35.4 mL/min (>60) 35.4 mL/min (>60) Glucose Level 126 MG/DL (74-106) H 102 MG/DL (74-106) Uric Acid 5.0 MG/DL (2.6-7.2) Calcium Level 9.0 MG/DL (8.5-10.1) 8.7 MG/DL (8.5-10.1) Magnesium Level 2.1 MG/DL (1.8-2.4) Pro-B-Type Natriuretic Peptide 4745 pg/mL (0-125) H Total Bilirubin 0.3 MG/DL (0.2-1.0) Aspartate Amino Transf (AST/SGOT) 19 U/L (15-37) Alanine Aminotransferase (ALT/SGPT) 14 U/L (12-78) Alkaline Phosphatase 116 U/L (46-116) Total Protein 6.1 G/DL (6.4-8.2) L Albumin 2.4 G/DL (3.4-5.0) L Globulin 3.7 g/dL Albumin/Globulin Ratio 0.6 (1.0-2.7) L Current Medications Medications (Trade) Dose Ordered Sig/Manny Route PRN Reason Start Time Stop Time Status Last Admin Dose Admin Acetaminophen (Tylenol) 650 mg Q4H PRN ORAL Mild Pain (Pain Scale 1-3) 11/03/19 14:00 11/22/19 13:59 11/10/19 13:48 Al Hydroxide/Mg Hydroxide (Mylanta) 15 ml Q6H PRN ORAL DYSPEPSIA 11/03/19 14:00 11/28/19 13:59 Allopurinol (Zyloprim) 100 mg DAILY ORAL 11/04/19 09:00 11/23/19 08:59 11/12/19 08:11 Amlodipine Besylate (Norvasc) 5 mg DAILY ORAL 11/04/19 09:00 12/01/19 18:59 11/12/19 08:13 Aspirin (Ecotrin) 81 mg DAILY ORAL 11/04/19 09:00 12/08/19 08:59 11/12/19 08:12 Brimonidine Tartrate (Alphagan) 1 drop BID BOTH EYES 11/05/19 09:00 02/03/20 08:59 11/12/19 08:11 Docusate Sodium (Colace) 100 mg TWICE A DAY ORAL 11/03/19 18:00 11/28/19 17:59 11/12/19 08:13 Ferrous Sulfate (Feosol) 325 mg DAILY ORAL 11/04/19 09:00 01/22/20 08:59 11/12/19 08:12 Hydralazine HCl (Apresoline) 25 mg Q6H PRN ORAL SBP>150 11/04/19 03:00 02/02/20 02:59 11/10/19 23:28 Hydralazine HCl (Apresoline) 50 mg Q8HR ORAL 11/04/19 14:00 02/02/20 13:59 11/12/19 05:17 Losartan Potassium (Cozaar) 100 mg DAILY ORAL 11/04/19 09:00 11/23/19 08:59 11/12/19 08:12 Magnesium Hydroxide (Mom) 30 ml BIDPRN PRN ORAL Constipation 11/03/19 14:00 12/01/19 13:59 11/07/19 06:10 Memantine (Namenda) 5 mg DAILY ORAL 11/04/19 09:00 11/23/19 08:59 11/12/19 08:11 Metoprolol Succinate (Toprol XL) 25 mg DAILY ORAL 11/04/19 09:00 02/02/20 08:59 11/12/19 08:13 Ondansetron HCl (Zofran) 4 mg Q6H PRN IVP Nausea & Vomiting 11/03/19 14:00 11/28/19 13:59 11/04/19 23:46 Pantoprazole (Protonix) 40 mg DAILY ORAL 11/04/19 09:00 11/23/19 08:59 11/12/19 08:12 Sennosides (Senokot) 8.6 mg BIDPRN PRN ORAL Constipation 11/03/19 14:00 12/01/19 13:59 11/04/19 20:19 Maryjane Cheng MD November 12, 2019 10:21
--- NOTE | 2019-11-12 11:29 | Surgery Progress Note ---
Surgery Progress Note Subjective Procedure Performed lap rosaura lap lysis of adhesion Additional Comments labs improved off abx d/c planning Objective Last 24 Hour Vital Signs Date Time Temp Pulse Resp B/P (MAP) Pulse Ox O2 Delivery O2 Flow Rate FiO2 11/12/19 09:00 Room Air 11/12/19 08:13 68 138/62 11/12/19 08:13 68 138/62 11/12/19 08:12 138/62 11/12/19 07:35 97.5 68 17 138/62 (87) 96 11/12/19 05:17 159/64 11/12/19 04:00 98.3 65 18 159/64 (95) 94 11/12/19 00:00 98.1 69 19 148/67 (94) 96 11/11/19 21:07 145/62 11/11/19 21:00 Room Air 11/11/19 20:00 98.6 66 18 120/60 (80) 95 11/11/19 16:00 97.9 67 18 141/59 (86) 96 11/11/19 13:56 141/64 11/11/19 11:47 97.6 63 20 141/64 (89) 97 I&O Intake and Output 11/11/19 11/12/19 19:00 07:00 Intake Total 720 ml 400 ml Output Total 400 ml 850 ml Balance 320 ml -450 ml Intake Oral 720 ml 400 ml Output Urine Total 400 ml 850 ml Dressing: dry, other Wound: clean, other Drains: other Cardiovascular: RSR Respiratory: decreased breath sounds Abdomen: soft, non-tender, present bowel sounds Extremities: no edema, no tenderness, no cyanosis Laboratory Tests Test 11/12/19 04:50 White Blood Count 12.6 K/UL (4.8-10.8) H Red Blood Count 3.04 M/UL (4.20-5.40) L Hemoglobin 9.8 G/DL (12.0-16.0) L Hematocrit 29.4 % (37.0-47.0) L Mean Corpuscular Volume 96 FL (80-99) Mean Corpuscular Hemoglobin 32.3 PG (27.0-31.0) H Mean Corpuscular Hemoglobin Concent 33.5 G/DL (32.0-36.0) Red Cell Distribution Width 12.9 % (11.6-14.8) Platelet Count 367 K/UL (150-450) Mean Platelet Volume 5.7 FL (6.5-10.1) L Neutrophils (%) (Auto) 73.0 % (45.0-75.0) Lymphocytes (%) (Auto) 17.5 % (20.0-45.0) L Monocytes (%) (Auto) 7.0 % (1.0-10.0) Eosinophils (%) (Auto) 1.9 % (0.0-3.0) Basophils (%) (Auto) 0.5 % (0.0-2.0) Sodium Level 139 MMOL/L (136-145) Potassium Level 4.1 MMOL/L (3.5-5.1) Chloride Level 105 MMOL/L (98-107) Carbon Dioxide Level 28 MMOL/L (21-32) Anion Gap 6 mmol/L (5-15) Blood Urea Nitrogen 17 mg/dL (7-18) Creatinine 1.4 MG/DL (0.55-1.30) H Estimat Glomerular Filtration Rate 35.4 mL/min (>60) Glucose Level 102 MG/DL (74-106) Calcium Level 8.7 MG/DL (8.5-10.1) Total Bilirubin 0.3 MG/DL (0.2-1.0) Aspartate Amino Transf (AST/SGOT) 19 U/L (15-37) Alanine Aminotransferase (ALT/SGPT) 14 U/L (12-78) Alkaline Phosphatase 116 U/L (46-116) Total Protein 6.1 G/DL (6.4-8.2) L Albumin 2.4 G/DL (3.4-5.0) L Globulin 3.7 g/dL Albumin/Globulin Ratio 0.6 (1.0-2.7) L Plan Problems: (1) Choledocholithiasis Assessment & Plan: Gallbladder is filled with sludge and also demonstrates gallstones. There is distended and there is trace pericholecystic fluid. Sonographic August's sign is negative. Common bile duct measures 20 mm in diameter. It is filled with debris. There is marked intrahepatic biliary ductal dilatation. Liver demonstrates normal echogenicity, no focal abnormality. Portal vein and hepatic veins are patent. Pancreas is unremarkable. The pancreatic duct is dilated, however, measuring 4 mm in diameter. Spleen is unremarkable. Left kidney measures 9.1 cm in length. Right kidney measures 9.3 cm length. Both kidneys demonstrate increased echogenicity. There is no hydronephrosis. There are bilateral renal cysts . Abdominal aorta is obscured by bowel gas . Biliary ductal dilatation is increased from prior study (2) Acute cholangitis Assessment & Plan: discussed with GI patient currently stable and not septic afebrile, HD Stable labs reviewed and improving hold on ERCP or stent exchange for now no acute surgical intervention given age and status abx iv fluids okay for diet trend labs started ABX discussed with GI may need ERCP / stent change will follow with recs thank you discussed with GI. plan for stent change. would not recommend surgery at this time given age, condition, and overall status would benefit from metallic stent at some point ERCP noted stones, sludge and pus noted discussed with GI. recommend cholecystectomy but high risk will discuss with patient and daughter s/p lap rosaura doing well d/c planning sob, desaturation, a fib fluids stopped labs noted cont abx okay for diet tele transfer Labs improving exam stable Bowel regimen improving may consider repeat CT scan . did place surgicel in OR in liver bed so will look like abscess there but unlikely monitor off abx discussed with GI and ID. clinically improving will monitor labs d/c planning (3) Obstructive jaundice Jay Kemp November 12, 2019 11:29
[2019-11-12 12:00] VITALS: BP 141/61
[2019-11-12 14:02] VITALS: BP 141/61
--- NOTE | 2019-11-13 00:44 | Progress Note ---
DATE: 11/12/2019 CARDIOLOGY PROGRESS NOTE SUBJECTIVE: The patient has no distress. She is tolerating diet and medications. No nausea or vomiting. OBJECTIVE: VITAL SIGNS: Blood pressure 138/62, pulse 68, respirations 17. CARDIAC: Regular. Normal S1, S2 with no murmur. ABDOMEN: Soft. LUNGS: Clear. EXTREMITIES: No edema. IMPRESSION: 1. No recurring atrial fibrillation. 2. Nonsustained atrial ectopy. 3. Hypertensive heart disease. 4. Status post laparoscopic cholecystectomy, recovered cholangitis. PLAN: Continue beta-rebeca. No plans for anticoagulation. Outpatient follow up. Discharge medication regimen reviewed. Yefri Galvan M.D. DR: FRANCI JOB#: [id number] CC:
--- NOTE | 2019-11-13 13:22 | Discharge Summary ---
Discharge Summary Discharge Summary _ DATE OF ADMISSION: 10/23/2019 DATE OF DISCHARGE: 11/12/2019 DISCHARGED BY: Dr Jack REASON FOR ADMISSION: 88 years old female with past medical history of cholecystitis, cholangitis, status post ERCP with common bile duct stent placement, elevated CA-19-9, hypertensive heart disease, gout, Alzheimer's dementia, presented with right upper quadrant discomfort and malaise. Upon evaluation patient was afebrile. Blood pressure was elevated 171/58. LFTs were elevated. Upon evaluation laboratory work-up revealed no leukocytosis ,hemoglobin 11.4, hematocrit 33.8 ,platelet count 167. Stable electrolytes. BUN 27, creatinine 1.5. Glucose 157. AST 127, ALT 176, alkaline phosphatase 583. Lipase 161. Albumin 2.3. Urinalysis revealed no evidence of urinary tract infection. Abdominal ultrasound demonstrated increasingly dilated extrahepatic and intrahepatic bile ducts, despite interval placement of endobiliary stent. Possible stent dysfunction . Distended gallbladder , containing sludge and stones. Trace pericholecystic fluid raised possibility of acute cholecystitis. Echogenic atrophic kidneys , consistent with medical renal disease. Patient started on the IV fluids , received analgesic and antiemetic and admitted for further management for choledocholithiasis and acute cholangitis, possible acute cholecystitis. CONSULTANTS: production weigher Dr. Galvan ID specialist Dr. Cheng GI specialist Dr. Hope surgery Dr. Kemp [facility] COURSE: Patient was admitted and kept n.p.o. on the IV hydration. Pain management was addressed. Symptomatic treatment provided. Antiemetic administered as needed. Home medication resumed. GI specialist seen and evaluated patient., and recommended ERCP. Echocardiogram demonstrated preserved ejection fraction of 60% with no evidence of left ventricular hypertrophy. Right ventricular systolic pressure of 50 consistent with moderate pulmonary hypertension. Mild to moderate aortic regurgitation and mild mitral regurgitation.. Patient was cleared for procedure. Patient undergone ERCP on 10/27 with stent removal ,stone removal and insertion of two new stents. During procedure was found multiply stones , sludge and pus in the common bile duct , status post clearing. Findings were discussed with general surgeon . Patient started on oral Ursodiol. Patient was recommended to repeat ERCP in 3 months with stent removal or exchange. Patient subsequently undergone on 10/28 laparoscopic cholecystectomy with laparoscopic lysis of adhesion. Patient tolerated procedure well. Postoperatively pain management was addressed. Patient slowly started on diet as tolerated. Supplemental oxygen provided and titrated to keep pulse oximetry above 90%. Chest x-ray demonstrated right lower lobe atelectasis and consolidation. Renal parameters and electrolytes were closely monitored, electrolytes corrected as needed , and nephrotoxic's were avoided . Magnesium was replaced . Creatinine reached the highest level of 2.0 , then trended down to 1.4. Patient noted to have atrial fibrillation with rapid ventricular response. Patient spontaneously converted to sinus arrhythmia with atrial ectopy. Beta-blockade continued. DVT prophylaxis provided. Antihypertensive regimen further optimized to keep blood pressure under control. Patient was on multiple antihypertensive medication regimen, including hydralazine, amlodipine, losartan, metoprolol. Hydralazine was on board additionally for blood pressure spikes. First troponin elevated 0.117, next troponin trended down to normal. Antiplatelet therapy with aspirin continued. Volumes were closely monitored. Patient received spot diuresis. Pro BNP trended down from initial 79509 down to 4745. No recurrent atrial fibrillation. Nonsustained atrial ectopy noted. No plans for anticoagulation. Beta-blockade continued. GI prophylaxis provided. Bowel regimen instituted. Patient was mobilized as tolerated with help of physical therapist. Fall precautions maintained. Urine culture was negative. Patient had persistent leukocytosis. Per ID specialist, leukocytosis was due to cholangitis. Patient was treated with empiric antibiotics . patient also was treated for pneumonia. Prior to discharge no fevers, leukocytosis trending down. LFT were closely monitored . Both AST and ALT down to normal prior to discharge. Patient will need outpatient follow-up with ERCP in 8 weeks to remove or exchange stents. Hemoglobin and hematocrit were closely monitored with goal to keep hemoglobin above 7. Prior to discharge hemoglobin 9.8, hematocrit 29.4. Protein supplements provided as per registered nurse practitioner recommendation. Patient clinically stabilized and was ready for discharge home with home health services. FINAL DIAGNOSES: Choledocholithiasis Acute cholangitis Cholecystitis Obstructive jaundice Transaminitis Status post ERCP with removal of old stent, stone removal and two new stents placement Status post laparoscopic cholecystectomy with laparoscopic lysis of adhesion Leukocytosis- trending down Pneumonia, status post treatment Acute on chronic diastolic congestive heart failure Chronic kidney disease stage V Paroxysmal atrial fibrillation with rapid ventricular response Acute myocardial ischemia Postoperative anemia Hypertensive heart disease with labile blood pressure Hypomagnesemia Severe protein calorie malnutrition Alzheimer dementia Gout Elevated CEA 19-9 DISCHARGE MEDICATIONS: See Medication Reconciliation list. DISCHARGE INSTRUCTIONS: Patient was discharged home with home health services. Follow up with primary care provider in one week. Follow up with GI specialist in 8 weeks for stent removal versus exchange. Patient to follow-up as outpatient with production weigher. I have been assigned to dictate discharge summary for this account. I was not involved in the patient's management. Janessa Perez NP November 13, 2019 13:22
--- NOTE | 2019-11-14 16:30 | Diagnostic Imaging Report ---
Procedure: XRAY Chest 1v Reason for study: Shortness of breath. Comparison films: 11/03/2019. FINDINGS: Limited inspiration with low lung volumes again noted. Vascularity is normal. Basilar densities not significantly changed either atelectasis or infiltrate . Cardiomegaly stable. There may be trace effusions. The bony thorax appear unremarkable. IMPRESSION: No change compared previous exam with limited inspiration and low lung volumes as well as bibasilar atelectasis versus infiltrate.
== END 2019-11-12 17:28 | disposition home health service (06) | DRG 417 ==
LOC: EMR 13:16 → 3E 14:41 → EDBEDREQ 17:58 → 2E 11-01 16:52 → 3E 11-03 13:16
PROC: 0FC98ZZ Extirpation of Matter from Common Bile Duct, Via Natural or Artificial Opening Endoscopic (ICD-10-PCS; principal; 2019-10-28 07:42)
PROC: 0FPB8DZ Removal of Intraluminal Device from Hepatobiliary Duct, Via Natural or Artificial Opening Endoscopic (ICD-10-PCS; principal; 2019-10-28 07:42)
PROC: BF10YZZ Fluoroscopy of Bile Ducts using Other Contrast (ICD-10-PCS; principal; 2019-10-28 07:42)
PROC: 0F798DZ Dilation of Common Bile Duct with Intraluminal Device, Via Natural or Artificial Opening Endoscopic (ICD-10-PCS; principal; 2019-10-28 07:42)
PROC: 0FT44ZZ Resection of Gallbladder, Percutaneous Endoscopic Approach (ICD-10-PCS; 2019-10-29)
PROC: 0DNW4ZZ Release Peritoneum, Percutaneous Endoscopic Approach (ICD-10-PCS; 2019-10-29)
DX: K80.66 Calculus of gallbladder and bile duct with acute and chronic cholecystitis without obstruction (principal); I50.33 Acute on chronic diastolic (congestive) heart failure; J18.9 Pneumonia, unspecified organism; E43 Unspecified severe protein-calorie malnutrition; K83.09 Other cholangitis; I13.2 Hypertensive heart and chronic kidney disease with heart failure and with stage 5 chronic kidney disease, or end stage renal disease; N18.5 Chronic kidney disease, stage 5; I97.191 Other postprocedural cardiac functional disturbances following other surgery; E87.1 Hypo-osmolality and hyponatremia; F02.80 Dementia in other diseases classified elsewhere, unspecified severity, without behavioral disturbance, psychotic disturbance, mood disturbance, and anxiety; R62.7 Adult failure to thrive; G30.9 Alzheimer's disease, unspecified; I12.9 Hypertensive chronic kidney disease with stage 1 through stage 4 chronic kidney disease, or unspecified chronic kidney disease; K66.0 Peritoneal adhesions (postprocedural) (postinfection); I48.0 Paroxysmal atrial fibrillation; D72.829 Elevated white blood cell count, unspecified; M10.9 Gout, unspecified; Z68.28 Body mass index [BMI] 28.0-28.9, adult; R33.9 Retention of urine, unspecified; D50.0 Iron deficiency anemia secondary to blood loss (chronic); I25.9 Chronic ischemic heart disease, unspecified; R97.0 Elevated carcinoembryonic antigen [CEA]
CPT/HCPCS: 36415; 71045; 74328; 76000; 76700; 80048; 80053; 81001; 81003; 82150; 82248; 82962; 83605; 83690; 83735; 83880; 84484; 84550; 85007; 85025; 85610; 85651; 85730; 86140; 86850; 86900; 86901; 87086; 93306; 94003; 94150; 96361; 96374; 96375; 99285; J2405; J2710; J7030; J8499